=== PATIENT | female | born 1945 | race Caucasian/White ===

== ENCOUNTER → 2016-05-26 | Outpatient (CLI) | payer MEDICARE ==
[2016-05-26 09:43] LABS: ALT 39 U/L (9-52); AST 42 U/L (14-36); Cholesterol 174 mg/dL (<200); HDL Cholesterol 61 mg/dL (40-60); Triglycerides 100 mg/dL (<150)
== END ==
LOC: LABWHC1 08:26
PROVIDERS: ATTEND Internal Medicine Cardiovascular Disease
DX: I25.10 Atherosclerotic heart disease of native coronary artery without angina pectoris (principal); E78.5 Hyperlipidemia, unspecified
CPT/HCPCS: 36415; 80061; 84450; 84460

== ENCOUNTER → 2017-05-19 | Outpatient (CLI) | payer MEDICARE ==
--- NOTE | 2017-05-19 13:54 | BD ---
EXAMINATION TYPE: MG DEXA axial skeleton. DATE OF EXAM: 05/19/2017 COMPARISON: 08.17.2012 CLINICAL HISTORY: 72 YR OLD FEMALE...ICD-10 CODE: Z13.820 OSTEOPOROSIS SCREEN Height: 63.5 Weight: 188 FRAX RISK QUESTIONS: Alcohol (3 or more units per day): NO Family History (Parent hip fracture): YES GRANDMOTHER WITH BROKEN HIP Glucocorticoids (More than 3mos): NO (Ex: prednisone, prednisolone, methylprednisolone, dexamethasone, and hydrocortisone). History of Fracture in Adulthood: YES Secondary Osteoporosis: YES 1. Type 1 Diabetes: NO 2. Hyperthyroidism: NO 3. Menopause before 45: YES 4. Malnutrition: NO 5. Chronic liver disease: NO Rheumatoid Arthritis: NO Current Tobacco Use: NO, QUIT 15 YRS AGO. RISK FACTORS HISTORY OF: RT TIB/FIB....AT AGE 70 YRS OLD History of Wrist Fracture: RT WRIST AT AGE 32 Family History of Osteoporosis: YES, HER GRANDMOTHER...WITH BROKEN HIP Active: YES Diet low in dairy products/other sources of calcium: NO Postmenopausal woman: AT 45 YRS OLD, NATURAL Hyperparathyroidism: NO Adrenal Insufficiency: NO MEDICATIONS: Osteoporosis Medications: FOSAMAX IN THE PAST....STOPPED OVER 10 YRS AGO Additional Medications: BP MEDS, LIPITOR, VIT D, Additional History: HEART DISEASE, SKIN CA ON LEG, OPEN HEART SURG. EXAM MEASUREMENTS: Bone mineral densitometry was performed using the [employer] System. Bone mineral density as measured about the Lumbar spine is: ----- L1-L4(G/cm2): 1.158 T Score Values are as follows: ----- L1: -1.4 ----- L2: -1.0 ----- L3: 0.9 ----- L4: 0.4 ----- L1-L4: -0.2 Bone mineral density has: Increased 4.9% since study of: 08.17.2012 Bone mineral density about the R hip (g/cm2): 0.969 Bone mineral density about the L hip (g/cm2): 1.034 T Score values are as follows: -----R Neck: -0.9 -----L Neck: -1.1 -----R Total: -0.3 -----L Total: 0.2 Bone mineral density has: Decreased -5.0% since study of: 08.17.2012 FRAX%S: THERE IS A 20.9% CHANCE OF A MAJOR OSTEOPOROTIC FX AND A 2.9% FOR HIP FX.....PROBABILITY OF FX IN 10 YRS TIME IMPRESSION: Osteopenia (T Score between -2.5 and -1) with regards to the left hip and lumbar spine. There is slightly increased risk of fracture and the patient may be considered for treatment. Re-Screen 2-5 years. NOTE: T-SCORE=SD OF THE YOUNG ADULT MEAN.
--- NOTE | 2017-05-21 09:13 | MM ---
Reason for exam: screening (asymptomatic). Last mammogram was performed 2 years ago. History: Patient is postmenopausal, has history of other cancer at age 71, and is nulliparous. Took estrogen for 15 years 6 months beginning at age 45. Took progesterone for 15 years 6 months beginning at age 45. Physical Findings: A clinical breast exam by your physician is recommended on an annual basis and results should be correlated with mammographic findings. MG 3D Screening Mammo W/Cad Bilateral CC and MLO view(s) were taken. Prior study comparison: May 28, 2015, bilateral MG screening mammo w CAD. October 26, 2013, bilateral MG screening mammo w CAD. The breast tissue is heterogeneously dense. This may lower the sensitivity of mammography. No significant changes when compared with prior studies. ASSESSMENT: Benign, BI-RAD 2 RECOMMENDATION: Routine screening mammogram of both breasts in 1 year.
== END | disposition home or self-care (01) ==
LOC: RADMAMWWP 12:42
PROVIDERS: ATTEND Obstetrics & Gynecology
DX: Z12.31 Encounter for screening mammogram for malignant neoplasm of breast (principal); M85.88 Other specified disorders of bone density and structure, other site
CPT/HCPCS: 77063; 77067; 77080

== ENCOUNTER → 2017-12-09 | Outpatient (CLI) | payer MEDICARE ==
[2017-12-09 17:47] LABS: Albumin 4.1 g/dL (3.80-4.90); Albumin/Globulin Ratio 1.78 (1.20-2.10); Bilirubin, Conjugated 0.2 mg/dL (0.20-0.40); Bilirubin,Unconjugated 0.4 mg/dL; Globulin 2.3 g/dL (2.1-3.7); LDL Cholesterol,Calculated 98.4 mg/dL (0.0-131.0); Total Bilirubin 0.6 mg/dL (0.3-1.2); Total Protein 6.4 g/dL (6.2-8.2); VLDL Calculation 25.6 mg/dL (5.00-40.00)
== END | disposition home or self-care (01) ==
LOC: LABWHC1 08:20
PROVIDERS: ATTEND Internal Medicine Cardiovascular Disease
DX: I25.10 Atherosclerotic heart disease of native coronary artery without angina pectoris (principal); E78.5 Hyperlipidemia, unspecified
CPT/HCPCS: 36415; 80061; 80076

== ENCOUNTER 2018-05-01 09:57 | Emergency (ER) | payer MEDICARE ==
[2018-05-01 10:02] VITALS: RESP 18
--- NOTE | 2018-05-01 10:48 | XR ---
EXAMINATION TYPE: XR wrist complete RT , 4 VIEWS DATE OF EXAM ORDERED: 05/01/2018 HISTORY: Pain following trauma. COMPARISON: None. FINDINGS: There is a fracture of the distal radius and ulna with posterior angulation and mild displ acement. IMPRESSION: COLLES TYPE FRACTURE OF THE DISTAL RADIUS AND ULNA.
--- NOTE | 2018-05-01 11:18 | ED ---
Upper Extremity HPI - General Chief Complaint: Extremity Injury, Upper Stated Complaint: Wrist Injury-fall Source: patient Mode of arrival: ambulatory Limitations: no limitations - History of Present Illness Initial Comments: This is a 72-year-old female the ER status post fall trip and fall on ice. Patient is no medical medical history, no fracture history. No loss of consci ousness did not hit head she is complaining of right hand pain right arm pain right wrist pain. Patient is not on blood thinners. No signs of shortness of breath or chest pain prior MD Complaint: Injury to:: right, wrist -: hour(s) Other Extremity Injury: Wrist: Right (Deformity) Other Injuries: none Handedness: right Place: home Severity scale (1-10): 6 Improves With: immobilization, medication Worsens With: movement of extremity Context: fall, direct blow Associated Symptoms: denies other symptoms - Related Data Home Medications Medication Instructions Recorded Confirmed Nitroglycerin Sl Tabs [Nitrostat] 0.4 mg SUBLINGUAL Q5M PRN 01/17/14 05/01/18 Atorvastatin [Lipitor] 10 mg PO HS 05/01/18 05/01/18 Losartan Potassium [Cozaar] 25 mg PO DAILY 05/01/18 05/01/18 Metoprolol Succinate (ER) [Toprol 25 mg PO DAILY 05/01/18 05/01/18 Xl] Previous Rx's Medication Instructions Recorded Aspirin 81 mg PO DAILY #30 chew 01/23/14 Allergies Allergy/AdvReac Type Severity Reaction Status Date / Time clindamycin AdvReac Nausea & Verified 05/01/18 10:32 Vomiting & Diarrhea codeine AdvReac Unknown Verified 05/01/18 10:32 latex AdvReac Itching Verified 05/01/18 10:32 streptomycin AdvReac Nausea & Verified 05/01/18 10:32 Vomiting & Diarrhea Review of Systems ROS Statement: Those systems with pertinent positive or pertinent negative responses have been documented in the HPI. ROS Other: All systems not noted in ROS Statement are negative. Past Medical History Additional Past Medical History / Comment(s): SHORTNESS OF BREATH, CHEST TIGHTNESS. History of Any Multi-Drug Resistant Organisms: MRSA Date of last positivie culture/infection: infected drain 20+ years prior Past Surgical History: Appendectomy, Cholecystectomy, Tubal Ligation Additional Past Surgical History / Comment(s): right wrist fracture as a child. right foot fracture. fatty cyst removed from under right arm. appendectomy, cholecystectomy Past Anesthesia/Blood Transfusion Reactions: No Reported Reaction Past Psychological History: No Psychological Hx Reported Smoking Status: Former smoker Past Alcohol Use History: None Reported Past Drug Use History: None Reported General Exam - General Exam Comments Initial Comments: Significant right wrist deformity, edema. Pulses are equal neurovascularly intact Limitations: no limitations General appearance: alert, in no apparent distress Head exam: Present: atraumatic, normocephalic, normal inspection Eye exam: Present: normal appearance, PERRL, EOMI. Absent: scleral icterus, conjunctival injection, periorbital swelling ENT exam: Present: normal exam, mucous membranes moist Neck exam: Present: normal inspection. Absent: tenderness, meningismus, lymphadenopathy Respiratory exam: Present: normal lung sounds bilaterally. Absent: respiratory distress, wheezes, rales, rhonchi, stridor Cardiovascular Exam: Present: regular rate, normal rhythm, normal heart sounds. Absent: systolic murmur, diastolic murmur, rubs, gallop, clicks GI/Abdominal exam: Present: soft, normal bowel sounds. Absent: distended, tenderness, guarding, rebound, rigid Extremities exam: Present: normal inspection, full ROM, normal capillary refill. Absent: tenderness, pedal edema, joint swelling, calf tenderness Back exam: Present: normal inspection Neurological exam: Present: alert, oriented X3, CN II-XII intact Psychiatric exam: Present: normal affect, normal mood Skin exam: Present: warm, dry, intact, normal color. Absent: rash Course Vital Signs 05/01/18 09:59 Temperature 97.7 F Pulse Rate 57 L Respiratory 18 Rate Blood Pressure 160/69 O2 Sat by Pulse 98 Oximetry - Reevaluation(s) Reevaluation #1: 05/01/18 11:39 Medical records reviewed Reevaluation #2: 05/01/18 11:39 Patient is improved pain control with hematoma block Procedures - Orthopedic Fracture Reduction Fracture #1 Consent Obtained: verbal consent Side: right Fracture Reduction Location: radius, ulna Analgesia: hematoma block Technique: direct manipulation Post Reduction X-rays Demonstrate: acceptable reduction Post-Reduction Neuro Exam: intact Post-Reduction Vascular Exam: intact Splint Applied: Yes Patient Tolerated Procedure: well Medical Decision Making - Medical Decision Making 72 female the ER with slip and fall resulting in right Colles' fracture. Fracture was displaced, with hematoma block fracture was reduced and patient can be discharged home - Radiology Data Radiology results: report reviewed (X-ray right wrist positive for Colles' fracture with distal displacement shortening comminution, XR post reduction shows acceptable reduction), image reviewed Disposition Clinical Impression: Right wrist fracture Disposition: HOME SELF-CARE Instructions (If sedation given, give patient instructions): Wrist Fracture in Adults (ED) Is patient prescribed a controlled substance at d/c from ED?: No Referrals: Olman Sommers MD [Primary Care Provider] - 1-2 days
[2018-05-01] MEDS ORDERED: LIDOCAINE 1% INJ 10MG/ML (20 ML MDV) SQ STA (11:20)
--- NOTE | 2018-05-01 12:32 | XR ---
EXAMINATION TYPE: XR wrist limited RT , 2 VIEWS DATE OF EXAM ORDERED: 05/01/2018 HISTORY: Post reduction. COMPARISON: Previous study of earlier today. FINDINGS: There is immobilized in a fiberglass cast. There is been a partial reduction of the patien t's Colles fracture. There continues be mild posterior angulation and mild displacement. IMPRESSION: PARTIAL REDUCTION OF THE PATIENT'S COLLES FRACTURE.
[2018-05-01 12:33] VITALS: BP 129/73; PULSE 77; TEMP 98
== END 2018-05-01 12:33 | disposition home or self-care (01) ==
LOC: EC 09:57
DX: S52.531A Colles' fracture of right radius, initial encounter for closed fracture (principal); Z87.891 Personal history of nicotine dependence; Z88.1 Allergy status to other antibiotic agents; Z88.5 Allergy status to narcotic agent; Z91.040 Latex allergy status; Z79.899 Other long term (current) drug therapy; Z86.14 Personal history of Methicillin resistant Staphylococcus aureus infection; Z86.79 Personal history of other diseases of the circulatory system; Z87.81 Personal history of (healed) traumatic fracture; Z98.890 Other specified postprocedural states; W00.0XXA Fall on same level due to ice and snow, initial encounter
CPT/HCPCS: 73100; 73110; 99283; 25605; J2001

== ENCOUNTER → 2018-05-06 | Outpatient (CLI) | payer MEDICARE | END | disposition home or self-care (01) | LOC: LABPAT 10:25 | PROVIDERS: ATTEND Anesthesiology | DX: Z01.818 Encounter for other preprocedural examination (principal) | CPT/HCPCS: 93005 ==

== ENCOUNTER 2018-05-07 10:48 | Day surgery (SDC) | payer MEDICARE ==
[~2018-05-07 10:48] MED LIST: DEXAMETHASONE SOD PHOSPHATE 10 MG/ML 1 ML VIAL IV ONE; HYDROmorphone 0.5 MG/0.5 ML SYRINGE IVP PRN; LACTATED RINGERS 1,000 ML IV SCH; LIDOCAINE 1% 20 ML VIAL (10MG/ML) FOR IV START INTRADERMA PRN; MIDAZOLAM 2 MG/2 ML VIAL IV PRN; ONDANSETRON 4 MG/2 ML VIAL IVP ONE; SCOPOLAMINE 1.5MG/72HR PATCH TRANSDERM ONE; ceFAZolin IN SWFI 2 GM/20 ML SYRINGE IVP ONE
[2018-05-07] MEDS ORDERED: fentaNYL (PF) 50 MCG/ML 2 ML AMP IV ONE (12:05)
--- NOTE | 2018-05-07 12:20 | P.ONQ ---
Anesthesiology Proc Note - PNB - Peripheral Nerve Block Performed Right Axillary Single Time Out Performed: Yes ([id number]) Procedure Start Time: 12:05 Procedure Stop Time: 12:10 Indication: Acute Post-Operative Pain, Dx/Pain Location (Right Wrist Pain), Requested by physician Sedation Type: Sedate with meaningful contact maintained Preparation: Sterile Prep Position: Supine Catheter: None Needle Types: On-Q Needle Size: 50mm (2") Needle Gauge: 21 Technique: Ultrasound Injectate: Other (see comment) (15ml 0.5% Ropivacaine + 6 ml 2% Lidocaine with 1:200,000 epi + 4mg Dexamethasone) Blood Aspirated: No Pain Paresthesia on Injection Noted: No Resistance on Injection: Normal Events: Uneventful and Well Tolerated
[2018-05-07] MEDS ORDERED: LIDOCAINE 1% INJ 10MG/ML (20 ML MDV) ONE (12:41)
[2018-05-07] MEDS ORDERED: fentaNYL (PF) 50 MCG/ML 2 ML AMP ONE (12:41)
[2018-05-07] MEDS ORDERED: ROPIVACAINE 5 MG/ML 30 ML VIAL ONE (12:41)
[2018-05-07] MEDS ORDERED: ePHEDrine SULFATE/0.9% NACL/PF 50 MG/5 ML SYRINGE IV ONE (12:41)
[2018-05-07] MEDS ORDERED: PHENYLEPHRINE-0.9% NACL SYG 1 MG/10 ML SYRINGE ONE (12:41)
[2018-05-07] MEDS ORDERED: MIDAZOLAM 2 MG/2 ML VIAL ONE (12:41)
[2018-05-07] MEDS ORDERED: PROPOFOL 10 MG/ML 20 ML VIAL IV ONE (12:41)
[2018-05-07] MEDS ORDERED: LACTATED RINGERS 1,000 ML IV ONE (13:39)
[2018-05-07] MEDS ORDERED: BUPIVACAIN-EPI 0.5%-1:200,000 30 ML VIAL SQ ONE ×2 (14:29)
--- NOTE | 2018-05-07 14:59 | FL ---
EXAMINATION TYPE: FL guidance operating room, XR wrist limited RT DATE OF EXAM: 05/07/2018 CLINICAL HISTORY: Right wrist fracture. TECHNIQUE: Fluoroscopy. Limited intraoperative views right wrist. COMPARISON: Right wrist x-ray May 01, 2018. FINDINGS: Fluoroscopic guidance was provided during open reduction internal fixation procedure perfo rmed by Dr. Heard. A total of 41 seconds of fluoroscopic time was utilized during the procedure and 6 spot fluoroscopic intraoperative images are acquired. Images acquired show placement of dorsal fixating plate through comminuted fractures distal radial me ta-epiphysis with satisfactory alignment seen on intraoperative images obtained. IMPRESSION: As Above.
[2018-05-07 15:20] VITALS: RESP 16
--- NOTE | 2018-05-07 15:43 | P.OP ---
Date of Procedure: 05/07/18 Preoperative Diagnosis: Displaced, intra-articular right distal radius fracture Postoperative Diagnosis: Displaced, intra-articular right distal radius fracture Procedure(s) Performed: Open reduction and internal fixation of intra-articular right distal radius fracture (greater than 3 fragments) Implants: AcuLoc-2 locking volar distal radius plate (right, narrow) with locking, variable angle and cortical screws Anesthesia: MAC, regional, local Surgeon: Brian Heard Animal Geneticist #1: Jami Linder Estimated Blood Loss (ml): 5 IV fluids (ml): 700 Pathology: none sent Condition: stable Disposition: PACU Indications for Procedure: The patient is a 73 year-old female who sustained an injury to her right wrist, resulting in a displaced distal radius fracture. Surgical treatment was recommended. Risks and benefits were discussed in the office and reviewed in preop. Questions were invited and answered. The patient expressed understanding and wished to proceed with surgery. Consent forms were signed. The operative site was confirmed and marked. Description of Procedure: The patient was administered a regional nerve block by the anesthesia team then brought to the operating suite. The patient was positioned supine with the operative limb on an arm board. All bony prominences were well padded. Anesthesia was administered uneventfully. Prophylactic IV antibiotics were administered. A tourniquet was placed on the operative arm which was then prepped and draped in standard, sterile fashion. A timeout was performed which confirmed the patient, the operative side, the site and the procedure to be performed. All team members expressed agreement. The limb was exsanguinated with an Esmarch and the tourniquet was inflated. A standard volar FCR approach was utilized. The patient had a previous surgery as an adolescent through a volar incision, more toward the midline/ulnar side. This was well-healed and there was an ample skin bridge between the two in cisions. The skin was incised sharply and subcutaneous tissue were spread, coagulating superficial vessels as needed. Subcutaneous tissues were moderately edematous and the anatomy was somewhat distorted due to the displaced fracture fragments. The radial artery was identified and protected throughout the case. The FCR tendon was identified. The sheath was incised and the tendon was mobilized. Blunt dissection was used and the pronator quadratus was identified. This was traumatically disrupted distally, just proximal to the watershed line. This was sharply extended along its radial border and & subperiosteally elevated ulnarly. The fracture site was identified. There was a large, displaced radial styloid fracture with loss of height along the radial column. There was a transverse component across the metaphysis as well as fragments of both the dorsal and volar ulnar corners. The fracture was carefully opened with a freer elevator. A curette was used to remove hematoma and fibrous tissue. The fracture fragments were gently manipulated into position. A manual reduction was performed using a combination of axial traction, ulnar deviation and palmar translation. Good provisional reduction was obtained. A 0.062 K wire was encouraged was percutaneously into the radial styloid. With the fracture held reduced, this was advanced through the fragment and into the metaphysis. Position and alignment was confirmed on imaging. A volar plate was selected, based on the patients anatomy and fracture pattern, and was positioned on the bone. It was provisionally pinned in place with K- wires and its position was confirmed on imaging. A cortical screw was drilled, measured and inserted into the oblong hole of the shaft. Locking screws were drilled, measured and inserted distally, confirming length and trajectory with fluoroscopy. A paucity of subchondral bone was noted beneath the articular fragments of the lunate fossa. A variable-angle screw was selected and inserted to obtain optimal purchase in the available bone. The provisional K-wires were removed. An additional cortical screw was drilled and inserted to further secure the plate to the metaphysis. Final x-rays were obtained which revealed satisfactory reduction of the fracture. A 20-degree inclined lateral view was obtained to confirm extra-articular screw placement. The wrist was then ranged under live fluoroscopy: No motion was detected of the fracture fragments or fixation construct. The wrist was stressed with axial load and dorsal translation of the carpus. No motion of the dorsal or volar rim fragments was identified. The wrist articulated smoothly without crepitus or grinding. The tourniquet was released and good hemostasis was obtained with pressure and electrocautery. The wound was thoroughly irrigated with normal saline. The pronator was loosely repaired over the plate with 3-0 Vicryl sutures. The subcutaneous tissues were reapproximated with interrupted 3-0 Vicryl suture. The incision was closed with interrupted 4-0 nylon suture. Marcaine with epinephrine was injected into the perioperative subcutaneous tissues for adjunctive postoperative pain control and hemostasis. A sterile dressing was applied followed by a resting volar splint. All sponge and needle counts were correct at the end of the case. The patient tolerated the procedure well and was taken to the recovery room in stable condition. Plan - Discharge Summary Discharge Rx Participant: No New Discharge Prescriptions: No Action Nitroglycerin Sl Tabs [Nitrostat] 0.4 mg SUBLINGUAL Q5M PRN PRN Reason: Chest Pain Aspirin 81 mg PO DAILY #30 chew Atorvastatin [Lipitor] 10 mg PO HS Metoprolol Succinate (ER) [Toprol Xl] 25 mg PO QAM Hydrocodone (Unknown Dose) 1 tab PO DIRECTED PRN PRN Reason: Pain Ibuprofen [Motrin] 800 mg PO HS Losartan/Hydrochlorothiazide [Losartan-Hctz 100-25 mg Tab] 25 mg PO DAILY Discharge Medication List Nitroglycerin Sl Tabs [Nitrostat] 0.4 mg SUBLINGUAL Q5M PRN 01/17/14 [History] Aspirin 81 mg PO DAILY #30 chew 01/23/14 [Rx] Atorvastatin [Lipitor] 10 mg PO HS 05/01/18 [History] Metoprolol Succinate (ER) [Toprol Xl] 25 mg PO QAM 05/01/18 [History] Hydrocodone (Unknown Dose) 1 tab PO DIRECTED PRN 05/05/18 [History] Ibuprofen [Motrin] 800 mg PO HS 05/05/18 [History] Losartan/Hydrochlorothiazide [Losartan-Hctz 100-25 mg Tab] 25 mg PO DAILY 05/07/18 [History] Follow up Appointment(s)/Referral(s): Brian Heard DO [Medical Doctor] - 10 Days Activity/Diet/Wound Care/Special Instructions: Orthopedic Postoperative Discharge Instructions Ice & elevate the right hand/wrist. Use pain medication as directed. May resume using ibuprofen tomorrow afternoon (05/08/18). May resume aspirin on Thursday (05/09) No strenuous/forceful use of the hand. No lifting/gripping/pushing/pulling. Ok to use hand for light activities (eating/dressing/etc). Discontinue use of the sling after the nerve block wears off. Keep the splint/dressing dry. Cover with a plastic bag to shower. Perform finger voyxy-vy-afldtc exercises several times daily. Call as soon as possible to schedule a follow-up appointment to be seen in approximately 10 days. Discharge Disposition: HOME SELF-CARE
[2018-05-07 16:07] VITALS: TEMP 97.5
[2018-05-07 16:13] VITALS: BMI 31.5
[2018-05-07 17:02] VITALS: BP 150/68; PULSE 89
== END 2018-05-07 17:15 | disposition home or self-care (01) ==
LOC: OR 10:48 → 4SSUR 14:50 → OR 17:15
PROVIDERS: ATTEND Orthopaedic Surgery
DX: S52.571A Other intraarticular fracture of lower end of right radius, initial encounter for closed fracture (principal); W01.0XXA Fall on same level from slipping, tripping and stumbling without subsequent striking against object, initial encounter; Y92.89 Other specified places as the place of occurrence of the external cause; Z87.81 Personal history of (healed) traumatic fracture; E78.5 Hyperlipidemia, unspecified; I11.9 Hypertensive heart disease without heart failure; I48.91 Unspecified atrial fibrillation; Z95.1 Presence of aortocoronary bypass graft; Z87.891 Personal history of nicotine dependence; Z79.82 Long term (current) use of aspirin; Z79.899 Other long term (current) drug therapy; Z88.1 Allergy status to other antibiotic agents; Z91.040 Latex allergy status; Z88.5 Allergy status to narcotic agent; Z91.048 Other nonmedicinal substance allergy status
CPT/HCPCS: 25609; 64417; 73100; C1713; J2250; J1100; J2405; J2001; J3010; J2795; J2370; J2704; J0690; 64413

== ENCOUNTER → 2018-07-09 | Outpatient (CLI) | payer MEDICARE ==
--- NOTE | 2018-07-13 11:45 | MM ---
Reason for exam: screening (asymptomatic). Last mammogram was performed 1 year and 2 months ago. History: Patient is postmenopausal, has history of other cancer at age 71, and is nulliparous. Took estrogen for 15 years 6 months beginning at age 45. Took progesterone for 15 years 6 months beginning at age 45. Physical Findings: A clinical breast exam by your physician is recommended on an annual basis and results should be correlated with mammographic findings. MG Screening Mammo w CAD Bilateral CC, MLO, and XCCL view(s) were taken. Prior study comparison: May 19, 2017, bilateral MG 3d screening mammo w/cad. May 28, 2015, bilateral MG screening mammo w CAD. The breast tissue is heterogeneously dense. This may lower the sensitivity of mammography. Developing asymmetry left middle posterior depth CC view central inner aspect, second area of concern MLO view marked posterior aspect. ASSESSMENT: Incomplete: need additional imaging evaluation, BI-RAD 0 RECOMMENDATION: Special view mammogram of the left breast. If lesion persists on supplemental views, image directed ultrasound is recommended. [facility] will attempt to contact patient to return for supplemental views and ultrasound if indicated. LAMAR
== END | disposition home or self-care (01) ==
LOC: RADMAMWWP 08:17
PROVIDERS: ATTEND Obstetrics & Gynecology
DX: Z12.31 Encounter for screening mammogram for malignant neoplasm of breast (principal)
CPT/HCPCS: 77067

== ENCOUNTER → 2018-07-19 | Outpatient (CLI) | payer MEDICARE ==
--- NOTE | 2018-07-20 11:02 | MM ---
Reason for exam: additional evaluation requested from abnormal screening. Last mammogram was performed less than 1 month ago. History: Patient is postmenopausal, has history of other cancer at age 71, and is nulliparous. Took estrogen for 15 years 6 months beginning at age 45. Took progesterone for 15 years 6 months beginning at age 45. Physical Findings: Nurse did not find any significant physical abnormalities on exam. MG 3D Work Up W/Cad LT Spot compression CC, spot compression MLO, and LM view(s) were taken of the left breast. Prior study comparison: July 09, 2018, bilateral MG screening mammo w CAD. May 19, 2017, bilateral MG 3d screening mammo w/cad. The breast tissue is heterogeneously dense. This may lower the sensitivity of mammography. The previously seen abnormality resolves on additional views and appears as fibroglandular tissue compatible with summation. No suspicious abnormality. These results were verbally communicated with the patient and result sheet given to the patient on 07/19/18. ASSESSMENT: Negative, BI-RAD 1 RECOMMENDATION: Return to routine screening mammogram schedule for both breasts.
== END | disposition home or self-care (01) ==
LOC: RADMAMWWP 09:54
PROVIDERS: ATTEND Obstetrics & Gynecology
DX: R92.8 Other abnormal and inconclusive findings on diagnostic imaging of breast (principal)
CPT/HCPCS: 77065; G0279; 77061

== ENCOUNTER → 2019-01-07 | Outpatient (CLI) | payer MEDICARE | LOC: LABWHC1 07:30 | PROVIDERS: ATTEND Internal Medicine Cardiovascular Disease | DX: Z53.9 Procedure and treatment not carried out, unspecified reason (principal) ==

== ENCOUNTER → 2019-01-07 | Outpatient (CLI) | payer MEDICARE ==
[2019-01-07 08:12] LABS: Basophils # (A) 0.1 k/uL (0-0.2); Basophils % (A) 1 %; Eosinophils # (A) 0.4 k/uL (0-0.7); Eosinophils % (A) 6 %; HCT 43.2 % (34.0-46.0); HGB 14.3 gm/dL (11.4-16.0); Lymphocytes # (A) 2.4 k/uL (1.0-4.8); Lymphocytes % (A) 35 %; MCH 31.8 pg (25.0-35.0); MCHC 33.1 g/dL (31.0-37.0); MCV 96.1 fL (80.0-100.0); Mean Platelet Volume 6.5; Monocytes # (A) 0.5 k/uL (0-1.0); Monocytes % (A) 7 %; Neutrophils # (A) 3.4 k/uL (1.3-7.7); Neutrophils % (A) 49 %; Platelet Count 284 k/uL (150-450); RDW 12.9 % (11.5-15.5); WBC 6.8 k/uL (3.8-10.6)
[2019-01-07 08:33] LABS: Albumin 3.8 g/dL (3.5-5.0); Calcium 9.2 mg/dL (8.4-10.2); Potassium 4.4 mmol/L (3.5-5.1); Total Bilirubin 0.6 mg/dL (0.2-1.3)
== END | disposition home or self-care (01) ==
LOC: LABPAT 07:34
PROVIDERS: ATTEND Internal Medicine Cardiovascular Disease
DX: Z01.812 Encounter for preprocedural laboratory examination (principal); I25.810 Atherosclerosis of coronary artery bypass graft(s) without angina pectoris
CPT/HCPCS: 80053; 80061; 85025

== ENCOUNTER → 2019-01-25 | Day surgery (SDC) | payer MEDICARE ==
[2019-01-21 08:57] VITALS: BMI 28.7
[~2019-01-25] MED LIST changes: +ALPRAZolam 0.25 MG TAB PO PRN; +ALPRAZolam 0.5 MG TAB PO PRN; +ASPIRIN 325 MG TAB PO STA; +ASPIRIN 81 MG PO SCH; +ATORVASTATIN 10 MG TAB PO SCH; +ATORVASTATIN 80 MG TAB PO STA; +CLOPIDOGREL 75 MG TAB PO ONE; -DEXAMETHASONE SOD PHOSPHATE 10 MG/ML 1 ML VIAL IV ONE; -HYDROmorphone 0.5 MG/0.5 ML SYRINGE IVP PRN; +IOPAMIDOL-370 100ML BTL INJ ONE; +IOPAMIDOL-370 125ML BTL INJ ONE; -LACTATED RINGERS 1,000 ML IV SCH; -LIDOCAINE 1% 20 ML VIAL (10MG/ML) FOR IV START INTRADERMA PRN; +LIDOCAINE 1% INJ 10MG/ML (20 ML MDV) SQ ONE; +LOSARTAN 25 MG TAB PO SCH; +METOPROLOL TARTRATE 25 MG TAB PO SCH; -MIDAZOLAM 2 MG/2 ML VIAL IV PRN; +NITROGLYCERIN 1000MCG/10ML SYRINGE INTRACORON ONE; +NITROGLYCERIN SL TABS 0.4 MG TAB SUBLINGUAL PRN; -ONDANSETRON 4 MG/2 ML VIAL IVP ONE; -SCOPOLAMINE 1.5MG/72HR PATCH TRANSDERM ONE; +SODIUM CHLORIDE 0.9% 1,000 ML IV ONE; +SODIUM CHLORIDE 0.9% 1,000 ML in EMPTY BAG 1 BAG IV ONE; -ceFAZolin IN SWFI 2 GM/20 ML SYRINGE IVP ONE; +fentaNYL (PF) 50 MCG/ML 2 ML AMP IV ONE
[2019-01-25 08:38] VITALS: TEMP 98.2
[2019-01-25] MEDS: MIDAZOLAM 2 MG/2 ML VIAL IV ONE ×2 (09:12→10:39)
--- NOTE | 2019-01-25 10:39 | P.CARDCATH ---
Date of Procedure: 01/25/19 Preoperative Diagnosis: Positive stress test, history of bypass surgery Postoperative Diagnosis: Total occlusion of the 2 vein grafts with patent KAY graft to the LAD and the RAHEEL graft to the RCA with of moderate disease at the distal anastomosis of the KAY graft to the RCA. Procedure(s) Performed: Left heart catheterization without left ventriculography Description of Procedure: HISTORY: This is a 73-year-old female with history of ischemic heart disease with a previous bypass surgery done in 2013. Patient had a KAY graft to the LAD and RAHEEL graft to the RCA in 2 vein grafts to the circumflex system. Patient recently had a stress test which showed ischemia involving the lateral wall which is reversible. Patient is advised to have a cardiac catheterization for definitive diagnosis. CONSENT:I have discussed the risks, benefits and alternative therapies for the above-mentioned procedure and for both sedation/analgesia as well as necessary blood product administration, if indicated, as they pertain to this patient. The patient has indicated understanding and acceptance of the risks and procedures discussed. PROCEDURE: Patient was brought to the lab in a fasting state. Patient was given some IV sedation. The right groin is infiltrated with lidocaine and right femoral artery was entered using Seldinger technique. A 6-Ma[place] catheter was left in place and selective coronary arteriography including selective injection of 2 vein grafts and 2 articular grafts was performed. Patient tolerated the procedure well. Femoral angiogram was performed . No immediate complications were noted and patient went on to have stent placement circumflex by Dr. GHISLAINE Cooper Conscious Sedation: Versed 1mg Fentanyl 59 g Duration 42minutes HEMODYNAMICS:. The aortic pressure is about 115/50. Left ventricular end- diastolic pressure was not measured SELECTIVE CORONARY ARTERIOGRAPHY: LEFT MAIN: Normal length with a diffuse disease THE LEFT ANTERIOR DESCENDING CORONARY ARTERY: Totally occluded in the proximal portion THE LEFT CIRCUMFLEX AND IS CORONARY ARTERY:. This is a diffusely diseased vessel. The first OM/intermediate branch has diffuse disease and became very narrow on small. The mid and distal circumflex is diffuse disease with areas of about 90% stenosis and multiple areas of stenosis THE RIGHT CORONARY ARTERY:. This is a good caliber vessel with about 80-90% stenosis in the distal portion. There is RAHEEL graft attached distal to this stenosis which seemed to have moderate disease at the anastomotic site. THE KAY GRAFT TO THE LAD: This is patent throat its length and also of the distal anastomosis. THE KAY GRAFT TO THE RCA: This is patent throat its length with moderate disease at the distal anastomotic site. No VEIN GRAFTS TO THE OM 1 AND 2: Both of them total occluded at the proximal anastomosis LEFT VENTRICULOGRAPHY: Not performed FINAL IMPRESSION:. Total occlusion of the graft to the OM branch time to. The KAY to the LAD is patent and the KAY to the RCA has moderate disease of the distal anastomosis. The [place] circumflex has multiple lesions. [place] RCA has critical lesion prior to the stenotic site PLAN: Stent placement of the circumflex probably at multiple sites being attempted by Dr. GHISLAINE Cooper. If ischemia is documented in the RCA distribution stent placement of the distal RCA could be constricted PROGNOSIS: Guarded
--- NOTE | 2019-01-25 11:57 | PTCA ---
PERCUTANEOUSTRANSLUMINAL CORONARY ANGIOPLASTY DATE OF SERVICE: 01/25/2019 PROCEDURE: PTCA of the circumflex coronary artery angiography. PERFORMED BY: Dr. Lamine Cooper. Moderate conscious sedation time was 50 minutes. Patient was given Versed. Oxygen saturation, hemodynamics and EKG were monitored closely. CLINICAL INFORMATION: Mrs. Tere Vasques is a patient with known CAD, prior bypass surgery in 2013 with a KAY to LAD, RAHEEL to RCA and 2 vein graft to the first obtuse marginal and second obtuse marginal. She was advised cardiac cath after due evaluation by Dr. Thomas and cardiac cath revealed that both the vein graft to circumflex system were occluded. KAY to LAD and RAHEEL to RCA were patent. She had a [place] circumflex disease which was quite severe, almost a chronic total occlusion of circumflex which was coming at a 90 degrees angle from the main circumflex and also the first obtuse marginal was highly diseased. I recommended PCI with the understanding the risk is high and the success rate is low. PROCEDURE NOTE: I used initially a JL4 and then switched over to a JL3.5 guide catheter to cannulate the left coronary artery. I tried initially with a Whisper wire with straight tip with a steep curve and again used a run-through wire and also another whisper with a J-tip and steep curve, but I could not get into the chick[place] tribe circumflex which came off at a 90 degrees angle from the short left main. I was able to get into the first OM and gave a single inflation with a 2.0 caliber 12 mm balloon with a modest result. However, the flow appeared to be sluggish in the entire circumflex system. Patient remained hemodynamically stable and was free of chest pain. The sheath was taken out and Angio- Seal device used to secure hemostasis. I advised the patient that I will transfer to [facility] to see if Dr. Ramos will be successful with what seems to be [employer] occlusion. Discussed with Patient and her in detail. They agreed and wished to proceed. The success rate is low and this was explained to the patient and . The patient was hemodynamically stable, free of chest pain and she will be transferred today for the circumflex PCI. The success rate is low and patient and family are aware of this, but I believe there is a better chance than, but this is probably a better option at this time. Patient received 6000 units of Heparin IV and ACT was 274. Plavix 600mg was given. MMODL / IJN: [id number] / [facility]
[2019-01-25 13:26] VITALS: RESP 16
[2019-01-25 13:42] VITALS: BP 147/77; PULSE 69
== END ==
LOC: CATHCVL 08:06
PROVIDERS: ATTEND Internal Medicine Cardiovascular Disease
DX: I25.810 Atherosclerosis of coronary artery bypass graft(s) without angina pectoris (principal); I25.82 Chronic total occlusion of coronary artery; I25.10 Atherosclerotic heart disease of native coronary artery without angina pectoris; I10 Essential (primary) hypertension; E78.2 Mixed hyperlipidemia; Z95.1 Presence of aortocoronary bypass graft; F17.210 Nicotine dependence, cigarettes, uncomplicated; Z79.82 Long term (current) use of aspirin; Z79.899 Other long term (current) drug therapy; Z88.1 Allergy status to other antibiotic agents; Z88.5 Allergy status to narcotic agent; Z82.49 Family history of ischemic heart disease and other diseases of the circulatory system
CPT/HCPCS: 93455; 92920; 85347; C1769 ×7; C1760; C1887; C1725; C1894; J2250; J2001; J3010; J1644; Q9967 ×2

== ENCOUNTER → 2019-09-30 | Outpatient (CLI) | payer MEDICARE ==
[2019-09-30 08:47] LABS: Albumin 3.9 g/dL (3.5-5.0); Bilirubin, Delta 0.2 mg/dL (0.0-0.2); Bilirubin,Unconjugated 0.6 mg/dL (0.0-1.1); Total Bilirubin 0.8 mg/dL (0.2-1.3); Total Protein 6.7 g/dL (6.3-8.2)
--- NOTE | 2019-10-03 09:51 | MM ---
Reason for exam: screening (asymptomatic). Last mammogram was performed 1 year and 2 months ago. History: Patient is postmenopausal, has history of other cancer at age 71, and is nulliparous. Took estrogen for 15 years 6 months beginning at age 45. Took progesterone for 15 years 6 months beginning at age 45. Physical Findings: A clinical breast exam by your physician is recommended on an annual basis and results should be correlated with mammographic findings. MG 3D Screening Mammo W/Cad Bilateral CC and MLO view(s) were taken. Prior study comparison: July 19, 2018, left breast MG 3d work up w/cad LT. July 09, 2018, bilateral MG screening mammo w CAD. The breast tissue is heterogeneously dense. This may lower the sensitivity of mammography. There is no discrete abnormality. No significant changes when compared with prior studies. ASSESSMENT: Negative, BI-RAD 1 RECOMMENDATION: Routine screening mammogram of both breasts in 1 year.
== END | disposition home or self-care (01) ==
LOC: RADMAMWWP 08:03
PROVIDERS: ATTEND Obstetrics & Gynecology
DX: Z12.31 Encounter for screening mammogram for malignant neoplasm of breast (principal); I25.10 Atherosclerotic heart disease of native coronary artery without angina pectoris; E78.5 Hyperlipidemia, unspecified
CPT/HCPCS: 77063; 77067; 80061; 80076

== ENCOUNTER → 2020-10-08 | Outpatient (CLI) | payer MEDICARE ==
[2020-10-08 11:46] LABS: Albumin 3.9 g/dL (3.5-5.0); Bilirubin,Unconjugated 0.8 mg/dL (0.0-1.1); Total Bilirubin 0.8 mg/dL (0.2-1.3); Total Protein 6.6 g/dL (6.3-8.2)
--- NOTE | 2020-10-08 12:27 | BD ---
EXAMINATION TYPE: Axial Bone Density DATE OF EXAM: 10/08/2020 COMPARISON: 05.19.2017 CLINICAL HISTORY: 75 YR OLD FEMALE......ICD-10 CODE: M85.88 OTHER DISORDER OF BD Height: 64 Weight: 188 FRAX RISK QUESTIONS: Family History (Parent hip fracture): YES History of Fracture in Adulthood: YES Secondary Osteoporosis: YES 3. Menopause before 45: YES RISK FACTORS HISTORY OF: HX OF RT ANKLE FX 4 YRS AGO History of Wrist Fracture: HX OF RT WRIST FX....WITH SURG AND HARDWARE 2 YRS AGO Family History of Osteoporosis: YES, GRANDMOTHER WITH HIP FX Postmenopausal woman: YES, AT AGE 45 YRS OLD Take estrogen and/or progesterone medications: YES, FOR ABOUT 10 YRS IN THE PAST, NONE NOW Hyperparathyroidism: NO Adrenal Insufficiency: NO MEDICATIONS: Additional Medications: BP MEDS, STATIN FOR CHOLESTEROL, VIT D Additional History: HX OF HEART SURGERY, HX OF SKIN CA ON LT THIGH, CHOLESTEROL, HYPERTENSION, EXAM MEASUREMENTS: Bone mineral densitometry was performed using the Parakweet System. Bone mineral density as measured about the Lumbar spine is: ----- L1-L4(G/cm2): 1.206 T Score Values are as follows: ----- L1: -0.8 ----- L2: -1.0 ----- L3: 1.6 ----- L4: 0.8 ----- L1-L4: 0.2 Bone mineral density has: Increased 3.4% since study of: 05.19.2017 Bone mineral density about the R hip (g/cm2): 0.972 Bone mineral density about the L hip (g/cm2): 1.049 T Score values are as follows: -----R Neck: -1.0 -----L Neck: -1.3 -----R Total: -0.3 -----L Total: 0.3 Bone mineral density has: Increased 1.0% since study of: 05.19.2017 FRAX%s: THERE IS A 22.8% CHANCE FOR A MAJOR OSTEOPOROTIC FX AND A 7.7% FOR HIP.....PROBABILITY FOR FX IN 10 YRS TIME IMPRESSION: No evidence for osteoporosis or osteopenia. NOTE: T-SCORE=SD OF THE YOUNG ADULT MEAN.
[2020-10-08 23:54] LABS: Chol/HDL Ratio 3.41; LDL Cholesterol,Calculated 85.6 mg/dL (0.0-131.0); VLDL Calculation 20.4 mg/dL (5.00-40.00)
--- NOTE | 2020-10-09 09:27 | MM ---
Reason for exam: screening (asymptomatic). Last mammogram was performed 1 year ago. History: Patient is postmenopausal, has history of other cancer at age 71, and is nulliparous. Took hormonal contraceptives for 2 months. Took estrogen for 15 years 6 months beginning at age 45. Took progesterone for 15 years 6 months beginning at age 45. Physical Findings: A clinical breast exam by your physician is recommended on an annual basis and results should be correlated with mammographic findings. MG 3D Screening Mammo W/Cad Bilateral CC and MLO view(s) were taken. Prior study comparison: September 30, 2019, bilateral MG 3d screening mammo w/cad. July 19, 2018, left breast MG 3d work up w/cad LT. The breast tissue is extremely dense which could obscure a lesion on mammography. Benign appearing bilateral calcifications. No significant changes when compared with prior studies. ASSESSMENT: Benign, BI-RAD 2 RECOMMENDATION: Routine screening mammogram of both breasts in 1 year.
== END | disposition home or self-care (01) ==
LOC: RADMAMWWP 10:05
PROVIDERS: ATTEND Obstetrics & Gynecology
DX: Z12.31 Encounter for screening mammogram for malignant neoplasm of breast (principal); Z78.0 Asymptomatic menopausal state; M85.88 Other specified disorders of bone density and structure, other site
CPT/HCPCS: 36415; 77063; 77067; 77080; 80061; 80076

== ENCOUNTER → 2021-10-31 | Outpatient (CLI) | payer MEDICARE ==
[2021-10-31 11:00] LABS: Basophils % (A) 1.1 %; Eosinophils # (A) 0.54 X 10*3/uL (0.04-0.35); Eosinophils % (A) 5.7 %; HCT 42.6 % (37.2-46.3); HGB 13.9 g/dL (12.0-15.0); Immature Grans, Automated 0.2 %; Lymphocytes % (A) 32.7 %; MCH 31.4 pg (27.0-32.0); MCHC 32.6 g/dL (32.0-37.0); MCV 96.2 fL (80.0-97.0); Mean Platelet Volume 9.6 fL (9.5-12.2); Monocytes # (A) 0.89 X 10*3/uL (0.20-1.00); Monocytes % (A) 9.4 %; NRBC Per 100 WBC 0 /100 WBCS (0.0-0.0); Neutrophils # (A) 4.83 X 10*3/uL (1.80-7.70); Neutrophils % (A) 50.9 %; Platelet Count 238 X 10*3/uL (140-440); RBC 4.43 X 10*6/uL (4.10-5.20); RDW 13.2 % (11.5-14.5); WBC 9.48 X 10*3/uL (4.50-10.00)
[2021-10-31 11:28] LABS: ALT 26 U/L (8-44); AST 31 U/L (13-35); African American GFR (CKD) 64.3 (60.0-200.0); Albumin 4.1 g/dL (3.8-4.9); Albumin/Globulin Ratio 1.32 (1.60-3.17); Alkaline Phosphatase 81 U/L (41-126); Blood Urea Nitrogen 16.9 mg/dL (9.0-27.0); Calcium 9.1 mg/dL (8.7-10.3); Carbon Dioxide 25.6 mmol/L (20.0-27.5); Chloride 104 mmol/L (96-109); Chol/HDL Ratio 2.92 Ratio; Globulin 3.1 g/dL (1.6-3.3); Glucose 112 mg/dL (70-110); LDL Cholesterol,Calculated 74.3 mg/dL (0.0-131.0); Non-African American GFR(CKD) 55.5 (60.0-200.0); Potassium 3.9 mmol/L (3.5-5.5); Sodium 139 mmol/L (135-145); Total Protein 7.2 g/dL (6.2-8.2)
--- NOTE | 2021-11-01 19:01 | MM ---
Reason for Exam: Screening (asymptomatic). Last mammogram was performed 1 year(s) and 1 month(s) ago. Patient History: Menarche at age 15. Patient has no children. Postmenopausal. Other cancer, age 71. Estrogen for 15 years, 6 months, from age 45 until age 60. Progesterone for 15 years, 6 months, from age 45 until age 60. Hormonal Contraceptives for 2 months. Risk Values: Elena 5 year model risk: 2.0%. NCI Lifetime model risk: 4.5%. Prior Study Comparison: 07/19/2018 Left Diagnostic Mammogram, [facility]. 09/30/2019 Bilateral Screening Mammogram, [facility]. 10/08/2020 Bilateral Screening Mammogram, [facility]. Tissue Density: The breast tissue is heterogeneously dense. This may lower the sensitivity of mammography. Findings: Analyzed By CAD. There is no suspicious group of microcalcifications or new suspicious mass in either breast. Overall Assessment: Negative, BI-RAD 1 Management: Screening Mammogram of both breasts in 1 year. A clinical breast exam by your physician is recommended on an annual basis and results should be correlated with mammographic findings. Electronically signed and approved by: Ty Boswell DO
== END | disposition home or self-care (01) ==
LOC: RADMAMWWP 07:34
PROVIDERS: ATTEND Obstetrics & Gynecology
DX: Z12.31 Encounter for screening mammogram for malignant neoplasm of breast (principal); Z00.00 Encounter for general adult medical examination without abnormal findings; Z78.0 Asymptomatic menopausal state; Z85.89 Personal history of malignant neoplasm of other organs and systems; R53.83 Other fatigue; I10 Essential (primary) hypertension; E78.5 Hyperlipidemia, unspecified
CPT/HCPCS: 77063; 77067; 80053; 80061; 82306; 83735; 85025

== ENCOUNTER 2022-08-18 13:33 | Inpatient (IN) | payer MEDICARE ==
[2022-08-18] MEDS ORDERED: SODIUM CHLORIDE 0.9% 1,000 ML IV ONE (14:10)
[2022-08-18] MEDS ORDERED: KETOROLAC 15 MG/ML 1 ML VIAL IVP STA (14:10)
[2022-08-18 14:57] LABS: Glucose,Whole Blood 176 mg/dL (70-110)
[2022-08-18 14:58] LABS: Basophils % (A) 0 %; Eosinophils # (A) 0.4 k/uL (0-0.7); Eosinophils % (A) 2 %; HCT 38.1 % (34.0-46.0); HGB 12.2 gm/dL (11.4-16.0); Lymphocytes # (A) 0.6 k/uL (1.0-4.8); Lymphocytes % (A) 4 %; MCH 31.1 pg (25.0-35.0); MCHC 32.1 g/dL (31.0-37.0); Mean Platelet Volume 7.6; Monocytes # (A) 0.5 k/uL (0-1.0); Monocytes % (A) 3 %; Neutrophils # (A) 16.1 k/uL (1.3-7.7); Neutrophils % (A) 91 %; Platelet Count 424 k/uL (150-450); RBC 3.92 m/uL (3.80-5.40); RDW 13.4 % (11.5-15.5); WBC 17.7 k/uL (3.8-10.6)
[2022-08-18 15:09] LABS: ALT 156 U/L (4-34); AST 221 U/L (14-36); African American GFR (CKD) 57 (>60 ml/min/1.73 sqM); Albumin 2.9 g/dL (3.5-5.0); Alkaline Phosphatase 140 U/L (38-126); Anion Gap 10 mmol/L; Blood Urea Nitrogen 22 mg/dL (7-17); Calcium 8.2 mg/dL (8.4-10.2); Carbon Dioxide 19 mmol/L (22-30); Chloride 106 mmol/L (98-107); Glucose 192 mg/dL (74-99); Magnesium 1.9 mg/dL (1.6-2.3); Non-African American GFR(CKD) 49 (>60 ml/min/1.73 sqM); Potassium 4.4 mmol/L (3.5-5.1); Sodium 135 mmol/L (137-145); Total Bilirubin 1.2 mg/dL (0.2-1.3)
[2022-08-18 15:13] LABS: INR 1.1 (<1.2); Prothrombin Time 11.1 sec (9.0-12.0)
[2022-08-18 15:15] LABS: Partial Thromboplastin Time 19.1 sec (22.0-30.0)
--- NOTE | 2022-08-18 15:56 | ED ---
General Adult HPI - General Chief complaint: Weakness Stated complaint: Weakness Time Seen by Provider: 08/18/22 13:58 Source: patient, EMS, RN notes reviewed Mode of arrival: EMS Limitations: no limitations - History of Present Illness Initial comments: 77-year-old female with an extensive past medical history presents the emergency department the chief complaint of generalized weakness and fatigue over the last 4 days. She reports that she had a cortisone injection done by Dr. Rangel on Thursday08/15/2022. She reports worsening weakness in her labia. She reports that she is unable to ambulate without assistance. She denies any dizziness, lightheadedness, cough, chest pain, shortness of breath, nausea, vomiting - Related Data Home Medications Medication Instructions Recorded Confirmed Losartan [Cozaar] 25 mg PO DAILY 01/21/19 08/18/22 Metoprolol Tartrate [Lopressor] 12.5 mg PO BID 01/21/19 08/18/22 Previous Rx's Medication Instructions Recorded Aspirin 81 mg PO DAILY #30 chew 01/23/14 Allergies Allergy/AdvReac Type Severity Reaction Status Date / Time clindamycin AdvReac Nausea & Verified 01/25/19 08:22 Vomiting & Diarrhea codeine AdvReac Unknown- Verified 01/25/19 08:22 not sure if allergic still latex AdvReac red, Verified 01/25/19 08:22 cracked skin, itching streptomycin AdvReac Nausea & Verified 01/25/19 08:22 Vomiting & Diarrhea Review of Systems ROS Statement: Those systems with pertinent positive or pertinent negative responses have been documented in the HPI. ROS Other: All systems not noted in ROS Statement are negative. Past Medical History Past Medical History: Atrial Fibrillation, Cancer, Eye Disorder, Hyperlipidemia Additional Past Medical History / Comment(s): Beginnings of cataracts. Hx skin cancer left thigh 2 yrs ago. Hx heart blockages. History of Any Multi-Drug Resistant Organisms: MRSA Date of last positivie culture/infection: infected drain 20+ years prior MDRO Source:: drain Past Surgical History: Appendectomy, Cholecystectomy, Tubal Ligation Additional Past Surgical History / Comment(s): Right wrist fracture as a child. Right foot fracture. Fatty cyst removed from under right arm. Quadruple bypass 5 yrs ago. Past Anesthesia/Blood Transfusion Reactions: No Reported Reaction Additional Past Alcohol Use History / Comment(s): Quit smoking 20 yrs ago. - Past Family History Mother Family Medical History: No Reported History Brother(s) Family Medical History: Cancer Additional Family Medical History / Comment(s): Skin cancer General Exam - General Exam Comments Initial Comments: General: Alert, in no acute distress Head: atraumatic normocephalic. Eyes PERRL, EOMI intact, mucous membranes moist Respiratory: Lungs clear to auscultation bilaterally Cardiovascular: Heart rate regular rate and rhythm Abdominal: Soft without guarding or rebound Extremities: Normal inspection with full range of motion and normal capillary refill Neuroogic: alert and oriented 3, CN II-XII intact Skin: warm dry and intact with normal color Limitations: no limitations Course Vital Signs 08/18/22 13:50 Temperature 97.3 F L Pulse Rate 89 Respiratory 16 Rate Blood Pressure 158/83 O2 Sat by Pulse 97 Oximetry - Reevaluation(s) Reevaluation #1: 08/18/22 18:[address] Sommers, agrees and accepts the patient for admission EKG Findings - EKG Comments: EKG Findings:: I interpreted the following: EKG performed at 13:55 rate 87 bpm normal sinus rhythm. HI interval 167, QRS duration 89, QT/QTc 381/425 Medical Decision Making - Medical Decision Making Was pt. sent in by a medical professional or institution ([facility], [facility], urgent care, hospital, or group home...) When possible be specific @ -[No] Did you speak to anyone other than the patient for history (EMS, parent, family, police, friend...)? What history was obtained from this source @ -[No] Did you review nursing and triage notes (agree or disagree)? Why? @ -[I reviewed and agree with nursing and triage notes] Were old charts reviewed (outside hosp., previous admission, EMS record, old EKG, old radiological studies, urgent care reports/EKG's, group home records)? Report findings @ -[No old charts were reviewed] Differential Diagnosis (chest pain, altered mental status, abdominal pain women, abdominal pain men, vaginal bleeding, weakness, fever, dyspnea, syncope, headache, dizziness, GI bleed, back pain, seizure, CVA, palpatations, mental health, musculoskeletal)? @ -[not applicable] EKG interpreted by me (3pts min.). @ -[As above] X-rays interpreted by me (1pt min.). @ X-rays negative for any acute fracture or dislocation CT interpreted by me (1pt min.). @ -[None done] U/S interpreted by me (1pt. min.). @ -[None done] What testing was considered but not performed or refused? (CT, X-rays, U/S, labs)? Why? @ -[None] What meds were considered but not given or refused? Why? @ -[None] Did you discuss the management of the patient with other professionals (professionals i.e. , PA, PIPE ROLLER, lab, RT, psych nurse, nursing home social worker, wealth management advisor, teacher, co founder and chief strategy officer, insurance case manager)? Give summary @ -[No] Was smoking cessation discussed for >3mins.? @ -[No] Was critical care preformed (if so, how long)? @ -[No] Were there social determinants of health that impacted care today? How? (Homelessness, low income, unemployed, alcoholism, drug addiction, transportation, low edu. Level, literacy, decrease access to med. care, assisted, rehab)? @ -[No] Was there de-escalation of care discussed even if they declined (Discuss DNR or withdrawal of care, Hospice)? DNR status @ -[No] What co-morbidities impacted this encounter? (DM, HTN, Smoking, COPD, CAD, Cancer, CVA, ARF, Chemo, Hep., AIDS, mental health diagnosis, sleep apnea, morbid obesity)? @ -[None] Was patient admitted / discharged? Hospital course, mention meds given and route, prescriptions, significant lab abnormalities, going to OR and other pertinent info. @ -Admission. This is a 77-year-old female who presents the emergency department with generalized weakness. Patient had a thorough history and physical exam performed on the ED. Physical exam is reveals heart rate regular rate and rhythm, lungs clear to auscultation bilaterally abdomen soft nontender. Patient is unable to move lower extremities is unable to ambulate. Patient lab work and imaging performed which revealed: WBC 17.7 hemoglobin 12.2 sodium 135, potassium 4.4 BUNs 22, creatinine 1.10 initial troponin 0.049. BNP 7400 Covid and influenza RSV negative Chest x-ray reveals mild pulmonary vascular congestion. I discussed the results in detail with the patient verbalized understanding and all questions were addressed. She is agreeable with the plan for admission with consult to neurology. Case discussed with Dr. Sommers who agrees and accepts the patient for admission. Case discussed [facility] Overton [facility] who agrees with plan of care Undiagnosed new problem with uncertain prognosis? @ -[No] Drug Therapy requiring intensive monitoring for toxicity (Heparin, Nitro, Insulin, Cardizem)? @ -[No] Were any procedures done? @ -[No] Diagnosis/symptom? @ -Generalized weakness -Acute kidney injury -Transaminitis -Leukocytosis Acute, or Chronic, or Acute on Chronic? @ -Acute Uncomplicated (without systemic symptoms) or Complicated (systemic symptoms)? @ -Complicated Side effects of treatment? @ -[No] Exacerbation, Progression, or Severe Exacerbation? @ -[No] Poses a threat to life or bodily function? How? (Chest pain, [place], [place], pneumonia, PE, COPD, DKA, ARF, appy, cholecystitis, CVA, Diverticulitis, Homicidal, Suicidal, threat to staff... and all critical care pts) @ -Low likelihood - Lab Data Result diagrams: 08/18/22 14:40 08/18/22 14:40 Lab Results 08/18/22 08/18/22 08/18/22 Range/Units 14:40 14:40 14:40 WBC 17.7 H (3.8-10.6) k/uL RBC 3.92 (3.80-5.40) m/uL Hgb 12.2 (11.4-16.0) gm/dL Hct 38.1 (34.0-46.0) % MCV 97.0 (80.0-100.0) fL MCH 31.1 (25.0-35.0) pg MCHC 32.1 (31.0-37.0) g/dL RDW 13.4 (11.5-15.5) % Plt Count 424 (150-450) k/uL MPV 7.6 Neutrophils % 91 % Lymphocytes % 4 % Monocytes % 3 % Eosinophils % 2 % Basophils % 0 % Neutrophils # 16.1 H (1.3-7.7) k/uL Lymphocytes # 0.6 L (1.0-4.8) k/uL Monocytes # 0.5 (0-1.0) k/uL Eosinophils # 0.4 (0-0.7) k/uL Basophils # 0.0 (0-0.2) k/uL PT 11.1 (9.0-12.0) sec INR 1.1 (<1.2) APTT 19.1 L (22.0-30.0) sec Sodium 135 L (137-145) mmol/L Potassium 4.4 (3.5-5.1) mmol/L Chloride 106 (98-107) mmol/L Carbon Dioxide 19 L (22-30) mmol/L Anion Gap 10 mmol/L BUN 22 H (7-17) mg/dL Creatinine 1.10 H (0.52-1.04) mg/dL Est GFR (CKD-EPI)AfAm 57 (>60 ml/min/1.73 sqM) Est GFR (CKD-EPI)NonAf 49 (>60 ml/min/1.73 sqM) Glucose 192 H (74-99) mg/dL POC Glucose (mg/dL) (70-110) mg/dL POC Glu Double Cut Sawyer ID Calcium 8.2 L (8.4-10.2) mg/dL Magnesium 1.9 (1.6-2.3) mg/dL Total Bilirubin 1.2 (0.2-1.3) mg/dL AST 221 H (14-36) U/L ALT 156 H (4-34) U/L Alkaline Phosphatase 140 H (38-126) U/L Troponin I (0.000-0.034) ng/mL NT-Pro-B Natriuret Pep pg/mL Total Protein 6.0 L (6.3-8.2) g/dL Albumin 2.9 L (3.5-5.0) g/dL Influenza Type A (PCR) (Not Detectd) Influenza Type B (PCR) (Not Detectd) RSV (PCR) (Not Detectd) SARS-CoV-2 (PCR) (Not Detectd) 08/18/22 08/18/22 08/18/22 Range/Units 14:40 14:40 14:40 WBC (3.8-10.6) k/uL RBC (3.80-5.40) m/uL Hgb (11.4-16.0) gm/dL Hct (34.0-46.0) % MCV (80.0-100.0) fL MCH (25.0-35.0) pg MCHC (31.0-37.0) g/dL RDW (11.5-15.5) % Plt Count (150-450) k/uL MPV Neutrophils % % Lymphocytes % % Monocytes % % Eosinophils % % Basophils % % Neutrophils # (1.3-7.7) k/uL Lymphocytes # (1.0-4.8) k/uL Monocytes # (0-1.0) k/uL Eosinophils # (0-0.7) k/uL Basophils # (0-0.2) k/uL PT (9.0-12.0) sec INR (<1.2) APTT (22.0-30.0) sec Sodium (137-145) mmol/L Potassium (3.5-5.1) mmol/L Chloride (98-107) mmol/L Carbon Dioxide (22-30) mmol/L Anion Gap mmol/L BUN (7-17) mg/dL Creatinine (0.52-1.04) mg/dL Est GFR (CKD-EPI)AfAm (>60 ml/min/1.73 sqM) Est GFR (CKD-EPI)NonAf (>60 ml/min/1.73 sqM) Glucose (74-99) mg/dL POC Glucose (mg/dL) (70-110) mg/dL POC Glu Double Cut Sawyer ID Calcium (8.4-10.2) mg/dL Magnesium (1.6-2.3) mg/dL Total Bilirubin (0.2-1.3) mg/dL AST (14-36) U/L ALT (4-34) U/L Alkaline Phosphatase (38-126) U/L Troponin I 0.049 H* (0.000-0.034) ng/mL NT-Pro-B Natriuret Pep 7400 pg/mL Total Protein (6.3-8.2) g/dL Albumin (3.5-5.0) g/dL Influenza Type A (PCR) Not Detected (Not Detectd) Influenza Type B (PCR) Not Detected (Not Detectd) RSV (PCR) Not Detected (Not Detectd) SARS-CoV-2 (PCR) Not Detected (Not Detectd) 08/18/22 08/18/22 Range/Units 14:55 17:37 WBC (3.8-10.6) k/uL RBC (3.80-5.40) m/uL Hgb (11.4-16.0) gm/dL Hct (34.0-46.0) % MCV (80.0-100.0) fL MCH (25.0-35.0) pg MCHC (31.0-37.0) g/dL RDW (11.5-15.5) % Plt Count (150-450) k/uL MPV Neutrophils % % Lymphocytes % % Monocytes % % Eosinophils % % Basophils % % Neutrophils # (1.3-7.7) k/uL Lymphocytes # (1.0-4.8) k/uL Monocytes # (0-1.0) k/uL Eosinophils # (0-0.7) k/uL Basophils # (0-0.2) k/uL PT (9.0-12.0) sec INR (<1.2) APTT (22.0-30.0) sec Sodium (137-145) mmol/L Potassium (3.5-5.1) mmol/L Chloride (98-107) mmol/L Carbon Dioxide (22-30) mmol/L Anion Gap mmol/L BUN (7-17) mg/dL Creatinine (0.52-1.04) mg/dL Est GFR (CKD-EPI)AfAm (>60 ml/min/1.73 sqM) Est GFR (CKD-EPI)NonAf (>60 ml/min/1.73 sqM) Glucose (74-99) mg/dL POC Glucose (mg/dL) 176 H (70-110) mg/dL POC Glu Double Cut Sawyer ID Liniarski, Madeline Calcium (8.4-10.2) mg/dL Magnesium (1.6-2.3) mg/dL Total Bilirubin (0.2-1.3) mg/dL AST (14-36) U/L ALT (4-34) U/L Alkaline Phosphatase (38-126) U/L Troponin I 0.057 H* (0.000-0.034) ng/mL NT-Pro-B Natriuret Pep pg/mL Total Protein (6.3-8.2) g/dL Albumin (3.5-5.0) g/dL Influenza Type A (PCR) (Not Detectd) Influenza Type B (PCR) (Not Detectd) RSV (PCR) (Not Detectd) SARS-CoV-2 (PCR) (Not Detectd) Disposition Clinical Impression: Leukocytosis, Weakness, Transaminitis Disposition: ADMITTED IP TO THIS HOSP Condition: Fair Is patient prescribed a controlled substance at d/c from ED?: No Referrals: Olman Sommers MD [Primary Care Provider] - 1-2 days Time of Disposition: 18:36
--- NOTE | 2022-08-18 17:28 | XR ---
EXAMINATION TYPE: XR chest 2V DATE OF EXAM: 08/18/2022 5:19 PM COMPARISON: Chest radiographs from 01/23/2014 TECHNIQUE: XR chest 2V Frontal and lateral views of the chest. CLINICAL INDICATION:Female, 77 years old with history of weakness; FINDINGS: Lungs/Pleura: There is no evidence of pleural effusion, focal consolidation, or pneumothorax. Pulmonary vascularity: Unremarkable. Heart/mediastinum: Cardiomediastinal silhouette is enlarged and stable. Atherosclerotic calcificatio ns are seen in the aorta. Musculoskeletal: No acute osseous pathology. Midline sternotomy wires are noted. IMPRESSION: Mild pulmonary vascular congestion correlate with serum BNP.
--- NOTE | 2022-08-18 17:33 | XR ---
EXAMINATION TYPE: XR Hip Bilateral and AP pelvis DATE OF EXAM: 08/18/2022 5:19 PM INDICATION: Patient age:Female; 77 years old; Reason for study: hip pain; COMPARISON: None. TECHNIQUE: The bilateral hip was examined in the frontal and lateral projections and a AP pelvis. FINDINGS: No evidence for acute process, joint dislocation or significant soft tissue swelling. Osteo phyte formation of the superior acetabulum of the hips. Atherosclerosis of the arterial vasculature. Multilevel degeneration changes of the spine. IMPRESSION: 1. No evidence for acute process. 2. Mild hip osteoarthrosis.
--- NOTE | 2022-08-18 17:34 | XR ---
EXAMINATION TYPE: XR lumbar spine 2 or 3V DATE OF EXAM: 08/18/2022 5:19 PM INDICATION: Patient age:Female; 77 years old; Reason for study: low back pain; COMPARISON: None TECHNIQUE: Frontal and lateral views of the spine. FINDINGS: No evidence of any acute osseous pathology. No evidence of loss of vertebral body height i s seen. There is normal alignment of the lumbar vertebral bodies. Mild scattered disc space narrowing . Multilevel marginal osteophyte formation throughout the visualized spine. There is facet joint arth ropathy throughout the spine. Mild neural foraminal stenosis at L5-S1. IMPRESSION: 1. No acute fracture. 2. Mild multilevel disc degeneration.
[2022-08-18] MEDS ORDERED: NALOXONE 0.4 MG/ML 1 ML VIAL IV PRN (18:53)
[2022-08-18] MEDS: SODIUM CHLORIDE 0.9% 1,000 ML IV SCH (19:38)
[2022-08-19] MEDS ORDERED: LOSARTAN 25 MG TAB PO SCH (09:45)
[2022-08-19] MEDS: SODIUM CHLORIDE 0.9% 1,000 ML IV SCH ×2 (11:03→22:15)
[2022-08-19] MEDS: ASPIRIN 81 MG PO SCH (11:03)
[2022-08-19] MEDS: METOPROLOL TARTRATE 12.5 MG TAB PO SCH ×2 (11:04→20:11)
[2022-08-19 11:58] LABS: Appearance,Urine Cloudy (Clear); Bacteria,Urine Rare /hpf; Bilirubin,Urine Negative (Negative); Blood,Urine Large (Negative); Color,Urine Yellow; Glucose,Urine (UA) Negative (Negative); Ketones,Urine Negative (Negative); Leukocyte Esterase,Urine Small (Negative); Mucus,Urine Rare /hpf; Nitrite,Urine Negative (Negative); PH, Urine 5.5 (5.0-8.0); Protein,Urine 2+ (Negative); RBC,Urine 6 /hpf (0-5); Specific Gravity,Urine 1.021 (1.001-1.035); Squamous Epithelial Cell,Urine <1 /hpf (0-4); WBC,Urine 12 /hpf (0-5)
[2022-08-19] MEDS ORDERED: LOSARTAN 25 MG TAB PO ONE (12:45)
--- NOTE | 2022-08-19 12:54 | P.HPIM ---
History of Present Illness H&P Date: 08/19/22 Chief Complaint: Weakness and fatigue This is a 77-year-old female warm over the practice. She reports 4 days ago on August 15 receiving a steroid injection for right hip bursitis with Dr. Carrillo. She has no history of coronary artery disease and had coronary bypass graft 4 vessels 01/17/2014. Last evaluation of this was January [address] Thomas. Where there is evidence of occlusion of some of the grafts and moderate disease in the other. She been very active the past few days and has been very sore in her hips and groin area since then. Yesterday she reports the weakness became quite severe And 1 along with fatigue. She indicates she slept 3 hours woke up did not feel much better. She had no dizziness lightheadedness, chest pain pressure or darrin rtness breath nausea vomiting. Emergency room workup should have slightly abnormal troponins and elevated beta natruretic peptide chest x-ray shows mild vascular congestion and correlate with serum BNP X-rays of the L-spine show degenerative disc disease, hip x-ray showed mild arthritis. Currently this a.m. she continues to feel weak and very fatigued. Other than that she denies any chest pains pressures or shortness of breath. She is unable to move significantly due to her lower extremity weakness. Review of Systems All systems: negative Past Medical History Past Medical History: Atrial Fibrillation (Postoperative only), Coronary Artery Disease (CAD), Cancer, Eye Disorder, Hyperlipidemia Additional Past Medical History / Comment(s): Beginnings of cataracts. Hx skin cancer left thigh 2 yrs ago. Hx heart blockages. History of Any Multi-Drug Resistant Organisms: MRSA Date of last positivie culture/infection: infected drain 20+ years prior MDRO Source:: drain Past Surgical History: Appendectomy, Cholecystectomy, Tubal Ligation Additional Past Surgical History / Comment(s): Right wrist fracture as a child. Right foot fracture. Fatty cyst removed from under right arm. Quadruple bypass 5 yrs ago. Past Anesthesia/Blood Transfusion Reactions: No Reported Reaction Past Psychological History: No Psychological Hx Reported Smoking Status: Former smoker Past Alcohol Use History: None Reported Additional Past Alcohol Use History / Comment(s): Quit smoking 20 yrs ago. Past Drug Use History: None Reported - Past Family History Mother Family Medical History: No Reported History Brother(s) Family Medical History: Cancer Additional Family Medical History / Comment(s): Skin cancer Medications and Allergies Home Medications Medication Instructions Recorded Confirmed Type Aspirin 81 mg PO DAILY #30 chew 01/23/14 08/18/22 Rx Losartan [Cozaar] 25 mg PO DAILY 01/21/19 08/18/22 History Metoprolol Tartrate [Lopressor] 12.5 mg PO BID 01/21/19 08/18/22 History Allergies Allergy/AdvReac Type Severity Reaction Status Date / Time clindamycin AdvReac Nausea & Verified 01/25/19 08:22 Vomiting & Diarrhea codeine AdvReac Unknown- Verified 01/25/19 08:22 not sure if allergic still latex AdvReac red, Verified 01/25/19 08:22 cracked skin, itching streptomycin AdvReac Nausea & Verified 01/25/19 08:22 Vomiting & Diarrhea Physical Exam Vitals: Vital Signs Temp Pulse Resp BP Pulse Ox 08/19/22 04:22 98.0 F 08/19/22 04:20 98 20 168/81 98 08/18/22 19:30 84 158/108 08/18/22 19:15 91 158/98 08/18/22 19:14 86 16 158/98 99 08/18/22 19:00 87 156/103 95 08/18/22 18:45 80 137/83 86 L 08/18/22 18:30 77 147/90 95 08/18/22 18:15 76 155/77 95 08/18/22 18:00 77 151/79 92 L 08/18/22 17:45 77 152/77 95 08/18/22 17:30 80 153/83 95 08/18/22 17:15 81 146/82 97 08/18/22 17:00 146/82 08/18/22 16:45 76 147/78 08/18/22 16:30 81 138/78 08/18/22 16:15 81 138/77 08/18/22 16:00 78 148/84 08/18/22 15:45 77 148/76 08/18/22 15:30 77 155/78 08/18/22 15:15 80 150/76 08/18/22 15:00 80 146/82 08/18/22 14:45 82 158/83 08/18/22 14:30 80 158/83 94 L 08/18/22 14:15 87 158/83 93 L 08/18/22 14:00 85 158/83 93 L 08/18/22 13:57 158/83 94 L 08/18/22 13:50 97.3 F L 89 16 158/83 97 Intake and Output 08/18/22 08/19/22 08/19/22 22:59 06:59 14:59 Intake Total 0 Balance 0 Intake: Oral 0 GENERAL: Fatigued female and in no acute distress. HEAD: Atraumatic, normocephalic. EYES: Pupils equal round and reactive to light, extraocular movements intact, sclera anicteric, conjunctiva are normal. ENT:nares patent, oropharynx clear without exudates. Moist mucous membranes. NECK: Normal range of motion, supple without lymphadenopathy or JVD, no thyromegaly LUNGS: Breath sounds clear to auscultation bilaterally and equal. No wheezes rales or rhonchi. HEART: Regular rate and rhythm without murmurs, rubs or gallops.S1S2 Normal ABDOMEN: Soft, nontender, normoactive bowel sounds. No guarding, no rebound. No masses appreciated. EXTREMITIES: Normal range of motion, no pitting or edema. No clubbing or cyanosis. NEUROLOGICAL: Cranial nerves II through XII grossly intact. Normal speech, normal gait. PSYCH: Normal mood, normal affect. SKIN: Warm, Dry, normal turgor, no rashes or lesions noted. Results CBC & Chem 7: 08/18/22 14:40 08/18/22 14:40 Labs: Abnormal Lab Results - Last 24 Hours (Table) 08/18/22 08/18/22 08/18/22 Range/Units 14:40 14:40 14:40 WBC 17.7 H (3.8-10.6) k/uL Neutrophils # 16.1 H (1.3-7.7) k/uL Lymphocytes # 0.6 L (1.0-4.8) k/uL APTT 19.1 L (22.0-30.0) sec Sodium 135 L (137-145) mmol/L Carbon Dioxide 19 L (22-30) mmol/L BUN 22 H (7-17) mg/dL Creatinine 1.10 H (0.52-1.04) mg/dL Glucose 192 H (74-99) mg/dL POC Glucose (mg/dL) (70-110) mg/dL Calcium 8.2 L (8.4-10.2) mg/dL AST 221 H (14-36) U/L ALT 156 H (4-34) U/L Alkaline Phosphatase 140 H (38-126) U/L Troponin I (0.000-0.034) ng/mL Total Protein 6.0 L (6.3-8.2) g/dL Albumin 2.9 L (3.5-5.0) g/dL Urine Appearance (Clear) Urine Protein (Negative) Urine Blood (Negative) Ur Leukocyte Esterase (Negative) Urine RBC (0-5) /hpf Urine WBC (0-5) /hpf Urine Bacteria (None) /hpf Urine Mucus (None) /hpf 08/18/22 08/18/22 08/18/22 Range/Units 14:40 14:55 17:37 WBC (3.8-10.6) k/uL Neutrophils # (1.3-7.7) k/uL Lymphocytes # (1.0-4.8) k/uL APTT (22.0-30.0) sec Sodium (137-145) mmol/L Carbon Dioxide (22-30) mmol/L BUN (7-17) mg/dL Creatinine (0.52-1.04) mg/dL Glucose (74-99) mg/dL POC Glucose (mg/dL) 176 H (70-110) mg/dL Calcium (8.4-10.2) mg/dL AST (14-36) U/L ALT (4-34) U/L Alkaline Phosphatase (38-126) U/L Troponin I 0.049 H* 0.057 H* (0.000-0.034) ng/mL Total Protein (6.3-8.2) g/dL Albumin (3.5-5.0) g/dL Urine Appearance (Clear) Urine Protein (Negative) Urine Blood (Negative) Ur Leukocyte Esterase (Negative) Urine RBC (0-5) /hpf Urine WBC (0-5) /hpf Urine Bacteria (None) /hpf Urine Mucus (None) /hpf 08/19/22 Range/Units 11:00 WBC (3.8-10.6) k/uL Neutrophils # (1.3-7.7) k/uL Lymphocytes # (1.0-4.8) k/uL APTT (22.0-30.0) sec Sodium (137-145) mmol/L Carbon Dioxide (22-30) mmol/L BUN (7-17) mg/dL Creatinine (0.52-1.04) mg/dL Glucose (74-99) mg/dL POC Glucose (mg/dL) (70-110) mg/dL Calcium (8.4-10.2) mg/dL AST (14-36) U/L ALT (4-34) U/L Alkaline Phosphatase (38-126) U/L Troponin I (0.000-0.034) ng/mL Total Protein (6.3-8.2) g/dL Albumin (3.5-5.0) g/dL Urine Appearance Cloudy H (Clear) Urine Protein 2+ H (Negative) Urine Blood Large H (Negative) Ur Leukocyte Esterase Small H (Negative) Urine RBC 6 H (0-5) /hpf Urine WBC 12 H (0-5) /hpf Urine Bacteria Rare H (None) /hpf Urine Mucus Rare H (None) /hpf Chest x-ray: report reviewed Thrombosis Risk Factor Assmnt - DVT/VTE Prophylaxis DVT/VTE Prophylaxis: Pharmacologic Prophylaxis ordered - Choose All That Apply Any of the Below Risk Factors Present?: Yes Each Risk Factor Represents 3 Points: Age 75 years or older Thrombosis Risk Factor Assessment Total Risk Factor Score: 3 Thrombosis Risk Factor Assessment Level: Moderate Risk Assessment and Plan (1) H/O four vessel coronary artery bypass graft Current Visit: Yes Status: Acute Code(s): Z95.1 - PRESENCE OF AORTOCORONARY BYPASS GRAFT SNOMED Code(s): 568710783 (2) NSTEMI (non-ST elevated myocardial infarction) Current Visit: Yes Status: Acute Code(s): I21.4 - NON-ST ELEVATION (NSTEMI) MYOCARDIAL INFARCTION SNOMED Code(s): 78423222 (3) Bilateral hip joint arthritis Current Visit: Yes Status: Acute Code(s): M16.0 - BILATERAL PRIMARY OSTEOARTHRITIS OF HIP SNOMED Code(s): 20810705 (4) Lumbar degenerative disc disease Current Visit: Yes Status: Acute Code(s): M51.36 - OTHER INTERVERTEBRAL DISC DEGENERATION, LUMBAR REGION SNOMED Code(s): 96732713 (5) Leukocytosis Current Visit: Yes Status: Acute Code(s): D72.829 - ELEVATED WHITE BLOOD CELL COUNT, UNSPECIFIED SNOMED Code(s): 351190248 (6) Weakness Current Visit: Yes Status: Acute Code(s): R53.1 - WEAKNESS SNOMED Code(s): 37464218 (7) CAD (coronary artery disease) Current Visit: No Status: Acute Code(s): I25.10 - ATHSCL HEART DISEASE OF NA TIVE CORONARY ARTERY W/O ANG PCTRS SNOMED Code(s): 75443164 (8) Hyperlipemia Current Visit: No Status: Acute Code(s): E78.5 - HYPERLIPIDEMIA, UNSPECIFIED SNOMED Code(s): 10033220 Plan: We'll consult neurology about her weakness, but suspect this may be a side effect of the steroids, however with her significant history coronary bypass graft and coronary disease and abnormal troponins and she had an STEMI. We'll consult cardiology swallowing for the further recommendations workup. We'll anticoagulate her, increase her losartan to 50 mg daily as her blood pressure slightly elevated, I'll order hydrocodone for pain for her repeat labs in a.m., weight on the stat labs for this morning.
[2022-08-19] MEDS ORDERED: HYDROcodone/APAP 5-325MG 1 EACH TAB PO PRN (12:55)
[2022-08-19] MEDS: FAMOTIDINE 20 MG TAB PO SCH (14:11)
[2022-08-19 15:00] LABS: Basophils % (A) 0 %; Eosinophils # (A) 0.1 k/uL (0-0.7); Eosinophils % (A) 1 %; HCT 36.1 % (34.0-46.0); HGB 11.7 gm/dL (11.4-16.0); Lymphocytes % (A) 7 %; MCH 31.4 pg (25.0-35.0); MCHC 32.4 g/dL (31.0-37.0); Mean Platelet Volume 7.8; Monocytes # (A) 0.6 k/uL (0-1.0); Monocytes % (A) 5 %; Neutrophils # (A) 12.2 k/uL (1.3-7.7); Neutrophils % (A) 87 %; Platelet Count 352 k/uL (150-450); RBC 3.72 m/uL (3.80-5.40); RDW 13.4 % (11.5-15.5)
[2022-08-19 15:08] LABS: African American GFR (CKD) 54 (>60 ml/min/1.73 sqM); Anion Gap 8 mmol/L; Blood Urea Nitrogen 28 mg/dL (7-17); Calcium 7.6 mg/dL (8.4-10.2); Carbon Dioxide 20 mmol/L (22-30); Chloride 105 mmol/L (98-107); Glucose 135 mg/dL (74-99); Non-African American GFR(CKD) 47 (>60 ml/min/1.73 sqM); Potassium 4.1 mmol/L (3.5-5.1); Sodium 133 mmol/L (137-145)
[2022-08-19 15:29] LABS: Creatine Kinase 3109 U/L (30-135)
--- NOTE | 2022-08-19 16:41 | P.CNNES ---
History of Present Illness Consult date: 08/19/22 Requesting physician: Elena Aguilera Reason for Consult: weakness, unable to ambulate History of Present Illness: This is a 77-year-old woman who presented because of generalized weakness with difficulty ambulating for the past 2-3 weeks. Patient stated that for the past 6 weeks and she noticed that she's been having severe pain in her thighs is progressively getting worse and as a result had been having difficulty walking as a result. She denies of any lower back pain. She was seen recently by her orthopedic last week and had a pain injection to the right hip since she was told she has bursitis. She was recently told by her grandchildren that her face seems flushed and does not know how long his been going on for. She denies any difficulty swallowing. Denies of any pain in the shoulder hands upper e xtremities. Denies any difficulty getting her words out. Denies any history of stroke or TIA. Denies any falls. Denies any recent fevers. In the past the she was on statins but the had severe pain as a result of being on statins so she had to come off of that. She was on statin because of cardiac condition Some of the workup during this hospital visit consisted of: AST of 2020, ALT 156, [place] 3109 Glucose is 192 Calcium is 8.2 Troponin is slightly trending up. Review of Systems Review of system: The 12 point system was reviewed and apparent positive and negative per HPI. Past Medical History Past Medical History: Atrial Fibrillation (Postoperative only), Coronary Artery Disease (CAD), Cancer, Eye Disorder, Hyperlipidemia Additional Past Medical History / Comment(s): Beginnings of cataracts. Hx skin cancer left thigh 2 yrs ago. Hx heart blockages. History of Any Multi-Drug Resistant Organisms: MRSA Date of last positivie culture/infection: infected drain 20+ years prior MDRO Source:: drain Past Surgical History: Appendectomy, Cholecystectomy, Tubal Ligation Additional Past Surgical History / Comment(s): Right wrist fracture as a child. Right foot fracture. Fatty cyst removed from under right arm. Quadruple bypass 5 yrs ago. Past Anesthesia/Blood Transfusion Reactions: No Reported Reaction Past Psychological History: No Psychological Hx Reported Smoking Status: Former smoker Past Alcohol Use History: None Reported Additional Past Alcohol Use History / Comment(s): Quit smoking 20 yrs ago. Past Drug Use History: None Reported - Past Family History Mother Family Medical History: No Reported History Brother(s) Family Medical History: Cancer Additional Family Medical History / Comment(s): Skin cancer Medications and Allergies Home Medications Medication Instructions Recorded Confirmed Type Aspirin 81 mg PO DAILY #30 chew 01/23/14 08/18/22 Rx Losartan [Cozaar] 25 mg PO DAILY 01/21/19 08/18/22 History Metoprolol Tartrate [Lopressor] 12.5 mg PO BID 01/21/19 08/18/22 History Allergies Allergy/AdvReac Type Severity Reaction Status Date / Time clindamycin AdvReac Nausea & Verified 01/25/19 08:22 Vomiting & Diarrhea codeine AdvReac Unknown- Verified 01/25/19 08:22 not sure if allergic still latex AdvReac red, Verified 01/25/19 08:22 cracked skin, itching streptomycin AdvReac Nausea & Verified 01/25/19 08:22 Vomiting & Diarrhea Physical Examination - Vital Signs Vital Signs: Vital Signs Temp Pulse Pulse Resp BP BP Pulse Ox 08/19/22 12:00 97.6 F 86 18 180/80 96 08/19/22 04:22 98.0 F 08/19/22 04:20 98 20 168/81 98 08/18/22 19:30 84 158/108 08/18/22 19:15 91 158/98 08/18/22 19:14 86 16 158/98 99 08/18/22 19:00 87 156/103 95 08/18/22 18:45 80 137/83 86 L 08/18/22 18:30 77 147/90 95 08/18/22 18:15 76 155/77 95 08/18/22 18:00 77 151/79 92 L 08/18/22 17:45 77 152/77 95 08/18/22 17:30 80 153/83 95 08/18/22 17:15 81 146/82 97 08/18/22 17:00 146/82 08/18/22 16:45 76 147/78 08/18/22 16:30 81 138/78 Intake and Output 08/19/22 08/19/22 08/19/22 06:59 14:59 22:59 Intake Total 640 Balance 640 Intake: Oral 640 GENERAL: The patient is lying in bed and is not in acute distress. INTEGUMENTARY: Erythematous of bilateral cheek region and is warm to touch and is on anterior neck region. NEUROLOGICAL: Higher mental function: The patient is awake, alert, oriented to self, place and time. Patient is following commands. No aphasia and no neglect. Cranial nerves: The pupils are round, equal and reactive to light and accommodation. Visual love are full to confrontation throughout. Extraocular movement is intact no nystagmus is noted. Facial sensation is normal to touch throughout. The facial strength is normal throughout. Hearing is normal bilaterally to hand rub. Tongue is midline and moved [id number] without any difficulty. No dysarthria is noted. Shoulder shrug is normal bilaterally. Motor: The strength is uppers are 4+. Lowers is limited because of pain but was able to raise proximal above gravity. While left proximal is 2/5. Ankles are 4+ . Normal tone and bulk. Cerebellum: Normal finger to nose bilaterally. Sensation: Sensation is normal to touch throughout except feet is decrease to touch. Reflexes (right/left): Ankles are 1-2+ bilaterally, biceps and brachioradialis are 2+. Otherwise 1+. Plantars are mute bilaterally. Results - Laboratory Findings CBC and BMP: 08/19/22 14:43 08/19/22 14:43 Abnormal Lab Findings: Abnormal Labs 08/18/22 08/18/22 08/18/22 14:40 14:40 14:40 WBC 17.7 H RBC Neutrophils # 16.1 H Lymphocytes # 0.6 L APTT 19.1 L D-Dimer Sodium 135 L Carbon Dioxide 19 L BUN 22 H Creatinine 1.10 H Glucose 192 H POC Glucose (mg/dL) Calcium 8.2 L AST 221 H ALT 156 H Alkaline Phosphatase 140 H Creatine Kinase Troponin I Total Protein 6.0 L Albumin 2.9 L Urine Appearance Urine Protein Urine Blood Ur Leukocyte Esterase Urine RBC Urine WBC Urine Bacteria Urine Mucus 08/18/22 08/18/22 08/18/22 14:40 14:55 17:37 WBC RBC Neutrophils # Lymphocytes # APTT D-Dimer Sodium Carbon Dioxide BUN Creatinine Glucose POC Glucose (mg/dL) 176 H Calcium AST ALT Alkaline Phosphatase Creatine Kinase Troponin I 0.049 H* 0.057 H* Total Protein Albumin Urine Appearance Urine Protein Urine Blood Ur Leukocyte Esterase Urine RBC Urine WBC Urine Bacteria Urine Mucus 08/19/22 08/19/2208/19/23 11:00 14:43 14:43 WBC 14.0 H RBC 3.72 L Neutrophils # 12.2 H Lymphocytes # APTT D-Dimer 13.37 H Sodium Carbon Dioxide BUN Creatinine Glucose POC Glucose (mg/dL) Calcium AST ALT Alkaline Phosphatase Creatine Kinase Troponin I Total Protein Albumin Urine Appearance Cloudy H Urine Protein 2+ H Urine Blood Large H Ur Leukocyte Esterase Small H Urine RBC 6 H Urine WBC 12 H Urine Bacteria Rare H Urine Mucus Rare H 08/19/22 08/19/22 14:43 14:43 WBC RBC Neutrophils # Lymphocytes # APTT D-Dimer Sodium 133 L Carbon Dioxide 20 L BUN 28 H Creatinine 1.15 H Glucose 135 H POC Glucose (mg/dL) Calcium 7.6 L AST ALT Alkaline Phosphatase Creatine Kinase 3109 H* Troponin I 0.114 H* Total Protein Albumin Urine Appearance Urine Protein Urine Blood Ur Leukocyte Esterase Urine RBC Urine WBC Urine Bacteria Urine Mucus Assessment and Plan Assessment: This is a 77-year-old woman who is having progressive pain mostly in bilateral thighs with difficulty ambulating for the last 2-3 weeks progressively getting worse and recently she was noted to have the hematocrit rash over the face. She could not tolerate statins in the past. 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 Consulted vascular surgery team for muscle biopsy of bilateral thighs. I started the patient on Prednisone 60mg daily. Recommend sugar monitoring and will defer management to primary team. Cardiology is consulted. Echo is ordered. GI prophylaxis: is on famotidine 20mg daily. Will defer the rest of management to primary team. The plan is discussed with patient and her nurse. Thank you for the consultation. Time with Patient: Greater than 30
[2022-08-19] MEDS: HEPARIN SODIUM,PORCINE/PF 5,000 UNIT/0.5 ML SYRINGE SQ SCH ×2 (17:11→23:32)
[2022-08-19] MEDS: predniSONE 20 MG TAB PO SCH (17:28)
[2022-08-19 17:41] LABS: LDH 326 U/L (120-246)
[2022-08-19 17:53] LABS: C Reactive Protein 19.1 mg/dL (<1.0)
[2022-08-20] MEDS ORDERED: LOSARTAN 50 MG TAB PO SCH (09:00)
[2022-08-20] MEDS: predniSONE 20 MG TAB PO SCH (10:53)
[2022-08-20] MEDS: ASPIRIN 81 MG PO SCH (10:54)
[2022-08-20] MEDS: HEPARIN SODIUM,PORCINE/PF 5,000 UNIT/0.5 ML SYRINGE SQ SCH ×3 (10:54→23:24)
[2022-08-20] MEDS: METOPROLOL TARTRATE 12.5 MG TAB PO SCH (10:54)
[2022-08-20] MEDS: FAMOTIDINE 20 MG TAB PO SCH (10:54)
[2022-08-20 11:58] LABS: Basophils % (A) 0 %; Eosinophils # (A) 0.1 k/uL (0-0.7); Eosinophils % (A) 1 %; HCT 38.9 % (34.0-46.0); Lymphocytes # (A) 1.4 k/uL (1.0-4.8); Lymphocytes % (A) 10 %; MCH 29.7 pg (25.0-35.0); MCHC 30.8 g/dL (31.0-37.0); MCV 96.4 fL (80.0-100.0); Mean Platelet Volume 8.5; Monocytes # (A) 0.7 k/uL (0-1.0); Monocytes % (A) 5 %; Neutrophils # (A) 12.4 k/uL (1.3-7.7); Neutrophils % (A) 84 %; Platelet Count 389 k/uL (150-450); RBC 4.03 m/uL (3.80-5.40); RDW 13.9 % (11.5-15.5); WBC 14.8 k/uL (3.8-10.6)
[2022-08-20 12:06] LABS: African American GFR (CKD) 55 (>60 ml/min/1.73 sqM); Anion Gap 12 mmol/L; Blood Urea Nitrogen 35 mg/dL (7-17); Calcium 7.9 mg/dL (8.4-10.2); Carbon Dioxide 17 mmol/L (22-30); Chloride 106 mmol/L (98-107); Glucose 150 mg/dL (74-99); Non-African American GFR(CKD) 47 (>60 ml/min/1.73 sqM); Potassium 4.2 mmol/L (3.5-5.1); Sodium 135 mmol/L (137-145)
--- NOTE | 2022-08-20 12:16 | CA ---
Transthoracic Echo Report Name: Magnolia Vasques Age: 77 Gender: F : 1945 Exam Date: 08/20/2022 08:23 Exam Location: [facility] Ht (in): 64 Wt (lb): 170 Ordering Physician: Olman Sommers MD Attending/Referring Phys: Metal Molder TM Procedure CPT: Indications: weakness Cardiac Hx: Technical Quality: Fair Contrast 1: Total Dose (mL): Contrast 2: Total Dose (mL): MEASUREMENTS (Male / Female) Normal Values 2D ECHO LV Diastolic Diameter PLAX 4.3 cm 4.2 - 5.9 / 3.9 - 5.3 cm LV Systolic Diameter PLAX 3.0 cm IVS Diastolic Thickness 1.0 cm 0.6 - 1.0 / 0.6 - 0.9 cm LVPW Diastolic Thickness 1.1 cm 0.6 - 1.0 / 0.6 - 0.9 cm LV Relative Wall Thickness 0.5 RV Internal Dim ED PLAX 3.0 cm LVOT Diameter 1.7 cm Aortic Root Diameter 2.5 cm LA Systolic Diameter LX 3.9 cm 3.0 - 4.0 / 2.7 - 3.8 cm LV Diastolic Volume MOD BP 46.2 cm??? 67 - 155 / 56 - 104 cm??? LV Systolic Volume MOD BP 18.0 cm??? 22 - 58 / 19 - 49 cm??? LV Ejection Fraction MOD BP 60.9 % >= 55 % LV Diastolic Volume MOD 4C 47.6 cm??? LV Systolic Volume MOD 4C 24.3 cm??? LV Ejection Fraction MOD 4C 49.0 % LV Diastolic Length 4C 6.8 cm LV Systolic Length 4C 6.1 cm LV Diastolic Volume MOD 2C 43.1 cm??? LV Systolic Volume MOD 2C 13.5 cm??? LV Ejection Fraction MOD 2C 68.6 % LV Diastolic Length 2C 7.2 cm LV Systolic Length 2C 6.0 cm LA Volume 50.1 cm??? 18 - 58 / 22 - 52 cm??? Ascending Aorta Diameter 2.7 cm DOPPLER AV Peak Velocity 155.0 cm/s AV Peak Gradient 9.6 mmHg LVOT Peak Velocity 100.8 cm/s LVOT Peak Gradient 4.1 mmHg AV Area Cont Eq pk 1.4 cm??? MV Peak Velocity 161.6 cm/s MV Peak Gradient 10.4 mmHg MV Mean Velocity 84.7 cm/s MV Mean Gradient 3.7 mmHg MV Velocity Time Integral 44.0 cm MR Peak Velocity 530.2 cm/s MR Peak Gradient 112.4 mmHg Mitral E Point Velocity 117.7 cm/s Mitral A Point Velocity 120.4 cm/s Mitral E to A Ratio 1.0 MV Deceleration Time 166.6 ms MV E' Velocity 8.5 cm/s Mitral E to MV E' Ratio 13.8 TR Peak Velocity 257.5 cm/s TR Peak Gradient 26.5 mmHg Right Ventricular Systolic Press 32.1 mmHg FINDINGS Left Ventricle Normal LV size and wall thickness. Left ventricular ejection fraction is estimated at 55-60 %. Right Ventricle Normal right ventricular size. RVSP= 33mmhg. Right Atrium Normal right atrial size. Left Atrium Normal left atrial size. Mitral Valve Mild posterior MAC.. Mild MR. Aortic Valve Trileaflet aortic valve. No aortic valve stenosis or regurgitation. Tricuspid Valve Structurally normal tricuspid valve. Mild TR. Pulmonic Valve Structurally normal pulmonic valve. Mild PI. Pericardium Normal pericardium. Aorta Normal size aortic root and proximal ascending aorta. CONCLUSIONS Normal LV size and systolic function Previewed by: Dr. Jose Ramon Cordero MD (Electronically Signed) Final Date: 20 August 2022 12:15
[2022-08-20] MEDS: SODIUM CHLORIDE 0.9% 1,000 ML IV SCH (12:18)
--- NOTE | 2022-08-20 12:29 | P.GSCN ---
History of Present Illness Consult date: 08/20/22 History of present illness: CHIEF COMPLAINT: Weakness HISTORY OF PRESENT ILLNESS: This is a 77-year-old female presented to the hospital with complaints of weakness and unable to ambulate. Patient reports that the weakness and pain initially started in the cast and had moved up into the hips. She noticed the weakness over the last 4 days. She's been having difficulty with ambulating on the last 2-3 weeks. She has stopped the Lipitor due to the Pain. She also had some elevated liver enzymes. She has been seen by neurology service. They are suspicious of dermatomyositis. Patient has been started on steroids. Surgical service has been consulted for muscle biopsy of bilateral thighs. She has been afebrile. She was able to stand with physical therapy. She denies being on any blood thinners. Cardiology is been consulted for elevated troponin. PAST MEDICAL HISTORY: See list. PAST SURGICAL HISTORY: See list. MEDICATIONS: See list. ALLERGIES: See list. SOCIAL HISTORY: No illicit drug use. REVIEW OF SYSTEMS: CONSTITUTIONAL: Denies fever or chills. HEENT: Denies blurred vision, vision changes, or eye pain. Denies hemoptysis ENDOCRINE: Denies heat or cold intolerance. CARDIOVASCULAR: Denies chest pain or pressure. RESPIRATORY: No shortness of breath. GASTROINTESTINAL: Denies abdominal pain. Denies nausea or vomiting. NEURO: Denies history of seizures. PSYCH: No depression or suicidal ideation HEMATOLOGIC: Denies bleeding disorders. LYMPHATIC: The patient denies any lumps and bumps around the neck. GENITOURINARY: Denies any blood in urine or increased urinary frequency. MUSCULOSKELETAL: Please refer to HPI SKIN: Denies pruitis. Denies rash. PHYSICAL EXAM: VITAL SIGNS: Reviewed GENERAL: Well-developed in no acute distress. HEENT: No sclera icterus. Extraocular movements grossly intact. Moist buccal mucosa. Head is atraumatic, normocephalic. Hears conversational speech. No nasal drainage. NECK: Supple without lymphadenopathy. CHEST: Non-labored respirations and equal bilateral excursions. CARDIOVASCULAR: Palpable 2+ radial pulses. ABDOMEN: Soft. Nondistended. Nontender MUSCULOSKELETAL: No clubbing or cyanosis. NEUROLOGIC: No focal or lateralizing signs. Cranial nerves II through XII grossly intact. PSYCH: Appropriate affect. Alert and oriented to person, place and time. SKIN: Well perfused. Good skin turgor. LABORATORY DATA: WBC 14.8 Hgb 12.0 platelets 389 Sodium 135 potassium 4.2 creatinine 1.14 CK 5315-5908 Elevated troponins CRP 19.1 IMAGING: Chest x-ray mild pulmonary vascular congestion Hip and pelvis x-ray no evidence for acute process. Mild hip osteoarthritis Lumbar spine x-ray no acute fracture. Mild multilevel disc degeneration ASSESSMENT: 1. Bilateral leg weakness with pain 2. 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 History of atrial fibrillation postoperative only 4. History of hyperlipidemia with statin use. Statin discontinued 5. History of coronary disease with prior CABG PLAN: -Further recommendations forthcoming per surgeon regarding biopsy -Continue supportive care -Continue prednisone -Continue to work with physical therapy Thank you for this consultation Physician Change Release Manager note has been reviewed by physician. Signing provider agrees with the documented findings, assessment, and plan of care. Past Medical History Past Medical History: Atrial Fibrillation (Postoperative only), Coronary Artery Disease (CAD), Cancer, Eye Disorder, Hyperlipidemia Additional Past Medical History / Comment(s): Beginnings of cataracts. Hx skin cancer left thigh 2 yrs ago. Hx heart blockages. History of Any Multi-Drug Resistant Organisms: MRSA Year Discovered:: infected drain 20+ years prior MDRO Source:: drain Past Surgical History: Appendectomy, Cholecystectomy, Tubal Ligation Additional Past Surgical History / Comment(s): Right wrist fracture as a child. Right foot fracture. Fatty cyst removed from under right arm. Quadruple bypass 5 yrs ago. Past Anesthesia/Blood Transfusion Reactions: No Reported Reaction Past Psychological History: No Psychological Hx Reported Smoking Status: Former smoker Past Alcohol Use History: None Reported Additional Past Alcohol Use History / Comment(s): Quit smoking 20 yrs ago. Past Drug Use History: None Reported - Past Family History Mother Family Medical History: No Reported History Brother(s) Family Medical History: Cancer Additional Family Medical History / Comment(s): Skin cancer Medications and Allergies Home Medications Medication Instructions Recorded Confirmed Type Aspirin 81 mg PO DAILY #30 chew 01/23/14 08/18/22 Rx Losartan [Cozaar] 25 mg PO DAILY 01/21/19 08/18/22 History Metoprolol Tartrate [Lopressor] 12.5 mg PO BID 01/21/19 08/18/22 History Allergies Allergy/AdvReac Type Severity Reaction Status Date / Time clindamycin AdvReac Nausea & Verified 12/10/19 08:22 Vomiting & Diarrhea codeine AdvReac Unknown- Verified 01/25/19 08:22 not sure if allergic still latex AdvReac red, Verified 01/25/19 08:22 cracked skin, itching streptomycin AdvReac Nausea & Verified 01/25/19 08:22 Vomiting & Diarrhea Surgical - Exam Vital Signs Temp Pulse Resp BP Pulse Ox 97.3 F L 89 16 158/83 97 08/18/22 13:50 08/18/22 13:50 08/18/22 13:50 08/18/22 13:50 08/18/22 13:50 Results - Labs 08/20/22 11:15 08/20/22 11:15 Abnormal Lab Results - Last 24 Hours (Table) 08/19/22 08/19/22 08/19/22 Range/Units 11:00 14:43 14:43 WBC 14.0 H (3.8-10.6) k/uL RBC 3.72 L (3.80-5.40) m/uL Neutrophils # 12.2 H (1.3-7.7) k/uL ESR (0-20) mm/hr D-Dimer 13.37 H (<0.60) mg/L FEU Sodium (137-145) mmol/L Carbon Dioxide (22-30) mmol/L BUN (7-17) mg/dL Creatinine (0.52-1.04) mg/dL Glucose (74-99) mg/dL Calcium (8.4-10.2) mg/dL Lactate Dehydrogenase (120-246) U/L Creatine Kinase (30-135) U/L Troponin I (0.000-0.034) ng/mL C-Reactive Protein (<1.0) mg/dL Urine Appearance Cloudy H (Clear) Urine Protein 2+ H (Negative) Urine Blood Large H (Negative) Ur Leukocyte Esterase Small H (Negative) Urine RBC 6 H (0-5) /hpf Urine WBC 12 H (0-5) /hpf Urine Bacteria Rare H (None) /hpf Urine Mucus Rare H (None) /hpf 08/19/22 08/19/22 08/19/22 Range/Units 14:43 14:43 14:43 WBC (3.8-10.6) k/uL RBC (3.80-5.40) m/uL Neutrophils # (1.3-7.7) k/uL ESR (0-20) mm/hr D-Dimer (<0.60) mg/L FEU Sodium 133 L (137-145) mmol/L Carbon Dioxide 20 L (22-30) mmol/L BUN 28 H (7-17) mg/dL Creatinine 1.15 H (0.52-1.04) mg/dL Glucose 135 H (74-99) mg/dL Calcium 7.6 L (8.4-10.2) mg/dL Lactate Dehydrogenase 326 H (120-246) U/L Creatine Kinase 3109 H* (30-135) U/L Troponin I 0.114 H* (0.000-0.034) ng/mL C-Reactive Protein 19.1 H (<1.0) mg/dL Urine Appearance (Clear) Urine Protein (Negative) Urine Blood (Negative) Ur Leukocyte Esterase (Negative) Urine RBC (0-5) /hpf Urine WBC (0-5) /hpf Urine Bacteria (None) /hpf Urine Mucus (None) /hpf 08/19/22 Range/Units 14:43 WBC (3.8-10.6) k/uL RBC (3.80-5.40) m/uL Neutrophils # (1.3-7.7) k/uL ESR 96 H (0-20) mm/hr D-Dimer (<0.60) mg/L FEU Sodium (137-145) mmol/L Carbon Dioxide (22-30) mmol/L BUN (7-17) mg/dL Creatinine (0.52-1.04) mg/dL Glucose (74-99) mg/dL Calcium (8.4-10.2) mg/dL Lactate Dehydrogenase (120-246) U/L Creatine Kinase (30-135) U/L Troponin I (0.000-0.034) ng/mL C-Reactive Protein (<1.0) mg/dL Urine Appearance (Clear) Urine Protein (Negative) Urine Blood (Negative) Ur Leukocyte Esterase (Negative) Urine RBC (0-5) /hpf Urine WBC (0-5) /hpf Urine Bacteria (None) /hpf Urine Mucus (None) /hpf Diabetes panel 08/19/22 Range/Units 14:43 Sodium 133 L (137-145) mmol/L Potassium 4.1 (3.5-5.1) mmol/L Chloride 105 (98-107) mmol/L Carbon Dioxide 20 L (22-30) mmol/L BUN 28 H (7-17) mg/dL Creatinine 1.15 H (0.52-1.04) mg/dL Glucose 135 H (74-99) mg/dL Calcium 7.6 L (8.4-10.2) mg/dL Thyroid panel 08/19/22 Range/Units 14:43 TSH 2.540 (0.465-4.680) mIU/L Calcium panel 08/19/22 Range/Units 14:43 Calcium 7.6 L (8.4-10.2) mg/dL Pituitary panel 08/19/22 08/19/22 Range/Units 14:43 14:43 Sodium 133 L (137-145) mmol/L Potassium 4.1 (3.5-5.1) mmol/L Chloride 105 (98-107) mmol/L Carbon Dioxide 20 L (22-30) mmol/L BUN 28 H (7-17) mg/dL Creatinine 1.15 H (0.52-1.04) mg/dL Glucose 135 H (74-99) mg/dL Calcium 7.6 L (8.4-10.2) mg/dL TSH 2.540 (0.465-4.680) mIU/L Adrenal panel 08/19/22 Range/Units 14:43 Sodium 133 L (137-145) mmol/L Potassium 4.1 (3.5-5.1) mmol/L Chloride 105 (98-107) mmol/L Carbon Dioxide 20 L (22-30) mmol/L BUN 28 H (7-17) mg/dL Creatinine 1.15 H (0.52-1.04) mg/dL Glucose 135 H (74-99) mg/dL Calcium 7.6 L (8.4-10.2) mg/dL
[2022-08-20] MEDS ORDERED: IOPAMIDOL CONTRAST (ORAL USE) VIAL PO PRN (12:43)
--- NOTE | 2022-08-20 12:56 | P.PN ---
Subjective Progress Note Date: 08/20/22 08/19/22 This is a 77-year-old female warm over the practice. She reports 4 days ago on August 15 receiving a steroid injection for right hip bursitis with Dr. Carrillo. She has no history of coronary artery disease and had coronary bypass graft 4 vessels 01/17/2014. Last evaluation of this was January [address] Thomas. Where there is evidence of occlusion of some of the grafts and moderate disease in the other. She been very active the past few days and has been very sore in her hips and groin area since then. Yesterday she reports the weakness became quite severe And 1 along with fatigue. She indicates she slept 3 hours woke up did not feel much better. She had no dizziness lightheadedness, chest pain pressure or shortness breath nausea vomiting. Emergency room workup should have slightly abnormal troponins and elevated beta natruretic peptide chest x-ray shows mild vascular congestion and correlate with serum BNP X-rays of the L-spine show degenerative disc disease, hip x-ray showed mild arthritis. Currently this a.m. she continues to feel weak and very fatigued. Other than that she denies any chest pains pressures or shortness of breath. She is unable to move si gnificantly due to her lower extremity weakness. 08/20/2022: Patient feels slightly better with prednisone 60 orally. 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 Rash to her face that has improved. Her pain is slightly better more so this morning that currently. She currently denies any chest pains pressures or shortness of breath. Cardiology is working her up for the abnormal troponins with a history of CABG 4 vessel and stent 2. 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 Vital signs are stable with blood pressure is elevated. CPK is down from 3109- 1170. Her labs are normal. Significant workup from neurology is pending. Echo was done already and appears normal. Objective - Vital Signs Vital signs: Vital Signs Temp 97.8 F 08/20/22 08:00 Pulse 70 08/20/22 12:20 Resp 16 08/20/22 12:20 BP 188/89 08/20/22 12:20 Pulse Ox 96 08/20/22 12:20 FiO2 Intake & Output 08/19/22 08/20/22 08/20/22 18:59 06:59 18:59 Intake Total 640 540 240 Output Total 650 375 Balance 640 -110 -135 Weight 77.111 kg Intake: Oral 640 540 240 Output: Urine 650 375 Other: Voiding Method External Catheter External Catheter External Catheter - Exam GENERAL: Fatigued female and in no acute distress. NECK: Normal range of motion, supple without lymphadenopathy or JVD, no thyromegaly LUNGS: Breath sounds clear to auscultation bilaterally and equal. No wheezes rales or rhonchi. HEART: Regular rate and rhythm without murmurs, rubs or gallops.S1S2 Normal ABDOMEN: Soft, nontender, normoactive bowel sounds. No guarding, no rebound. No masses appreciated. EXTREMITIES: range of motion testing minimally., no pitting or edema. No clubbing or cyanosis. Pain to palpation of the lower extremities worse of the thighs then the calves. NEUROLOGICAL: Cranial nerves II through XII grossly intact. Normal speech, normal gait. PSYCH: Normal mood, normal affect. SKIN: Warm, Dry, normal turgor, no rashes or lesions noted. - Labs CBC & Chem 7: 08/20/22 11:15 08/20/22 11:15 Labs: Abnormal Lab Results - Last 24 Hours (Table) 08/19/22 08/19/22 08/19/22 Range/Units 14:43 14:43 14:43 WBC 14.0 H (3.8-10.6) k/uL RBC 3.72 L (3.80-5.40) m/uL MCHC (31.0-37.0) g/dL Neutrophils # 12.2 H (1.3-7.7) k/uL ESR (0-20) mm/hr D-Dimer 13.37 H (<0.60) mg/L FEU Sodium 133 L (137-145) mmol/L Carbon Dioxide 20 L (22-30) mmol/L BUN 28 H (7-17) mg/dL Creatinine 1.15 H (0.52-1.04) mg/dL Glucose 135 H (74-99) mg/dL Calcium 7.6 L (8.4-10.2) mg/dL Lactate Dehydrogenase (120-246) U/L Creatine Kinase 3109 H* (30-135) U/L Troponin I (0.000-0.034) ng/mL C-Reactive Protein (<1.0) mg/dL 08/19/22 08/19/22 08/19/22 Range/Units 14:43 14:43 14:43 WBC (3.8-10.6) k/uL RBC (3.80-5.40) m/uL MCHC (31.0-37.0) g/dL Neutrophils # (1.3-7.7) k/uL ESR 96 H (0-20) mm/hr D-Dimer (<0.60) mg/L FEU Sodium (137-145) mmol/L Carbon Dioxide (22-30) mmol/L BUN (7-17) mg/dL Creatinine (0.52-1.04) mg/dL Glucose (74-99) mg/dL Calcium (8.4-10.2) mg/dL Lactate Dehydrogenase 326 H (120-246) U/L Creatine Kinase (30-135) U/L Troponin I 0.114 H* (0.000-0.034) ng/mL C-Reactive Protein 19.1 H (<1.0) mg/dL 08/20/22 08/20/22 08/20/22 Range/Units 11:15 11:15 11:15 WBC 14.8 H (3.8-10.6) k/uL RBC (3.80-5.40) m/uL MCHC 30.8 L (31.0-37.0) g/dL Neutrophils # 12.4 H (1.3-7.7) k/uL ESR (0-20) mm/hr D-Dimer (<0.60) mg/L FEU Sodium 135 L (137-145) mmol/L Carbon Dioxide 17 L (22-30) mmol/L BUN 35 H (7-17) mg/dL Creatinine 1.14 H (0.52-1.04) mg/dL Glucose 150 H (74-99) mg/dL Calcium 7.9 L (8.4-10.2) mg/dL Lactate Dehydrogenase (120-246) U/L Creatine Kinase 1170 H* (30-135) U/L Troponin I (0.000-0.034) ng/mL C-Reactive Protein (<1.0) mg/dL Assessment and Plan (1) H/O four vessel coronary artery bypass graft Current Visit: Yes Status: Acute Code(s): Z95.1 - PRESENCE OF AORTOCORONARY BYPASS GRAFT SNOMED Code(s): 932668911 (2) NSTEMI (non-ST elevated myocardial infarction) Current Visit: Yes Status: Acute Code(s): I21.4 - NON-ST ELEVATION (NSTEMI) MYOCARDIAL INFARCTION SNOMED Code(s): 95963365 (3) Bilateral hip joint arthritis Current Visit: Yes Status: Acute Code(s): M16.0 - BILATERAL PRIMARY OSTEOARTHRITIS OF HIP SNOMED Code(s): 53227753 (4) Lumbar degenerative disc disease Current Visit: Yes Status: Acute Code(s): M51.36 - OTHER INTERVERTEBRAL DISC DEGENERATION, LUMBAR REGION SNOMED Code(s): 83944987 (5) Leukocytosis Current Visit: Yes Status: Acute Code(s): D72.829 - ELEVATED WHITE BLOOD CE LL COUNT, UNSPECIFIED SNOMED Code(s): 281395093 (6) Weakness Current Visit: Yes Status: Acute Code(s): R53.1 - WEAKNESS SNOMED Code(s): 57372383 (7) CAD (coronary artery disease) Current Visit: No Status: Acute Code(s): I25.10 - ATHSCL HEART DISEASE OF [place] CORONARY ARTERY W/O ANG PCTRS SNOMED Code(s): 71396534 (8) Hyperlipemia Current Visit: No Status: Acute Code(s): E78.5 - HYPERLIPIDEMIA, UNSPECIFIED SNOMED Code(s): 07838790 (9) Dermatomyositis Current Visit: Yes Status: Acute Code(s): M33.90 - DERMATOPOLYMYOSITIS, UNSP, ORGAN INVOLVEMENT UNSPECIFIED SNOMED Code(s): 556416153 Plan: Increase her metoprolol to 25 twice a day, continue losartan 50, weight on muscle biopsy and further workup with neurology. When workup from cardiology. Since her d-dimer is elevated, will obtain a venous Doppler lower extremities. Repeat labs in a.m., she'll be reevaluated next 24 hours
[2022-08-20] MEDS ORDERED: METOPROLOL TARTRATE 12.5 MG TAB PO ONE (13:00)
--- NOTE | 2022-08-20 15:35 | CT ---
EXAMINATION TYPE: CT angio chest CT DLP: 312.2 mGycm, Automated exposure control for dose reduction was used. DATE OF EXAM: 08/20/2022 3:23 PM COMPARISON: Chest radiograph 01/23/2014 CLINICAL INDICATION:Female, 77 years old with history of elevated d-dimer; elevated d-dimer TECHNIQUE/CONTRAST: CTA scan of the thorax is performed with IV Contrast, patient injected with 80cc mL of Isovue 370, pu lmonary embolism protocol. MIP images are created and reviewed. FINDINGS: Pulmonary Artery: There are questionable filling defects identified within the left lower lobe subseg mental pulmonary arteries. The pulmonary artery is of normal size. Lungs/Pleura: Trace left pleural effusion with associated atelectasis. Right basilar dependent subseg mental atelectasis. No pneumothorax. Airway: Large airways are patent. Heart: Heart is mildly prominent in size.. No pericardial effusion. Mild coronary tear calcifications . Post CABG changes. Vasculature: No evidence of aortic aneurysm. Sclerotic calcification of the aorta and its branches. Mediastinum: No gross evidence of adenopathy. Musculoskeletal: No acute osseous abnormalities. Midline sternal wires. Soft Tissues: Unremarkable. Lower neck: No significant findings. Upper Abdomen: Please refer to dedicated CT abdomen pelvis of the same day for findings. IMPRESSION: 1. Questionable filling defects within the left lower lobe subsegmental pulmonary arteries which may represent pulmonary emboli versus artifact. No evidence for right heart strain. 2. Trace left pleural effusion.
--- NOTE | 2022-08-20 15:46 | CT ---
EXAMINATION TYPE: CT abdomen pelvis w con CT DLP: 1240.7 mGycm, Automated exposure control for dose reduction was used. DATE OF EXAM: 08/20/2022 3:23 PM COMPARISON: CTA chest of the same date. CLINICAL INDICATION:Female, 77 years old with history of leukocytosis; abdominal pain TECHNIQUE: Standard CT of the abdomen and pelvis following the administration of 80 cc of Isovue 30 0 IV contrast material and oral contrast. Coronal and sagittal reformats were performed. FINDINGS: LOWER CHEST: Please see dedicated CTA chest for findings ABDOMEN LIVER: Unremarkable GALLBLADDER AND BILE DUCTS: The gallbladder is surgically absent. PANCREAS: Unremarkable. SPLEEN: Unremarkable. ADRENAL GLANDS: Unremarkable. KIDNEYS AND URETERS: No evidence of hydronephrosis or renal calculus. The kidneys enhance symmetrical ly. Trace bilateral perinephric fat stranding/fluid. Contrast is demonstrated within both collecting systems on the delayed phase. PELVIS BLADDER: Unremarkable REPRODUCTIVE: Unremarkable. ABDOMEN & PELVIS STOMACH AND BOWEL: Stomach and duodenum are unremarkable. Distal colonic diverticulosis without evide nce for acute diverticulitis. Enteric contrast reaches the ascending colon the appendix is not visual ized however there is no significant inflammatory changes within the right lower quadrant. No evidenc e of bowel obstruction. PERITONEUM: No evidence of pneumoperitoneum or free fluid. VASCULATURE: Moderate atherosclerotic calcifications are present throughout the abdominal aorta and i ts branches. No evidence of aortic aneurysm. Ectasia of the infrarenal abdominal aorta measuring up t o 2.6 cm. MUSCULOSKELETAL: No acute osseous abnormalities. No aggressive osseous lesion. LYMPH NODES: No gross evidence for lymphadenopathy. SOFT TISSUE/ABDOMINAL WALL: Tiny fat filled umbilical hernia. Few foci of gas within the anterior abd ominal wall likely from medication injection. IMPRESSION: 1. No acute abdominal/pelvic process. 2. Colonic diverticulosis without evidence for acute diverticulitis. 3. Ectasia of the infrarenal abdominal aorta measuring up to 2.6 cm.
--- NOTE | 2022-08-20 16:27 | P.CRDCN ---
History of Present Illness Consult date: 08/20/22 Reason for Consult (text): Elevated troponins History of present illness: History of present illness: This is a 77 year old female patient of Dr. Hussein with a past medical history hypertension, hyperlipidemia, coronary artery disease status post CABG in 2012 with additional balloon angioplasty and stenting, carotid bruit, family history of coronary artery disease. We have been asked to evaluate the patient for elevated troponins. Patient gives history that on Thursday she was at orthopedics and underwent a cortisone injection in the right hip. She worked on Thursday and her right leg and then both thighs seem to be getting sore. By the next morning she could not get out of bed and her had to help her. She was sitting on the toilet following that and was not able to get up and her had to help her. She continues to have significant weakness and achiness in her thighs. She also complains of dizziness. No chest pain. EKG sinus rhythm Chest x-ray: Mild pulmonary vascular congestion correlate with serum BNP WBC currently 14.8, sed rate 96. D-dimer 13.3. Sodium 135, potassium 4.2, BUN 35 creatinine 1.14. Blood sugar 150. Initial CK obtained yesterday was 3190 with repeat 1170. Troponin 0.049, 0.057, 0.114. C-reactive protein 19.1. ProBNP 7400. TSH 2.540. Influenza A, influenza B, RSV, Covid 19 not detected. Echocardiogram 08/20/2022 revealed normal LV size and systolic function Home cardiac medications: Aspirin 81 mg daily, losartan 25 mg daily, metoprolol tartrate 12.5 mg twice daily, atorvastatin 40 mg daily, Nitrostat as needed Cardiac catheterization and angioplasty of the circumflex in 2018 and transferred to [facility] due to rupture Stress testing June 2020 revealed inducible inch area of lateral ischemia treating medically. Review Of Systems: At the time of my evaluation: Constitutional: No fever, no chills. No weakness, fatigue or lethargy. EENT: No headache. No dizziness. Lungs: No shortness of breath, cough, no sputum production. No wheezing. Cardiovascular: No chest pain, no lower extremity edema. No palpitations. No paroxysmal nocturnal dyspnea. No orthopnea. No lightheadedness or dizziness. No syncopal episodes. Abdominal: No abdominal pain. No nausea, vomiting. No diarrhea. No constipation. No bloody or tarry stools. Genitourinary: No dysuria.. No urinary retention. Musculoskeletal: No myalgias. No muscle weakness, no frequent falls. No back pain. No neck pain. Integumentary: No wounds. No rash. No unusual bruising. Neurologic: No aphasia. No facial droop. No change in mentation. No head injury. No headache. Physical examination: Gen: This is a 77-year-old female. She appears to be resting comfortably in bed. VS: reviewed HEENT: Head is atraumatic, normocephalic. Pupils equal, round. Sclerae is anicteric. NECK: Supple. No JVD. . LUNGS: Clear to auscultation. No wheezes or rhonchi. No intercostal retra ctions. HEART: Regular rate and rhythm. No murmur. ABDOMEN: Soft No tenderness. EXTREMITIES: No pedal edema. No calf tenderness. NEUROLOGICAL: Patient is awake, alert and oriented x3. Assessment: Rhabdomyolysis possibly related to statin Significant lower extremity weakness Dizziness History of coronary artery disease status post CABG with additional balloon angioplasty and stenting Carotid bruit Hypertension Hyperlipidemia Plan: Continue patient's home cardiac medications, noted increase of losartan to 50 mg Discontinue atorvastatin Start patient on Zetia 10 mg daily No further cardiac workup at this time. Elevated troponins thought to be related to rhabdomyolysis. Continue per current cardiac medications with the addition of Zetia. Cardiology will sign off and follow on an as-needed basis. Following discharge from the hospital, patient may follow up with Dr. Hussein in 1-2 weeks. Thank you kindly for this consultation. Nurse practitioner note has been reviewed, I agree with documented findings and plan of care. Patient was seen and examined. Past Medical History Past Medical History: Atrial Fibrillation (Postoperative only), Coronary Artery Disease (CAD), Cancer, Eye Disorder, Hyperlipidemia Additional Past Medical History / Comment(s): Beginnings of cataracts. Hx skin cancer left thigh 2 yrs ago. Hx heart blockages. History of Any Multi-Drug Resistant Organisms: MRSA Date of last positivie culture/infection: infected drain 20+ years prior MDRO Source:: drain Past Surgical History: Appendectomy, Cholecystectomy, Tubal Ligation Additional Past Surgical History / Comment(s): Right wrist fracture as a child. Right foot fracture. Fatty cyst removed from under right arm. Quadruple bypass 5 yrs ago. Past Anesthesia/Blood Transfusion Reactions: No Reported Reaction Past Psychological History: No Psychological Hx Reported Smoking Status: Former smoker Past Alcohol Use History: None Reported Additional Past Alcohol Use History / Comment(s): Quit smoking 20 yrs ago. Past Drug Use History: None Reported - Past Family History Mother Family Medical History: No Reported History Brother(s) Family Medical History: Cancer Additional Family Medical History / Comment(s): Skin cancer Medications and Allergies Home Medications Medication Instructions Recorded Confirmed Type Aspirin 81 mg PO DAILY #30 chew 01/23/14 08/18/22 Rx Losartan [Cozaar] 25 mg PO DAILY 01/21/19 08/18/22 History Metoprolol Tartrate [Lopressor] 12.5 mg PO BID 01/21/19 08/18/22 History Allergies Allergy/AdvReac Type Severity Reaction Status Date / Time clindamycin AdvReac Nausea & Verified 01/25/19 08:22 Vomiting & Diarrhea codeine AdvReac Unknown- Verified 01/25/19 08:22 not sure if allergic still latex AdvReac red, Verified 01/25/19 08:22 cracked skin, itching streptomycin AdvReac Nausea & Verified 01/25/19 08:22 Vomiting & Diarrhea Physical Exam Vitals: Vital Signs Temp Pulse Resp BP Pulse Ox 08/20/22 08:00 97.8 F 74 18 154/69 92 L 08/20/22 04:00 76 16 182/84 92 L 08/19/22 23:55 84 16 179/82 96 08/19/22 20:00 96 F L 115 H 16 166/95 95 08/19/22 17:15 99.0 F 82 18 177/83 96 08/19/22 16:00 99.3 F 90 18 178/74 94 L 08/19/22 14:00 86 18 Intake and Output 08/19/22 08/20/22 08/20/22 22:59 06:59 14:59 Intake Total 540 0 240 Output Total 650 375 Balance 540 -650 -135 Intake: Oral 540 0 240 Output: Urine 650 375 Other: Voiding Method External Catheter External Catheter Weight 77.111 kg Results 08/20/22 11:15 08/20/22 11:15 Cardiac Enzymes 08/19/22 08/19/22 Range/Units 14:43 14:43 Lactate Dehydrogenase 326 H (120-246) U/L Troponin I 0.114 H* (0.000-0.034) ng/mL CBC 08/19/22 08/20/22 Range/Units 14:43 11:15 WBC 14.0 H 14.8 H (3.8-10.6) k/uL RBC 3.72 L 4.03 (3.80-5.40) m/uL Hgb 11.7 12.0 (11.4-16.0) gm/dL Hct 36.1 38.9 (34.0-46.0) % Plt Count 352 389 (150-450) k/uL Comprehensive Metabolic Panel 08/19/22 08/20/22 Range/Units 14:43 11:15 Sodium 133 L 135 L (137-145) mmol/L Potassium 4.1 4.2 (3.5-5.1) mmol/L Chloride 105 106 (98-107) mmol/L Carbon Dioxide 20 L 17 L (22-30) mmol/L BUN 28 H 35 H (7-17) mg/dL Creatinine 1.15 H 1.14 H (0.52-1.04) mg/dL Glucose 135 H 150 H (74-99) mg/dL Calcium 7.6 L 7.9 L (8.4-10.2) mg/dL Current Medications Generic Name Dose Route Start Last Admin Trade Name Freq PRN Reason Stop Dose Admin Acetaminophen 650 mg 08/18/22 18:53 Acetaminophen Tab 325 Mg Tab PO Q6HR PRN Mild Pain or Fever > 100.5 Hydrocodone Bitart/Acetaminophen 1 each 08/19/22 12:55 08/19/22 14:11 Hydrocodone/Apap 5-325mg 1 Each Tab PO 1 each Q6HR PRN Administration Pain Aspirin 81 mg 08/19/22 09:45 08/20/22 10:54 Aspirin 81 Mg PO 81 mg DAILY KRISTINE Administration Famotidine 20 mg 08/19/22 13:00 08/20/22 10:54 Famotidine 20 Mg Tab PO 20 mg DAILY KRISTINE Administration Heparin Sodium (Porcine) 5,000 unit 08/19/22 16:00 08/20/22 10:54 Heparin Sodium,Porcine/Pf 5,000 Unit/0.5 Ml Syringe SQ 5,000 unit Q8HR KRISTINE Administration Sodium Chloride 1,000 mls @ 75 mls/hr 08/18/22 19:00 08/19/22 22:15 Saline 0.9% IV Not Given .[id number] KRISTINE Losartan Potassium 50 mg 08/20/22 09:00 08/20/22 10:54 Losartan 50 Mg Tab PO 50 mg DAILY KRISTINE Administration Metoprolol Tartrate 12.5 mg 08/19/22 09:45 08/20/22 10:54 Metoprolol Tartrate 12.5 Mg Tab PO 12.5 mg BID KRISTINE Administration Naloxone HCl 0.2 mg 08/18/22 18:53 Naloxone 0.4 Mg/Ml 1 Ml Vial IV Q2M PRN Opioid Reversal Prednisone 60 mg 08/19/22 16:45 08/20/22 10:53 Prednisone 20 Mg Tab PO 60 mg DAILY KRISTINE Administration Intake and Output 08/19/22 08/20/22 08/20/22 22:59 06:59 14:59 Intake Total 540 0 240 Output Total 650 375 Balance 540 -650 -135 Intake: Oral 540 0 240 Output: Urine 650 375 Other: Voiding Method External Catheter External Catheter Weight 77.111 kg 08/20/22 11:15 08/20/22 11:15
--- NOTE | 2022-08-20 16:31 | US ---
EXAMINATION TYPE: US venous doppler duplex LE DATE OF EXAM: 08/20/2022 12:37 PM Exam done portable COMPARISON: NONE CLINICAL INDICATION: Female, 77 years old with history of rule out DVT; Bilateral leg weakness, patie nt on blood thinners SIDE PERFORMED: Bilateral TECHNIQUE: The lower extremity deep venous system is examined utilizing real time linear array sonog jordan with graded compression, doppler sonography and color-flow sonography. VESSELS IMAGED: Common Femoral Vein Deep Femoral Vein Greater Saphenous Vein * Femoral Vein Popliteal Vein Small Saphenous Vein * Proximal Calf Veins (* superficial vessels) Right Leg: Appears negative for DVT Left Leg: Appears negative for DVT IMPRESSION: Grayscale, color doppler, spectral doppler imaging performed of the deep veins of the lo wer extremities. There is normal flow, compressibility, vascular waveforms.
--- NOTE | 2022-08-20 16:33 | P.PN ---
Subjective Progress Note Date: 08/20/22 Patient seen at bedside today and she feels better today compared to yesterday. In the morning she is able to lift up her legs above bed early in the morning and was working with therapy. Right now she feels her thighs are very painful. Her is at best any feels her facial rash is residing. Patient denies of any headache, jaw pain or claudication of the jaw. Any difficulty swallowing. Objective - Vital Signs Vital signs: Vital Signs Temp 97.8 F 08/20/22 08:00 Pulse 70 08/20/22 12:20 Resp 16 08/20/22 12:20 BP 188/89 08/20/22 12:20 Pulse Ox 96 08/20/22 12:20 FiO2 Intake & Output 08/19/22 08/20/22 08/20/22 18:59 06:59 18:59 Intake Total 640 540 780 Output Total 650 725 Balance 640 -110 55 Weight 77.111 kg Intake: Oral 640 540 780 Output: Urine 650 725 Other: Voiding Method External Catheter External Catheter External Catheter - Exam GENERAL: The patient is lying in bed and is not in acute distress. INTEGUMENTARY: Erythematous of bilateral cheek region and is warm to touch and is on anterior neck region. NEUROLOGICAL: Higher mental function: The patient is awake, alert, oriented to self, place and time. Patient is following commands. No aphasia and no neglect. Cranial nerves: The pupils are round, equal and reactive to light and accommodation. Visual love are full to confrontation throughout. Extraocular movement is intact no nystagmus is noted. Facial sensation is normal to touch throughout. The facial strength is normal throughout. Hearing is normal bilaterally to hand rub. Tongue is midline and moved [id number] without any difficulty. No dysarthria is noted. Shoulder shrug is normal bilaterally. Motor: The strength is uppers are 4+. Lowers is limited because of pain but was able to raise proximal above gravity. While left proximal is 2/5. Ankles are 4+ . Normal tone and bulk. Cerebellum: Normal finger to nose bilaterally. Sensation: Sensation is normal to touch throughout except feet is decrease to touch. Reflexes (right/left): Ankles are 1-2+ bilaterally, biceps and brachioradialis are 2+. Otherwise 1+. Plantars are mute bilaterally. Some of the workup during this hospital visit consisted of: AST of 2020, ALT 156 and repeat [place] 1170 [place] 3109 Glucose is 192 Calcium is 8.2 Troponin is slightly trending up. ESR is 96 CRP is 19.1. Lactic dehydrogenase is 326. TSH: 2.54 2-D echo was reported as normal left ventricular size and systolic function. Normal left atrial size. - Labs CBC & Chem 7: 08/20/22 11:15 08/20/22 11:15 Labs: Abnormal Lab Results - Last 24 Hours (Table) 08/19/22 08/19/22 08/20/22 Range/Units 14:43 14:43 11:15 WBC 14.8 H (3.8-10.6) k/uL MCHC 30.8 L (31.0-37.0) g/dL Neutrophils # 12.4 H (1.3-7.7) k/uL ESR 96 H (0-20) mm/hr Sodium (137-145) mmol/L Carbon Dioxide (22-30) mmol/L BUN (7-17) mg/dL Creatinine (0.52-1.04) mg/dL Glucose (74-99) mg/dL Calcium (8.4-10.2) mg/dL Lactate Dehydrogenase 326 H (120-246) U/L Creatine Kinase (30-135) U/L C-Reactive Protein 19.1 H (<1.0) mg/dL 08/20/22 08/20/22 Range/Units 11:15 11:15 WBC (3.8-10.6) k/uL MCHC (31.0-37.0) g/dL Neutrophils # (1.3-7.7) k/uL ESR (0-20) mm/hr Sodium 135 L (137-145) mmol/L Carbon Dioxide 17 L (22-30) mmol/L BUN 35 H (7-17) mg/dL Creatinine 1.14 H (0.52-1.04) mg/dL Glucose 150 H (74-99) mg/dL Calcium 7.9 L (8.4-10.2) mg/dL Lactate Dehydrogenase (120-246) U/L Creatine Kinase 1170 H* (30-135) U/L C-Reactive Protein (<1.0) mg/dL Assessment and Plan Assessment: This is a 77-year-old woman who is having progressive pain mostly in bilateral thighs with difficulty ambulating for the last 2-3 weeks progressively getting worse and recently she was noted to have the hematocrit rash over the face. She could not tolerate statins in the past. Her CK level is a elevated in the 3000's and ESR is elevated I feel patient's symptoms is highly suspicious dermatomyositis---feels a bit better with steroids. History of atrial fibrillation Hyperlipidemia History of coronary artery disease status post CABG Plan: Pending anti-Helen 1, RICARDO, [id number] DNA, anti-SSA and anti-SSB, anti- Leal antibodies, antimitochondrial antibody, scleroderma antibody, smooth muscle antibody, anti-PM/SCL 100 antibody, ESR, CRP. Consulted general surgery team for muscle biopsy of bilateral thighs. I started the patient on Prednisone 60mg daily on 08/19/22. Recommend sugar monitoring and will defer management to primary team. Ordered CT abdomen/pelvis to rule out any mass. Ordered CTA chest. Cardiology is consulted. GI prophylaxis: is on famotidine 20mg daily. Will defer the rest of management to primary team. The plan is discussed with patient, her who is at bedside and her primary attending. Time with Patient: Less than 30
[2022-08-20] MEDS: METOPROLOL TARTRATE 25 MG TAB PO SCH (20:28)
[2022-08-20] MEDS: ACETAMINOPHEN TAB 325 MG TAB PO PRN (23:27)
--- NOTE | 2022-08-21 06:33 | P.PN ---
Subjective Progress Note Date: 08/21/22 Principal diagnosis: Coronary artery disease The patient is a 77-year-old female patient with CAD and prior revascularization as well as hypertension and dyslipidemia who was admitted to the hospital with rhabdomyolysis. It felt it was related to statin. Statin is on hold at this point. We consulted to see the patient because of abnormal troponin which we felt related to rhabdomyolysis. The echo revealed normal LV systolic function. She has no pain in the chest. The EKG did not show any ischemic changes. August [id number] The patient was seen and evaluated this morning. She remains asymptomatic and hemodynamically stable beside elevation in the blood pressure. I'm going to increase the dose of losartan. The echo showed normal wall motion abnormality is concerning for ischemia. She is on aspirin and she is on zetia,. From the cardiovascular standpoint of view, we'll continue the current medical regimen and continue following up with the patient and follow-up with the blood work from this morning. The creatinine was slightly elevated which was related to rhabdomyolysis The examination is remarkable for regular rhythm with a systolic murmur and clear breathing sounds bilaterally. Assessment Rhabdomyolysis Evidence of myocardial injury was no obvious of ischemia CAD Statin intolerance Multiple comorbid conditions Plan DC statin Continue aspirin Increase the dose of losartan Follow-up with the patient Objective - Vital Signs Vital signs: Vital Signs Temp 98.0 F 08/20/22 20:00 Pulse 68 08/21/22 02:00 Resp 18 08/21/22 02:00 BP 184/83 08/21/22 00:00 Pulse Ox 95 08/21/22 00:00 FiO2 Intake & Output 08/20/22 08/20/22 08/21/22 06:59 18:59 06:59 Intake Total 540 2130 Output Total 650 1075 1300 Balance -110 1055 -1300 Intake: Intake, IV Titration 750 Amount Sodium Chloride 0.9% 1, 750 000 ml @ 75 mls/hr IV . [id number] KRISTINE Rx#:[id number] Oral 540 1380 Output: Urine 650 1075 1300 Other: Voiding Method External Catheter External Catheter External Catheter - Labs CBC & Chem 7: 08/20/22 11:15 08/20/22 11:15 Labs: Abnormal Lab Results - Last 24 Hours (Table) 08/20/22 08/20/22 08/20/22 Range/Units 11:15 11:15 11:15 WBC 14.8 H (3.8-10.6) k/uL MCHC 30.8 L (31.0-37.0) g/dL Neutrophils # 12.4 H (1.3-7.7) k/uL Sodium 135 L (137-145) mmol/L Carbon Dioxide 17 L (22-30) mmol/L BUN 35 H (7-17) mg/dL Creatinine 1.14 H (0.52-1.04) mg/dL Glucose 150 H (74-99) mg/dL Calcium 7.9 L (8.4-10.2) mg/dL Creatine Kinase 1170 H* (30-135) U/L
[2022-08-21] MEDS: SODIUM CHLORIDE 0.9% 1,000 ML IV SCH ×2 (06:58→16:36)
[2022-08-21] MEDS: ASPIRIN 81 MG PO SCH (09:29)
[2022-08-21] MEDS: predniSONE 20 MG TAB PO SCH (09:29)
[2022-08-21] MEDS: HEPARIN SODIUM,PORCINE/PF 5,000 UNIT/0.5 ML SYRINGE SQ SCH ×3 (09:29→23:54)
[2022-08-21] MEDS: METOPROLOL TARTRATE 25 MG TAB PO SCH ×2 (09:29→20:48)
[2022-08-21] MEDS: LOSARTAN 50 MG TAB PO SCH (09:29)
[2022-08-21] MEDS: EZETIMIBE 10 MG TAB PO SCH (09:29)
[2022-08-21] MEDS: FAMOTIDINE 20 MG TAB PO SCH (09:29)
[2022-08-21] MEDS: ACETAMINOPHEN TAB 325 MG TAB PO PRN (09:36)
--- NOTE | 2022-08-21 10:59 | P.PN ---
Subjective Progress Note Date: 08/21/22 CHIEF COMPLAINT: Bilateral leg weakness HISTORY OF PRESENT ILLNESS: Surgical service consulted for muscle biopsy of patient's thighs. Patient reports some improvement in weakness today. She does report that the skin is peeling on her calves. Afebrile. WBC 14.8 Hgb 12 platelets 39 [birth year]/1934 creatinine 1.14 CK level trending downwards to 1170. On Prednisone. Chest CTA questionable filling defects within the left lower lobe subsegmental pulmonary arteries which may represent pulmonary emboli versus artifact. No evidence for right heart strain. Trace left pleural effusion CT abdomen no acute abdominal pelvic process. Colonic diverticulosis without evidence of acute diverticulitis. Excision of the infrarenal abdominal aorta measuring up to 2.6 cm Venous Doppler negative for DVT bilaterally PHYSICAL EXAM: VITAL SIGNS: Reviewed GENERAL: Well-developed in no acute distress. HEENT: No sclera icterus. Extraocular movements grossly intact. Moist buccal mucosa. Head is atraumatic, normocephalic. Hears conversational speech. No nasal drainage. NECK: Supple without lymphadenopathy. CHEST: Non-labored respirations and equal bilateral excursions. CARDIOVASCULAR: Palpable 2+ radial pulses. ABDOMEN: Soft. Nondistended. Nontender. MUSCULOSKELETAL: No clubbing or cyanosis. NEUROLOGIC: No focal or lateralizing signs. Cranial nerves II through XII grossly intact. PSYCH: Appropriate affect. Alert and oriented to person, place and time. SKIN: Well perfused. Good skin turgor. ASSESSMENT: 1. Bilateral leg weakness with pain 2. 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 History of atrial fibrillation postoperative only 4. History of hyperlipidemia with statin use. Statin discontinued 5. History of coronary disease with prior CABG 6. Rhabdomyolysis PLAN: -Patient scheduled for open muscle biopsy tomorrow, 08/22/[address] Cuenca -Continue supportive care Physician [facility] note has been reviewed by physician. Signing provider agrees with the documented findings, assessment, and plan of care. Objective - Vital Signs Vital signs: Vital Signs Temp 98.4 F 08/21/22 08:15 Pulse 66 08/21/22 08:15 Resp 17 08/21/22 08:15 BP 170/76 08/21/22 08:15 Pulse Ox 99 08/21/22 08:15 FiO2 Intake & Output 08/20/22 08/21/22 08/21/22 18:59 06:59 18:59 Intake Total 2130 180 Output Total 1075 1300 Balance 1055 -1300 180 Intake: Intake, IV Titration 750 Amount Sodium Chloride 0.9% 1, 750 000 ml @ 75 mls/hr IV . [id number] [facility] Rx#:[id number] Oral 1380 180 Output: Urine 1075 1300 Other: Voiding Method External Catheter External Catheter - Labs CBC & Chem 7: 08/20/22 11:15 08/20/22 11:15 Labs: Abnormal Lab Results - Last 24 Hours (Table) 08/20/22 08/20/22 08/20/22 Range/Units 11:15 11:15 11:15 WBC 14.8 H (3.8-10.6) k/uL MCHC 30.8 L (31.0-37.0) g/dL Neutrophils # 12.4 H (1.3-7.7) k/uL Sodium 135 L (137-145) mmol/L Carbon Dioxide 17 L (22-30) mmol/L BUN 35 H (7-17) mg/dL Creatinine 1.14 H (0.52-1.04) mg/dL Glucose 150 H (74-99) mg/dL Calcium 7.9 L (8.4-10.2) mg/dL Creatine Kinase 1170 H* (30-135) U/L
[2022-08-21 11:22] LABS: Basophils % (A) 0 %; Eosinophils # (A) 0.1 k/uL (0-0.7); Eosinophils % (A) 1 %; HCT 38.1 % (34.0-46.0); HGB 11.8 gm/dL (11.4-16.0); Lymphocytes # (A) 2.2 k/uL (1.0-4.8); Lymphocytes % (A) 13 %; MCH 30.2 pg (25.0-35.0); MCHC 31.1 g/dL (31.0-37.0); MCV 97.1 fL (80.0-100.0); Mean Platelet Volume 8.3; Monocytes % (A) 6 %; Neutrophils # (A) 13.8 k/uL (1.3-7.7); Neutrophils % (A) 80 %; Platelet Count 420 k/uL (150-450); RBC 3.93 m/uL (3.80-5.40); WBC 17.4 k/uL (3.8-10.6)
[2022-08-21 11:38] LABS: ALT 214 U/L (4-34); AST 251 U/L (14-36); African American GFR (CKD) 54 (>60 ml/min/1.73 sqM); Albumin 2.5 g/dL (3.5-5.0); Alkaline Phosphatase 131 U/L (38-126); Anion Gap 7 mmol/L; Blood Urea Nitrogen 39 mg/dL (7-17); Calcium 8.1 mg/dL (8.4-10.2); Carbon Dioxide 21 mmol/L (22-30); Chloride 106 mmol/L (98-107); Creatine Kinase 481 U/L (30-135); Glucose 103 mg/dL (74-99); Magnesium 2.1 mg/dL (1.6-2.3); Non-African American GFR(CKD) 47 (>60 ml/min/1.73 sqM); Potassium 4.5 mmol/L (3.5-5.1); Sodium 134 mmol/L (137-145); Total Bilirubin 0.7 mg/dL (0.2-1.3); Total Protein 5.5 g/dL (6.3-8.2)
--- NOTE | 2022-08-21 14:51 | P.PN ---
Subjective Progress Note Date: 08/21/22 08/19/22 This is a 77-year-old female warm over the practice. She reports 4 days ago on August 15 receiving a steroid injection for right hip bursitis with Dr. Carrillo. She has no history of coronary artery disease and had coronary bypass graft 4 vessels 01/17/2014. Last evaluation of this was January [address] Thomas. Where there is evidence of occlusion of some of the grafts and moderate disease in the other. She been very active the past few days and has been very sore in her hips and groin area since then. Yesterday she reports the weakness became quite severe And 1 along with fatigue. She indicates she slept 3 hours woke up did not feel much better. She had no dizziness lightheadedness, chest pain pressure or shortness breath nausea vomiting. Emergency room workup should have slightly abnormal troponins and elevated beta natruretic peptide chest x-ray shows mild vascular congestion and correlate with serum BNP X-rays of the L-spine show degenerative disc disease, hip x-ray showed mild arthritis. Currently this a.m. she continues to feel weak and very fatigued. Other than that she denies any chest pains pressures or shortness of breath. She is unable to move s ignificantly due to her lower extremity weakness. 08/20/2022: Patient feels slightly better with prednisone 60 orally. 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 Rash to her face that has improved. Her pain is slightly better more so this morning that currently. She currently denies any chest pains pressures or shortness of breath. Cardiology is working her up for the abnormal troponins with a history of CABG 4 vessel and stent 2. 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 Vital signs are stable with blood pressure is elevated. CPK is down from 3109- 1170. Her labs are normal. Significant workup from neurology is pending. Echo was done already and appears normal. 08/21/2022 neurology workup in progress/ muscle biopsy scheduled for tomorro w.Maintained on IV fluids, oral steroids. Reporting less pain, less weakness. Stood at bedside with PT, complains of significant weakness. PT recommending subacute rehab. Hypertensive losartan dose increased. Chest CTA reported questionable filling defects within the left lower lobe subsegmental pulmonary arteries which may represent pulmonary emboli versus artifact, no evidence for right heart strain, trace left pleural effusion. Venous Doppler of bilateral lower extremities reported negative for DVT. CT of abdomen and pelvis reported no acute abdominal/pelvic process, colonic diverticulosis without evidence of acute diverticulitis, excision of the infrarenal abdominal aorta measuring up to 2.6 cm. Afebrile, labs pending. Objective - Vital Signs Vital signs: Vital Signs Temp 97.5 F L 08/21/22 12:00 Pulse 76 08/21/22 12:00 Resp 16 08/21/22 12:00 BP 163/74 08/21/22 12:00 Pulse Ox 98 08/21/22 12:00 FiO2 Intake & Output 08/20/22 08/21/22 08/21/22 18:59 06:59 18:59 Intake Total 2130 180 Output Total 1075 1300 700 Balance 1055 -1300 -520 Intake: Intake, IV Titration 750 Amount Sodium Chloride 0.9% 1, 750 000 ml @ 75 mls/hr IV . [id number] [facility] Rx#:[id number] Oral 1380 180 Output: Urine 1075 1300 700 Other: Voiding Method External Catheter External Catheter External Catheter - Exam GENERAL: Sitting up in bed, no acute distress. NECK: Normal range of motion, supple without JVD LUNGS: Breath sounds clear to auscultation bilaterally and equal. No wheezes rales or rhonchi. HEART: Regular rate and rhythm without murmurs, rubs or gallops.S1S2 Normal ABDOMEN: Soft, nontender, normoactive bowel sounds. No guarding, no rebound. No masses appreciated. EXTREMITIES: no pitting or edema. No clubbing or cyanosis. Lessening Pain to palpation of the lower extremities worse of the thighs then the calves. NEUROLOGICAL: Cranial nerves II through XII grossly intact. Normal speech, normal gait. PSYCH: Normal mood, normal affect. SKIN: Warm, Dry, normal turgor, no rashes or lesions noted. - Labs CBC & Chem 7: 08/21/22 10:34 08/21/22 10:34 Labs: Abnormal Lab Results - Last 24 Hours (Table) 08/20/22 08/21/22 08/21/22 Range/Units 11:15 10:34 10:34 WBC 17.4 H (3.8-10.6) k/uL Neutrophils # 13.8 H (1.3-7.7) k/uL Sodium 134 L (137-145) mmol/L Carbon Dioxide 21 L (22-30) mmol/L BUN 39 H (7-17) mg/dL Creatinine 1.15 H (0.52-1.04) mg/dL Glucose 103 H (74-99) mg/dL Calcium 8.1 L (8.4-10.2) mg/dL AST 251 H (14-36) U/L ALT 214 H (4-34) U/L Alkaline Phosphatase 131 H (38-126) U/L Creatine Kinase 481 H (30-135) U/L C-Reactive Protein (<1.0) mg/dL Total Protein 5.5 L (6.3-8.2) g/dL Albumin 2.5 L (3.5-5.0) g/dL Aldolase 10.6 H (1.2-7.6) U/L 08/21/22 Range/Units 10:34 WBC (3.8-10.6) k/uL Neutrophils # (1.3-7.7) k/uL Sodium (137-145) mmol/L Carbon Dioxide (22-30) mmol/L BUN (7-17) mg/dL Creatinine (0.52-1.04) mg/dL Glucose (74-99) mg/dL Calcium (8.4-10.2) mg/dL AST (14-36) U/L ALT (4-34) U/L Alkaline Phosphatase (38-126) U/L Creatine Kinase (30-135) U/L C-Reactive Protein 8.0 H (<1.0) mg/dL Total Protein (6.3-8.2) g/dL Albumin (3.5-5.0) g/dL Aldolase (1.2-7.6) U/L Assessment and Plan Assessment: (1) Dermatomyositis, possible, workup in progress Current Visit: Yes Status: Acute Code(s): M33.90 - DERMATOPOLYMYOSITIS, UNSP, ORGAN INVOLVEMENT UNSPECIFIED SNOMED Code(s): 356910920 (2) H/O four vessel coronary artery bypass graft Current Visit: Yes Status: Acute Code(s): Z95.1 - PRESENCE OF AORTOCORONARY BYPASS GRAFT SNOMED Code(s): 361374406 (3) NSTEMI (non-ST elevated myocardial infarction) ruled out per cardiology, elevated troponins attributed to rhabdomyolysis Current Visit: Yes Status: Acute Code(s): I21.4 - NON-ST ELEVATION (NSTEMI) MYOCARDIAL INFARCTION SNOMED Code(s): 20703592 (4) Bilateral hip joint arthritis Current Visit: Yes Status: Acute Code(s): M16.0 - BILATERAL PRIMARY OSTEOARTHRITIS OF HIP SNOMED Code(s): 04034943 (5) Lumbar degenerative disc disease Current Visit: Yes Status: Acute Code(s): M51.36 - OTHER INTERVERTEBRAL DISC DEGENERATION, LUMBAR REGION SNOMED Code(s): 28604547 (6) Leukocytosis Current Visit: Yes Status: Acute Code(s): D72.829 - ELEVATED WHITE BLOOD CELL COUNT, UNSPECIFIED SNOMED Code(s): 248706587 (7) Weakness Current Visit: Yes Status: Acute Code(s): R53.1 - WEAKNESS SNOMED Code(s): 96914165 (8) CAD (coronary artery disease) Current Visit: No Status: Acute Code(s): I25.10 - ATHSCL HEART DISEASE OF CIRCLE CORONARY ARTERY W/O ANG PCTRS SNOMED Code(s): 31543458 (9) Hyperlipemia Current Visit: No Status: Acute Code(s): E78.5 - HYPERLIPIDEMIA, UNSPECIFIED SNOMED Code(s): 53744657 Statin intolerance Plan: Continue on current medication regime ,monitoring and symptomatic treatment. Labs pending. Orthostatic vital signs ordered. Neurology workup in progress, muscle biopsy scheduled for tomorrow. Losartan increased, close monitoring of blood pressure. Discharge planning in progress for subacute rehab. at [place]. The impression and plan of care has been dictated as directed. : I performed a history and examination of this patient, discussed the same with the dictator. I agree with the dictator's note ,documented as a scribe. Any additional findings or plans will be noted.
--- NOTE | 2022-08-21 17:46 | P.PN ---
Subjective Progress Note Date: 08/21/22 Patient is seen at bedside and she feels she is doing much better today compared to the to the last 2 days. She feels she is having more strength that today. She feels her urine color is also improving. She denies of any new neurological issues. Objective - Vital Signs Vital signs: Vital Signs Temp 97.5 F L 08/21/22 16:00 Pulse 70 08/21/22 16:00 Resp 17 08/21/22 16:00 BP 160/73 08/21/22 16:00 Pulse Ox 95 08/21/22 16:00 FiO2 Intake & Output 08/20/22 08/21/22 08/21/22 18:59 06:59 18:59 Intake Total 2130 180 Output Total 1075 1300 700 Balance 1055 1300 -520 Intake: Intake, IV Titration 750 Amount Sodium Chloride 0.9% 1, 750 000 ml @ 75 mls/hr IV . [id number] [facility] Rx#:[id number] Oral 1380 180 Output: Urine 1075 1300 700 Other: Voiding Method External Catheter External Catheter External Catheter - Exam GENERAL: The patient is lying in bed and is not in acute distress. INTEGUMENTARY: Erythematous of bilateral cheek region and is warm to touch and is on anterior neck region. NEUROLOGICAL: Higher mental function: The patient is awake, alert, oriented to self, place and time. Patient is following commands. No aphasia and no neglect. Cranial nerves: The pupils are round, equal and reactive to light and accommodation. Visual love are full to confrontation throughout. Extraocular movement is intact no nystagmus is noted. Facial sensation is normal to touch throughout. The facial strength is normal throughout. Hearing is normal bilaterally to hand rub. Tongue is midline and moved [id number] without any difficulty. No dysarthria is noted. Shoulder shrug is normal bilaterally. Motor: The strength is uppers are 4+ to 5-. Lowers is limited because of pain but was able to lift above gravity briefly. Normal tone and bulk. Cerebellum: Normal finger to nose bilaterally. Sensation: Sensation is normal to touch throughout except feet is decrease to touch. Reflexes (right/left): Ankles are 1-2+ bilaterally, biceps and brachioradialis are 2+. Otherwise 1+. Plantars are mute bilaterally. Some of the workup during this hospital visit consisted of: AST of 2020, ALT 156 and repeat is 1170 CK of 3109--.481 Glucose is 192 Calcium is 8.2 Troponin is slightly trending up. ESR is 96-->86 CRP is 19.1.-->8.0 Lactic dehydrogenase is 326. Aldolase is 10.6 (normal is 1.2-7.6). TSH: 2.54 2-D echo was reported as normal left ventricular size and systolic function. Normal left atrial size. CT of the abdomen is reported as no acute abdominal/pelvic processes. Colonic diverticulosis without evidence for acute diverticulitis. Ectasia of him from a renal [id number] measuring up to 2.[address] angiography of the chest is reported as questionable filling defect within the left lower lobe supple segmental pulmonary arteries which may represent pulmonary emboli versus artifact. No evidence for right heart strain. Trace left pleural effusion. - Labs CBC & Chem 7: 08/21/22 10:34 08/21/22 10:34 Labs: Abnormal Lab Results - Last 24 Hours (Table) 08/20/22 08/21/22 08/21/22 Range/Units 11:15 10:34 10:34 WBC 17.4 H (3.8-10.6) k/uL Neutrophils # 13.8 H (1.3-7.7) k/uL ESR (0-20) mm/hr Sodium 134 L (137-145) mmol/L Carbon Dioxide 21 L (22-30) mmol/L BUN 39 H (7-17) mg/dL Creatinine 1.15 H (0.52-1.04) mg/dL Glucose 103 H (74-99) mg/dL Calcium 8.1 L (8.4-10.2) mg/dL AST 251 H (14-36) U/L ALT 214 H (4-34) U/L Alkaline Phosphatase 131 H (38-126) U/L Creatine Kinase 481 H (30-135) U/L C-Reactive Protein (<1.0) mg/dL Total Protein 5.5 L (6.3-8.2) g/dL Albumin 2.5 L (3.5-5.0) g/dL Aldolase 10.6 H (1.2-7.6) U/L 08/21/22 08/21/22 Range/Units 10:34 10:34 WBC (3.8-10.6) k/uL Neutrophils # (1.3-7.7) k/uL ESR 86 H (0-20) mm/hr Sodium (137-145) mmol/L Carbon Dioxide (22-30) mmol/L BUN (7-17) mg/dL Creatinine (0.52-1.04) mg/dL Glucose (74-99) mg/dL Calcium (8.4-10.2) mg/dL AST (14-36) U/L ALT (4-34) U/L Alkaline Phosphatase (38-126) U/L Creatine Kinase (30-135) U/L C-Reactive Protein 8.0 H (<1.0) mg/dL Total Protein (6.3-8.2) g/dL Albumin (3.5-5.0) g/dL Aldolase (1.2-7.6) U/L Assessment and Plan Assessment: This is a 77-year-old woman who is having progressive pain mostly in bilateral thighs with difficulty ambulating for the last 2-3 weeks progressively getting worse and recently she was noted to have the hematocrit rash over the face. She could not tolerate statins in the past. Her CK level is a elevated in the 3000's and ESR is elevated. Also has elevated LDH and altered level. Highly suspicious dermatomyositis---feels with steroids. History of atrial fibrillation Hyperlipidemia History of coronary artery disease status post CABG Plan: Pending anti-Helen 1, RICARDO, mvsi-kcdaak-bogzhkcu DNA, anti-SSA and anti-SSB, anti- Leal antibodies, scleroderma antibody, anti-PM/SCL 100 antibody, ESR, CRP. antimitochondrial antibody: normal, smooth muscle antibody:normal, Consulted general surgery team for muscle biopsy of bilateral thighs and scheduled for tomorrow. Continue Prednisone 60mg daily and was started on 08/19/22. Recommend sugar monitoring and will defer management to primary team. CT angiography of the chest is reported as questionable filling defect within the left lower lobe supple segmental pulmonary arteries which may represent pulmonary emboli versus artifact. No evidence for right heart strain. Will defer management to primary team. It seems the primary team is aware of this. Cardiology is consulted. GI prophylaxis: is on famotidine 20mg daily. Will defer the rest of management to primary team. The plan is discussed with patient and her nurse. Time with Patient: Less than 30
[2022-08-22] MEDS: ACETAMINOPHEN TAB 325 MG TAB PO PRN ×2 (00:01→23:21)
[2022-08-22 02:26] LABS: Anti-DNA, DS unit <1.0 IU/mL; Anti-Smith Ab Interp Negative (Negative); DNA Double-Stranded Negative (Negative); JO-1 IgG Antibody <0.2 AI; Scleroderma SC-70 Ab <0.2 AI
[2022-08-22] MEDS: SODIUM CHLORIDE 0.9% 1,000 ML IV SCH ×3 (05:26→14:15)
--- NOTE | 2022-08-22 06:29 | P.PN ---
Subjective Progress Note Date: 08/22/22 Principal diagnosis: Coronary artery disease The patient is a 77-year-old female patient with CAD and prior revascularization as well as hypertension and dyslipidemia who was admitted to the hospital with rhabdomyolysis. It felt it was related to statin. Statin is on hold at this point. We consulted to see the patient because of abnormal troponin which we felt related to rhabdomyolysis. The echo revealed normal LV systolic function. She has no pain in the chest. The EKG did not show any ischemic changes. August 212022 The patient was seen and evaluated this morning. She remains asymptomatic and hemodynamically stable beside elevation in the blood pressure. I'm going to increase the dose of losartan. The echo showed normal wall motion abnormality is concerning for ischemia. She is on aspirin and she is on zetia,. From the cardiovascular standpoint of view, we'll continue the current medical regimen and continue following up with the patient and follow-up with the blood work from this morning. The creatinine was slightly elevated which was related to rhabdomyolysis 08/22/2022 The patient was seen and evaluated this morning. She is asymptomatic. The pressure has been under better control converted to before. Still consistent with stage II hypertension. No symptoms of chest pain or chest discomfort and no shortness of breath. CK has been trending down. She is in process of having muscle biopsy. The examination is remarkable for regular rhythm with a systolic murmur and clear breathing sounds bilaterally. Assessment Rhabdomyolysis Evidence of myocardial injury was no obvious of ischemia CAD Statin intolerance Multiple comorbid conditions Plan Continue the current medical regimen Continue aspirin Follow-up with the patient Objective - Vital Signs Vital signs: Vital Signs Temp 97.8 F 08/22/22 04:55 Pulse 64 08/22/22 04:55 Resp 16 08/22/22 04:55 BP 155/64 08/22/22 04:55 Pulse Ox 96 08/22/22 04:55 FiO2 Intake & Output 08/21/22 08/21/22 08/22/22 06:59 18:59 06:59 Intake Total 360 Output Total 1300 1300 1300 Balance -1300 -940 -1300 Intake: Oral 360 Output: Urine 1300 1300 1300 Other: Voiding Method External Catheter External Catheter External Catheter - Labs CBC & Chem 7: 08/21/22 10:34 08/21/22 10:34 Labs: Abnormal Lab Results - Last 24 Hours (Table) 08/20/22 08/21/22 08/21/22 Range/Units 11:15 10:34 10:34 WBC 17.4 H (3.8-10.6) k/uL Neutrophils # 13.8 H (1.3-7.7) k/uL ESR (0-20) mm/hr Sodium 134 L (137-145) mmol/L Carbon Dioxide 21 L (22-30) mmol/L BUN 39 H (7-17) mg/dL Creatinine 1.15 H (0.52-1.04) mg/dL Glucose 103 H (74-99) mg/dL Calcium 8.1 L (8.4-10.2) mg/dL AST 251 H (14-36) U/L ALT 214 H (4-34) U/L Alkaline Phosphatase 131 H (38-126) U/L Creatine Kinase 481 H (30-135) U/L C-Reactive Protein (<1.0) mg/dL Total Protein 5.5 L (6.3-8.2) g/dL Albumin 2.5 L (3.5-5.0) g/dL Aldolase 10.6 H (1.2-7.6) U/L 08/21/22 08/21/22 Range/Units 10:34 10:34 WBC (3.8-10.6) k/uL Neutrophils # (1.3-7.7) k/uL ESR 86 H (0-20) mm/hr Sodium (137-145) mmol/L Carbon Dioxide (22-30) mmol/L BUN (7-17) mg/dL Creatinine (0.52-1.04) mg/dL Glucose (74-99) mg/dL Calcium (8.4-10.2) mg/dL AST (14-36) U/L ALT (4-34) U/L Alkaline Phosphatase (38-126) U/L Creatine Kinase (30-135) U/L C-Reactive Protein 8.0 H (<1.0) mg/dL Total Protein (6.3-8.2) g/dL Albumin (3.5-5.0) g/dL Aldolase (1.2-7.6) U/L
[2022-08-22] MEDS: LOSARTAN 50 MG TAB PO SCH (08:27)
[2022-08-22] MEDS: predniSONE 20 MG TAB PO SCH (08:27)
[2022-08-22] MEDS: METOPROLOL TARTRATE 25 MG TAB PO SCH ×2 (08:27→21:30)
[2022-08-22] MEDS: FAMOTIDINE 20 MG TAB PO SCH (08:27)
[2022-08-22] MEDS: HEPARIN SODIUM,PORCINE/PF 5,000 UNIT/0.5 ML SYRINGE SQ SCH ×3 (08:27→23:21)
[2022-08-22] MEDS: EZETIMIBE 10 MG TAB PO SCH (08:27)
[2022-08-22] MEDS: ASPIRIN 81 MG PO SCH (08:27)
--- NOTE | 2022-08-22 10:49 | P.PN ---
Subjective Progress Note Date: 08/22/22 CHIEF COMPLAINT: Bilateral leg weakness HISTORY OF PRESENT ILLNESS: Surgical service consulted for muscle biopsy of patient's thighs. Patient complains of bilateral leg weakness. She reports that she still not walking. She reports that her urine is clearing. CK levels are trending down. Afebrile. No new labs PHYSICAL EXAM: VITAL SIGNS: Reviewed GENERAL: Well-developed in no acute distress. HEENT: No sclera icterus. Extraocular movements grossly intact. Moist buccal mucosa. Head is atraumatic, normocephalic. Hears conversational speech. No nasal drainage. NECK: Supple without lymphadenopathy. CHEST: Non-labored respirations and equal bilateral excursions. CARDIOVASCULAR: Palpable 2+ radial pulses. ABDOMEN: Soft. Nondistended. Nontender. MUSCULOSKELETAL: No clubbing or cyanosis. NEUROLOGIC: No focal or lateralizing signs. Cranial nerves II through XII grossly intact. PSYCH: Appropriate affect. Alert and oriented to person, place and time. SKIN: Well perfused. Good skin turgor. ASSESSMENT: 1. Bilateral leg weakness with pain 2. 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 History of atrial fibrillation postoperative only 4. History of hyperlipidemia with statin use. Statin discontinued due to intolerance 5. History of coronary disease with prior CABG 6. Rhabdomyolysis PLAN: -Open muscle biopsy has been scheduled for 08/25/[address] Cuenca due to the fact of the biopsy has to be sent to [facility] for processing -Resume heart healthy diet Physician Rag Collector note has been reviewed by physician. Signing provider agrees with the documented findings, assessment, and plan of care. Objective - Vital Signs Vital signs: Vital Signs Temp 98.1 F 08/22/22 08:00 Pulse 73 08/22/22 08:00 Resp 18 08/22/22 08:00 BP 176/78 08/22/22 08:00 Pulse Ox 98 08/22/22 08:00 FiO2 Intake & Output 08/21/22 08/22/22 08/22/22 18:59 06:59 18:59 Intake Total 360 Output Total 1300 1300 Balance -940 -1300 Intake: Oral 360 Output: Urine 1300 1300 Other: Voiding Method External Catheter External Catheter - Labs CBC & Chem 7: 08/21/22 10:34 08/21/22 10:34 Labs: Abnormal Lab Results - Last 24 Hours (Table) 08/20/22 08/21/22 08/21/22 Range/Units 11:15 10:34 10:34 WBC 17.4 H (3.8-10.6) k/uL Neutrophils # 13.8 H (1.3-7.7) k/uL ESR (0-20) mm/hr Sodium 134 L (137-145) mmol/L Carbon Dioxide 21 L (22-30) mmol/L BUN 39 H (7-17) mg/dL Creatinine 1.15 H (0.52-1.04) mg/dL Glucose 103 H (74-99) mg/dL Calcium 8.1 L (8.4-10.2) mg/dL AST 251 H (14-36) U/L ALT 214 H (4-34) U/L Alkaline Phosphatase 131 H (38-126) U/L Creatine Kinase 481 H (30-135) U/L C-Reactive Protein (<1.0) mg/dL Total Protein 5.5 L (6.3-8.2) g/dL Albumin 2.5 L (3.5-5.0) g/dL Aldolase 10.6 H (1.2-7.6) U/L 08/21/22 08/21/22 Range/Units 10:34 10:34 WBC (3.8-10.6) k/uL Neutrophils # (1.3-7.7) k/uL ESR 86 H (0-20) mm/hr Sodium (137-145) mmol/L Carbon Dioxide (22-30) mmol/L BUN (7-17) mg/dL Creatinine (0.52-1.04) mg/dL Glucose (74-99) mg/dL Calcium (8.4-10.2) mg/dL AST (14-36) U/L ALT (4-34) U/L Alkaline Phosphatase (38-126) U/L Creatine Kinase (30-135) U/L C-Reactive Protein 8.0 H (<1.0) mg/dL Total Protein (6.3-8.2) g/dL Albumin (3.5-5.0) g/dL Aldolase (1.2-7.6) U/L
--- NOTE | 2022-08-22 12:09 | P.PN ---
Subjective Progress Note Date: 08/22/22 08/19/22 This is a 77-year-old female warm over the practice. She reports 4 days ago on August 15 receiving a steroid injection for right hip bursitis with Dr. Carrillo. She has no history of coronary artery disease and had coronary bypass graft 4 vessels 01/17/2014. Last evaluation of this was January [address] Thomas. Where there is evidence of occlusion of some of the grafts and moderate disease in the other. She been very active the past few days and has been very sore in her hips and groin area since then. Yesterday she reports the weakness became quite severe And 1 along with fatigue. She indicates she slept 3 hours woke up did not feel much better. She had no dizziness lightheadedness, chest pain pressure or shortness breath nausea vomiting. Emergency room workup should have slightly abnormal troponins and elevated beta natruretic peptide chest x-ray shows mild vascular congestion and correlate with serum BNP X-rays of the L-spine show degenerative disc disease, hip x-ray showed mild arthritis. Currently this a.m. she continues to feel weak and very fatigued. Other than that she denies any chest pains pressures or shortness of breath. She is unable to move s ignificantly due to her lower extremity weakness. 08/20/2022: Patient feels slightly better with prednisone 60 orally. 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 Rash to her face that has improved. Her pain is slightly better more so this morning that currently. She currently denies any chest pains pressures or shortness of breath. Cardiology is working her up for the abnormal troponins with a history of CABG 4 vessel and stent 2. 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 Vital signs are stable with blood pressure is elevated. CPK is down from 3109- 1170. Her labs are normal. Significant workup from neurology is pending. Echo was done already and appears normal. 08/21/2022 neurology workup in progress/ muscle biopsy scheduled for tomorro w.Maintained on IV fluids, oral steroids. Reporting less pain, less weakness. Stood at bedside with PT, complains of significant weakness. PT recommending subacute rehab. Hypertensive losartan dose increased. Chest CTA reported questionable filling defects within the left lower lobe subsegmental pulmonary arteries which may represent pulmonary emboli versus artifact, no evidence for right heart strain, trace left pleural effusion. Venous Doppler of bilateral lower extremities reported negative for DVT. CT of abdomen and pelvis reported no acute abdominal/pelvic process, colonic diverticulosis without evidence of acute diverticulitis, excision of the infrarenal abdominal aorta measuring up to 2.6 cm. Afebrile, labs pending. 08/22/2022. Persistent bilateral leg weakness. CK levels trending down,481. Muscle Biopsy rescheduled for Thursday as per general surgery. Improving hypertension with antihypertensives adjusted as per cardiology yesterday; systolic blood pressure currently ranging from 150s to 170s. Denies chest pain, palpitations or shortness of breath. Afebrile. Objective - Vital Signs Vital signs: Vital Signs Temp 98.1 F 08/22/22 08:00 Pulse 73 08/22/22 08:00 Resp 18 08/22/22 08:00 BP 176/78 08/22/22 08:00 Pulse Ox 98 08/22/22 08:00 FiO2 Intake & Output 08/21/22 08/22/22 08/22/22 18:59 06:59 18:59 Intake Total 360 Output Total 1300 1300 Balance -940 -1300 Intake: Oral 360 Output: Urine 1300 1300 Other: Voiding Method External Catheter External Catheter External Catheter - Exam GENERAL: Sitting up in bed, no acute distress. NECK: Supple without JVD LUNGS: Unlabored, Equal air entry ,CTA. HEART: Regular rate and rhythm without murmurs, rubs or gallops.S1S2 Normal ABDOMEN: Soft, nontender, normoactive bowel sounds. No guarding, no rebound. No masses appreciated. EXTREMITIES: no pitting or edema. No clubbing or cyanosis. Lessening Pain to palpation of the lower extremities worse of the thighs then the calves. NEUROLOGICAL: Cranial nerves II through XII grossly intact. PSYCH: Normal mood, normal affect. SKIN: Warm, Dry. - Labs CBC & Chem 7: 08/21/22 10:34 08/21/22 10:34 Labs: Abnormal Lab Results - Last 24 Hours (Table) 08/20/22 08/21/22 Range/Units 11:15 10:34 ESR 86 H (0-20) mm/hr Aldolase 10.6 H (1.2-7.6) U/L Assessment and Plan Assessment: (1) Dermatomyositis, possible, workup in progress Current Visit: Yes Status: Acute Code(s): M33.90 - DERMATOPOLYMYOSITIS, UNSP, ORGAN INVOLVEMENT UNSPECIFIED SNOMED Code(s): 008999830 (2) H/O four vessel coronary artery bypass graft Current Visit: Yes Status: Acute Code(s): Z95.1 - PRESENCE OF AORTOCORONARY BYPASS GRAFT SNOMED Code(s): 381916490 (3) NSTEMI (non-ST elevated myocardial infarction) ruled out per cardiology, elevated troponins attributed to rhabdomyolysis Current Visit: Yes Status: Acute Code(s): I21.4 - NON-ST ELEVATION (NSTEMI) MYOCARDIAL INFARCTION SNOMED Code(s): 25490604 (4) Bilateral hip joint arthritis Current Visit: Yes Status: Acute Code(s): M16.0 - BILATERAL PRIMARY OSTEOARTHRITIS OF HIP SNOMED Code(s): 61093469 (5) Lumbar degenerative disc disease Current Visit: Yes Status: Acute Code(s): M51.36 - OTHER INTERVERTEBRAL DISC DEGENERATION, LUMBAR REGION SNOMED Code(s): 55324092 (6) Leukocytosis Current Visit: Yes Status: Acute Code(s): D72.829 - ELEVATED WHITE BLOOD CELL COUNT, UNSPECIFIED SNOMED Code(s): 754317759 (7) Weakness Current Visit: Yes Status: Acute Code(s): R53.1 - WEAKNESS SNOMED Code(s): 27149581 (8) CAD (coronary artery disease) Current Visit: No Status: Acute Code(s): I25.10 - ATHSCL HEART DISEASE OF [place] CORONARY ARTERY W/O ANG PCTRS SNOMED Code(s): 11722375 (9) Hyperlipemia Current Visit: No Status: Acute Code(s): E78.5 - HYPERLIPIDEMIA, UNSPECIFIED SNOMED Code(s): 57991305 Statin intolerance Plan: Continue on current medication regime ,monitoring and symptomatic treatment.Antihypertensives as per cardiology. Neurology workup in progress, Muscle biopsy rescheduled for Thursday. Discharge planning in progress for [facility]. at [place]. The impression and plan of care has been dictated as directed. : I performed a history and examination of this patient, discussed the same with the dictator. I agree with the dictator's note ,documented as a scribe. Any additional findings or plans will be noted.
[2022-08-22] MEDS: hydrALAZINE HCL 20 MG/ML 1 ML VIAL IVP PRN ×2 (13:29→23:23)
--- NOTE | 2022-08-22 14:06 | P.CNPUL ---
History of Present Illness Consult date: 08/22/22 Requesting physician: Olman Sommers Reason for consult: pulmonary embolism Chief complaint: Possible pulmonary embolism. History of present illness: Pulmonary consult dated 08/22/2022. 77-year-old female who presented to the emergency department on August 18, complaining of weakness. She apparently has had weakness, and fatigue for 4 days prior to admission. She states that she is unable to ambulate without assistance. She denied other complaints. We were consulted because of a CT angiogram showing a possible subsegmental left-sided pulmonary embolism. The patient's on room air, with saturations of 98-99 percent. In addition, the patient is on saline at 75 mL an hour. She had a Doppler of the lower extremities which are negative for DVT. The CT angiogram was ordered by Dr. Magno randall, and showed a questionable filling defect within the left lower lobe subsegmental pulmonary artery which may represent pulmonary embolism versus artifact. There is no evidence of right heart strain. There is a trace left- sided pleural effusion. Most recent labs include a white count of 17.4, hemoglobin 11.8, hematocrit 38.1, and a normal platelet count. A sedimentation rate was 62. D-dimer was 13.37 on August 19. Sodium 134, potassium 4.5, chlorides 106, CO2 21, BUN 39, and creatinine 1.15. AST was 251 and ALT was 214. The patient's aldolase level was 10.6. The CK was 3109, but more recently has come down to 481. C-reactive protein was elevated at 19.1. TSH was normal. Testing for mejia virus was negative. The patient has been on aspirin, and subcu heparin, 5000 units every 8 hours. Review of Systems REVIEW OF SYSTEMS: CONSTITUTIONAL: Fatigue and weakness. NEUROLOGIC: [ Negative.] HEENT: [ Negative.] CARDIAC: [Negative.] PULMONARY: [Negative.] GI: [Negative.] : [Negative.] RHEUMATOLOGIC: Muscle weakness. IMMUNOLOGIC: [ Negative.] ENDOCRINE: [Negative. ] DERMATOLOGIC: [Negative.] Past Medical History Past Medical History: Atrial Fibrillation (Postoperative only), Coronary Artery Disease (CAD), Cancer, Eye Disorder, Hyperlipidemia Additional Past Medical History / Comment(s): Beginnings of cataracts. Hx skin cancer left thigh 2 yrs ago. Hx heart blockages. History of Any Multi-Drug Resistant Organisms: MRSA Date of last positivie culture/infection: infected drain 20+ years prior MDRO Source:: drain Past Surgical History: Appendectomy, Cholecystectomy, Tubal Ligation Additional Past Surgical History / Comment(s): Right wrist fracture as a child. Right foot fracture. Fatty cyst removed from under right arm. Quadruple bypass 5 yrs ago. Past Anesthesia/Blood Transfusion Reactions: No Reported Reaction Past Psychological History: No Psychological Hx Reported Smoking Status: Former smoker Past Alcohol Use History: None Reported Additional Past Alcohol Use History / Comment(s): Quit smoking 20 yrs ago. Past Drug Use History: None Reported - Past Family History Mother Family Medical History: No Reported History Brother(s) Family Medical History: Cancer Additional Family Medical History / Comment(s): Skin cancer Medications and Allergies Home Medications Medication Instructions Recorded Confirmed Type Aspirin 81 mg PO DAILY #30 chew 01/23/14 08/18/22 Rx Losartan [Cozaar] 25 mg PO DAILY 01/21/19 08/18/22 History Metoprolol Tartrate [Lopressor] 12.5 mg PO BID 01/21/19 08/18/22 History Allergies Allergy/AdvReac Type Severity Reaction Status Date / Time clindamycin AdvReac Nausea & Verified 01/25/19 08:22 Vomiting & Diarrhea codeine AdvReac Unknown- Verified 01/25/19 08:22 not sure if allergic still latex AdvReac red, Verified 01/25/19 08:22 cracked skin, itching streptomycin AdvReac Nausea & Verified 01/25/19 08:22 Vomiting & Diarrhea Physical Exam Osteopathic Statement: *. No significant issues noted on an osteopathic structural exam other than those noted in the History and Physical/Consult. Vitals: Vital Signs Temp Pulse Resp BP Pulse Ox 08/22/22 12:08 18 08/22/22 12:00 73 194/91 08/22/22 08:00 98.1 F 73 18 176/78 98 08/22/22 04:55 97.8 F 64 16 155/64 96 08/22/22 02:00 62 16 08/22/22 00:00 97.6 F 62 16 160/80 97 08/21/22 20:00 98.2 F 64 16 170/72 96 08/21/22 16:00 97.5 F L 70 17 160/73 95 Intake and Output 08/21/22 08/22/22 08/22/22 22:59 06:59 14:59 Intake Total 180 240 Output Total 600 1300 Balance -420 -1300 240 Intake: Oral 180 240 Output: Urine 600 1300 Other: Voiding Method External Catheter External Catheter External Catheter No acute distress, oriented 3. Room air saturation is 98%. HEENT examination is grossly unremarkable. Neck supple. Full range of motion. No adenopathy thyromegaly or neck vein distention. Cardiovascular examination reveals regular rhythm rate. S1-S2 normal. No S3 or S4. No discernible murmur noted. Heart rate 73 bpm. Lungs reveal clear breath sounds. Breath sounds are equal bilaterally. No adventitious lung sounds including wheezes rhonchi or crackles. Abdomen soft bowel sounds are heard. No masses or tenderness. Extremities are intact. No cyanosis clubbing or edema. Skin is without rash or lesion. Neurologic examination is brief but nonfocal. Results - Laboratory Findings CBC and BMP: 08/21/22 10:34 08/21/22 10:34 PT/INR, D-dimer PT 11.1 sec (9.0-12.0) 08/18/22 14:40 INR 1.1 (<1.2) 08/18/22 14:40 D-Dimer 13.37 mg/L FEU (<0.60) H 08/19/22 14:43 Abnormal lab findings: Abnormal Labs 08/18/22 08/18/22 08/18/22 14:40 14:40 14:40 WBC 17.7 H RBC MCHC Neutrophils # 16.1 H Lymphocytes # 0.6 L ESR APTT 19.1 L D-Dimer Sodium 135 L Carbon Dioxide 19 L BUN 22 H Creatinine 1.10 H Glucose 192 H POC Glucose (mg/dL) Calcium 8.2 L AST 221 H ALT 156 H Alkaline Phosphatase 140 H Lactate Dehydrogenase Creatine Kinase Troponin I C-Reactive Protein Total Protein 6.0 L Albumin 2.9 L Aldolase Urine Appearance Urine Protein Urine Blood Ur Leukocyte Esterase Urine RBC Urine WBC Urine Bacteria Urine Mucus 08/18/22 08/18/22 08/18/22 14:40 14:55 17:37 WBC RBC MCHC Neutrophils # Lymphocytes # ESR APTT D-Dimer Sodium Carbon Dioxide BUN Creatinine Glucose POC Glucose (mg/dL) 176 H Calcium AST ALT Alkaline Phosphatase Lactate Dehydrogenase Creatine Kinase Troponin I 0.049 H* 0.057 H* C-Reactive Protein Total Protein Albumin Aldolase Urine Appearance Urine Protein Urine Blood Ur Leukocyte Esterase Urine RBC Urine WBC Urine Bacteria Urine Mucus 08/19/22 08/19/22 08/19/22 11:00 14:43 14:43 WBC 14.0 H RBC 3.72 L MCHC Neutrophils # 12.2 H Lymphocytes # ESR APTT D-Dimer 13.37 H Sodium Carbon Dioxide BUN Creatinine Glucose POC Glucose (mg/dL) Calcium AST ALT Alkaline Phosphatase Lactate Dehydrogenase Creatine Kinase Troponin I C-Reactive Protein Total Protein Albumin Aldolase Urine Appearance Cloudy H Urine Protein 2+ H Urine Blood Large H Ur Leukocyte Esterase Small H Urine RBC 6 H Urine WBC 12 H Urine Bacteria Rare H Urine Mucus Rare H 08/19/22 08/19/22 08/19/22 14:43 14:43 14:43 WBC RBC MCHC Neutrophils # Lymphocytes # ESR APTT D-Dimer Sodium 133 L Carbon Dioxide 20 L BUN 28 H Creatinine 1.15 H Glucose 135 H POC Glucose (mg/dL) Calcium 7.6 L AST ALT Alkaline Phosphatase Lactate Dehydrogenase 326 H Creatine Kinase 3109 H* Troponin I 0.114 H* C-Reactive Protein 19.1 H Total Protein Albumin Aldolase Urine Appearance Urine Protein Urine Blood Ur Leukocyte Esterase Urine RBC Urine WBC Urine Bacteria Urine Mucus 08/19/22 08/20/22 08/20/22 14:43 11:15 11:15 WBC 14.8 H RBC MCHC 30.8 L Neutrophils # 12.4 H Lymphocytes # ESR 96 H APTT D-Dimer Sodium Carbon Dioxide BUN Creatinine Glucose POC Glucose (mg/dL) Calcium AST ALT Alkaline Phosphatase Lactate Dehydrogenase Creatine Kinase Troponin I C-Reactive Protein Total Protein Albumin Aldolase 10.6 H Urine Appearance Urine Protein Urine Blood Ur Leukocyte Esterase Urine RBC Urine WBC Urine Bacteria Urine Mucus 08/20/22 08/20/22 08/21/22 11:15 11:15 10:34 WBC 17.4 H RBC MCHC Neutrophils # 13.8 H Lymphocytes # ESR APTT D-Dimer Sodium 135 L Carbon Dioxide 17 L BUN 35 H Creatinine 1.14 H Glucose 150 H POC Glucose (mg/dL) Calcium 7.9 L AST ALT Alkaline Phosphatase Lactate Dehydrogenase Creatine Kinase 1170 H* Troponin I C-Reactive Protein Total Protein Albumin Aldolase Urine Appearance Urine Protein Urine Blood Ur Leukocyte Esterase Urine RBC Urine WBC Urine Bacteria Urine Mucus 08/21/22 08/21/22 08/21/22 10:34 10:34 10:34 WBC RBC MCHC Neutrophils # Lymphocytes # ESR 86 H APTT D-Dimer Sodium 134 L Carbon Dioxide 21 L BUN 39 H Creatinine 1.15 H Glucose 103 H POC Glucose (mg/dL) Calcium 8.1 L AST 251 H ALT 214 H Alkaline Phosphatase 131 H Lactate Dehydrogenase Creatine Kinase 481 H Troponin I C-Reactive Protein 8.0 H Total Protein 5.5 L Albumin 2.5 L Aldolase Urine Appearance Urine Protein Urine Blood Ur Leukocyte Esterase Urine RBC Urine WBC Urine Bacteria Urine Mucus 08/22/22 10:44 WBC RBC MCHC Neutrophils # Lymphocytes # ESR 62 H APTT D-Dimer Sodium Carbon Dioxide BUN Creatinine Glucose POC Glucose (mg/dL) Calcium AST ALT Alkaline Phosphatase Lactate Dehydrogenase Creatine Kinase Troponin I C-Reactive Protein Total Protein Albumin Aldolase Urine Appearance Urine Protein Urine Blood Ur Leukocyte Esterase Urine RBC Urine WBC Urine Bacteria Urine Mucus - Diagnostic Findings Chest x-ray: image reviewed CT scan - chest: image reviewed U/S of Legs: image reviewed Assessment and Plan Assessment: Doubt acute pulmonary embolism. History of atrial fibrillation. History of skin cancer. History of hyperlipidemia. Diffuse muscle weakness, currently being evaluated. Plan: Plan dated 08/22/2022. This patient is not having any respiratory issues. The patient did have an elevated d-dimer. The Dopplers of the lower extremities were negative. The CT angiogram was not particularly impressive. I don't feel the patient is having a pulmonary embolism, and even if the patient had a pulmonary embolism, it's relatively small, and subsegmental. It is not causing not causing any respiratory issues. It probably doesn't need to be treated even if it is present. So, in essence, I would do nothing more at this point. One additional option would be to repeat a CT angiogram in a day or two. I don't believe that's necessary. I'll leave that up to the primary service. Time with Patient: Greater than 30
[2022-08-23] MEDS: hydrALAZINE HCL 20 MG/ML 1 ML VIAL IVP PRN (05:05)
[2022-08-23] MEDS: SODIUM CHLORIDE 0.9% 1,000 ML IV SCH ×2 (05:09→14:21)
--- NOTE | 2022-08-23 06:49 | P.PN ---
Subjective Progress Note Date: 08/23/22 Principal diagnosis: Coronary artery disease The patient is a 77-year-old female patient with CAD and prior revascularization as well as hypertension and dyslipidemia who was admitted to the hospital with rhabdomyolysis. It felt it was related to statin. Statin is on hold at this point. We consulted to see the patient because of abnormal troponin which we felt related to rhabdomyolysis. The echo revealed normal LV systolic function. She has no pain in the chest. The EKG did not show any ischemic changes. August [id number] The patient was seen and evaluated this morning. She remains asymptomatic and hemodynamically stable beside elevation in the blood pressure. I'm going to increase the dose of losartan. The echo showed normal wall motion abnormality is concerning for ischemia. She is on aspirin and she is on zetia,. From the cardiovascular standpoint of view, we'll continue the current medical regimen and continue following up with the patient and follow-up with the blood work from this morning. The creatinine was slightly elevated which was related to rhabdomyolysis 08/22/2022 The patient was seen and evaluated this morning. She is asymptomatic. The pressure has been under better control converted to before. Still consistent with stage II hypertension. No symptoms of chest pain or chest discomfort and no shortness of breath. CK has been trending down. She is in process of having muscle biopsy. August [id number] The patient was seen and evaluated this morning. She is asymptomatic into of chest pain or chest discomfort or shortness of breath. Unfortunately the blood pressure remains elevated. I am going to replace metoprolol with carvedilol and also add hydrochlorothiazide to the current medical regimen. Beside that secondary hypertension to be ruled out I am going to obtain a renal duplex study. Part of the elevation in the blood pressure also could be related to steroids. The examination is remarkable for regular rhythm with a systolic murmur and clear breathing sounds bilaterally. Assessment Rhabdomyolysis Evidence of myocardial injury was no obvious of ischemia CAD Statin intolerance Hypertension appears to be uncontrolled Plan Continue the current medical regimen Replace metoprolol with carvedilol Add hydrochlorothiazide to the current medical regimen Rule out secondary hypertension. Obtain renal duplex study Objective - Vital Signs Vital signs: Vital Signs Temp 98.5 F 08/23/22 04:00 Pulse 93 08/23/22 04:00 Resp 20 08/23/22 04:00 BP 177/115 08/23/22 04:00 Pulse Ox 97 08/23/22 04:00 FiO2 Intake & Output 08/22/22 08/22/22 08/23/22 06:59 18:59 06:59 Intake Total 358 118 Output Total 6685 198 2447 Balance -7145 -704 -892 Weight 64 kg Intake: Oral 358 118 Output: Urine 7836 723 0417 Other: Voiding Method External Catheter External Catheter External Catheter # Voids 1 # Bowel Movements 1 - Labs CBC & Chem 7: 08/21/22 10:34 08/21/22 10:34 Labs: Abnormal Lab Results - Last 24 Hours (Table) 08/22/22 Range/Units 10:44 ESR 62 H (0-20) mm/hr
--- NOTE | 2022-08-23 07:04 | P.PN ---
Progress Note - Text Progress Note Date: 08/23/22 Patient is stable. She is scheduled for muscle biopsy with Dr. Flores on Thursday.
[2022-08-23 08:45] LABS: Basophils % (A) 0 %; Eosinophils # (A) 0.1 k/uL (0-0.7); Eosinophils % (A) 1 %; HCT 44.9 % (34.0-46.0); Lymphocytes # (A) 2.2 k/uL (1.0-4.8); Lymphocytes % (A) 15 %; MCH 30.4 pg (25.0-35.0); MCHC 31.2 g/dL (31.0-37.0); MCV 97.6 fL (80.0-100.0); Mean Platelet Volume 8.4; Monocytes % (A) 7 %; Neutrophils # (A) 10.7 k/uL (1.3-7.7); Neutrophils % (A) 76 %; Platelet Count 431 k/uL (150-450); RDW 14.1 % (11.5-15.5); WBC 14.2 k/uL (3.8-10.6)
[2022-08-23 08:53] LABS: African American GFR (CKD) 58 (>60 ml/min/1.73 sqM); Anion Gap 10 mmol/L; Blood Urea Nitrogen 37 mg/dL (7-17); Calcium 7.9 mg/dL (8.4-10.2); Carbon Dioxide 18 mmol/L (22-30); Chloride 108 mmol/L (98-107); Glucose 100 mg/dL (74-99); Non-African American GFR(CKD) 50 (>60 ml/min/1.73 sqM); Sodium 136 mmol/L (137-145)
--- NOTE | 2022-08-23 08:54 | P.PN ---
Subjective 08/19/22 This is a 77-year-old female warm over the practice. She reports 4 days ago on August 15 receiving a steroid injection for right hip bursitis with Dr. Carrillo. She has no history of coronary artery disease and had coronary bypass graft 4 vessels 01/17/2014. Last evaluation of this was January [address] Thomas. Where there is evidence of occlusion of some of the grafts and moderate disease in the other. She been very active the past few days and has been very sore in her hips and groin area since then. Yesterday she reports the weakness became quite severe And 1 along with fatigue. She indicates she slept 3 hours woke up did not feel much better. She had no dizziness lightheadedness, chest pain pressure or shortness breath nausea vomiting. Emergency room workup should have slightly abnormal troponins and elevated beta natruretic peptide chest x-ray shows mild vascular congestion and correlate with serum BNP X-rays of the L-spine show degenerative disc disease, hip x-ray showed mild arthritis. Currently this a.m. she continues to feel weak and very fatigued. Other than that she denies any chest pains pressures or shortness of breath. She is unable to move significantly due to her lower extremity weakness. 08/20/2022: Patient feels slightly better with prednisone 60 orally. 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 Rash to her face that has improved. Her pain is slightly better more so this morning that currently. She currently denies any chest pains pressures or shortness of breath. Cardiology is working her up for the abnormal troponins with a history of CABG 4 vessel and stent 2. 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 Vital signs are stable with blood pressure is elevated. CPK is down from 3109- 1170. Her labs are normal. Significant workup from neurology is pending. Echo was done already and appears normal. 08/21/2022 neurology workup in progress/ muscle biopsy scheduled for tomorrow.Maintained on IV fluids, oral steroids. Reporting less pain, less weakness. Stood at bedside with PT, complains of significant weakness. PT recommending subacute rehab. Hypertensive losartan dose increased. Chest CTA reported questionable filling defects within the left lower lobe subsegmental pulmonary arteries which may represent pulmonary emboli versus artifact, no evidence for right heart strain, trace left pleural effusion. Venous Doppler of bilateral lower extremities reported negative for DVT. CT of abdomen and pelvis reported no acute abdominal/pelvic process, colonic diverticulosis without evidence of acute diverticulitis, excision of the infrarenal abdominal aorta measuring up to 2.6 cm. Afebrile, labs pending. 08/22/2022. Persistent bilateral leg weakness. CK levels trending down,481. Muscle Biopsy rescheduled for Thursday as per general surgery. Improving hypertension with antihypertensives adjusted as per cardiology yesterday; systolic blood pressure currently ranging from 150s to 170s. Denies chest pain, palpitations or shortness of breath. Afebrile. 08/23/2022: Patient has slightly improved with less pain. She continues complaining of leg weakness is not Out Of Bed. We Discussed This Today. Also Biopsies Pending for Thursday with General Surgery. Hypertension Seems to Be More Accelerated. Cardiology Is Following This Is Making Adjustments to Her Medications and Had an Ultrasound Venous Dopplers Pending. Other Vitals Remained Stable. She Is Afebrile. Laboratories for This Morning Are Pending. Yesterday ESR Was Returned at 62 down from 96 and Then 86. CRP Is down from 19 8. Consult Recommendations Were Noted Including the Pulmonary Consultation regarding the Suspected Filling Defects. Pulmonology Feels Is Not Really a Pulmonary Embolism There Objective - Vital Signs Vital signs: Vital Signs Temp 98.5 F 08/23/22 04:00 Pulse 93 08/23/22 04:00 Resp 20 08/23/22 04:00 BP 177/115 08/23/22 04:00 Pulse Ox 97 08/23/22 04:00 FiO2 Intake & Output 08/22/22 08/23/22 08/23/22 18:59 06:59 18:59 Intake Total 358 118 Output Total 700 1000 Balance -342 882 Weight 64 kg Intake: Oral 358 118 Output: Urine 700 1000 Other: Voiding Method External Catheter External Catheter # Voids 1 # Bowel Movements 1 - Exam GENERAL: Fatigued female and in no acute distress. Improved from 1 day ago NECK: Normal range of motion, supple without lymphadenopathy or JVD, no thyromegaly LUNGS: Breath sounds clear to auscultation bilaterally and equal. No wheezes rales or rhonchi. HEART: Regular rate and rhythm without murmurs, rubs or gallops.S1S2 Normal ABDOMEN: Soft, nontender, normoactive bowel sounds. No guarding, no rebound. No masses appreciated. EXTREMITIES: range of motion testing minimally., no pitting or edema. No clubbing or cyanosis. Pain to palpation of the lower extremities is now resolved NEUROLOGICAL: Cranial nerves II through XII grossly intact. Normal speech, normal gait. PSYCH: Normal mood, normal affect. SKIN: Warm, Dry, normal turgor, no rashes or lesions noted. - Labs CBC & Chem 7: 08/23/22 07:29 08/21/22 10:34 Labs: Abnormal Lab Results - Last 24 Hours (Table) 08/22/22 08/23/22 Range/Units 10:44 07:29 WBC 14.2 H (3.8-10.6) k/uL Neutrophils # 10.7 H (1.3-7.7) k/uL ESR 62 H (0-20) mm/hr Assessment and Plan (1) Dermatomyositis Current Visit: Yes Status: Acute Code(s): M33.90 - DERMATOPOLYMYOSITIS, UNSP, ORGAN INVOLVEMENT UNSPECIFIED SNOMED Code(s): 392987990 (2) H/O four vessel coronary artery bypass graft Current Visit: Yes Status: Acute Code(s): Z95.1 - PRESENCE OF AORTOCORONARY BYPASS GRAFT SNOMED Code(s): 405749755 (3) NSTEMI (non-ST elevated myocardial infarction) Current Visit: Yes Status: Acute Code(s): I21.4 - NON-ST ELEVATION (NSTEMI) MYOCARDIAL INFARCTION SNOMED Code(s): 78919137 (4) Bilateral hip joint arthritis Current Visit: Yes Status: Acute Code(s): M16.0 - BILATERAL PRIMARY OSTEOARTHRITIS OF HIP SNOMED Code(s): 92729117 (5) Lumbar degenerative disc disease Current Visit: Yes Status: Acute Code(s): M51.36 - OTHER INTERVERTEBRAL DISC DEGENERATION, LUMBAR REGION SNOMED Code(s): 79429228 (6) Leukocytosis Current Visit: Yes Status: Acute Code(s): D72.829 - ELEVATED WHITE BLOOD CELL COUNT, UNSPECIFIED SNOMED Code(s): 421914809 (7) Weakness Current Visit: Yes Status: Acute Code(s): R53.1 - WEAKNESS SNOMED Code(s): 40742250 (8) CAD (coronary artery disease) Current Visit: No Status: Acute Code(s): I25.10 - ATHSCL HEART DISEASE OF [place] CORONARY ARTERY W/O ANG PCTRS SNOMED Code(s): 75473278 (9) Hyperlipemia Current Visit: No Status: Acute Code(s): E78.5 - HYPERLIPIDEMIA, UNSPECIFIED SNOMED Code(s): 66381207 Plan: Her muscle biopsy Thursday. Repeat labs in am. Wait on further recommendations from consultants specific cardiology regarding her blood pressure. Neurology re garding her dermatomyositis, patient up in chair for meals. She'll be reevaluated next 24 hours. Physical therapy to evaluate and treat
[2022-08-23 08:57] LABS: Potassium 5.4 mmol/L (3.5-5.1)
--- NOTE | 2022-08-23 10:20 | US ---
EXAMINATION TYPE: US renal artery duplex complet DATE OF EXAM: 08/23/2022 COMPARISON: NONE CLINICAL INDICATION: Female, 77 years old with history of renal function; uncontrolled htn MEASUREMENTS: RENAL SIZE: Rt Kidney: 10.8 x 4.3 x 4.5cm Lt Kidney: 10.1 x 4.0 x 4.9cm RESISTANCE INDEX Right: 0.7 Left: 0.7 RA/AO RATIO (< 3.5 ) Right: 1.5 Left: 2.4 RA VELOCITY ( < 180 cm/s) Right: 129 Left: 207 - checked twice, elevated Very limited views of left segmental and arcuate arteries due to difficult penetration, lack of patie nt to roll and habitus IMPRESSION: Elevated left renal artery velocity with normal RA/AO ratio bilaterally and normal resistive indices. No evidence for renal artery stenosis on the right. Findings are equivocal for renal artery stenosis on the left. This can be further evaluated with CTA abdomen as clinically indicated.
[2022-08-23] MEDS: EZETIMIBE 10 MG TAB PO SCH (11:09)
[2022-08-23] MEDS: carvediloL 6.25 MG TAB PO SCH ×2 (11:09→17:29)
[2022-08-23] MEDS: LOSARTAN 50 MG TAB PO SCH (11:09)
[2022-08-23] MEDS: FAMOTIDINE 20 MG TAB PO SCH (11:09)
[2022-08-23] MEDS: hydroCHLOROthiazide 25 MG TAB PO SCH (11:10)
[2022-08-23] MEDS: predniSONE 20 MG TAB PO SCH (11:10)
[2022-08-23] MEDS: HEPARIN SODIUM,PORCINE/PF 5,000 UNIT/0.5 ML SYRINGE SQ SCH ×2 (11:10→17:29)
--- NOTE | 2022-08-23 11:43 | P.PN ---
Subjective Progress Note Date: 08/23/22 Principal diagnosis: Possible pulmonary embolism. Pulmonary consult dated 08/22/2022. 77-year-old female who presented to the emergency department on August 18, complaining of weakness. She apparently has had weakness, and fatigue for 4 days prior to admission. She states that she is unable to ambulate without assistance. She denied other complaints. We were consulted because of a CT angiogram showing a possible subsegmental left-sided pulmonary embolism. The patient's on room air, with saturations of 98-99 percent. In addition, the patient is on saline at 75 mL an hour. She had a Doppler of the lower extremities which are negative for DVT. The CT angiogram was ordered by Dr. Magno randall, and showed a questionable filling defect within the left lower lobe subsegmental pulmonary artery which may represent pulmonary embolism versus artifact. There is no evidence of right heart strain. There is a trace left- sided pleural effusion. Most recent labs include a white count of 17.4, hemoglobin 11.8, hematocrit 38.1, and a normal platelet count. A sedimentation rate was 62. D-dimer was 13.37 on August 19. Sodium 134, potassium 4.5, chlorides 106, CO2 21, BUN 39, and creatinine 1.15. AST was 251 and ALT was 214. The patient's aldolase level was 10.6. The CK was 3109, but more recently has come down to 481. C-reactive protein was elevated at 19.1. TSH was normal. Testing for mejia virus was negative. The patient has been on aspirin, and subcu hepa rin, 5000 units every 8 hours. Progress note dated 08/23/2022. 77-year-old female seen for possible pulmonary embolism. A computed tomography scan revealed a possible PE in the left lung. My suspicion that she had a PE was extremely low. I recommended no further workup, although, I did leave it open for another CT angiogram down the road, if the primary service felt it was necessary. The patient's on room air. She's not having any respiratory issues whatsoever. She denies any shortness of breath, cough, wheezing, chest pain, chest tightness, or any other chest complaints. White count 14.2, with a normal hemoglobin, hematocrit, and platelet count. Sodium 136, potassium 5.4, chloride s 108, CO2 18, BUN 37, and creatinine 1.09. Objective - Vital Signs Vital signs: Vital Signs Temp 98.7 F 08/23/22 10:30 Pulse 99 08/23/22 10:30 Resp 16 08/23/22 10:30 BP 145/67 08/23/22 10:30 Pulse Ox 97 08/23/22 10:30 FiO2 Intake & Output 08/22/22 08/23/22 08/23/22 18:59 06:59 18:59 Intake Total 358 118 240 Output Total 700 1000 Balance -342 -882 240 Weight 64 kg Intake: Oral 358 118 240 Output: Urine 700 1000 Other: Voiding Method External Catheter External Catheter # Voids 1 # Bowel Movements 1 - Exam No acute distress, oriented 3. Room air saturation is 97 %. HEENT examination is grossly unremarkable. Neck supple. Full range of motion. No adenopathy thyromegaly or neck vein distention. Cardiovascular examination reveals regular rhythm rate. S1-S2 normal. No S3 or S4. No discernible murmur noted. Heart rate 99 bpm. Lungs reveal clear breath sounds. Breath sounds are equal bilaterally. No adventitious lung sounds including wheezes rhonchi or crackles. Abdomen soft bowel sounds are heard. No masses or tenderness. Extremities are intact. No cyanosis clubbing or edema. Skin is without rash or lesion. Neurologic examination is brief but nonfocal. - Labs CBC & Chem 7: 08/23/22 07:29 08/23/22 07:29 Labs: Abnormal Lab Results - Last 24 Hours (Table) 08/22/22 08/23/22 08/23/22 Range/Units 10:44 07:29 07:29 WBC 14.2 H (3.8-10.6) k/uL Neutrophils # 10.7 H (1.3-7.7) k/uL ESR 62 H (0-20) mm/hr Sodium 136 L (137-145) mmol/L Potassium 5.4 H (3.5-5.1) mmol/L Chloride 108 H (98-107) mmol/L Carbon Dioxide 18 L (22-30) mmol/L BUN 37 H (7-17) mg/dL Creatinine 1.09 H (0.52-1.04) mg/dL Glucose 100 H (74-99) mg/dL Calcium 7.9 L (8.4-10.2) mg/dL Assessment and Plan Assessment: Doubt acute pulmonary embolism. History of atrial fibrillation. History of skin cancer. History of hyperlipidemia. Diffuse muscle weakness, currently being evaluated. Plan: Plan dated 08/22/2022. This patient is not having any respiratory issues. The patient did have an elevated d-dimer. The Dopplers of the lower extremities were negative. The CT angiogram was not particularly impressive. I don't feel the patient is having a pulmonary embolism, and even if the patient had a pulmonary embolism, it's relatively small, and subsegmental. It is not causing not causing any respiratory issues. It probably doesn't need to be treated even if it is present. So, in essence, I would do nothing more at this point. One additional option would be to repeat a CT angiogram in a day or two. I don't believe that's necessary. I'll leave that up to the primary service. Plan dated 08/23/2022. My suspicion was very low for a pulmonary embolism. If there was a pulmonary embolism, it was very small, and subsegmental, and questionably needed to be treated. The patient was not having any respiratory issues whatsoever. If the primary service feels it is necessary, I repeat CT angiogram could be ordered. Again, in my opinion, this is not necessary. Additional recommendations and suggestions are forthcoming. Time with Patient: Less than 30
--- NOTE | 2022-08-23 13:07 | P.PN ---
Subjective Progress Note Date: 08/23/22 The patient seen at bedside and she feels somewhat better. But continues to have the bilateral thigh pain. Overall she is feeling better and she feels she has more strength. Seems that the muscle biopsy is postponed until this coming up Thursday. Objective - Vital Signs Vital signs: Vital Signs Temp 98.7 F 08/23/22 10:30 Pulse 99 08/23/22 10:30 Resp 16 08/23/22 10:30 BP 145/67 08/23/22 10:30 Pulse Ox 97 08/23/22 10:30 FiO2 Intake & Output 08/22/22 08/23/22 08/23/22 18:59 06:59 18:59 Intake Total 358 118 240 Output Total 700 1000 Balance -342 -882 240 Weight 64 kg Intake: Oral 358 118 240 Output: Urine 700 1000 Other: Voiding Method External Catheter External Catheter # Voids 1 # Bowel Movements 1 - Exam GENERAL: The patient is lying in bed and is not in acute distress. INTEGUMENTARY: Erythematous of bilateral cheek region and is warm to touch and is on anterior neck region. NEUROLOGICAL: Higher mental function: The patient is awake, alert, oriented to self, place and time. Patient is following commands. No aphasia and no neglect. Cranial nerves: The pupils are round, equal and reactive to light and accommodation. Visual love are full to confrontation throughout. Extraocular movement is intact no nystagmus is noted. Facial sensation is normal to touch throughout. The facial strength is normal throughout. Hearing is normal bilaterally to hand rub. Tongue is midline and moved [id number] without any difficulty. No dysarthria is noted. Shoulder shrug is normal bilaterally. Motor: The strength is uppers are 4+ 5- left forearm extension, bilateral hand registered nurse renal are 5-. Otherwise uppers are 5/5. Lowers is limited because of pain but was able to lift above gravity briefly has normal movement in ankles. Normal tone and bulk. Cerebellum: Normal finger to nose bilaterally. Sensation: Sensation is normal to touch throughout except feet is decrease to touch. Reflexes (right/left): Ankles are 1-2+ bilaterally, biceps and brachioradialis are 2+. Otherwise 1+. Plantars are mute bilaterally. Some of the workup during this hospital visit consisted of: AST of 2020, ALT 156 and repeat is 1170 CK of 3109-->481-->82 Glucose is 192 Calcium is 8.2 Troponin is slightly trending up. ESR is 96-->86-->62 CRP is 19.1.-->8.0 Lactic dehydrogenase is 326. Aldolase is 10.6 (normal is 1.2-7.6). RICARDO is negative, 201 antibodies negative, vxzj-crzmnz-yhftjjle DNA antibodies negative. SSA and SSB antibodies negative, anti-Leal antibodies negative, LEAVE MANAGER antibodies negative, scleroderma 70 antibodies negative, antimitochondrial antibody is negative, anti-smooth muscle antibodies negative. TSH: 2.54 2-D echo was reported as normal left ventricular size and systolic function. Normal left atrial size. CT of the abdomen is reported as no acute abdominal/pelvic processes. Colonic diverticulosis without evidence for acute diverticulitis. Ectasia of him from a renal [id number] measuring up to 2.[address] angiography of the chest is reported as questionable filling defect within the left lower lobe supple segmental pulmonary arteries which may represent pulmonary emboli versus artifact. No evidence for right heart strain. Trace left pleural effusion. - Labs CBC & Chem 7: 08/23/22 07:29 08/23/22 07:29 Labs: Abnormal Lab Results - Last 24 Hours (Table) 08/22/22 08/23/22 08/23/22 Range/Units 10:44 07:29 07:29 WBC 14.2 H (3.8-10.6) k/uL Neutrophils # 10.7 H (1.3-7.7) k/uL ESR 62 H (0-20) mm/hr Sodium 136 L (137-145) mmol/L Potassium 5.4 H (3.5-5.1) mmol/L Chloride 108 H (98-107) mmol/L Carbon Dioxide 18 L (22-30) mmol/L BUN 37 H (7-17) mg/dL Creatinine 1.09 H (0.52-1.04) mg/dL Glucose 100 H (74-99) mg/dL Calcium 7.9 L (8.4-10.2) mg/dL Assessment and Plan Assessment: This is a 77-year-old woman who is having progressive pain mostly in bilateral thighs with difficulty ambulating for the last 2-3 weeks progressively getting worse and recently she was noted to have the hematocrit rash over the face. She could not tolerate statins in the past. Her CK level is a elevated in the 3000's and ESR is elevated. Also has elevated LDH and altered level. Highly suspicious dermatomyositis---feels with steroids and CK has resolved and ESR trending down History of atrial fibrillation Hyperlipidemia History of coronary artery disease status post CABG Plan: Consulted general surgery team for muscle biopsy of bilateral thighs and scheduled for this coming-up Thursday. Continue Prednisone 60mg daily and was started on 08/19/22. Recommend sugar monitoring and will defer management to primary team. Recommend EMG with nerve conduction study of the lowers as an outpatient which also helps support myopathy/dermatomyositis. CT angiography of the chest is reported as questionable filling defect within the left lower lobe supple segmental pulmonary arteries which may represent pulmonary emboli versus artifact. No evidence for right heart strain. Pulmonary is on board and there is suspicion is low for PE. Cardiology is consulted. GI prophylaxis: is on famotidine 20mg daily. Will defer the rest of management to primary team. Upon discharge recommend the patient to follow-up with a director pharmacology as an outpatient within 1-2 weeks. The plan is discussed with patient and her nurse. Dr. Frankel will start neurology service on 08/25/22 A.M. Time with Patient: Less than 30
[2022-08-23] MEDS: ASPIRIN 81 MG PO SCH (14:20)
[2022-08-24] MEDS: HEPARIN SODIUM,PORCINE/PF 5,000 UNIT/0.5 ML SYRINGE SQ SCH ×4 (00:15→23:09)
[2022-08-24 07:14] LABS: Basophils % (A) 0 %; Eosinophils # (A) 0.1 k/uL (0-0.7); Eosinophils % (A) 1 %; HCT 35.8 % (34.0-46.0); HGB 11.3 gm/dL (11.4-16.0); Lymphocytes # (A) 2.3 k/uL (1.0-4.8); Lymphocytes % (A) 16 %; MCHC 31.4 g/dL (31.0-37.0); MCV 95.4 fL (80.0-100.0); Monocytes # (A) 0.9 k/uL (0-1.0); Monocytes % (A) 7 %; Neutrophils # (A) 10.5 k/uL (1.3-7.7); Neutrophils % (A) 75 %; Platelet Count 358 k/uL (150-450); RBC 3.76 m/uL (3.80-5.40); RDW 14.4 % (11.5-15.5)
[2022-08-24 07:15] LABS: ALT 186 U/L (4-34); AST 101 U/L (14-36); African American GFR (CKD) 54 (>60 ml/min/1.73 sqM); Albumin 2.1 g/dL (3.5-5.0); Alkaline Phosphatase 111 U/L (38-126); Anion Gap 6 mmol/L; Blood Urea Nitrogen 38 mg/dL (7-17); Calcium 7.5 mg/dL (8.4-10.2); Carbon Dioxide 19 mmol/L (22-30); Chloride 107 mmol/L (98-107); Glucose 103 mg/dL (74-99); Non-African American GFR(CKD) 47 (>60 ml/min/1.73 sqM); Sodium 132 mmol/L (137-145); Total Bilirubin 0.8 mg/dL (0.2-1.3); Total Protein 4.8 g/dL (6.3-8.2)
--- NOTE | 2022-08-24 07:21 | P.PN ---
Subjective Progress Note Date: 08/24/22 Principal diagnosis: Coronary artery disease The patient is a 77-year-old female patient with CAD and prior revascularization as well as hypertension and dyslipidemia who was admitted to the hospital with rhabdomyolysis. It felt it was related to statin. Statin is on hold at this point. We consulted to see the patient because of abnormal troponin which we felt related to rhabdomyolysis. The echo revealed normal LV systolic function. She has no pain in the chest. The EKG did not show any ischemic changes. August 212022 The patient was seen and evaluated this morning. She remains asymptomatic and hemodynamically stable beside elevation in the blood pressure. I'm going to increase the dose of losartan. The echo showed normal wall motion abnormality is concerning for ischemia. She is on aspirin and she is on zetia,. From the cardiovascular standpoint of view, we'll continue the current medical regimen and continue following up with the patient and follow-up with the blood work from this morning. The creatinine was slightly elevated which was related to rhabdomyolysis 08/22/2022 The patient was seen and evaluated this morning. She is asymptomatic. The pressure has been under better control converted to before. Still consistent with stage II hypertension. No symptoms of chest pain or chest discomfort and no shortness of breath. CK has been trending down. She is in process of having muscle biopsy. August 232022 The patient was seen and evaluated this morning. She is asymptomatic into of chest pain or chest discomfort or shortness of breath. Unfortunately the blood pressure remains elevated. I am going to replace metoprolol with carvedilol and also add hydrochlorothiazide to the current medical regimen. Beside that secondary hypertension to be ruled out I am going to obtain a renal duplex study. Part of the elevation in the blood pressure also could be related to steroids. August 242022 The patient was seen and evaluated this morning. She is asymptomatic. The pressure has been under excellent control on the current medical regimen. She reports no pain in the chest and no shortness of breath and no dizziness or lightheadedness and no feeling of heart racing or fluttering. Muscle biopsies in process to be done. From a cardiovascular standpoint of view, would continue the current medical regimen. Follow-up with the patient on when necessary case. The examination is remarkable for regular rhythm with a systolic murmur and clear breathing sounds bilaterally. Assessment Rhabdomyolysis Evidence of myocardial injury was no obvious of ischemia CAD Statin intolerance Hypertension appears to be uncontrolled Plan Continue the current medical regimen Follow-up with the patient on when necessary case Objective - Vital Signs Vital signs: Vital Signs Temp 98.5 F 08/24/22 04:00 Pulse 75 08/24/22 04:00 Resp 18 08/24/22 04:00 BP 152/75 08/24/22 04:00 Pulse Ox 97 08/23/22 20:00 FiO2 Intake & Output 08/23/22 08/24/22 08/24/22 18:59 06:59 18:59 Intake Total 1380 Output Total 600 Balance 1380 -600 Intake: Intake, IV Titration 600 Amount Sodium Chloride 0.9% 1, 600 000 ml @ 100 mls/hr IV . Q10H [facility] Rx#:[id number] Oral 780 Output: Urine 600 Other: Voiding Method External Catheter External Catheter - Labs CBC & Chem 7: 08/24/22 05:28 08/23/22 07:29 Labs: Abnormal Lab Results - Last 24 Hours (Table) 08/23/22 08/23/22 08/24/22 Range/Units 07:29 07:29 05:28 WBC 14.2 H 14.0 H (3.8-10.6) k/uL RBC 3.76 L (3.80-5.40) m/uL Hgb 11.3 L (11.4-16.0) gm/dL Neutrophils # 10.7 H 10.5 H (1.3-7.7) k/uL Sodium 136 L (137-145) mmol/L Potassium 5.4 H (3.5-5.1) mmol/L Chloride 108 H (98-107) mmol/L Carbon Dioxide 18 L (22-30) mmol/L BUN 37 H (7-17) mg/dL Creatinine 1.09 H (0.52-1.04) mg/dL Glucose 100 H (74-99) mg/dL Calcium 7.9 L (8.4-10.2) mg/dL
[2022-08-24] MEDS: carvediloL 6.25 MG TAB PO SCH ×2 (07:22→16:19)
[2022-08-24] MEDS: SODIUM CHLORIDE 0.9% 1,000 ML IV SCH ×3 (07:32→16:19)
[2022-08-24] MEDS: hydroCHLOROthiazide 25 MG TAB PO SCH (07:42)
[2022-08-24] MEDS: EZETIMIBE 10 MG TAB PO SCH (07:43)
[2022-08-24] MEDS: FAMOTIDINE 20 MG TAB PO SCH (07:43)
[2022-08-24] MEDS: ASPIRIN 81 MG PO SCH (07:43)
[2022-08-24] MEDS: predniSONE 20 MG TAB PO SCH (07:43)
[2022-08-24] MEDS: LOSARTAN 50 MG TAB PO SCH (07:43)
[2022-08-24 07:49] LABS: Potassium 4.6 mmol/L (3.5-5.1)
[2022-08-24 08:45] LABS: Erythrocyte Sedimentation Rate 58 mm/hr (0-20)
[2022-08-24 09:10] LABS: C Reactive Protein 12.7 mg/dL (<1.0)
--- NOTE | 2022-08-24 09:48 | P.PN ---
Progress Note - Text Progress Note Date: 08/24/22 Patient remains stable. She is scheduled for [address] Flores tomorrow.
--- NOTE | 2022-08-24 11:08 | P.PN ---
Subjective Progress Note Date: 08/24/22 Principal diagnosis: Possible pulmonary embolism. Pulmonary consult dated 08/22/2022. 77-year-old female who presented to the emergency department on August 18, complaining of weakness. She apparently has had weakness, and fatigue for 4 days prior to admission. She states that she is unable to ambulate without assistance. She denied other complaints. We were consulted because of a CT angiogram showing a possible subsegmental left-sided pulmonary embolism. The patient's on room air, with saturations of 98-99 percent. In addition, the patient is on saline at 75 mL an hour. She had a Doppler of the lower extremities which are negative for DVT. The CT angiogram was ordered by Dr. Magno randall, and showed a questionable filling defect within the left lower lobe subsegmental pulmonary artery which may represent pulmonary embolism versus artifact. There is no evidence of right heart strain. There is a trace left- sided pleural effusion. Most recent labs include a white count of 17.4, hemoglobin 11.8, hematocrit 38.1, and a normal platelet count. A sedimentation rate was 62. D-dimer was 13.37 on August 19. Sodium 134, potassium 4.5, chlorides 106, CO2 21, BUN 39, and creatinine 1.15. AST was 251 and ALT was 214. The patient's aldolase level was 10.6. The CK was 3109, but more recently has come down to 481. C-reactive protein was elevated at 19.1. TSH was normal. Testing for mejia virus was negative. The patient has been on aspirin, and subcu hepa rin, 5000 units every 8 hours. Progress note dated 08/23/2022. 77-year-old female seen for possible pulmonary embolism. A computed tomography scan revealed a possible PE in the left lung. My suspicion that she had a PE was extremely low. I recommended no further workup, although, I did leave it open for another CT angiogram down the road, if the primary service felt it was necessary. The patient's on room air. She's not having any respiratory issues whatsoever. She denies any shortness of breath, cough, wheezing, chest pain, chest tightness, or any other chest complaints. White count 14.2, with a normal hemoglobin, hematocrit, and platelet count. Sodium 136, potassium 5.4, chloride s 108, CO2 18, BUN 37, and creatinine 1.09. Progress note dated 08/24/2022. 77-year-old female seen in consultation, for a possibly abnormal CT angiogram showing a small pulmonary embolism. We did not feel that the patient had pulmonary embolism, and we did not recommend any treatment. She never had any respiratory issues. She's currently on room air. She's getting saline at 50 mL an hour. She is currently being evaluated for a statin-induced myopathy. Today's labs show a white count of 14, hemoglobin 11.3, hematocrit 35.8, and a platelet count of 358,000. Sodium 132, potassium 4.6, chlorides 107, CO2 19, BUN 38, and creatinine 1.15. Objective - Vital Signs Vital signs: Vital Signs Temp 98.0 F 08/24/22 07:49 Pulse 82 08/24/22 07:49 Resp 20 08/24/22 07:49 BP 149/68 08/24/22 07:49 Pulse Ox 95 08/24/22 07:49 FiO2 Intake & Output 08/23/22 08/24/22 08/24/22 18:59 06:59 18:59 Intake Total 1380 Output Total 600 Balance 1380 -600 Intake: Intake, IV Titration 600 Amount Sodium Chloride 0.9% 1, 600 000 ml @ 100 mls/hr IV . Q10H [facility] Rx#:[id number] Oral 780 Output: Urine 600 Other: Voiding Method External Catheter External Catheter External Catheter - Exam No acute distress, oriented 3. Room air saturation is 96 %. HEENT examination is grossly unremarkable. Neck supple. Full range of motion. No adenopathy thyromegaly or neck vein distention. Cardiovascular examination reveals regular rhythm rate. S1-S2 normal. No S3 or S4. No discernible murmur noted. Heart rate 82 bpm. Lungs reveal clear breath sounds. Breath sounds are equal bilaterally. No adventitious lung sounds including wheezes rhonchi or crackles. Abdomen soft bowel sounds are heard. No masses or tenderness. Extremities are intact. No cyanosis clubbing or edema. Skin is without rash or lesion. Neurologic examination is brief but nonfocal. - Labs CBC & Chem 7: 08/24/22 05:28 08/24/22 05:28 Labs: Abnormal Lab Results - Last 24 Hours (Table) 08/24/22 08/24/22 Range/Units 05:28 05:28 WBC 14.0 H (3.8-10.6) k/uL RBC 3.76 L (3.80-5.40) m/uL Hgb 11.3 L (11.4-16.0) gm/dL Neutrophils # 10.5 H (1.3-7.7) k/uL ESR 58 H (0-20) mm/hr Sodium 132 L (137-145) mmol/L Carbon Dioxide 19 L (22-30) mmol/L BUN 38 H (7-17) mg/dL Creatinine 1.15 H (0.52-1.04) mg/dL Glucose 103 H (74-99) mg/dL Calcium 7.5 L (8.4-10.2) mg/dL AST 101 H (14-36) U/L ALT 186 H (4-34) U/L C-Reactive Protein 12.7 H (<1.0) mg/dL Total Protein 4.8 L (6.3-8.2) g/dL Albumin 2.1 L (3.5-5.0) g/dL Assessment and Plan Assessment: Doubt acute pulmonary embolism. History of atrial fibrillation. History of skin cancer. History of hyperlipidemia. 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 Plan: Plan dated 08/22/2022. This patient is not having any respiratory issues. The patient did have an elevated d-dimer. The Dopplers of the lower extremities were negative. The CT angiogram was not particularly impressive. I don't feel the patient is having a pulmonary embolism, and even if the patient had a pulmonary embolism, it's relatively small, and subsegmental. It is not causing not causing any respiratory issues. It probably doesn't need to be treated even if it is present. So, in essence, I would do nothing more at this point. One additional option would be to repeat a CT angiogram in a day or two. I don't believe that's necessary. I'll leave that up to the primary service. Plan dated 08/23/2022. My suspicion was very low for a pulmonary embolism. If there was a pulmonary embolism, it was very small, and subsegmental, and questionably needed to be treated. The patient was not having any respiratory issues whatsoever. If the primary service feels it is Plan dated 08/24/2022. The patient's doing well. She's on room air. The patient has never had any respiratory complaints or issues. Labs, x-rays, and medications are reviewed. Prognosis is guarded. The patient is being evaluated for statin-induced myopathy. Moving forward, we will see the patient only as needed. Time with Patient: Less than 30
--- NOTE | 2022-08-24 11:11 | P.PN ---
Subjective 08/19/22 This is a 77-year-old female warm over the practice. She reports 4 days ago on August 15 receiving a steroid injection for right hip bursitis with Dr. Carrilol. She has no history of coronary artery disease and had coronary bypass graft 4 vessels 01/17/2014. Last evaluation of this was January [address] Thomas. Where there is evidence of occlusion of some of the grafts and moderate disease in the other. She been very active the past few days and has been very sore in her hips and groin area since then. Yesterday she reports the weakness became quite severe And 1 along with fatigue. She indicates she slept 3 hours woke up did not feel much better. She had no dizziness lightheadedness, chest pain pressure or shortness breath nausea vomiting. Emergency room workup should have slightly abnormal troponins and elevated beta natruretic peptide chest x-ray shows mild vascular congestion and correlate with serum BNP X-rays of the L-spine show degenerative disc disease, hip x-ray showed mild arthritis. Currently this a.m. she continues to feel weak and very fatigued. Other than that she denies any chest pains pressures or shortness of breath. She is unable to move significantly due to her lower extremity weakness. 08/20/2022: Patient feels slightly better with prednisone 60 orally. 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 Rash to her face that has improved. Her pain is slightly better more so this morning that currently. She currently denies any chest pains pressures or shortness of breath. Cardiology is working her up for the abnormal troponins with a history of CABG 4 vessel and stent 2. 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 Vital signs are stable with blood pressure is elevated. CPK is down from 3109- 1170. Her labs are normal. Significant workup from neurology is pending. Echo was done already and appears normal. 08/21/2022 neurology workup in progress/ muscle biopsy scheduled for tomorrow.Maintained on IV fluids, oral steroids. Reporting less pain, less weakness. Stood at bedside with PT, complains of significant weakness. PT recommending subacute rehab. Hypertensive losartan dose increased. Chest CTA reported questionable filling defects within the left lower lobe subsegmental pulmonary arteries which may represent pulmonary emboli versus artifact, no evidence for right heart strain, trace left pleural effusion. Venous Doppler of bilateral lower extremities reported negative for DVT. CT of abdomen and pelvis reported no acute abdominal/pelvic process, colonic diverticulosis without evidence of acute diverticulitis, excision of the infrarenal abdominal aorta measuring up to 2.6 cm. Afebrile, labs pending. 08/22/2022. Persistent bilateral leg weakness. CK levels trending down,481. Muscle Biopsy rescheduled for Thursday as per general surgery. Improving hypertension with antihypertensives adjusted as per cardiology yesterday; systolic blood pressure currently ranging from 150s to 170s. Denies chest pain, palpitations or shortness of breath. Afebrile. 08/23/2022: Patient has slightly improved with less pain. She continues complaining of leg weakness is not Out Of Bed. We Discussed This Today. Also Biopsies Pending for Thursday with General Surgery. Hypertension Seems to Be More Accelerated. Cardiology Is Following This Is Making Adjustments to Her Medications and Had an Ultrasound Venous Dopplers Pending. Other Vitals Remained Stable. She Is Afebrile. Laboratories for This Morning Are Pending. Yesterday ESR Was Returned at 62 down from 96 and Then 86. CRP Is down from 19 8. Consult Recommendations Were Noted Including the Pulmonary Consultation regarding the Suspected Filling Defects. Pulmonology Feels Is Not Really a Pulmonary Embolism There 08/24/2022: Patient is improved. There are suspicions for dermatomyositis. Muscle biopsies pending for tomorrow. She is being followed by neurology, pulmonology, cardiology, in general surgery. Pulmonology reiterates they do not suspect a pulmonary embolism even though the CT showed a questionable filling defect. Renal artery duplex ordered by cardiology to do or axillary hypertension showed equivocal results for left renal artery stenosis. Normal on the right. Palpation to CTA may be warranted. I recommended ice consult noted. Vital signs show improve blood pressure. Allergy and changed her medications. She is in place on Thursday and due to the statin intolerance. Laboratory studies show improve sedimentation rate resolved CK and other laboratory studies are similarly improved. Her CRP increased slightly today compared to yesterday. She remains on prednisone 60 mg orally. He continues on carvedilol and hydralazine hydrochlorothiazide and losartan for blood pressure control. Aspirin for antiplatelet effect. Heparin for DVT prophylaxis. The venous Doppler was negative for DVT The patient is morning indicates she feels quite better than having dizziness when she stands up anymore the pain in her thighs is mostly resolved. She is feeling strong enough to stand up somewhat. We did discuss rehabilitation if needed. Objective - Vital Signs Vital signs: Vital Signs Temp 98.0 F 08/24/22 07:49 Pulse 82 08/24/22 07:49 Resp 20 08/24/22 07:49 BP 149/68 08/24/22 07:49 Pulse Ox 95 08/24/22 07:49 FiO2 Intake & Output 08/23/22 08/24/22 08/24/22 18:59 06:59 18:59 Intake Total 1380 Output Total 600 Balance 1380 -600 Intake: Intake, IV Titration 600 Amount Sodium Chloride 0.9% 1, 600 000 ml @ 100 mls/hr IV . Q10H [facility] Rx#:[id number] Oral 780 Output: Urine 600 Other: Voiding Method External Catheter External Catheter External Catheter - Exam GENERAL: Fatigued female and in no acute distress. Continues to improve. NECK: Normal range of motion, supple without lymphadenopathy or JVD, no thyromegaly LUNGS: Breath sounds clear to auscultation bilaterally and equal. No wheezes rales or rhonchi. HEART: Regular rate and rhythm without murmurs, rubs or gallops.S1S2 Normal ABDOMEN: Soft, nontender, normoactive bowel sounds. No guarding, no rebound. No masses appreciated. EXTREMITIES: range of motion testing minimally., no pitting or edema. No clubbing or cyanosis. Thigh pain seems to be resolved to palpation today. NEUROLOGICAL: Cranial nerves II through XII grossly intact. Normal speech, normal gait. PSYCH: Normal mood, normal affect. SKIN: Warm, Dry, normal turgor, no rashes or lesions noted. - Labs CBC & Chem 7: 08/24/22 05:28 08/24/22 05:28 Labs: Abnormal Lab Results - Last 24 Hours (Table) 08/24/22 08/24/22 Range/Units 05:28 05:28 WBC 14.0 H (3.8-10.6) k/uL RBC 3.76 L (3.80-5.40) m/uL Hgb 11.3 L (11.4-16.0) gm/dL Neutrophils # 10.5 H (1.3-7.7) k/uL ESR 58 H (0-20) mm/hr Sodium 132 L (137-145) mmol/L Carbon Dioxide 19 L (22-30) mmol/L BUN 38 H (7-17) mg/dL Creatinine 1.15 H (0.52-1.04) mg/dL Glucose 103 H (74-99) mg/dL Calcium 7.5 L (8.4-10.2) mg/dL AST 101 H (14-36) U/L ALT 186 H (4-34) U/L C-Reactive Protein 12.7 H (<1.0) mg/dL Total Protein 4.8 L (6.3-8.2) g/dL Albumin 2.1 L (3.5-5.0) g/dL Assessment and Plan (1) Dermatomyositis Current Visit: Yes Status: Acute Code(s): M33.90 - DERMATOPOLYMYOSITIS, UNSP, ORGAN INVOLVEMENT UNSPECIFIED SNOMED Code(s): 156523645 (2) H/O four vessel coronary artery bypass graft Current Visit: Yes Status: Acute Code(s): Z95.1 - PRESENCE OF AORTOCORONARY BYPASS GRAFT SNOMED Code(s): 223202090 (3) NSTEMI (non-ST elevated myocardial infarction) Current Visit: Yes Status: Acute Code(s): I21.4 - NON-ST ELEVATION (NSTEMI) MYOCARDIAL INFARCTION SNOMED Code(s): 34789844 (4) Bilateral hip joint arthritis Current Visit: Yes Status: Acute Code(s): M16.0 - BILATERAL PRIMARY OSTEOARTHRITIS OF HIP SNOMED Code(s): 56098806 (5) Lumbar degenerative disc disease Current Visit: Yes Status: Acute Code(s): M51.36 - OTHER INTERVERTEBRAL DISC DEGENERATION, LUMBAR REGION SNOMED Code(s): 86161044 (6) Leukocytosis Current Visit: Yes Status: Acute Code(s): D72.829 - ELEVATED WHITE BLOOD CELL COUNT, UNSPECIFIED SNOMED Code(s): 833021821 (7) Weakness Current Visit: Yes Status: Acute Code(s): R53.1 - WEAKNESS SNOMED Code(s): 96508358 (8) CAD (coronary artery disease) Current Visit: No Status: Acute Code(s): I25.10 - ATHSCL HEART DISEASE OF [place] CORONARY ARTERY W/O ANG PCTRS SNOMED Code(s): 44393352 (9) Hyperlipemia Current Visit: No Status: Acute Code(s): E78.5 - HYPERLIPIDEMIA, UNSPECIFIED SNOMED Code(s): 53542020 Plan: So biopsy pending for tomorrow. Repeat labs in am. Wait on further recommendations from consultants . She'll continue on her current medications, repeat labs in a.m. She'll be reevaluated next 24 hours. Physical therapy to evaluate and treat we discussed a home with home care versus ECF for rehabilitation if needed.
[2022-08-25] MEDS: SODIUM CHLORIDE 0.9% 1,000 ML IV SCH ×2 (01:02→14:44)
[2022-08-25] MEDS ORDERED: LACTATED RINGERS 1,000 ML IV ONE (07:52)
[2022-08-25 08:14] LABS: Glucose,Whole Blood 102 mg/dL (70-110)
[2022-08-25] MEDS ORDERED: ONDANSETRON 4 MG/2 ML VIAL ONE (08:15)
[2022-08-25] MEDS ORDERED: ONDANSETRON 4 MG/2 ML VIAL IVP ONE (08:17)
--- NOTE | 2022-08-25 08:28 | P.HPADDEND ---
H&P Addendum H&P Addendum Date: 08/25/22 Patient with clinical features of myositis. Requested an neurologist Dr. Magno Dorsey left rectus femoris muscle. Biopsy of the muscle being performed per [facility] protocol.
[2022-08-25] MEDS: HEPARIN SODIUM,PORCINE/PF 5,000 UNIT/0.5 ML SYRINGE SQ SCH ×4 (08:40→23:26)
[2022-08-25] MEDS ORDERED: BUPIVACAINE (PF) 0.25% 30 ML VIAL SQ ONE (09:45)
--- NOTE | 2022-08-25 11:20 | P.PN ---
Subjective Progress Note Date: 08/25/22 77-year-old female who presented to the emergency department on August 18, complaining of weakness. She apparently has had weakness, and fatigue for 4 days prior to admission. She states that she is unable to ambulate without assistance. She denied other complaints. We were consulted because of a CT an giogram showing a possible subsegmental left-sided pulmonary embolism. The patient's on room air, with saturations of 98-99 percent. In addition, the patient is on saline at 75 mL an hour. She had a Doppler of the lower extremities which are negative for DVT. The CT angiogram was ordered by Dr. Magno randall, and showed a questionable filling defect within the left lower lobe subsegmental pulmonary artery which may represent pulmonary embolism versus artifact. There is no evidence of right heart strain. There is a trace left- sided pleural effusion. Most recent labs include a white count of 17.4, hemoglobin 11.8, hematocrit 38.1, and a normal platelet count. A sedimentation rate was 62. D-dimer was 13.37 on August 19. Sodium 134, potassium 4.5, chlorides 106, CO2 21, BUN 39, and creatinine 1.15. AST was 251 and ALT was 214. The patient's aldolase level was 10.6. The CK was 3109, but more recently has come down to 481. C-reactive protein was elevated at 19.1. TSH was normal. Testing for mejia virus was negative. The patient has been on aspirin, and subcu heparin, 5000 units every 8 hours. Progress note dated 08/23/2022. 77-year-old female seen for possible pulmonary embolism. A computed tomography scan revealed a possible PE in the left lung. My suspicion that she had a PE was extremely low. I recommended no further workup, although, I did leave it open for another CT angiogram down the road, if the primary service felt it was necessary. The patient's on room air. She's not having any respiratory issues whatsoever. She denies any shortness of breath, cough, wheezing, chest pain, chest tightness, or any other chest complaints. White count 14.2, with a normal hemoglobin, hematocrit, and platelet count. Sodium 136, potassium 5.4, chlorides 108, CO2 18, BUN 37, and creatinine 1.09. Progress note dated 08/24/2022. 77-year-old female seen in consultation, for a possibly abnormal CT angiogram showing a small pulmonary embolism. We did not feel that the patient had pulmonary embolism, and we did not recommend any treatment. She never had any respiratory issues. She's currently on room air. She's getting saline at 50 mL an hour. She is currently being evaluated for a statin-induced myopathy. Today's labs show a white count of 14, hemoglobin 11.3, hematocrit 35.8, and a platelet count of 358,000. Sodium 132, potassium 4.6, chlorides 107, CO2 19, BUN 38, and creatinine 1.15. On today's evaluation of 08/25/2022, the patient is resting comfortably in bed. No significant complaints. She underwent a muscle biopsy. The patient is not having any respiratory difficulties and she is on room air oxygen with a pulse ox of 93%. Statins have been discontinued for now. Labs from yesterday were all reviewed. BUN is at 38 and a creatinine 1.1. WBC count is at 14 with a hemoglobin of 11.3. Covid 19 testing was negative. CPK level was less than 9, CRP level is at 12.7. Neurology is on the case and there is a concern towards myositis. Doppler of the lower extremity is a been negative. CAT scan of the chest and abdomen shows no acute process and there is an infrarenal abdominal aorta measuring 2.6 cm in size along with colonic diverticulosis. CT of the chest also showed questionable pulmonary embolism in the left lower lobe. Trace left-sided pleural effusion. Objective - Vital Signs Vital signs: Vital Signs Temp 97 F L 08/25/22 10:36 Pulse 75 08/25/22 11:00 Resp 16 08/25/22 11:00 BP 136/58 08/25/22 11:00 Pulse Ox 93 L 08/25/22 11:00 FiO2 Intake & Output 08/24/22 08/25/22 08/25/22 18:59 06:59 18:59 Intake Total 1138 800 Output Total 1400 520 Balance 1138 -1400 280 Intake: IV 800 Oral 1138 Output: Urine 1400 500 Estimated Blood Loss 20 Other: Voiding Method External Catheter External Catheter - Exam No acute distress, oriented 3. Room air saturation is 96 %. HEENT examination is grossly unremarkable. Neck supple. Full range of motion. No adenopathy thyromegaly or neck vein distention. Cardiovascular examination reveals regular rhythm rate. S1-S2 normal. No S3 or S4. No discernible murmur noted. Heart rate 82 bpm. Lungs reveal clear breath sounds. Breath sounds are equal bilaterally. No adventitious lung sounds including wheezes rhonchi or crackles. Abdomen soft bowel sounds are heard. No masses or tenderness. Extremities are intact. No cyanosis clubbing or edema. Skin is without rash or lesion. Neurologic examination is brief but nonfocal. - Labs CBC & Chem 7: 08/24/22 05:28 08/24/22 05:28 Assessment and Plan Plan: Generalized weakness/muscle weakness on that investigation. Muscle biopsy was done and the patient was taken off statins. The rods on the case. Presentation clinically is not consistent with pulmonary embolism. The possibility of an underlying pulmonary embolism is quite doubtful at this point. History of atrial fibrillation. History of skin cancer. History of hyperlipidemia. 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 Plan: Muscle biopsy has been done Patient is currently on prednisone at a dose of 60 mg by mouth daily No need for anticoagulation Neurology is on the case
[2022-08-25 12:16] LABS: ALT 150 U/L (4-34); AST 87 U/L (14-36); African American GFR (CKD) 52 (>60 ml/min/1.73 sqM); Albumin 2.2 g/dL (3.5-5.0); Alkaline Phosphatase 107 U/L (38-126); Anion Gap 5 mmol/L; Blood Urea Nitrogen 39 mg/dL (7-17); C Reactive Protein 5.6 mg/dL (<1.0); Calcium 7.9 mg/dL (8.4-10.2); Carbon Dioxide 22 mmol/L (22-30); Chloride 106 mmol/L (98-107); Glucose 106 mg/dL (74-99); Non-African American GFR(CKD) 45 (>60 ml/min/1.73 sqM); Potassium 4.5 mmol/L (3.5-5.1); Sodium 133 mmol/L (137-145); Total Bilirubin 0.7 mg/dL (0.2-1.3); Total Protein 4.9 g/dL (6.3-8.2)
[2022-08-25 12:21] LABS: Basophils % (A) 0 %; Eosinophils # (A) 0.3 k/uL (0-0.7); Eosinophils % (A) 2 %; HCT 37.1 % (34.0-46.0); HGB 11.6 gm/dL (11.4-16.0); Lymphocytes # (A) 1.8 k/uL (1.0-4.8); Lymphocytes % (A) 11 %; MCH 30.6 pg (25.0-35.0); MCHC 31.1 g/dL (31.0-37.0); MCV 98.2 fL (80.0-100.0); Mean Platelet Volume 8.1; Monocytes # (A) 0.9 k/uL (0-1.0); Monocytes % (A) 5 %; Neutrophils # (A) 13.7 k/uL (1.3-7.7); Neutrophils % (A) 82 %; Platelet Count 374 k/uL (150-450); RBC 3.78 m/uL (3.80-5.40); RDW 14.2 % (11.5-15.5); WBC 16.8 k/uL (3.8-10.6)
--- NOTE | 2022-08-25 12:56 | P.PN ---
Subjective Progress Note Date: 08/25/22 08/19/22 This is a 77-year-old female warm over the practice. She reports 4 days ago on August 15 receiving a steroid injection for right hip bursitis with Dr. Carrillo. She has no history of coronary artery disease and had coronary bypass graft 4 vessels 01/17/2014. Last evaluation of this was January [address] Thomas. Where there is evidence of occlusion of some of the grafts and moderate disease in the other. She been very active the past few days and has been very sore in her hips and groin area since then. Yesterday she reports the weakness became quite severe And 1 along with fatigue. She indicates she slept 3 hours woke up did not feel much better. She had no dizziness lightheadedness, chest pain pressure or shortness breath nausea vomiting. Emergency room workup should have slightly abnormal troponins and elevated beta natruretic peptide chest x-ray shows mild vascular congestion and correlate with serum BNP X-rays of the L-spine show degenerative disc disease, hip x-ray showed mild arthritis. Currently this a.m. she continues to feel weak and very fatigued. Other than that she denies any chest pains pressures or shortness of breath. She is unable to move s ignificantly due to her lower extremity weakness. 08/20/2022: Patient feels slightly better with prednisone 60 orally. 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 Rash to her face that has improved. Her pain is slightly better more so this morning that currently. She currently denies any chest pains pressures or shortness of breath. Cardiology is working her up for the abnormal troponins with a history of CABG 4 vessel and stent 2. 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 Vital signs are stable with blood pressure is elevated. CPK is down from 3109- 1170. Her labs are normal. Significant workup from neurology is pending. Echo was done already and appears normal. 08/21/2022 neurology workup in progress/ muscle biopsy scheduled for tomorro w.Maintained on IV fluids, oral steroids. Reporting less pain, less weakness. Stood at bedside with PT, complains of significant weakness. PT recommending subacute rehab. Hypertensive losartan dose increased. Chest CTA reported questionable filling defects within the left lower lobe subsegmental pulmonary arteries which may represent pulmonary emboli versus artifact, no evidence for right heart strain, trace left pleural effusion. Venous Doppler of bilateral lower extremities reported negative for DVT. CT of abdomen and pelvis reported no acute abdominal/pelvic process, colonic diverticulosis without evidence of acute diverticulitis, excision of the infrarenal abdominal aorta measuring up to 2.6 cm. Afebrile, labs pending. 08/22/2022. Persistent bilateral leg weakness. CK levels trending down,481. Muscle Biopsy rescheduled for Thursday as per general surgery. Improving hypertension with antihypertensives adjusted as per cardiology yesterday; systolic blood pressure currently ranging from 150s to 170s. Denies chest pain, palpitations or shortness of breath. Afebrile. 08/23/2022: Patient has slightly improved with less pain. She continues complaining of leg weakness is not Out Of Bed. We Discussed This Today. Also Biopsies Pending for Thursday with General Surgery. Hypertension Seems to Be More Accelerated. Cardiology Is Following This Is Making Adjustments to Her Medications and Had an Ultrasound Venous Dopplers Pending. Other Vitals Remained Stable. She Is Afebrile. Laboratories for This Morning Are Pending. Yesterday ESR Was Returned at 62 down from 96 and Then 86. CRP Is down from 19 8. Consult Recommendations Were Noted Including the Pulmonary Consultation regarding the Suspected Filling Defects. Pulmonology Feels Is Not Really a Pulmonary Embolism There. 08/24/2022: Patient is improved. There are suspicions for dermatomyositis. Muscle biopsies pending for tomorrow. She is being followed by neurology, pulmonology, cardiology, in general surgery. Pulmonology reiterates they do not suspect a pulmonary embolism even though the CT showed a questionable filling defect. Renal artery duplex ordered by cardiology to do or axillary hypertension showed equivocal results for left renal artery stenosis. Normal on the right. Palpation to CTA may be warranted. I recommended ice consult noted. Vital signs show improve blood pressure. Allergy and changed her medications. She is in place on Thursday and due to the statin intolerance. Laboratory studies show improve sedimentation rate resolved CK and other laboratory studies are similarly improved. Her CRP increased slightly today compared to yesterday. She remains on prednisone 60 mg orally. He continues on carvedilol and hydralazine hydrochlorothiazide and losartan for blood pressure control. Aspirin for antiplatelet effect. Heparin for DVT prophylaxis. The venous Doppler was negative for DVT The patient is morning indicates she feels quite better than having dizziness when she stands up anymore the pain in her thighs is mostly resolved. She is feeling strong enough to stand up somewhat. We did discuss rehabilitation if needed. 08/25/2022 muscle biopsy pending. Continues on oral steroids ,statins remain on hold. Denies chest pain, palpitations or shortness of breath. Maintaining O2 sats in the 90s on room air. Labs pending, including repeat levels of i nflammatory markers. Afebrile. Objective - Vital Signs Vital signs: Vital Signs Temp 97.5 F L 08/25/22 11:22 Pulse 78 08/25/22 11:22 Resp 16 08/25/22 11:22 BP 118/65 08/25/22 11:22 Pulse Ox 92 L 08/25/22 11:22 FiO2 Intake & Output 08/24/22 08/25/22 08/25/22 18:59 06:59 18:59 Intake Total 1138 800 Output Total 1400 520 Balance 1138 -1400 280 Intake: IV 800 Oral 1138 Output: Urine 1400 500 Estimated Blood Loss 20 Other: Voiding Method External Catheter External Catheter - Exam GENERAL: Sitting up in bed, no acute distress. Improving. NECK: Supple without JVD LUNGS: Unlabored, Equal air entry ,CTA. HEART: Regular rate and rhythm without murmurs, rubs or gallops.S1S2 Normal ABDOMEN: Soft, nontender, normoactive bowel sounds. No guarding, no rebound. No masses appreciated. EXTREMITIES: no pitting or edema. No clubbing or cyanosis. NEUROLOGICAL: Cranial nerves II through XII grossly intact. PSYCH: Normal mood, normal affect. SKIN: Warm, Dry. - Labs CBC & Chem 7: 08/25/22 11:40 08/25/22 11:40 Labs: Abnormal Lab Results - Last 24 Hours (Table) 08/25/22 08/25/22 Range/Units 11:40 11:40 WBC 16.8 H (3.8-10.6) k/uL RBC 3.78 L (3.80-5.40) m/uL Neutrophils # 13.7 H (1.3-7.7) k/uL Sodium 133 L (137-145) mmol/L BUN 39 H (7-17) mg/dL Creatinine 1.18 H (0.52-1.04) mg/dL Glucose 106 H (74-99) mg/dL Calcium 7.9 L (8.4-10.2) mg/dL AST 87 H (14-36) U/L ALT 150 H (4-34) U/L C-Reactive Protein 5.6 H (<1.0) mg/dL Total Protein 4.9 L (6.3-8.2) g/dL Albumin 2.2 L (3.5-5.0) g/dL Assessment and Plan Assessment: (1) Dermatomyositis, possible, workup in progress Current Visit: Yes Status: Acute Code(s): M33.90 - DERMATOPOLYMYOSITIS, UNSP, ORGAN INVOLVEMENT UNSPECIFIED SNOMED Code(s): 395341275 (2) H/O four vessel coronary artery bypass graft Current Visit: Yes Status: Acute Code(s): Z95.1 - PRESENCE OF AORTOCORONARY BYPASS GRAFT SNOMED Code(s): 259744060 (3) NSTEMI (non-ST elevated myocardial infarction) ruled out per cardiology, elevated troponins attributed to rhabdomyolysis Current Visit: Yes Status: Acute Code(s): I21.4 - NON-ST ELEVATION (NSTEMI) MYOCARDIAL INFARCTION SNOMED Code(s): 90009235 (4) Bilateral hip joint arthritis Current Visit: Yes Status: Acute Code(s): M16.0 - BILATERAL PRIMARY OSTEOARTHRITIS OF HIP SNOMED Code(s): 58696947 (5) Lumbar degenerative disc disease Current Visit: Yes Status: Acute Code(s): M51.36 - OTHER INTERVERTEBRAL DISC DEGENERATION, LUMBAR REGION SNOMED Code(s): 06823005 (6) Leukocytosis Current Visit: Yes Status: Acute Code(s): D72.829 - ELEVATED WHITE BLOOD CELL COUNT, UNSPECIFIED SNOMED Code(s): 161388785 (7) Weakness Current Visit: Yes Status: Acute Code(s): R53.1 - WEAKNESS SNOMED Code(s): 19091885 (8) CAD (coronary artery disease) Current Visit: No Status: Acute Code(s): I25.10 - ATHSCL HEART DISEASE OF [place] CORONARY ARTERY W/O ANG PCTRS SNOMED Code(s): 54103442 (9) Hyperlipemia Current Visit: No Status: Acute Code(s): E78.5 - HYPERLIPIDEMIA, UNSPECIFIED SNOMED Code(s): 09953629 Statin intolerance Plan: Continue on current medication regime ,monitoring and symptomatic treatment. Muscle biopsy pending. Discharge planning in progress for subacute rehab. tomorrow-discussed with family. The impression and plan of care has been dictated as directed. : I performed a history and examination of this patient, discussed the same with the dictator. I agree with the dictator's note ,documented as a scribe. Any additional findings or plans will be noted.
[2022-08-25 13:41] LABS: Erythrocyte Sedimentation Rate 53 mm/hr (0-20)
[2022-08-25] MEDS: ASPIRIN 81 MG PO SCH (14:42)
[2022-08-25] MEDS: EZETIMIBE 10 MG TAB PO SCH (14:42)
[2022-08-25] MEDS: FAMOTIDINE 20 MG TAB PO SCH (14:42)
[2022-08-25] MEDS: predniSONE 20 MG TAB PO SCH (14:42)
[2022-08-25] MEDS: LOSARTAN 50 MG TAB PO SCH (14:43)
[2022-08-25] MEDS: hydroCHLOROthiazide 25 MG TAB PO SCH (14:43)
[2022-08-25] MEDS: ACETAMINOPHEN TAB 325 MG TAB PO PRN ×2 (14:43→20:09)
[2022-08-25] MEDS: carvediloL 6.25 MG TAB PO SCH ×2 (14:43→17:05)
[2022-08-25 15:06] VITALS: BMI 24.2
--- NOTE | 2022-08-25 15:44 | P.OP ---
Date of Procedure: 08/25/22 Description of Procedure: SURGEON: KENNETH GASTELUM MD SPEEDER WORKER: None. \ PREOPERATIVE DIAGNOSES: 1. Elevated creatinine kinase levels. 2. 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 3. New onset myalgias. POSTOPERATIVE DIAGNOSES: 1. Elevated creatinine kinase levels. 2. 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 3. New onset myalgias. PROCEDURES PERFORMED: 1. Open leftt thigh deep rectus femoris muscle biopsy, 7 x 3 cm. ANESTHESIA: MAC with 20 mL of 1% lidocaine plain. SPECIMENS REMOVED: Sent to [facility] laboratory, left rectus femoris proximal thigh biopsy, 7 x 3 cm. ESTIMATED BLOOD LOSS: 20 mL. COMPLICATIONS: None. FINDINGS: 7 x 3 cm biopsy of deep left femoris proximal thigh muscle, sent to [facility] laboratory using muscle biopsy protocol. INDICATIONS: The patient is 77 a-year-old female who initially more than 3 months ago had developed acute onset distal including proximal myalgias. She began with new onset dyspnea and had been diagnosed with bronchiolitis obliterans. She was subsequently started on steroids and then developed increased new onset muscular pain. Her creatinine kinase levels in January were elevated in the 200s. As of a month ago her levels had gone up to 5000. As of yesterday, her levels are now over 9000. Given her presentation and evaluation for autoimmune myositis versus neurological cause, urgent muscle biopsy per the patient's telegraphic typewriter repairer was advised. Benefits and risks of the procedure, including need for further biopsy, pain, bleeding, infection, need for further procedures were described. Informed consent was obtained. Please note extensive discussion with pathology including the patient's Neurologist, Magno Dorsey, was performed prior to muscle biopsy. DESCRIPTION: The patient was brought to the operating room and laid in supine position. After adequate IV sedation, the right proximal anterior thigh was prepped and draped in standard sterile fashion. Prior to incision, a timeout protocol was confirmed, surgical team regarding the patient's name including procedures to be deformed. A longitudinal 6 cm incision was made using a #12 blade. Local anesthetic was placed along the subcutaneous tissue in a field block. The fascia of the rectus femoris was divided using Metzenbaum scissors. Next the belly of the rectus femoris was encountered. Using 3-0 silk, a 1 cm area of the rectus muscle was elevated. Next using a sterile tongue blade, a toothpick size specimen 1 cm x 5 mm was cut and attached to the toothpick. This was then placed in Glutaraldehyde. Next a separate specimen of 1 cm x 2 cm were tied to a separate toothpick of 3 cm x 5 cm, as to maintain the length of the muscle fiber. This was excised using Metzenbaum scissor, and also placed in the Glutaraldehyde solution. A separate specimen of 1 cm x 3 cm was also divided using a Metzenbaum scissor. The specimen was removed in situ and tied to a tongue blade cut to 2 cm x 5 mm and placed in formalin. Next, a 3 x 1 cm specimen was also excised without crushing the specimen. The specimen was placed fresh in a normal saline soaked Telfa sponge. Per [facility] laboratory protocol, the specimen was then prepared and passed off to [place] pathology lab to send the specimen. Hemostasis was found to be excellent along the wound bed. Next, the wound was closed in layers of the deep subcutaneous tissues using a 0 Vicryl in an interrupted fashion followed by 3-0 Vicryl for the dermis. Next 4-0 Monocryl in a running subcuticular fashion was used to close the wound. Dermabond followed by half- inch Steri-Strips were placed over the wound. 4 x 4 followed by 6 inch Christopher wrap was placed along the proximal thigh. The patient had tolerated the procedure well, was taken to the postanesthesia care unit in stable condition.
[2022-08-26] MEDS: SODIUM CHLORIDE 0.9% 1,000 ML IV SCH ×2 (03:54→08:21)
[2022-08-26] MEDS: ACETAMINOPHEN TAB 325 MG TAB PO PRN ×4 (04:35→23:40)
[2022-08-26] MEDS: carvediloL 6.25 MG TAB PO SCH ×2 (06:25→17:31)
[2022-08-26] MEDS: hydroCHLOROthiazide 25 MG TAB PO SCH (08:21)
[2022-08-26] MEDS: FAMOTIDINE 20 MG TAB PO SCH (08:21)
[2022-08-26] MEDS: HEPARIN SODIUM,PORCINE/PF 5,000 UNIT/0.5 ML SYRINGE SQ SCH ×3 (08:21→23:41)
[2022-08-26] MEDS: EZETIMIBE 10 MG TAB PO SCH (08:21)
[2022-08-26] MEDS: ASPIRIN 81 MG PO SCH (08:21)
[2022-08-26] MEDS: predniSONE 20 MG TAB PO SCH (08:21)
[2022-08-26] MEDS: LOSARTAN 50 MG TAB PO SCH (08:21)
--- NOTE | 2022-08-26 09:33 | P.PN ---
Subjective Progress Note Date: 08/25/22 Patient initially seen by Dr. Magno Dosrey. Please see his note for details. Patient is a 77-year-old female who has been having some legs hurting related to Lipitor since summer. She was on Lipitor 40 mg for 40 years. Because of the legs hurting, the dose was decreased to 20 mg and then 10 mg. She was doing well on 10 mg, until she had a coronary bypass surgery 8 years ago and the dose was increased to 80 mg. She could not tolerate it even a week therefore the dose was decreased to 40 mg. She was doing well on 40 mg but in the last few weeks the legs have been hurting. She decrease her Lipitor to 20 mg in the last 2 weeks. She had bursitis of the hip for which she underwent hip injection for bursitis on 08/15/2022. On Thursday, she was at home and Thursday started hurting felt pain in the muscles in the thighs. On 08/18/2022, she could not get out of bed, therefore came to the hospital. She had stopped taking Lipitor in the last few days. On arrival her CPK was 3109, which came down to 1170, then 481 on 08/21/2022. 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 Also muscle biopsy has been done, the results pending. Some of the workup during this hospital visit consisted of: AST of 2020, ALT 156 and repeat is 1170 CK of 3109-->481-->82 Glucose is 192 Calcium is 8.2 Troponin is slightly trending up. ESR is 96-->86-->62 CRP is 19.1.-->8.0 Lactic dehydrogenase is 326. Aldolase is 10.6 (normal is 1.2-7.6). RICARDO is negative, Helen-1 antibodies negative, bjaa-rwondf-agkujyhg DNA antibodies negative. SSA and SSB antibodies negative, anti-Leal antibodies negative, MUSIC STORE MANAGER antibodies negative, scleroderma 70 antibodies negative, antimitochondrial antibody is negative, anti-smooth muscle antibodies negative. TSH: 2.54 2-D echo was reported as normal left ventricular size and systolic function. Normal left atrial size. CT of the abdomen is reported as no acute abdominal/pelvic processes. Colonic diverticulosis without evidence for acute diverticulitis. Ectasia of him from a renal [id number] measuring up to 2.[address] angiography of the chest is reported as questionable filling defect within the left lower lobe supple segmental pulmonary arteries which may represent pulmonary emboli versus artifact. No evidence for right heart strain. Trace left pleural effusion. Objective - Vital Signs Vital signs: Vital Signs Temp 98.1 F 08/25/22 17:04 Pulse 67 08/25/22 17:04 Resp 16 08/25/22 17:04 BP 114/71 08/25/22 17:04 Pulse Ox 93 L 08/25/22 17:04 FiO2 Intake & Output 08/25/22 08/25/22 08/26/22 06:59 18:59 06:59 Intake Total 1040 Output Total 1400 1520 Balance -1400 -480 Weight 64 kg Intake: IV 800 Oral 240 Output: Urine 1400 1500 Estimated Blood Loss 20 Other: Voiding Method External Catheter External Catheter - Exam Patient's mental status, speech and language functions are normal. Cranial nerves are normal. On muscle strength testing (right/left) deltoid 5-/4+, biceps 5/5, triceps 5/5, canteen manager 5/5, hip flexion 1/1, ankle dorsiflexion 4 to 4-/4 to 4-. Reflexes are symmetric, 1+ at the biceps, 1 brachioradialis, 1+ at the knees, 0 ankles and plantars are flat. Sensory to touch is equal. - Labs CBC & Chem 7: 08/25/22 11:40 08/25/22 11:40 Labs: Abnormal Lab Results - Last 24 Hours (Table) 08/25/22 08/25/22 Range/Units 11:40 11:40 WBC 16.8 H (3.8-10.6) k/uL RBC 3.78 L (3.80-5.40) m/uL Neutrophils # 13.7 H (1.3-7.7) k/uL ESR 53 H (0-20) mm/hr Sodium 133 L (137-145) mmol/L BUN 39 H (7-17) mg/dL Creatinine 1.18 H (0.52-1.04) mg/dL Glucose 106 H (74-99) mg/dL Calcium 7.9 L (8.4-10.2) mg/dL AST 87 H (14-36) U/L ALT 150 H (4-34) U/L C-Reactive Protein 5.6 H (<1.0) mg/dL Total Protein 4.9 L (6.3-8.2) g/dL Albumin 2.2 L (3.5-5.0) g/dL Assessment and Plan Assessment: This is a 77-year-old woman who is having progressive pain mostly in bilateral thighs with difficulty ambulating for the last 2-3 weeks progressively getting worse and recently she was noted to have the rash over the face. She could not tolerate statins in the past. Her CK level is a elevated in the 3000's and ESR is elevated. Also has elevated LDH and alt level. Highly suspicious dermatomyositis---feels with steroids and CK has resolved and ESR trending down History of atrial fibrillation Elevated hepatic enzymes Hyperlipidemia History of coronary artery disease status post CABG Hip bursitis Plan: Patient is status post muscle biopsy. Await muscle biopsy report. Continue Prednisone 60mg daily and was started on 08/19/22. Recommend sugar monitoring and will defer management to primary team. Recommend EMG with nerve conduction study of the lowers as an outpatient which also helps support myopathy/dermatomyositis. CT angiography of the chest is reported as questionable filling defect within the left lower lobe supple segmental pulmonary arteries which may represent pulmonary emboli versus artifact. No evidence for right heart strain. Pulmonary is on board and there is suspicion is low for PE. we will defer to IM. Cardiology is consulted. GI prophylaxis: is on famotidine 20mg daily. Will defer the rest of management to primary team. Upon discharge recommend the patient to follow-up with a grain and yeast plants supervisor as an outpatient within 1-2 weeks.
[2022-08-26] MEDS ORDERED: DEXTROSE 50% SYRINGE 50 ML IVP PRN ×2 (11:08)
[2022-08-26 11:31] LABS: Glucose,Whole Blood 138 mg/dL (70-110)
[2022-08-26] MEDS: INSULIN ASPART (NovoLOG) 100 UNIT/ML VIAL SQ SCH ×3 (11:36→20:22)
--- NOTE | 2022-08-26 11:37 | P.DS ---
Providers Date of admission: 08/18/22 19:17 Expected date of discharge: 08/26/22 Attending physician: Olman Sommers Consults: 08/18/22 18:53 Consult Physician Routine Consulting Provider: Magno Dorsey Consult Reason/Comments: weakness, unable to ambulate Do you want consulting provider notified?: Yes 08/20/22 09:34 Consult Physician Urgent Consulting Provider: Brittany Cuenca Consult Reason/Comments: muscle biopsy, hips bilat and if unable then left Do you want consulting provider notified?: Yes 08/21/22 18:06 Consult Physician Routine Consulting Provider: Diane Mccabe Consult Reason/Comments: ? 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 Current Visit: Yes Status: Acute Code(s): M33.90 - DERMATOPOLYMYOSITIS, UNSP, ORGAN INVOLVEMENT UNSPECIFIED SNOMED Code(s): 985801391 (2) H/O four vessel coronary artery bypass graft Current Visit: Yes Status: Acute Code(s): Z95.1 - PRESENCE OF AORTOCORONARY BYPASS GRAFT SNOMED Code(s): 227145413 (3) NSTEMI (non-ST elevated myocardial infarction) ruled out per cardiology, elevated troponins attributed to rhabdomyolysis Current Visit: Yes Status: Acute Code(s): I21.4 - NON-ST ELEVATION (NSTEMI) MYOCARDIAL INFARCTION SNOMED Code(s): 87200407 (4) Bilateral hip joint arthritis Current Visit: Yes Status: Acute Code(s): M16.0 - BILATERAL PRIMARY OSTEOARTHRITIS OF HIP SNOMED Code(s): 24686225 (5) Lumbar degenerative disc disease Current Visit: Yes Status: Acute Code(s): M51.36 - OTHER INTERVERTEBRAL DISC DEGENERATION, LUMBAR REGION SNOMED Code(s): 46179123 (6) Leukocytosis Current Visit: Yes Status: Acute Code(s): D72.829 - ELEVATED WHITE BLOOD CELL COUNT, UNSPECIFIED SNOMED Code(s): 901042067 (7) Weakness Current Visit: Yes Status: Acute Code(s): R53.1 - WEAKNESS SNOMED Code(s): 49271761 (8) CAD (coronary artery disease) Current Visit: No Status: Acute Code(s): I25.10 - ATHSCL HEART DISEASE OF [place] CORONARY ARTERY W/O ANG PCTRS SNOMED Code(s): 26879873 (9) Hyperlipemia Current Visit: No Status: Acute Code(s): E78.5 - HYPERLIPIDEMIA, UNSPECIFIED SNOMED Code(s): 75535224 Statin intolerance Hospital course:This is a 77-year-old female warm over the practice. She reports 4 days ago on August 15 receiving a steroid injection for right hip bursitis with Dr. Carrillo. She has no history of coronary artery disease and had coronary bypass graft 4 vessels 01/17/2014. Last evaluation of this was January [address] Thomas. Where there is evidence of occlusion of some of the grafts and moderate disease in the other. She been very active the past few days and has been very sore in her hips and groin area since then. Yesterday she reports the weakness became quite severe And 1 along with fatigue. She indicates she slept 3 hours woke up did not feel much better. She had no dizziness lightheadedness, chest pain pressure or shortness breath nausea vomiting. Emergency room workup should have slightly abnormal troponins and elevated beta natruretic peptide chest x-ray shows mild vascular congestion and correlate with serum BNP X-rays of the L-spine show degenerative disc disease, hip x-ray showed mild arthritis. Currently this a.m. she continues to feel weak and very fatigued. Other than that she denies any chest pains pressures or shortness of breath. She is unable to move significantly due to her lower extremity weakness. 08/20/2022: Patient feels slightly better with prednisone 60 orally. 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 Rash to her face that has improved. Her pain is slightly better more so this morning that currently. She currently denies any chest pains pressures or shortness of breath. Cardiology is working her up for the abnormal troponins with a history of CABG 4 vessel and stent 2. 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 Vital signs are stable with blood pressure is elevated. CPK is down from 3109- 1170. Her labs are normal. Significant workup from neurology is pending. Echo was done already and appears normal. 08/21/2022 neurology workup in progress/ muscle biopsy scheduled for tomorrow.Maintained on IV fluids, oral steroids. Reporting less pain, less weakness. Stood at bedside with PT, complains of significant weakness. PT recommending subacute rehab. Hypertensive losartan dose increased. Chest CTA reported questionable filling defects within the left lower lobe subsegmental pulmonary arteries which may represent pulmonary emboli versus artifact, no evidence for right heart strain, trace left pleural effusion. Venous Doppler of bilateral lower extremities reported negative for DVT. CT of abdomen and pelvis reported no acute abdominal/pelvic process, colonic diverticulosis without evidence of acute diverticulitis, excision of the infrarenal abdominal aorta measuring up to 2.6 cm. Afebrile, labs pending. 08/22/2022. Persistent bilateral leg weakness. CK levels trending down,481. Muscle Biopsy rescheduled for Thursday as per general surgery. Improving hypertension with antihypertensives adjusted as per cardiology yesterday; systolic blood pressure currently ranging from 150s to 170s. Denies chest pain, palpitations or shortness of breath. Afebrile. 08/23/2022: Patient has slightly improved with less pain. She continues complaining of leg weakness is not Out Of Bed. We Discussed This Today. Also Biopsies Pending for Thursday with General Surgery. Hypertension Seems to Be More Accelerated. Cardiology Is Following This Is Making Adjustments to Her Medications and Had an Ultrasound Venous Dopplers Pending. Other Vitals Remained Stable. She Is Afebrile. Laboratories for This Morning Are Pending. Yesterday ESR Was Returned at 62 down from 96 and Then 86. CRP Is down from 19 8. Consult Recommendations Were Noted Including the Pulmonary Consultation regarding the Suspected Filling Defects. Pulmonology Feels Is Not Really a Pulmonary Embolism There. 08/24/2022: Patient is improved. There are suspicions for dermatomyositis. Muscle biopsies pending for tomorrow. She is being followed by neurology, pulmonology, cardiology, in general surgery. Pulmonology reiterates they do not suspect a pulmonary embolism even though the CT showed a questionable filling defect. Renal artery duplex ordered by cardiology to do or axillary hypertension showed equivocal results for left renal artery stenosis. Normal on the right. Palpation to CTA may be warranted. I recommended ice consult noted. Vital signs show improve blood pressure. Allergy and changed her medications. She is in place on Thursday and due to the statin intolerance. Laboratory studies show improve sedimentation rate resolved CK and other laboratory studies are similarly improved. Her CRP increased slightly today compared to yesterday. She remains on prednisone 60 mg orally. He continues on carvedilol and hydralazine hydrochlorothiazide and losartan for blood pressure control. Aspirin for antiplatelet effect. Heparin for DVT prophylaxis. The venous Doppler was negative for DVT The patient is morning indicates she feels quite better than having dizziness when she stands up anymore the pain in her thighs is mostly resolved. She is feeling strong enough to stand up somewhat. We did discuss rehabilitation if needed. 08/25/2022 muscle biopsy pending. Continues on oral steroids ,statins remain on hold. Denies chest pain, palpitations or shortness of breath. Maintaining O2 sats in the 90s on room air. Labs pending, including repeat levels of inflammatory markers. Afebrile. Maintained on oral steroids. CK decreased from 3100 to 82, CRP decreased to 5.6, ESR decreased from 96 to 53. Fluctuating Afebrile. Completed muscle biopsy, results pending. Tolerated procedure well. Patient will be discharged today to [facility] subacute rehab., In a stable condition with guarded prognosis, pending final MT recommendations including steroid dosing, clearance per neurology. The impression and plan of care has been dictated as directed. : I performed a history and examination of this patient, discussed the same with the dictator. I agree with the dictator's note ,documented as a scribe. Any additional findings or plans will be noted. Patient Condition at Discharge: Stable Plan - Discharge Summary Discharge Rx Participant: No New Discharge Prescriptions: New carvediloL [Coreg] 6.25 mg PO BID-W/MEALS tab Famotidine [Pepcid] 20 mg PO DAILY tab Enoxaparin [Lovenox] 40 mg SQ DAILY #11 each Losartan [Cozaar] 100 mg PO DAILY tab hydroCHLOROthiazide [Hydrodiuril] 25 mg PO DAILY tab Ezetimibe [Zetia] 10 mg PO DAILY tab predniSONE [Deltasone] 60 mg PO DAILY tab Acetaminophen Tab [Tylenol] 650 mg PO Q6HR PRN tab PRN Reason: Mild Pain Or Fever > 100.5 INSULIN LISPRO (HumaLOG) [humaLOG] 0 unit SQ ACHS #10 ml Continue Aspirin 81 mg PO DAILY #30 chew Discontinued Losartan [Cozaar] 25 mg PO DAILY Metoprolol Tartrate [Lopressor] 12.5 mg PO BID Discharge Medication List Aspirin 81 mg PO DAILY #30 chew 01/23/14 [Rx] Ezetimibe [Zetia] 10 mg PO DAILY tab 08/25/22 [Rx] Famotidine [Pepcid] 20 mg PO DAILY tab 08/25/22 [Rx] Losartan [Cozaar] 100 mg PO DAILY tab 08/25/22 [Rx] carvediloL [Coreg] 6.25 mg PO BID-W/MEALS tab 08/25/22 [Rx] hydroCHLOROthiazide [Hydrodiuril] 25 mg PO DAILY tab 08/25/22 [Rx] Acetaminophen Tab [Tylenol] 650 mg PO Q6HR PRN tab 08/26/22 [Rx] Enoxaparin [Lovenox] 40 mg SQ DAILY #11 each 08/26/22 [Rx] INSULIN LISPRO (HumaLOG) [humaLOG] 0 unit SQ ACHS #10 ml 08/26/22 [Rx] predniSONE [Deltasone] 60 mg PO DAILY tab 08/26/22 [Rx] Follow up Appointment(s)/Referral(s): Michael Hussein DO [STAFF PHYSICIAN] - 1 Week Audra Odom MD [STAFF PHYSICIAN] - 1 Week Olman Sommers MD [Primary Care Provider] - 3 Days Activity/Diet/Wound Care/Special Instructions: ECF: CBC, BMP in 3 days Lovenox secondary to restrictive mobility, DC once mobility increases. Accu-Cheks before meals and at bedtime while on prednisone, awaiting muscle biopsy results Discharge Disposition: TRANSFER TO SNF/ECF
--- NOTE | 2022-08-26 11:55 | P.PN ---
Subjective Progress Note Date: 08/26/22 CHIEF COMPLAINT: Bilateral leg weakness HISTORY OF PRESENT ILLNESS: Patient is status post open left thigh deep rectus femoris muscle biopsy. Patient reports her pain is tolerable controlled with Tylenol. She is scheduled for discharge to [facility] today. Afebrile. WBC 16.8 Hgb 11.6 platelets 374 PHYSICAL EXAM: VITAL SIGNS: Reviewed GENERAL: Well-developed in no acute distress. HEENT: No sclera icterus. Extraocular movements grossly intact. Moist buccal mucosa. Head is atraumatic, normocephalic. Hears conversational speech. No nasal drainage. NECK: Supple without lymphadenopathy. CHEST: Non-labored respirations and equal bilateral excursions. CARDIOVASCULAR: Palpable 2+ radial pulses. ABDOMEN: Soft. Nondistended. Nontender. MUSCULOSKELETAL: No clubbing or cyanosis. Left thigh dressing clean dry and intact. No evidence of hematoma. NEUROLOGIC: No focal or lateralizing signs. Cranial nerves II through XII grossly intact. PSYCH: Appropriate affect. Alert and oriented to person, place and time. SKIN: Well perfused. Good skin turgor. ASSESSMENT: 1. Elevated creatinine kinase levels. 2. 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 3. New onset myalgias. 4. Bilateral leg weakness with pain PLAN: -Patient can be discharged from surgical standpoint when medically clear -Biopsy results should be available within the next 1-3 weeks -Continue supportive care Physician Electronics Tech note has been reviewed by physician. Signing provider agrees with the documented findings, assessment, and plan of care. Please see additional comments below. Patient reports ambulating. She denies moderate soreness along the left thigh. Overall, clinically doing very well. Patient is stable from surgical standpoint for discharge. Pathology report from [facility] turnaround time on average 1-3 weeks' reviewed with the patient. Recommend follow-up with neurology including primary care provider for results Objective - Vital Signs Vital signs: Vital Signs Temp 97.7 F 08/26/22 08:00 Pulse 67 08/26/22 08:00 Resp 18 08/26/22 08:00 BP 149/73 08/26/22 08:00 Pulse Ox 93 L 08/26/22 08:00 FiO2 Intake & Output 08/25/22 08/26/22 08/26/22 18:59 06:59 18:59 Intake Total 1040 118 Output Total 1520 600 350 Balance -480 -600 -232 Weight 64 kg Intake: IV 800 Oral 240 118 Output: Urine 1500 600 350 Estimated Blood Loss 20 Other: Voiding Method External Catheter External Catheter External Catheter # Voids 2 - Labs CBC & Chem 7: 08/25/22 11:40 08/25/22 11:40 Labs: Abnormal Lab Results - Last 24 Hours (Table) 08/25/22 08/25/22 08/26/22 Range/Units 11:40 11:40 11:29 WBC 16.8 H (3.8-10.6) k/uL RBC 3.78 L (3.80-5.40) m/uL Neutrophils # 13.7 H (1.3-7.7) k/uL ESR 53 H (0-20) mm/hr Sodium 133 L (137-145) mmol/L BUN 39 H (7-17) mg/dL Creatinine 1.18 H (0.52-1.04) mg/dL Glucose 106 H (74-99) mg/dL POC Glucose (mg/dL) 138 H (70-110) mg/dL Calcium 7.9 L (8.4-10.2) mg/dL AST 87 H (14-36) U/L ALT 150 H (4-34) U/L C-Reactive Protein 5.6 H (<1.0) mg/dL Total Protein 4.9 L (6.3-8.2) g/dL Albumin 2.2 L (3.5-5.0) g/dL
--- NOTE | 2022-08-26 13:25 | P.PN ---
Subjective Progress Note Date: 08/26/22 77-year-old female who presented to the emergency department on August 18, complaining of weakness. She apparently has had weakness, and fatigue for 4 days prior to admission. She states that she is unable to ambulate without assistance. She denied other complaints. We were consulted because of a CT an giogram showing a possible subsegmental left-sided pulmonary embolism. The patient's on room air, with saturations of 98-99 percent. In addition, the patient is on saline at 75 mL an hour. She had a Doppler of the lower extremities which are negative for DVT. The CT angiogram was ordered by Dr. Magno randall, and showed a questionable filling defect within the left lower lobe subsegmental pulmonary artery which may represent pulmonary embolism versus artifact. There is no evidence of right heart strain. There is a trace left- sided pleural effusion. Most recent labs include a white count of 17.4, hemoglobin 11.8, hematocrit 38.1, and a normal platelet count. A sedimentation rate was 62. D-dimer was 13.37 on August 19. Sodium 134, potassium 4.5, chlorides 106, CO2 21, BUN 39, and creatinine 1.15. AST was 251 and ALT was 214. The patient's aldolase level was 10.6. The CK was 3109, but more recently has come down to 481. C-reactive protein was elevated at 19.1. TSH was normal. Testing for mejia virus was negative. The patient has been on aspirin, and subcu heparin, 5000 units every 8 hours. Progress note dated 08/23/2022. 77-year-old female seen for possible pulmonary embolism. A computed tomography scan revealed a possible PE in the left lung. My suspicion that she had a PE was extremely low. I recommended no further workup, although, I did leave it open for another CT angiogram down the road, if the primary service felt it was necessary. The patient's on room air. She's not having any respiratory issues whatsoever. She denies any shortness of breath, cough, wheezing, chest pain, chest tightness, or any other chest complaints. White count 14.2, with a normal hemoglobin, hematocrit, and platelet count. Sodium 136, potassium 5.4, chlorides 108, CO2 18, BUN 37, and creatinine 1.09. Progress note dated 08/24/2022. 77-year-old female seen in consultation, for a possibly abnormal CT angiogram showing a small pulmonary embolism. We did not feel that the patient had pulmonary embolism, and we did not recommend any treatment. She never had any respiratory issues. She's currently on room air. She's getting saline at 50 mL an hour. She is currently being evaluated for a statin-induced myopathy. Today's labs show a white count of 14, hemoglobin 11.3, hematocrit 35.8, and a platelet count of 358,000. Sodium 132, potassium 4.6, chlorides 107, CO2 19, BUN 38, and creatinine 1.15. On today's evaluation of 08/25/2022, the patient is resting comfortably in bed. No significant complaints. She underwent a muscle biopsy. The patient is not having any respiratory difficulties and she is on room air oxygen with a pulse ox of 93%. Statins have been discontinued for now. Labs from yesterday were all reviewed. BUN is at 38 and a creatinine 1.1. WBC count is at 14 with a hemoglobin of 11.3. Covid 19 testing was negative. CPK level was less than 9, CRP level is at 12.7. Neurology is on the case and there is a concern towards myositis. Doppler of the lower extremity is a been negative. CAT scan of the chest and abdomen shows no acute process and there is an infrarenal abdominal aorta measuring 2.6 cm in size along with colonic diverticulosis. CT of the chest also showed questionable pulmonary embolism in the left lower lobe. Trace left-sided pleural effusion. On 08/26/2022, the patient has no respiratory complaints. She feels slightly better. She feels that the motor function is improved slightly compared to yesterday. She remains on prednisone. Multiple biopsies been completed. Patient is currently on room air oxygen. Hemodynamically stable. Objective - Vital Signs Vital signs: Vital Signs Temp 97.7 F 08/26/22 08:00 Pulse 67 08/26/22 08:00 Resp 18 08/26/22 08:00 BP 149/73 08/26/22 08:00 Pulse Ox 93 L 08/26/22 08:00 FiO2 Intake & Output 08/25/22 08/26/22 08/26/22 18:59 06:59 18:59 Intake Total 1040 118 Output Total 1520 600 350 Balance -480 -600 -232 Weight 64 kg Intake: IV 800 Oral 240 118 Output: Urine 1500 600 350 Estimated Blood Loss 20 Other: Voiding Method External Catheter External Catheter External Catheter # Voids 2 - Exam No acute distress, oriented 3. Room air saturation is 96 %. HEENT examination is grossly unremarkable. Neck supple. Full range of motion. No adenopathy thyromegaly or neck vein distention. Cardiovascular examination reveals regular rhythm rate. S1-S2 normal. No S3 or S4. No discernible murmur noted. Heart rate 82 bpm. Lungs reveal clear breath sounds. Breath sounds are equal bilaterally. No adventitious lung sounds including wheezes rhonchi or crackles. Abdomen soft bowel sounds are heard. No masses or tenderness. Extremities are intact. No cyanosis clubbing or edema. Skin is without rash or lesion. Neurologic examination is brief but nonfocal. - Labs CBC & Chem 7: 08/25/22 11:40 08/25/22 11:40 Labs: Abnormal Lab Results - Last 24 Hours (Table) 08/25/22 08/25/22 Range/Units 11:40 11:40 WBC 16.8 H (3.8-10.6) k/uL RBC 3.78 L (3.80-5.40) m/uL Neutrophils # 13.7 H (1.3-7.7) k/uL ESR 53 H (0-20) mm/hr Sodium 133 L (137-145) mmol/L BUN 39 H (7-17) mg/dL Creatinine 1.18 H (0.52-1.04) mg/dL Glucose 106 H (74-99) mg/dL Calcium 7.9 L (8.4-10.2) mg/dL AST 87 H (14-36) U/L ALT 150 H (4-34) U/L C-Reactive Protein 5.6 H (<1.0) mg/dL Total Protein 4.9 L (6.3-8.2) g/dL Albumin 2.2 L (3.5-5.0) g/dL Assessment and Plan Plan: Generalized weakness/muscle weakness on that investigation. Muscle biopsy was d one and the patient was taken off statins. The rods on the case. Presentation clinically is not consistent with pulmonary embolism. The possibility of an underlying pulmonary embolism is quite doubtful at this point. History of atrial fibrillation. History of skin cancer. History of hyperlipidemia. 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 Plan: Prednisone per neurology Muscle biopsy has been done, results are still pending Patient is currently on prednisone at a dose of 60 mg by mouth daily No need for anticoagulation Neurology is on the case No active respiratory issues and the patient is currently on room air oxygen Pulmonary and critical care will see the patient on as-needed basis.
[2022-08-26 17:22] LABS: Glucose,Whole Blood 255 mg/dL (70-110)
[2022-08-26] MEDS: FOLIC ACID 1 MG TAB PO SCH (18:12)
--- NOTE | 2022-08-26 18:19 | P.PN ---
Subjective Progress Note Date: 08/26/22 08/26/2022: Patient was seen for a follow-up. Patient's was also present today. Patient states she was up in the chair for 2 hours today. She sat on the side of the bed for an hour for dinner. She feels slightly better. She still 2 persons assist. No new concerns. 08/25/2022: Patient initially seen by Dr. Magno Dorsey. Please see his note for details. Patient is a 77-year-old female who has been having some legs hurting related to Lipitor since summer of 2021. She was on Lipitor 40 mg for 40 years. Because of the legs hurting, the dose was decreased to 20 mg and then 10 mg. She was doing well on 10 mg, until she had a coronary bypass surgery 8 years ago and the dose was increased to 80 mg. She could not tolerate it even a week therefore the dose was decreased to 40 mg. She was doing well on 40 mg but in the last few weeks the legs have been hurting. She decrease her Lipitor to 20 mg in the last 2 weeks. She had bursitis of the hip for which she underwent hip injection for bursitis on 08/15/2022. On Thursday, she was at home and Thursday started hurting felt pain in the muscles in the thighs. On 08/18/2022, she could not get out of bed, therefore came to the hospital. She had stopped taking Lipitor in the last few days. On arrival her CPK was 3109, which came down to 1170, then 481 on 08/21/2022. 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 Also muscle biopsy has been done, the results pending. Some of the workup during this hospital visit consisted of: AST of 2020, ALT 156 and repeat is 1170 CK of 3109-->481-->82 Glucose is 192 Calcium is 8.2 Troponin is slightly trending up. ESR is 96-->86-->62 CRP is 19.1.-->8.0 Lactic dehydrogenase is 326. Aldolase is 10.6 (normal is 1.2-7.6). RICARDO is negative, Helen-1 antibodies negative, eano-smiacr-ovxtpxjg DNA antibodies negative. SSA and SSB antibodies negative, anti-Leal antibodies negative, SENIOR INFRASTRUCTURE ENGINEER antibodies negative, scleroderma 70 antibodies negative, antimitochondrial antibody is negative, anti-smooth muscle antibodies negative. TSH: 2.54 2-D echo was reported as normal left ventricular size and systolic function. Normal left atrial size. CT of the abdomen is reported as no acute abdominal/pelvic processes. Colonic diverticulosis without evidence for acute diverticulitis. Ectasia of him from a renal [id number] measuring up to 2.[address] angiography of the chest is reported as questionable filling defect within the left lower lobe supple segmental pulmonary arteries which may represent pulmonary emboli versus artifact. No evidence for right heart strain. Trace left pleural effusion. Objective - Vital Signs Vital signs: Vital Signs Temp 97.5 F L 08/26/22 16:00 Pulse 71 08/26/22 16:00 Resp 16 08/26/22 16:00 BP 154/75 08/26/22 16:00 Pulse Ox 97 08/26/22 16:00 FiO2 Intake & Output 08/25/22 08/26/22 08/26/22 18:59 06:59 18:59 Intake Total 1040 1016 Output Total 9927 986 2375 Balance -480 -600 -84 Weight 64 kg Intake: IV 800 Oral 240 1016 Output: Urine 8791 003 8223 Estimated Blood Loss 20 Other: Voiding Method External Catheter External Catheter External Catheter # Voids 2 - Exam Patient's mental status, speech and language functions are normal. Cranial nerves are normal. On muscle strength testing (right/left) deltoid 5-/5-4+, biceps 5/5-, triceps 5-/5-, rehabilitation case coordinator 5-/5-, hip flexion 1-2/1-2, ankle dorsiflexion 5-/5-. Reflexes are symmetric, 1+ at the biceps, 1 brachioradialis, 1+ at the knees, [address]ars are flat. Sensory to touch is equal. - Labs CBC & Chem 7: 08/25/22 11:40 08/25/22 11:40 Labs: Abnormal Lab Results - Last 24 Hours (Table) 08/25/22 08/26/22 08/26/22 Range/Units 11:40 11:29 17:17 POC Glucose (mg/dL) 138 H 255 H (70-110) mg/dL Vitamin B12 1447.0 H (200.0-944.0) pg/mL Assessment and Plan Assessment: This is a 77-year-old woman who is having progressive pain mostly in bilateral thighs with difficulty ambulating for the last 2-3 weeks progressively getting worse and recently she was noted to have the rash over the face. She could not tolerate statins in the past. Her CK level is a elevated in the 3000's and ESR is elevated. Also has elevated LDH and alt level. Myopathy, unclear cause. Rule out dermatomyositis versus myopathy related to statins. Usually CK from inflammatory myositis do not return to normal within 2 days with steroids. Therefore statin-induced myopathy is likely possibility. History of atrial fibrillation Elevated hepatic enzymes Hyperlipidemia History of coronary artery disease status post CABG Hip bursitis Plan: Patient is status post muscle biopsy. Await muscle biopsy report. Patient currently on Prednisone 60mg daily and was started on 08/19/22. Recom mend sugar monitoring and will defer management to primary team. As her CPK is normal, would suggest decreasing dose of prednisone to 40 mg. Maintain on 40 mg pending biopsy results. Thereafter biopsy report will dictate subsequent dose of prednisone. Recommend not to take statins in the future. Recommend EMG with nerve conduction study of the lowers as an outpatient which also helps support myopathy/dermatomyositis. CT angiography of the chest is reported as questionable filling defect within the left lower lobe supple segmental pulmonary arteries which may represent pulmonary emboli versus artifact. No evidence for right heart strain. Pulmonary is on board and there is suspicion is low for PE. we will defer to IM. Cardiology is consulted. GI prophylaxis: is on famotidine 20mg daily. Will defer the rest of management to primary team. Upon discharge recommend the patient to follow-up with a director of public health as an outpatient within 1-2 weeks. Neurologically clear for discharge to subacute rehab.
[2022-08-26 20:15] LABS: Glucose,Whole Blood 267 mg/dL (70-110)
[2022-08-27 06:16] LABS: Glucose,Whole Blood 98 mg/dL (70-110)
[2022-08-27] MEDS: INSULIN ASPART (NovoLOG) 100 UNIT/ML VIAL SQ SCH ×2 (06:23→11:56)
[2022-08-27] MEDS: carvediloL 6.25 MG TAB PO SCH (06:32)
[2022-08-27] MEDS: ACETAMINOPHEN TAB 325 MG TAB PO PRN ×2 (06:35→11:15)
[2022-08-27] MEDS: SODIUM CHLORIDE 0.9% 1,000 ML IV SCH (07:55)
[2022-08-27] MEDS: ASPIRIN 81 MG PO SCH (08:06)
[2022-08-27] MEDS: hydroCHLOROthiazide 25 MG TAB PO SCH (08:06)
[2022-08-27] MEDS: EZETIMIBE 10 MG TAB PO SCH (08:06)
[2022-08-27] MEDS: predniSONE 20 MG TAB PO SCH (08:06)
[2022-08-27] MEDS: FAMOTIDINE 20 MG TAB PO SCH (08:06)
[2022-08-27] MEDS: HEPARIN SODIUM,PORCINE/PF 5,000 UNIT/0.5 ML SYRINGE SQ SCH (08:06)
[2022-08-27] MEDS: FOLIC ACID 1 MG TAB PO SCH (08:06)
[2022-08-27] MEDS: LOSARTAN 50 MG TAB PO SCH (08:06)
[2022-08-27 09:25] VITALS: RESP 18
--- NOTE | 2022-08-27 11:18 | P.PN ---
Subjective Progress Note Date: 08/27/22 CHIEF COMPLAINT: Bilateral leg weakness HISTORY OF PRESENT ILLNESS: Patient is status post open left thigh deep rectus femoris muscle biopsy. Patient reports minimal pain in the left thigh. Pain is controlled with Tylenol. She is scheduled for discharge to [facility] today. Afebrile. PHYSICAL EXAM: VITAL SIGNS: Reviewed GENERAL: Well-developed in no acute distress. HEENT: No sclera icterus. Extraocular movements grossly intact. Moist buccal mucosa. Head is atraumatic, normocephalic. Hears conversational speech. No nasal drainage. NECK: Supple without lymphadenopathy. CHEST: Non-labored respirations and equal bilateral excursions. CARDIOVASCULAR: Palpable 2+ radial pulses. ABDOMEN: Soft. Nondistended. Nontender. MUSCULOSKELETAL: No clubbing or cyanosis. Left thigh dressing clean dry and intact. No evidence of hematoma. NEUROLOGIC: No focal or lateralizing signs. Cranial nerves II through XII grossly intact. PSYCH: Appropriate affect. Alert and oriented to person, place and time. SKIN: Well perfused. Good skin turgor. ASSESSMENT: 1. Elevated creatinine kinase levels. 2. 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 3. New onset myalgias. 4. Bilateral leg weakness with pain PLAN: -Patient can be discharged from surgical standpoint when medically clear -Biopsy results should be available within the next 1-3 weeks -Recommend follow-up with neurology and including primary care provider for biopsy results. Physician [employer] Professor note has been reviewed by physician. Signing provider agrees with the documented findings, assessment, and plan of care. Objective - Vital Signs Vital signs: Vital Signs Temp 96.2 F L 08/27/22 08:00 Pulse 80 08/27/22 08:00 Resp 18 08/27/22 08:00 BP 139/80 08/27/22 08:00 Pulse Ox 97 08/27/22 08:00 FiO2 Intake & Output 08/26/22 08/27/22 08/27/22 18:59 06:59 18:59 Intake Total 1256 440 Output Total 1400 2200 250 Balance -144 -2200 190 Intake: Oral 1256 440 Output: Urine 1400 2200 250 Other: Voiding Method External Catheter External Catheter External Catheter # Voids 2 - Labs CBC & Chem 7: 08/25/22 11:40 08/25/22 11:40 Labs: Abnormal Lab Results - Last 24 Hours (Table) 08/25/22 08/25/22 08/26/22 Range/Units 11:40 11:40 11:29 POC Glucose (mg/dL) 138 H (70-110) mg/dL Hemoglobin A1c 6.4 H (<=6.0) % Vitamin B12 1447.0 H (200.0-944.0) pg/mL 08/26/22 08/26/22 Range/Units 17:17 20:13 POC Glucose (mg/dL) 255 H 267 H (70-110) mg/dL Hemoglobin A1c (<=6.0) % Vitamin B12 (200.0-944.0) pg/mL
[2022-08-27 11:43] LABS: Glucose,Whole Blood 198 mg/dL (70-110)
[2022-08-27 12:38] VITALS: BP 128/68; PULSE 65; TEMP 97.8
== END 2022-08-27 13:46 | DRG 502 ==
LOC: EC 13:33 → 3SCARD 19:17
PROVIDERS: ADMIT Family Medicine; ATTEND Family Medicine
PROC: 0KBR0ZX Excision of Left Upper Leg Muscle, Open Approach, Diagnostic (ICD-10-PCS; principal; 2022-08-25 08:30)
DX: M33.90 Dermatopolymyositis, unspecified, organ involvement unspecified (principal); M51.36 Other intervertebral disc degeneration, lumbar region; T46.6X5A Adverse effect of antihyperlipidemic and antiarteriosclerotic drugs, initial encounter; M16.0 Bilateral primary osteoarthritis of hip; M70.70 Other bursitis of hip, unspecified hip; Z20.822 Contact with and (suspected) exposure to COVID-19; E78.5 Hyperlipidemia, unspecified; I10 Essential (primary) hypertension; I25.10 Atherosclerotic heart disease of native coronary artery without angina pectoris; Z95.1 Presence of aortocoronary bypass graft; Z95.5 Presence of coronary angioplasty implant and graft; R77.8 Other specified abnormalities of plasma proteins; I48.91 Unspecified atrial fibrillation; D72.829 Elevated white blood cell count, unspecified; Z79.82 Long term (current) use of aspirin; Z79.899 Other long term (current) drug therapy; Z86.14 Personal history of Methicillin resistant Staphylococcus aureus infection; R74.01 Elevation of levels of liver transaminase levels; Z87.891 Personal history of nicotine dependence; Z85.828 Personal history of other malignant neoplasm of skin; Z71.3 Dietary counseling and surveillance; Z88.5 Allergy status to narcotic agent; Z88.1 Allergy status to other antibiotic agents; Z91.041 Radiographic dye allergy status; Z79.52 Long term (current) use of systemic steroids; Z82.49 Family history of ischemic heart disease and other diseases of the circulatory system; Z80.8 Family history of malignant neoplasm of other organs or systems
CPT/HCPCS: 36415; 71046; 71275; 72100; 73521; 74177; 80048; 80053; 81001; 82085; 82140; 82550; 82607; 82746; 83036; 83516; 83615; 83735; 83880; 84443; 84484; 85025; 85379; 85610; 85652; 85730; 86038; 86140; 86225; 86235; 87635; 87636; 93005; 93306; 93970; 93975; 96361; 96374; 99285

== ENCOUNTER 2022-09-03 17:29 | Inpatient (IN) | payer MEDICARE ==
[2022-09-03] MEDS ORDERED: SODIUM CHLORIDE 0.9% 1,000 ML IV STA (18:18)
--- NOTE | 2022-09-03 18:18 | ED ---
Weakness HPI - General Chief complaint: Weakness Stated complaint: Weakness Time Seen by Provider: 09/03/22 17:37 Source: patient, EMS, RN notes reviewed, old records reviewed Mode of arrival: EMS Limitations: no limitations - History of Present Illness Initial comments: This is a 77-year-old female to the emergency department for evaluation patient Shamir for evaluation of severe weakness, patient states last night with her she was having difficulty with balance and could not grasp things. Patient was also weak and dizzy. Patient does have history of CVA. Patient feels very weak today and presents to the ER for inability to ambulate patient also had unsteady gait worsening vision yesterday low symptoms are improving but still persists. Especially weakness of the legs. Patient currently denying any headache chest pain or shortness of breath. No abdominal pain. No recent change in medications does take a daily aspirin MD Complaint: generalized weakness, lack of energy, difficulty walking (Patient had difficulty in voiding with weakness and dizziness, felt off balance) -: days(s) Location: generalized, LLE, RLE Severity: moderate Severity scale (1-10): 4 Consistency: constant Improves with: none (Patient symptoms are improving from yesterday) Worsens with: none Context: history of similar Associated Symptoms: confusion - Related Data Home Medications Medication Instructions Recorded Confirmed Ezetimibe [Zetia] 10 mg PO DAILY@0800 09/03/22 09/03/22 Previous Rx's Medication Instructions Recorded Acetaminophen Tab [Tylenol] 650 mg PO Q6HR PRN tab 08/26/22 predniSONE [Deltasone] 40 mg PO DAILY #60 tab 09/05/22 Clopidogrel [Plavix] 75 mg PO DAILY 30 Days #30 tablet 09/08/22 Famotidine [Pepcid] 20 mg PO BID #60 tablet 09/08/22 carvediloL [Coreg] 6.25 mg PO BID@0800,1600 #60 tab 09/08/22 Allergies Allergy/AdvReac Type Severity Reaction Status Date / Time clindamycin AdvReac Nausea & Verified 09/03/22 20:50 Vomiting & Diarrhea codeine AdvReac Unknown- Verified 09/03/22 20:50 not sure if allergic still latex AdvReac red, Verified 09/03/22 20:50 cracked skin, itching streptomycin AdvReac Nausea & Verified 09/03/22 20:50 Vomiting & Diarrhea Review of Systems ROS Statement: Those systems with pertinent positive or pertinent negative responses have been documented in the HPI. ROS Other: All systems not noted in ROS Statement are negative. Past Medical History Past Medical History: Atrial Fibrillation, Coronary Artery Disease (CAD), Cancer, Eye Disorder, Hyperlipidemia Additional Past Medical History / Comment(s): Beginnings of cataracts. Hx skin cancer left thigh 2 yrs ago. Hx heart blockages. History of Any Multi-Drug Resistant Organisms: MRSA Date of last positivie culture/infection: infected drain 20+ years prior MDRO Source:: drain Past Surgical History: Appendectomy, Cholecystectomy, Tubal Ligation Additional Past Surgical History / Comment(s): Right wrist fracture as a child. Right foot fracture. Fatty cyst removed from under right arm. Quadruple bypass 5 yrs ago. Past Anesthesia/Blood Transfusion Reactions: No Reported Reaction Past Psychological History: No Psychological Hx Reported Smoking Status: Former smoker Past Alcohol Use History: None Reported Past Drug Use History: None Reported - Past Family History Mother Family Medical History: No Reported History Brother(s) Family Medical History: Cancer Additional Family Medical History / Comment(s): Skin cancer General Exam - General Exam Comments Initial Comments: NIH of 2 No significant focal neurological findings General appearance: alert, in no apparent distress, anxious Head exam: Present: atraumatic, normocephalic, normal inspection Eye exam: Present: normal appearance, PERRL, EOMI. Absent: scleral icterus, conjunctival injection, periorbital swelling ENT exam: Present: normal exam, mucous membranes moist Neck exam: Present: normal inspection. Absent: tenderness, meningismus, lymphadenopathy Respiratory exam: Present: normal lung sounds bilaterally. Absent: respiratory distress, wheezes, rales, rhonchi, stridor Cardiovascular Exam: Present: regular rate, normal rhythm, normal heart sounds. Absent: systolic murmur, diastolic murmur, rubs, gallop, clicks GI/Abdominal exam: Present: soft, normal bowel sounds. Absent: distended, tenderness, guarding, rebound, rigid Extremities exam: Present: normal inspection, full ROM, normal capillary refill. Absent: tenderness, pedal edema, joint swelling, calf tenderness Back exam: Present: normal inspection Neurological exam: Present: alert, oriented X3, CN II-XII intact Psychiatric exam: Present: normal affect, normal mood Skin exam: Present: warm, dry, intact, normal color. Absent: rash Course Vital Signs 09/03/22 09/03/22 09/03/22 17:32 20:30 21:30 Temperature 97.8 F Pulse Rate 69 68 72 Pulse Rate [ Right] Respiratory 18 20 18 Rate Blood Pressure 147/75 134/74 133/70 O2 Sat by Pulse 96 94 L Oximetry 09/03/22 09/04/22 09/04/22 22:51 00:53 04:00 Temperature 98.1 F Pulse Rate 64 66 72 Pulse Rate [ Right] Respiratory 18 18 18 Rate Blood Pressure 136/66 130/80 137/78 O2 Sat by Pulse 94 L 94 L 93 L Oximetry 09/04/22 09/04/22 09/04/22 06:16 07:43 07:52 Temperature 97.4 F L 97.4 F L Pulse Rate 72 85 85 Pulse Rate [ Right] Respiratory 18 18 18 Rate Blood Pressure 138/81 152/64 152/64 O2 Sat by Pulse 95 97 97 Oximetry 09/04/22 08:00 Temperature Pulse Rate Pulse Rate [ 85 Right] Respiratory Rate Blood Pressure O2 Sat by Pulse Oximetry - Reevaluation(s) Reevaluation #1: 09/03/22 22:31 Medical record is reviewed 09/03/22 22:40 Patient is not a TPA candidate or cold stroke secondary to onset and timing of symptoms Patient symptoms also dramatically improved since onset 09/03/22 22:40 Patient was not a computed tomography scan candidate secondary to low GFR Reevaluation #2: 09/03/22 22:31 Patient symptoms are improved from yesterday again per patient Patient states she is feeling better with hydration Reevaluation #3: 09/03/22 22:32 Patient informed results and questions answered Reevaluation #4: 09/03/22 22:32 Was pt. sent in by a medical professional or institution? @ -no Did you speak to anyone other than the patient for history? @ -no Did you review nursing and triage notes? @ -agree Were old charts reviewed? @ -yes Differential Diagnosis? @ -prior EKG interpreted by me (3pts min.)? @ -yes X-rays interpreted by me (1pt min.)? @ -no CT interpreted by me (1pt min.)? @ -yes U/S interpreted by me (1pt. min.)? @ -no What testing was considered but not performed? (CT, X-rays, U/S, labs)? Why? @ -no What meds were considered but not given? Why? @ -no Did you discuss the management of the patient with other professionals? @ -no Did you reconcile home meds? @ -no Was smoking cessation discussed for >3mins.? @ -no Was critical care preformed (if so, how long)? @ -yes Were there social determinants of health that impacted care today? How? (Homelessness, low income, unemployed, alcoholism, drug addiction, transportation, low edu. Level, literacy, decrease access to med. care, senior living, rehab)? @ -no Was there de-escalation of care discussed even if they declined? (Discuss DNR or withdrawal of care, Hospice)? @ -no What co-morbidities impacted this encounter? (DM, HTN, Smoking, COPD, CAD, Cancer, CVA, Hep., AIDS, mental health diagnosis, sleep apnea, morbid obesity)? @ -none Was patient admitted / discharged? @ -77 female to the emergency department today for evaluation today. Patient presents today for evaluation of weakness and dizziness with episodes of not being able to control her balance yesterday. Patient does have CVA subacute CVA and computed tomography scan here in the ER outside of the window for TPA, patient will be admitted for CVA and also found of urinary tract infection place on antibiotics for further supportive care Admitted Undiagnosed new problem with uncertain prognosis? @ -no Drug Therapy requiring intensive monitoring for toxicity (Heparin, Nitro, Insulin, Cardizem)? @ -no Were any procedures done? @ -no Diagnosis/symptom? @ -CVA, UTI Acute, or Chronic, or Acute on Chronic? @ -acute Uncomplicated (without systemic symptoms) or Complicated (systemic symptoms)? @ -complicated Side effects of treatment? @ -no Exacerbation, Progression, or Severe Exacerbation] @ -no Poses a threat to life or bodily function? @ -yes w subacute CVA and UTI Reevaluation #5: 09/03/ 22:32 Differential Dizziness: Benign paroxysmal positional Vertigo, Menieres disease, otitis media, acoustic neuroma, vertebrobasilar insufficiency, cerebellar stroke, encephalitis, hypovolemic, arrhythmia, coronary artery syndrome, anemia, this is not meant to be an all-inclusive list Differential CVA Ischemic stroke, hemorrhagic stroke, brain tumor, atypical migraine, Wernicke's encephalopathy, seizure, multiple sclerosis, meningitis, encephalitis, hypoglycemia, Guillain-Kebede, electrolytes disturbance, myasthenia gravis.... This is not meant to be an all-inclusive list - Consultations Consultation #1: Spoke with Dr. Sommers who agrees to admit the patient( Consultation #2: Spoke with radiology who state patient did have subacute CVA EKG Findings - EKG Comments: EKG Findings:: EKG is atrial 67 FL 225 QRS 87 QTc 399 - EKG Results: EKG: interpreted by JULIA Medical Decision Making - Medical Decision Making 77 female to the emergency department today for evaluation today. Patient presents today for evaluation of weakness and dizziness with episodes of not being able to control her balance yesterday. Patient does have CVA subacute CVA and computed tomography scan here in the ER outside of the window for TPA, patient will be admitted for CVA and also found of urinary tract infection place on antibiotics for further supportive care - Lab Data Result diagrams: 09/07/22 12:13 09/07/22 12:13 Lab Results 09/03/22 09/03/22 09/03/22 Range/Units 18:29 18:29 18:29 WBC 13.0 H (3.8-10.6) k/uL RBC 3.86 (3.80-5.40) m/uL Hgb 12.0 (11.4-16.0) gm/dL Hct 36.5 (34.0-46.0) % MCV 94.4 (80.0-100.0) fL MCH 31.2 (25.0-35.0) pg MCHC 33.0 (31.0-37.0) g/dL RDW 14.3 (11.5-15.5) % Plt Count 400 (150-450) k/uL MPV 7.6 Neutrophils % 79 % Lymphocytes % 14 % Monocytes % 5 % Eosinophils % 1 % Basophils % 0 % Neutrophils # 10.3 H (1.3-7.7) k/uL Lymphocytes # 1.8 (1.0-4.8) k/uL Monocytes # 0.7 (0-1.0) k/uL Eosinophils # 0.1 (0-0.7) k/uL Basophils # 0.0 (0-0.2) k/uL PT 10.2 (9.0-12.0) sec INR 1.0 (<1.2) APTT 21.3 L (22.0-30.0) sec Sodium (137-145) mmol/L Potassium (3.5-5.1) mmol/L Chloride (98-107) mmol/L Carbon Dioxide (22-30) mmol/L Anion Gap mmol/L BUN (7-17) mg/dL Creatinine (0.52-1.04) mg/dL Est GFR (CKD-EPI)AfAm (>60 ml/min/1.73 sqM) Est GFR (CKD-EPI)NonAf (>60 ml/min/1.73 sqM) Glucose (74-99) mg/dL Plasma Lactic Acid Burt (0.7-2.0) mmol/L Calcium (8.4-10.2) mg/dL Phosphorus (2.5-4.5) mg/dL Magnesium (1.6-2.3) mg/dL Total Bilirubin (0.2-1.3) mg/dL AST (14-36) U/L ALT (4-34) U/L Alkaline Phosphatase (38-126) U/L Troponin I (0.000-0.034) ng/mL Total Protein (6.3-8.2) g/dL Albumin (3.5-5.0) g/dL Triglycerides (0.00-149.00) mg/dL Cholesterol (0.00-200.00) mg/dL LDL Cholesterol, Calc (0.0-131.0) mg/dL VLDL Cholesterol, Calc (5.00-40.00) mg/dL HDL Cholesterol (40.00-60.00) mg/dL Cholesterol/HDL Ratio Ratio Urine Color Yellow Urine Appearance Cloudy H (Clear) Urine pH 6.5 (5.0-8.0) Ur Specific Willis 1.015 (1.001-1.035) Urine Protein 1+ H (Negative) Urine Glucose (UA) Negative (Negative) Urine Ketones Negative (Negative) Urine Blood Large H (Negative) Urine Nitrite Negative (Negative) Urine Bilirubin Negative (Negative) Urine Urobilinogen 3.0 (<2.0) mg/dL Ur Leukocyte Esterase Large H (Negative) Urine RBC 6 H (0-5) /hpf Urine WBC 34 H (0-5) /hpf Ur Squamous Epith Cells 5 H (0-4) /hpf Urine Bacteria Rare H (None) /hpf Urine Mucus Rare H (None) /hpf 09/03/22 09/03/22 09/03/22 Range/Units 18:29 18:29 18:29 WBC (3.8-10.6) k/uL RBC (3.80-5.40) m/uL Hgb (11.4-16.0) gm/dL Hct (34.0-46.0) % MCV (80.0-100.0) fL MCH (25.0-35.0) pg MCHC (31.0-37.0) g/dL RDW (11.5-15.5) % Plt Count (150-450) k/uL MPV Neutrophils % % Lymphocytes % % Monocytes % % Eosinophils % % Basophils % % Neutrophils # (1.3-7.7) k/uL Lymphocytes # (1.0-4.8) k/uL Monocytes # (0-1.0) k/uL Eosinophils # (0-0.7) k/uL Basophils # (0-0.2) k/uL PT (9.0-12.0) sec INR (<1.2) APTT (22.0-30.0) sec Sodium 131 L (137-145) mmol/L Potassium 4.9 (3.5-5.1) mmol/L Chloride 96 L (98-107) mmol/L Carbon Dioxide 26 (22-30) mmol/L Anion Gap 9 mmol/L BUN 58 H (7-17) mg/dL Creatinine 1.97 H (0.52-1.04) mg/dL Est GFR (CKD-EPI)AfAm 28 (>60 ml/min/1.73 sqM) Est GFR (CKD-EPI)NonAf 24 (>60 ml/min/1.73 sqM) Glucose 122 H (74-99) mg/dL Plasma Lactic Acid Burt 1.2 (0.7-2.0) mmol/L Calcium 8.6 (8.4-10.2) mg/dL Phosphorus 4.8 H (2.5-4.5) mg/dL Magnesium 2.1 (1.6-2.3) mg/dL Total Bilirubin 1.1 (0.2-1.3) mg/dL AST 58 H (14-36) U/L ALT 85 H (4-34) U/L Alkaline Phosphatase 102 (38-126) U/L Troponin I <0.012 (0.000-0.034) ng/mL Total Protein 6.5 (6.3-8.2) g/dL Albumin 3.2 L (3.5-5.0) g/dL Triglycerides (0.00-149.00) mg/dL Cholesterol (0.00-200.00) mg/dL LDL Cholesterol, Calc (0.0-131.0) mg/dL VLDL Cholesterol, Calc (5.00-40.00) mg/dL HDL Cholesterol (40.00-60.00) mg/dL Cholesterol/HDL Ratio Ratio Urine Color Urine Appearance (Clear) Urine pH (5.0-8.0) Ur Specific Willis (1.001-1.035) Urine Protein (Negative) Urine Glucose (UA) (Negative) Urine Ketones (Negative) Urine Blood (Negative) Urine Nitrite (Negative) Urine Bilirubin (Negative) Urine Urobilinogen (<2.0) mg/dL Ur Leukocyte Esterase (Negative) Urine RBC (0-5) /hpf Urine WBC (0-5) /hpf Ur Squamous Epith Cells (0-4) /hpf Urine Bacteria (None) /hpf Urine Mucus (None) /hpf 09/03/22 Range/Units 18:29 WBC (3.8-10.6) k/uL RBC (3.80-5.40) m/uL Hgb (11.4-16.0) gm/dL Hct (34.0-46.0) % MCV (80.0-100.0) fL MCH (25.0-35.0) pg MCHC (31.0-37.0) g/dL RDW (11.5-15.5) % Plt Count (150-450) k/uL MPV Neutrophils % % Lymphocytes % % Monocytes % % Eosinophils % % Basophils % % Neutrophils # (1.3-7.7) k/uL Lymphocytes # (1.0-4.8) k/uL Monocytes # (0-1.0) k/uL Eosinophils # (0-0.7) k/uL Basophils # (0-0.2) k/uL PT (9.0-12.0) sec INR (<1.2) APTT (22.0-30.0) sec Sodium (137-145) mmol/L Potassium (3.5-5.1) mmol/L Chloride (98-107) mmol/L Carbon Dioxide (22-30) mmol/L Anion Gap mmol/L BUN (7-17) mg/dL Creatinine (0.52-1.04) mg/dL Est GFR (CKD-EPI)AfAm (>60 ml/min/1.73 sqM) Est GFR (CKD-EPI)NonAf (>60 ml/min/1.73 sqM) Glucose (74-99) mg/dL Plasma Lactic Acid Burt (0.7-2.0) mmol/L Calcium (8.4-10.2) mg/dL Phosphorus (2.5-4.5) mg/dL Magnesium (1.6-2.3) mg/dL Total Bilirubin (0.2-1.3) mg/dL AST (14-36) U/L ALT (4-34) U/L Alkaline Phosphatase (38-126) U/L Troponin I (0.000-0.034) ng/mL Total Protein (6.3-8.2) g/dL Albumin (3.5-5.0) g/dL Triglycerides 104.00 (0.00-149.00) mg/dL Cholesterol 186.00 (0.00-200.00) mg/dL LDL Cholesterol, Calc 103.1 (0.0-131.0) mg/dL VLDL Cholesterol, Calc 20.80 (5.00-40.00) mg/dL HDL Cholesterol 62.10 H (40.00-60.00) mg/dL Cholesterol/HDL Ratio 3.00 Ratio Urine Color Urine Appearance (Clear) Urine pH (5.0-8.0) Ur Specific Willis (1.001-1.035) Urine Protein (Negative) Urine Glucose (UA) (Negative) Urine Ketones (Negative) Urine Blood (Negative) Urine Nitrite (Negative) Urine Bilirubin (Negative) Urine Urobilinogen (<2.0) mg/dL Ur Leukocyte Esterase (Negative) Urine RBC (0-5) /hpf Urine WBC (0-5) /hpf Ur Squamous Epith Cells (0-4) /hpf Urine Bacteria (None) /hpf Urine Mucus (None) /hpf - EKG Data -: EKG Interpreted by Me - Radiology Data Radiology results: report reviewed (CT brain is left occipital lobe infarct), image reviewed Critical Care Time Critical Care Time: Yes Total Critical Care Time: 31 Disposition Clinical Impression: UTI (urinary tract infection), Weakness, Dehydration, CVA (cerebral vascular accident), Dizziness Disposition: ADMITTED IP TO THIS [facility] Condition: Stable Is patient prescribed a controlled substance at d/c from ED?: No Time of Disposition: 22:25
[2022-09-03 19:02] LABS: Basophils % (A) 0 %; Eosinophils # (A) 0.1 k/uL (0-0.7); Eosinophils % (A) 1 %; HCT 36.5 % (34.0-46.0); Lymphocytes # (A) 1.8 k/uL (1.0-4.8); Lymphocytes % (A) 14 %; MCH 31.2 pg (25.0-35.0); MCV 94.4 fL (80.0-100.0); Mean Platelet Volume 7.6; Monocytes # (A) 0.7 k/uL (0-1.0); Monocytes % (A) 5 %; Neutrophils # (A) 10.3 k/uL (1.3-7.7); Neutrophils % (A) 79 %; Platelet Count 400 k/uL (150-450); RBC 3.86 m/uL (3.80-5.40); RDW 14.3 % (11.5-15.5)
[2022-09-03 19:20] LABS: ALT 85 U/L (4-34); AST 58 U/L (14-36); African American GFR (CKD) 28 (>60 ml/min/1.73 sqM); Albumin 3.2 g/dL (3.5-5.0); Alkaline Phosphatase 102 U/L (38-126); Anion Gap 9 mmol/L; Blood Urea Nitrogen 58 mg/dL (7-17); Calcium 8.6 mg/dL (8.4-10.2); Carbon Dioxide 26 mmol/L (22-30); Chloride 96 mmol/L (98-107); Glucose 122 mg/dL (74-99); Magnesium 2.1 mg/dL (1.6-2.3); Non-African American GFR(CKD) 24 (>60 ml/min/1.73 sqM); Phosphorus 4.8 mg/dL (2.5-4.5); Sodium 131 mmol/L (137-145); Total Bilirubin 1.1 mg/dL (0.2-1.3); Total Protein 6.5 g/dL (6.3-8.2)
[2022-09-03 19:23] LABS: Potassium 4.9 mmol/L (3.5-5.1)
[2022-09-03 19:56] LABS: Partial Thromboplastin Time 21.3 sec (22.0-30.0)
[2022-09-03 20:03] LABS: Prothrombin Time 10.2 sec (9.0-12.0)
[2022-09-03 20:49] LABS: Appearance,Urine Cloudy (Clear); Bacteria,Urine Rare /hpf; Bilirubin,Urine Negative (Negative); Blood,Urine Large (Negative); Color,Urine Yellow; Glucose,Urine (UA) Negative (Negative); Ketones,Urine Negative (Negative); Leukocyte Esterase,Urine Large (Negative); Mucus,Urine Rare /hpf; Nitrite,Urine Negative (Negative); PH, Urine 6.5 (5.0-8.0); Protein,Urine 1+ (Negative); RBC,Urine 6 /hpf (0-5); Specific Gravity,Urine 1.015 (1.001-1.035); Squamous Epithelial Cell,Urine 5 /hpf (0-4); WBC,Urine 34 /hpf (0-5)
--- NOTE | 2022-09-03 21:35 | CT ---
EXAMINATION TYPE: CT brain wo con DATE OF EXAM: 09/03/2022 COMPARISON: None INDICATION: weakness and ams DLP: 1096.4 mGycm, Automated exposure control for dose reduction was used. CONTRAST: None CT of the brain is performed utilizing 3 mm thick sections through the posterior fossa and 3 mm thick sections through the remaining calvarium. Study is performed within 24 hours of arrival to the hosp ital. No abnormal hyperdensity is present to suggest an acute intracranial hemorrhage. No mass lesion is evident. There is hypodensity through the left occipital lobe suggestive for an early infarct. Clinical correl ation recommended. Report called to emergency room physician by Dr. Moreira by telephone at time of i nterpretation. There is mild periventricular white matter hypodensity, likely on the basis of chronic white matter i schemic changes. Ventricles and sulci are appropriate for the patient age. Paranasal sinuses and mastoid air cells within the [id number] are clear. IMPRESSIONS: 1. Left occipital lobe infarct. Clinical correlation recommended.
[2022-09-03] MEDS ORDERED: ASPIRIN 325 MG TAB PO STA (22:32)
--- NOTE | 2022-09-03 23:22 | US ---
EXAMINATION TYPE: US carotid duplex BILAT DATE OF EXAM: 09/03/2022 COMPARISON: NONE CLINICAL INDICATION: Female, 77 years old with history of Stenosis; mini stroke TECHNIQUE: Carotid duplex ultrasound examination. Indirect Doppler criteria was utilized. FINDINGS: EXAM MEASUREMENTS: RIGHT: Peak Systolic Velocity (PSV) cm/sec ----- Right CCA: 59.5 ----- Right ICA: 84.2 ----- Right ECA: 69.7 ICA/CCA ratio: 1.4 RIGHT: End Diastole cm/sec ----- Right CCA: 12.9 ----- Right ICA: 31.8 ----- Right ECA: 7.1 LEFT: Peak Systolic Velocity (PSV) cm/sec ----- Left CCA: 69.1 ----- Left ICA: 80.1 ----- Left ECA: 56.6 ICA/CCA ratio: 1.2 LEFT: End Diastole cm/sec ----- Left CCA: 16.4 ----- Left ICA: 30.7 ----- Left ECA: 0.0 VERTEBRALS (direction of flow): Right Vertebral: Antegrade Left Vertebral: Antegrade Rhythm: Normal [employer] TE[employer]ER NOTES: Minimal plaque seen in bilateral bulbs. A larger plaque with calcifications within the right carotid bulb. Doppler waveforms appear normal IMPRESSION: Atheromatous plaquing without significant flow-limiting stenosis based on velocities. Criteria for Assigning % of Stenosis / Diameter reduction (Estimation based on the indirect measurements of the internal carotid artery velocities (ICA PSV). 1. Normal (no stenosis)=ICA PSV < 125 cm/s: ratio < 2.0: ICA EDV<40 cm/s. 2. Less than 50% stenosis=ICA PSV < 125 cm/s: ratio < 2.0: ICA EDV<40 cm/s. 3. 50 to 69% stenosis=ICA PSV of 125 to 230 cm/s: ration 2.0 ? 4.0: ICA EDV 40-100 cm/s. 4. Greater than 70% stenosis to near occlusion= ICA PSV > 230 cm/s: ratio > 4.0: ICA EDV > 100 cm/s. 5. Near occlusion= ICA PSV velocities may be low or undetectable: variable ratio and ICA EDV. 6. Total occlusion=unable to detect flow.
[2022-09-03] MEDS: SODIUM CHLORIDE 0.9% 1,000 ML IV SCH (23:38)
[2022-09-04 09:21] LABS: LDL Cholesterol,Calculated 103.1 mg/dL (0.0-131.0)
[2022-09-04 10:30] LABS: Creatine Kinase <20 U/L (30-135)
--- NOTE | 2022-09-04 10:45 | CA ---
Transthoracic Echo Report Name: Magnolia Vasques Age: 77 Gender: F : 1945 Exam Date: 09/04/2022 08:50 Exam Location: [place] [facility] Ht (in): 64 Wt (lb): 155 Ordering Physician: Billy Peacock DO Attending/Referring Phys: [id number], [employer] Hostess Wisam Munson Procedure CPT: Indications: Thrombus Cardiac Hx: Admitted with concerns of CVA Technical Quality: Fair Contrast 1: Total Dose (mL): Contrast 2: Total Dose (mL): MEASUREMENTS (Male / Female) Normal Values 2D ECHO LV Diastolic Diameter PLAX 4.1 cm 4.2 - 5.9 / 3.9 - 5.3 cm LV Systolic Diameter PLAX 3.1 cm IVS Diastolic Thickness 0.8 cm 0.6 - 1.0 / 0.6 - 0.9 cm LVPW Diastolic Thickness 0.8 cm 0.6 - 1.0 / 0.6 - 0.9 cm LV Relative Wall Thickness 0.4 RV Internal Dim ED PLAX 2.8 cm LVOT Diameter 1.7 cm Aortic Root Diameter 2.5 cm LA Systolic Diameter LX 2.4 cm 3.0 - 4.0 / 2.7 - 3.8 cm LV Diastolic Volume MOD BP 40.5 cm??? 67 - 155 / 56 - 104 cm??? LV Systolic Volume MOD BP 21.5 cm??? 22 - 58 / 19 - 49 cm??? LV Ejection Fraction MOD BP 47.0 % >= 55 % LV Cardiac Index MOD BP 698.5 cm???/min???m??? LV Diastolic Volume MOD 4C 38.6 cm??? LV Systolic Volume MOD 4C 20.4 cm??? LV Ejection Fraction MOD 4C 47.1 % LV Cardiac Index MOD 4C 666.8 cm???/min???m??? LV Diastolic Length 4C 5.8 cm LV Systolic Length 4C 5.3 cm LV Diastolic Volume MOD 2C 36.0 cm??? LV Systolic Volume MOD 2C 19.7 cm??? LV Ejection Fraction MOD 2C 45.2 % LV Cardiac Index MOD 2C 597.6 cm???/min???m??? LV Diastolic Length 2C 6.8 cm LV Systolic Length 2C 6.2 cm LA Volume 31.4 cm??? 18 - 58 / 22 - 52 cm??? DOPPLER AV Peak Velocity 129.4 cm/s AV Peak Gradient 6.7 mmHg LVOT Peak Velocity 134.2 cm/s LVOT Peak Gradient 7.2 mmHg AV Area Cont Eq pk 2.3 cm??? MV Peak Velocity 114.9 cm/s MV Peak Gradient 5.3 mmHg MV Mean Velocity 53.5 cm/s MV Mean Gradient 1.4 mmHg MV Velocity Time Integral 37.2 cm MR Peak Velocity 475.6 cm/s MR Peak Gradient 90.5 mmHg Mitral E Point Velocity 71.8 cm/s Mitral A Point Velocity 92.3 cm/s Mitral E to A Ratio 0.8 MV Deceleration Time 307.2 ms TR Peak Velocity 245.1 cm/s TR Peak Gradient 24.0 mmHg Right Ventricular Systolic Press 29.0 mmHg PV Peak Velocity 123.9 cm/s PV Peak Gradient 6.1 mmHg FINDINGS Left Ventricle Normal LV size and wall thickness. Left ventricular ejection fraction is estimated at 55-60 %. No obvious regional wall motion abnormality. Echo contrast was not used during the study which makes it difficult to rule out any possibility of thrombus. Right Ventricle Normal right ventricular size. RVSP= 29mmhg Right Atrium Normal right atrial size. Left Atrium Normal left atrial size. Mitral Valve Structurally normal mitral valve. Mild MR. Aortic Valve Trileaflet aortic valve. No aortic valve stenosis or regurgitation. Tricuspid Valve Structurally normal tricuspid valve. Mild TR. Pulmonic Valve Pulmonic valve not well visualized. Mild PI. Pericardium No pericardial effusion Aorta Normal size aortic root and proximal ascending aorta. CONCLUSIONS Normal LV size and wall thickness. Estimated LVEF 55% No obvious regional wall motion abnormality No significant valvular disease No significant chamber size abnormality No significant difference when compared to prior echo from 08/20/2022 Previewed by: Dr Bernardo Biswas (Electronically Signed) Final Date: 04 September 2022 10:44
--- NOTE | 2022-09-04 12:15 | P.NPCON ---
History of Present Illness - Reason for Consult acute renal failure - History of Present Illness Patient is a 77-year-old female with previous history of CVA, coronary artery disease, atrial fibrillation and hyperlipidemia. Patient is admitted to the hospital with complaints of increased weakness and the decreased vision. Patient had difficulty with balance and was not able to grasp as firmly. She complained of dizziness. Blood pressure was not low. No previous history of kidney disease. Serum creatinine was 1.97, previous creatinine 1.18 on 08/25/2022. Patient reports good urine output. She was maintained on Cozaar and hydrochlorothiazide which is currently on hold. Receiving IV fluids at 100 mL an hour. Computed tomography scan showed evidence of acute left occipital lobe infarct. Review of Systems As per HPI Past Medical History Past Medical History: Atrial Fibrillation, Coronary Artery Disease (CAD), Cancer, Eye Disorder, Hyperlipidemia Additional Past Medical History / Comment(s): Beginnings of cataracts. Hx skin cancer left thigh 2 yrs ago. Hx heart blockages. History of Any Multi-Drug Resistant Organisms: MRSA Date of last positivie culture/infection: infected drain 20+ years prior MDRO Source:: drain Past Surgical History: Appendectomy, Cholecystectomy, Tubal Ligation Additional Past Surgical History / Comment(s): Right wrist fracture as a child. Right foot fracture. Fatty cyst removed from under right arm. Quadruple bypass 5 yrs ago. Past Anesthesia/Blood Transfusion Reactions: No Reported Reaction Past Psychological History: No Psychological Hx Reported Smoking Status: Former smoker Past Alcohol Use History: None Reported Additional Past Alcohol Use History / Comment(s): Quit smoking 20 yrs ago. Past Drug Use History: None Reported - Past Family History Mother Family Medical History: No Reported History Brother(s) Family Medical History: Cancer Additional Family Medical History / Comment(s): Skin cancer Medications and Allergies Home Medications Medication Instructions Recorded Confirmed Type Acetaminophen Tab [Tylenol] 650 mg PO Q6HR PRN tab 08/26/22 09/03/22 Rx Aspirin 81 mg PO DAILY@79909/03/22 09/03/22 History Enoxaparin [Lovenox] 40 mg SQ DAILY@79909/03/22 09/03/22 History Ezetimibe [Zetia] 10 mg PO DAILY@79909/03/22 09/03/22 History Famotidine [Pepcid] 20 mg PO DAILY@0800 09/03/22 09/03/22 History INSULIN LISPRO (HumaLOG) [humaLOG] See Protocol SQ ACHS 09/03/22 09/03/22 History Losartan Potassium [Cozaar] 100 mg PO DAILY@0800 09/03/22 09/03/22 History carvediloL [Coreg] 6.25 mg PO BID@0800,1600 09/03/22 09/03/22 History hydroCHLOROthiazide [Hydrodiuril] 25 mg PO DAILY@0800 09/03/22 09/03/22 History predniSONE See Taper PO DIRECTED 09/03/22 09/03/22 History Allergies Allergy/AdvReac Type Severity Reaction Status Date / Time clindamycin AdvReac Nausea & Verified 09/03/22 20:50 Vomiting & Diarrhea codeine AdvReac Unknown- Verified 09/03/22 20:50 not sure if allergic still latex AdvReac red, Verified 09/03/22 20:50 cracked skin, itching streptomycin AdvReac Nausea & Verified 09/03/22 20:50 Vomiting & Diarrhea Physical Exam Vitals: Vital Signs Temp Pulse Resp BP Pulse Ox 09/04/22 07:52 97.4 F L 85 18 152/64 97 09/04/22 07:43 97.4 F L 85 18 152/64 97 09/04/22 06:16 72 18 138/81 95 09/04/22 04:00 72 18 137/78 93 L 09/04/22 00:53 66 18 130/80 94 L 09/03/22 22:51 98.1 F 64 18 136/66 94 L 09/03/22 21:30 72 18 133/70 94 L 09/03/22 20:30 68 20 134/74 96 09/03/22 17:32 97.8 F 69 18 147/75 Intake and Output 09/03/22 09/04/22 09/04/22 22:59 06:59 14:59 Other: # Voids 1 Weight 70.307 kg 70.307 kg Patient is awake, comfortable, no acute distress Examination of the heart S1 and S2 Examination of the lungs bilateral breath sounds are heard Abdomen is soft nontender Examination of the lower extremities shows no significant edema HOSPICE MASSAGE THERAPIST exam shows no obvious focal deficit Results - Lab Results Most recent lab results Calcium 8.6 mg/dL (8.4-10.2) 09/03/22 18:29 Phosphorus 4.8 mg/dL (2.5-4.5) H 09/03/22 18:29 Magnesium 2.1 mg/dL (1.6-2.3) 09/03/22 18:29 09/03/22 18:29 09/03/22 18:29 Assessment and Plan Assessment: 1. Acute kidney injury, ATN, nonoliguric. UA shows 1+ protein and WBCs 34 with large blood. Christopher inhibitors on hold. Rule out obstructive uropathy 2. Acute left occipital lobe CVA 3. Hypertension currently controlled 4. Pyuria rule out UTI 5. Mild hyponatremia most likely hypovolemic. Currently maintained on normal saline. Plan: Continue with normal saline Continue to hold off on ARBs and diuretics. Resume Coreg Repeat labs in a.m. Check bladder scan rule out urine retention Check ultrasound of the kidneys Thank you for the consultation. We will continue to follow the patient with you during her hospitalization.
[2022-09-04] MEDS: HEPARIN SODIUM,PORCINE/PF 5,000 UNIT/0.5 ML SYRINGE SQ SCH ×2 (12:32→20:10)
[2022-09-04] MEDS: ASPIRIN 325 MG TAB PO SCH (12:33)
--- NOTE | 2022-09-04 14:41 | P.CNNES ---
History of Present Illness Consult date: 09/04/22 Requesting physician: Billy Peacock Reason for Consult: cva History of Present Illness: This is a 77-year-old woman with recent history of myopathy with recent muscle biopsy which revealed necrotizing fasciitis and the biopsy was done on the left rectus femoris presented emergency department because of visual disturbance. She stated it has been going on for the past couple days and she had a hard time seeing and it was blurry. Otherwise denies of any neurological issues. Patient is known to me in which she I personally saw the patient on the day admission of 08/18/2022 and she presented with generalized weakness and she had elevated CK levels with ESR and she had significant lower extremity weakness more than uppers she had a biopsy and it reveals the necrotizing fasciitis. Initially I thought was due to dermatomyositis since has rash and resolved after steroid and that was prior to biopsy result but Dr. 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 She was stopped off statin during that admission. She was started on prednisone [address] 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 Please refer to our neurologyfor further details. Some of the workup during his hospital visit consisted of: ESR 69. White blood cell is 13.K Lipid panel is a triglyceride 104, cholesterol is 186, LDLs 1 and 3 and HDL 62 CRP is 4.0 AST is 58 and ALTs 85. Creatinine is 1.97. Urinalysis is suggestive of possible underlying urinary tract infection. CT of the head is reported as left occipital lobe infarct. Clinical correlation is recommended. Personally reviewed the CT head and I agree with the report I feel that changes or subacute. I also feel the patient has a subacute changes over basal ganglia left temporal region. Carotid duplex is reported as atheromatous plaquing without significant flow limiting stenosis based on velocity. 2-D echo was reported as normal left ventricular size and wall thickness. Ejection fraction 55%. Review of Systems Review of system: The 12 point system was reviewed and apparent positive and negative per HPI. Past Medical History Past Medical History: Atrial Fibrillation, Coronary Artery Disease (CAD), Cancer, Eye Disorder, Hyperlipidemia Additional Past Medical History / Comment(s): Beginnings of cataracts. Hx skin cancer left thigh 2 yrs ago. Hx heart blockages. History of Any Multi-Drug Resistant Organisms: MRSA Date of last positivie culture/infection: infected drain 20+ years prior MDRO Source:: drain Past Surgical History: Appendectomy, Cholecystectomy, Tubal Ligation Additional Past Surgical History / Comment(s): Right wrist fracture as a child. Right foot fracture. Fatty cyst removed from under right arm. Quadruple bypass 5 yrs ago. Past Anesthesia/Blood Transfusion Reactions: No Reported Reaction Past Psychological History: No Psychological Hx Reported Smoking Status: Former smoker Past Alcohol Use History: None Reported Additional Past Alcohol Use History / Comment(s): Quit smoking 20 yrs ago. Past Drug Use History: None Reported - Past Family History Mother Family Medical History: No Reported History Brother(s) Family Medical History: Cancer Additional Family Medical History / Comment(s): Skin cancer Medications and Allergies Home Medications Medication Instructions Recorded Confirmed Type Acetaminophen Tab [Tylenol] 650 mg PO Q6HR PRN tab 08/26/22 09/03/22 Rx Aspirin 81 mg PO DAILY@0800 09/03/22 09/03/22 History Enoxaparin [Lovenox] 40 mg SQ DAILY@0800 09/03/22 09/03/22 History Ezetimibe [Zetia] 10 mg PO DAILY@0800 09/03/22 09/03/22 History Famotidine [Pepcid] 20 mg PO DAILY@0800 09/03/22 09/03/22 History INSULIN LISPRO (HumaLOG) [humaLOG] See Protocol SQ ACHS 09/03/22 09/03/22 History Losartan Potassium [Cozaar] 100 mg PO DAILY@0800 09/03/22 09/03/22 History carvediloL [Coreg] 6.25 mg PO BID@0800,1600 09/03/22 09/03/22 History hydroCHLOROthiazide [Hydrodiuril] 25 mg PO DAILY@0800 09/03/22 09/03/22 History predniSONE See Taper PO DIRECTED 09/03/22 09/03/22 History Allergies Allergy/AdvReac Type Severity Reaction Status Date / Time clindamycin AdvReac Nausea & Verified 09/03/22 20:50 Vomiting & Diarrhea codeine AdvReac Unknown- Verified 09/03/22 20:50 not sure if allergic still latex AdvReac red, Verified 09/03/22 20:50 cracked skin, itching streptomycin AdvReac Nausea & Verified 09/03/22 20:50 Vomiting & Diarrhea Physical Examination - Vital Signs Vital Signs: Vital Signs Temp Pulse Pulse Resp BP BP Pulse Ox 09/04/22 12:00 85 18 139/68 95 09/04/22 07:52 97.4 F L 85 18 152/64 97 09/04/22 07:43 97.4 F L 85 18 152/64 97 09/04/22 06:16 72 18 138/81 95 09/04/22 04:00 72 18 137/78 93 L 09/04/22 00:53 66 18 130/80 94 L 09/03/22 22:51 98.1 F 64 18 136/66 94 L 09/03/22 21:30 72 18 133/70 94 L 09/03/22 20:30 68 20 134/74 96 09/03/22 17:32 97.8 F 69 18 147/75 Intake and Output 09/03/22 09/04/22 09/04/22 22:59 06:59 14:59 Intake Total 180 Balance 180 Intake: Oral 180 Other: # Voids 1 Weight 70.307 kg 70.307 kg GENERAL: The patient is lying in bed and is not in acute distress. NEUROLOGICAL: Higher mental function: The patient is awake, alert, oriented to self, place and time. Patient is following commands. No aphasia and no neglect. Cranial nerves: The pupils are round, equal and reactive to light.. Visual love is hard to assess because of her cooperation but appears right homonymous hemianposia. d. Facial sensation is normal to touch throughout. The facial strength is normal throughout. Hearing is normal bilaterally to hand rub. Tongue is midline and moved [id number] without any difficulty. No dysarthria is noted. Shoulder shrug is normal bilaterally. Motor: The strength is limited in assessment but appears moving bilateral uppers above gravity and no focality appreaciated. Lifting the right lower above gravity > left lower. Lowers are somewhat limited because of pain.. Cerebellum: Normal finger to nose h bilaterally. Sensation: Sensation is normal to touch throughout. Reflexes (right/left): 1+ throughout. Plantars are downgoing bilaterally. Results - Laboratory Findings CBC and BMP: 09/03/22 18:29 09/03/22 18:29 Abnormal Lab Findings: Abnormal Labs 09/03/22 09/03/22 09/03/22 18:29 18:29 18:29 WBC 13.0 H Neutrophils # 10.3 H ESR APTT 21.3 L Sodium Chloride BUN Creatinine Glucose Phosphorus AST ALT Creatine Kinase C-Reactive Protein Albumin HDL Cholesterol Urine Appearance Cloudy H Urine Protein 1+ H Urine Blood Large H Ur Leukocyte Esterase Large H Urine RBC 6 H Urine WBC 34 H Ur Squamous Epith Cells 5 H Urine Bacteria Rare H Urine Mucus Rare H 09/03/22 09/03/22 09/04/22 18:29 18:29 08:36 WBC Neutrophils # ESR 69 H APTT Sodium 131 L Chloride 96 L BUN 58 H Creatinine 1.97 H Glucose 122 H Phosphorus 4.8 H AST 58 H ALT 85 H Creatine Kinase C-Reactive Protein Albumin 3.2 L HDL Cholesterol 62.10 H Urine Appearance Urine Protein Urine Blood Ur Leukocyte Esterase Urine RBC Urine WBC Ur Squamous Epith Cells Urine Bacteria Urine Mucus 09/04/22 08:36 WBC Neutrophils # ESR APTT Sodium Chloride BUN Creatinine Glucose Phosphorus AST ALT Creatine Kinase <20 L C-Reactive Protein 4.0 H Albumin HDL Cholesterol Urine Appearance Urine Protein Urine Blood Ur Leukocyte Esterase Urine RBC Urine WBC Ur Squamous Epith Cells Urine Bacteria Urine Mucus Assessment and Plan Assessment: This is a 77-year-old woman who is known to neurology team and had extensive of workup in the beginning of August 2022 for myopathy 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 There is also consider possible to matter sinus but the towards the end of the workup was felt more due to statin use. She presented to our facility because of visual disturbance. CT of the head that reveals left occipital stroke. No IV TPA since she is outside the window. Subacute left occipital stroke and I felt on the CT also has hypoattenuation in the left temporal basal ganglia region. No IV TPA since outside the window and the risk outweighed the benefits. She has history of atrial fibrillation and is not on anticoagulation. Myopathy and was felt possible due to statin use. Had muscle biopsy of the left thigh which shows necrotizing fasciitis History of atrial fibrillation and does not appear she is on anticoagulation Hyperlipidemia History of coronary artery disease status post CABG Plan: She was started on ASA 325mg daily. AVOID STATIN becuse of myopathy. I ordered MRI of the brain. Please avoid anticoagulation for now until MRI of the brain is received to assess the extent of the stroke to avoid any hemorrhagic conversion. If it felt that the benefits outweigh the risks then recommend the heparin drip to avoid boluses and keep the PTT between 45 and 60 Neurochecks Cardiac monitoring PT OT and [employer] [employer] are consulted I consulted from rheumatology team for her necrotizing fasciitis. In the meantime I restarted the patient on her prednisone and they'll continue with the 40 mg daily. Recommend the glucose monitoring and control to primary team. For DVT prophylaxis I started the patient on Protonix We'll defer the rest of the medical management to primary team For DVT prophylaxis patient is on subcu heparin 5000 units every 12 hours Plan discussed with the patient and her nurse. Thank you for the consultation. Time with Patient: Greater than 30
[2022-09-04] MEDS ORDERED: DEXTROSE 50% SYRINGE 50 ML IVP PRN ×2 (15:47)
[2022-09-04] MEDS ORDERED: carvediloL 6.25 MG TAB PO SCH (16:00)
--- NOTE | 2022-09-04 16:07 | P.HPIM ---
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 Patient had been discharged to a subacute rehab on steroids with tapering dependant on biopsy results, recommending not to take statins in the future and to follow-up with a drive man. Patient reports she felt tired from the physical therapy,developed "fuzzy " vision over the last couple of days. Denies any other neuro deficits. CK level less than 20. CRP 4, ESR 69. Sodium 131, bicarb 26, BUN 58, creatinine 1.97. New AV. Large leukocytes, negative nitrates. Afebrile, WBC 13. Brain CT reported left occipital lobe infarct. Carotid Doppler reported no hemodynamic stenosis. Echo reported normal LV function, EF 55%. Review of Systems ROS Statement: Those systems with pertinent positive or pertinent negative responses have been documented in the HPI. ROS Other: All systems not noted in ROS Statement are negative. Past Medical History Past Medical History: Atrial Fibrillation, Coronary Artery Disease (CAD), Cancer, Eye Disorder, Hyperlipidemia Additional Past Medical History / Comment(s): Beginnings of cataracts. Hx skin cancer left thigh 2 yrs ago. Hx heart blockages. History of Any Multi-Drug Resistant Organisms: MRSA Date of last positivie culture/infection: infected drain 20+ years prior MDRO Source:: drain Past Surgical History: Appendectomy, Cholecystectomy, Tubal Ligation Additional Past Surgical History / Comment(s): Right wrist fracture as a child. Right foot fracture. Fatty cyst removed from under right arm. Quadruple bypass 5 yrs ago. Past Anesthesia/Blood Transfusion Reactions: No Reported Reaction Past Psychological History: No Psychological Hx Reported Smoking Status: Former smoker Past Alcohol Use History: None Reported Additional Past Alcohol Use History / Comment(s): Quit smoking 20 yrs ago. Past Drug Use History: None Reported - Past Family History Mother Family Medical History: No Reported History Brother(s) Family Medical History: Cancer Additional Family Medical History / Comment(s): Skin cancer Medications and Allergies Home Medications Medication Instructions Recorded Confirmed Type Acetaminophen Tab [Tylenol] 650 mg PO Q6HR PRN tab 08/26/22 09/03/22 Rx Aspirin 81 mg PO DAILY@0800 09/03/22 09/03/22 History Enoxaparin [Lovenox] 40 mg SQ DAILY@0800 09/03/22 09/03/22 History Ezetimibe [Zetia] 10 mg PO DAILY@0800 09/03/22 09/03/22 History Famotidine [Pepcid] 20 mg PO DAILY@0800 09/03/22 09/03/22 History INSULIN LISPRO (HumaLOG) [humaLOG] See Protocol SQ ACHS 09/03/22 09/03/22 History Losartan Potassium [Cozaar] 100 mg PO DAILY@0800 09/03/22 09/03/22 History carvediloL [Coreg] 6.25 mg PO BID@0800,1600 09/03/22 09/03/22 History hydroCHLOROthiazide [Hydrodiuril] 25 mg PO DAILY@0800 09/03/22 09/03/22 History predniSONE See Taper PO DIRECTED 09/03/22 09/03/22 History Allergies Allergy/AdvReac Type Severity Reaction Status Date / Time clindamycin AdvReac Nausea & Verified 09/03/22 20:50 Vomiting & Diarrhea codeine AdvReac Unknown- Verified 09/03/22 20:50 not sure if allergic still latex AdvReac red, Verified 09/03/22 20:50 cracked skin, itching streptomycin AdvReac Nausea & Verified 09/03/22 20:50 Vomiting & Diarrhea Physical Exam Vitals: Vital Signs Temp Pulse Resp BP Pulse Ox 09/04/22 07:52 97.4 F L 85 18 152/64 97 09/04/22 07:43 97.4 F L 85 18 152/64 97 09/04/22 06:16 72 18 138/81 95 09/04/22 04:00 72 18 137/78 93 L 09/04/22 00:53 66 18 130/80 94 L 09/03/22 22:51 98.1 F 64 18 136/66 94 L 09/03/22 21:30 72 18 133/70 94 L 09/03/22 20:30 68 20 134/74 96 09/03/22 17:32 97.8 F 69 18 147/75 Intake and Output 09/03/22 09/04/22 09/04/22 22:59 06:59 14:59 Other: # Voids 1 Weight 70.307 kg 70.307 kg GENERAL: Sitting up in chair, no acute distress. NECK: Supple without JVD LUNGS: Unlabored, Equal air entry ,CTA. HEART: Regular rate and rhythm without murmurs, rubs or gallops.S1S2 Normal ABDOMEN: Soft, nontender, normoactive bowel sounds. No guarding, no rebound. No masses appreciated. EXTREMITIES: no pitting or edema. No clubbing or cyanosis. NEUROLOGICAL: Cranial nerves II through XII grossly intact. PSYCH: Normal mood, normal affect. SKIN: Warm, Dry. Results CBC & Chem 7: 09/03/22 18:29 09/03/22 18:29 Labs: Abnormal Lab Results - Last 24 Hours (Table) 09/03/22 09/03/22 09/03/22 Range/Units 18:29 18:29 18:29 WBC 13.0 H (3.8-10.6) k/uL Neutrophils # 10.3 H (1.3-7.7) k/uL ESR (0-20) mm/hr APTT 21.3 L (22.0-30.0) sec Sodium (137-145) mmol/L Chloride (98-107) mmol/L BUN (7-17) mg/dL Creatinine (0.52-1.04) mg/dL Glucose (74-99) mg/dL Phosphorus (2.5-4.5) mg/dL AST (14-36) U/L ALT (4-34) U/L Creatine Kinase (30-135) U/L C-Reactive Protein (<1.0) mg/dL Albumin (3.5-5.0) g/dL HDL Cholesterol (40.00-60.00) mg/dL Urine Appearance Cloudy H (Clear) Urine Protein 1+ H (Negative) Urine Blood Large H (Negative) Ur Leukocyte Esterase Large H (Negative) Urine RBC 6 H (0-5) /hpf Urine WBC 34 H (0-5) /hpf Ur Squamous Epith Cells 5 H (0-4) /hpf Urine Bacteria Rare H (None) /hpf Urine Mucus Rare H (None) /hpf 09/03/22 09/03/22 09/04/22 Range/Units 18:29 18:29 08:36 WBC (3.8-10.6) k/uL Neutrophils # (1.3-7.7) k/uL ESR 69 H (0-20) mm/hr APTT (22.0-30.0) sec Sodium 131 L (137-145) mmol/L Chloride 96 L (98-107) mmol/L BUN 58 H (7-17) mg/dL Creatinine 1.97 H (0.52-1.04) mg/dL Glucose 122 H (74-99) mg/dL Phosphorus 4.8 H (2.5-4.5) mg/dL AST 58 H (14-36) U/L ALT 85 H (4-34) U/L Creatine Kinase (30-135) U/L C-Reactive Protein (<1.0) mg/dL Albumin 3.2 L (3.5-5.0) g/dL HDL Cholesterol 62.10 H (40.00-60.00) mg/dL Urine Appearance (Clear) Urine Protein (Negative) Urine Blood (Negative) Ur Leukocyte Esterase (Negative) Urine RBC (0-5) /hpf Urine WBC (0-5) /hpf Ur Squamous Epith Cells (0-4) /hpf Urine Bacteria (None) /hpf Urine Mucus (None) /hpf 09/04/22 Range/Units 08:36 WBC (3.8-10.6) k/uL Neutrophils # (1.3-7.7) k/uL ESR (0-20) mm/hr APTT (22.0-30.0) sec Sodium (137-145) mmol/L Chloride (98-107) mmol/L BUN (7-17) mg/dL Creatinine (0.52-1.04) mg/dL Glucose (74-99) mg/dL Phosphorus (2.5-4.5) mg/dL AST (14-36) U/L ALT (4-34) U/L Creatine Kinase <20 L (30-135) U/L C-Reactive Protein 4.0 H (<1.0) mg/dL Albumin (3.5-5.0) g/dL HDL Cholesterol (40.00-60.00) mg/dL Urine Appearance (Clear) Urine Protein (Negative) Urine Blood (Negative) Ur Leukocyte Esterase (Negative) Urine RBC (0-5) /hpf Urine WBC (0-5) /hpf Ur Squamous Epith Cells (0-4) /hpf Urine Bacteria (None) /hpf Urine Mucus (None) /hpf Thrombosis Risk Factor Assmnt - Choose All That Apply Each Risk Factor Represents 3 Points: Age 75 years or older Thrombosis Risk Factor Assessment Total Risk Factor Score: 3 Thrombosis Risk Factor Assessment Level: Moderate Risk Assessment and Plan Assessment: 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 Subacute Left occipital stroke reported per brain CT. Acute renal failure, ATN Possible acute UTI, cx pending CAD, history of CABG Hypertension Hyperlipidemia History of rhabdomyolysis related to statin History of A. fib, postoperative only, as per chart, not on anticoagulation, ca rdiology consulted. Plan: Continue on current medication regime ,monitoring and symptomatic herb atment.Neuro. workup in progress including MRI of the brain. Cardiology consult in place regarding questionable history of A. fib. Continues on steroids with close monitoring of Accu-Cheks. The impression and plan of care has been dictated as directed. : I performed a history and examination of this patient, discussed the same with the dictator. I agree with the dictator's note ,documented as a scribe. Any additional findings or plans will be noted.
[2022-09-04] MEDS: INSULIN ASPART (NovoLOG) 100 UNIT/ML VIAL SQ SCH ×2 (17:31→20:40)
[2022-09-04] MEDS: PANTOPRAZOLE 40 MG TABLET PO SCH (17:54)
[2022-09-04] MEDS: predniSONE 20 MG TAB PO SCH (17:54)
[2022-09-04] MEDS: carvediloL 6.25 MG TAB PO SCH (17:55)
[2022-09-04] MEDS: SODIUM CHLORIDE 0.9% 1,000 ML IV SCH ×2 (20:09→20:40)
[2022-09-04 20:32] LABS: Glucose,Whole Blood 142 mg/dL (70-110)
[2022-09-05 06:05] LABS: Glucose,Whole Blood 118 mg/dL (70-110)
[2022-09-05] MEDS: PANTOPRAZOLE 40 MG TABLET PO SCH ×2 (06:28→17:32)
[2022-09-05] MEDS: carvediloL 6.25 MG TAB PO SCH ×2 (06:29→17:31)
[2022-09-05] MEDS: SODIUM CHLORIDE 0.9% 1,000 ML IV SCH ×3 (06:29→17:32)
[2022-09-05] MEDS: INSULIN ASPART (NovoLOG) 100 UNIT/ML VIAL SQ SCH ×4 (06:33→20:11)
[2022-09-05 07:18] LABS: Basophils % (A) 0 %; Eosinophils # (A) 0.1 k/uL (0-0.7); Eosinophils % (A) 1 %; HCT 31.9 % (34.0-46.0); HGB 10.7 gm/dL (11.4-16.0); Lymphocytes # (A) 1.1 k/uL (1.0-4.8); Lymphocytes % (A) 13 %; MCH 32.8 pg (25.0-35.0); MCHC 33.5 g/dL (31.0-37.0); MCV 97.8 fL (80.0-100.0); Mean Platelet Volume 7.6; Monocytes # (A) 0.4 k/uL (0-1.0); Monocytes % (A) 4 %; Neutrophils # (A) 7.2 k/uL (1.3-7.7); Neutrophils % (A) 82 %; Platelet Count 269 k/uL (150-450); RBC 3.26 m/uL (3.80-5.40); RDW 14.4 % (11.5-15.5); WBC 8.9 k/uL (3.8-10.6)
[2022-09-05 07:29] LABS: African American GFR (CKD) 28 (>60 ml/min/1.73 sqM); Anion Gap 8 mmol/L; Blood Urea Nitrogen 51 mg/dL (7-17); Calcium 7.6 mg/dL (8.4-10.2); Carbon Dioxide 21 mmol/L (22-30); Chloride 103 mmol/L (98-107); Glucose 121 mg/dL (74-99); Non-African American GFR(CKD) 24 (>60 ml/min/1.73 sqM); Potassium 4.1 mmol/L (3.5-5.1); Sodium 132 mmol/L (137-145)
[2022-09-05] MEDS: FAMOTIDINE 20 MG TAB PO SCH (08:25)
[2022-09-05] MEDS: predniSONE 20 MG TAB PO SCH (08:25)
[2022-09-05] MEDS: ASPIRIN 325 MG TAB PO SCH (08:25)
[2022-09-05] MEDS: HEPARIN SODIUM,PORCINE/PF 5,000 UNIT/0.5 ML SYRINGE SQ SCH ×2 (08:25→19:51)
--- NOTE | 2022-09-05 10:36 | P.PN ---
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 [facility] with tapering dependant on biopsy results, recommending not to take statins in the future and to follow-up with a environmental compliance technician. Patient reports she felt tired from the physical therapy,developed "fuzzy " vision over the last couple of days. Denies any other neuro deficits. CK level less than 20. CRP 4, ESR 69. Sodium 131, bicarb 26, BUN 58, creatinine 1.97. New AV. Large leukocytes, negative nitrates. Afebrile, WBC 13. Brain CT reported left occipital lobe infarct. Carotid Doppler reported no hemodynamic stenosis. Echo reported normal LV function, EF 55%. 09/05/2022 neurology workup in progress. MRI pending. Reports vision improving; TV more clear, phone is still challenging. Regarding her history of A. fib, patient states it was immediately post CABG, a one-time event in 2013, with only aspirin recommended for anticoagulation. Does not recall any further events of A. fib. Cardiology consult in place. Telemetry sinus rhythm. Denies any lightheadedness dizziness. Denies headache. Continues on steroids,blood sugars controlled. Strength improving. Afebrile, normal WBC, urine culture pending. Sodium 132, potassium 4.1, bicarb 21, BUN 51, creatinine 1.99. Objective - Vital Signs Vital signs: Vital Signs Temp 97.5 F L 09/05/22 08:22 Pulse 71 09/05/22 08:22 Resp 16 09/05/22 08:22 BP 128/74 09/05/22 08:22 Pulse Ox 97 09/05/22 08:22 FiO2 Intake & Output 09/04/22 09/05/22 09/05/22 18:59 06:59 18:59 Intake Total 180 Output Total 400 Balance 180 -400 Intake: Oral 180 Output: Urine 400 Other: # Voids 1 # Bowel Movements 1 - Exam GENERAL: Sitting up in bed, watching TV ,no acute distress. NECK: Supple without JVD LUNGS: Unlabored, Equal air entry ,CTA. HEART: Regular rate and rhythm without murmurs, rubs or gallops.S1S2 Normal ABDOMEN: Soft, nontender, normoactive bowel sounds. No guarding. No masses appreciated. EXTREMITIES: no pitting or edema. No clubbing or cyanosis. NEUROLOGICAL: Cranial nerves II through XII grossly intact. PSYCH: Normal mood, normal affect. SKIN: Warm, Dry. - Labs CBC & Chem 7: 09/05/22 06:46 09/05/22 06:46 Labs: Abnormal Lab Results - Last 24 Hours (Table) 09/03/22 09/04/22 09/04/22 Range/Units 18:29 08:36 08:36 RBC (3.80-5.40) m/uL Hgb (11.4-16.0) gm/dL Hct (34.0-46.0) % ESR 69 H (0-20) mm/hr Sodium (137-145) mmol/L Carbon Dioxide (22-30) mmol/L BUN (7-17) mg/dL Creatinine (0.52-1.04) mg/dL Glucose (74-99) mg/dL POC Glucose (mg/dL) (70-110) mg/dL Calcium (8.4-10.2) mg/dL Creatine Kinase <20 L (30-135) U/L C-Reactive Protein 4.0 H (<1.0) mg/dL HDL Cholesterol 62.10 H (40.00-60.00) mg/dL 09/04/22 09/05/22 09/05/22 Range/Units 20:30 06:03 06:46 RBC 3.26 L (3.80-5.40) m/uL Hgb 10.7 L (11.4-16.0) gm/dL Hct 31.9 L (34.0-46.0) % ESR (0-20) mm/hr Sodium (137-145) mmol/L Carbon Dioxide (22-30) mmol/L BUN (7-17) mg/dL Creatinine (0.52-1.04) mg/dL Glucose (74-99) mg/dL POC Glucose (mg/dL) 142 H 118 H (70-110) mg/dL Calcium (8.4-10.2) mg/dL Creatine Kinase (30-135) U/L C-Reactive Protein (<1.0) mg/dL HDL Cholesterol (40.00-60.00) mg/dL 09/05/22 Range/Units 06:46 RBC (3.80-5.40) m/uL Hgb (11.4-16.0) gm/dL Hct (34.0-46.0) % ESR (0-20) mm/hr Sodium 132 L (137-145) mmol/L Carbon Dioxide 21 L (22-30) mmol/L BUN 51 H (7-17) mg/dL Creatinine 1.99 H (0.52-1.04) mg/dL Glucose 121 H (74-99) mg/dL POC Glucose (mg/dL) (70-110) mg/dL Calcium 7.6 L (8.4-10.2) mg/dL Creatine Kinase (30-135) U/L C-Reactive Protein (<1.0) mg/dL HDL Cholesterol (40.00-60.00) mg/dL Assessment and Plan Assessment: 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 Subacute Left occipital stroke reported per brain CT. Acute renal failure, ATN Possible acute UTI, cx pending CAD, history of CABG Hypertension Hyperlipidemia History of rhabdomyolysis related to statin History of A. fib, patient reports post CABG,on Aspirin. Plan: Continue on current medication regime ,monitoring and symptomatic treatment.Neuro. workup in progress,Brain MRI pending. Continues on steroids with close monitoring of Accu-Cheks.Evaluated by PT, strength improving, at this time recommending subacute rehab to increase strength and functional mobility- possibility of discharge home depending on daily progress. The impression and plan of care has been dictated as directed. : I performed a history and examination of this patient, discussed the same with the dictator. I agree with the dictator's note ,documented as a scribe. Any additional findings or plans will be noted.
--- NOTE | 2022-09-05 11:28 | US ---
EXAMINATION TYPE: US kidneys/renal and bladder DATE OF EXAM: 09/05/2022 COMPARISON: NONE CLINICAL INDICATION: Female, 77 years old with history of patricia; PATRICIA EXAM MEASUREMENTS: Right Kidney: 10.1 x 4.2 x 4.4 cm Left Kidney: 11.0 x 4.6 x 5.2 cm bowel gas did limit view Right Kidney: No hydronephrosis or masses seen Left Kidney: No hydronephrosis or masses seen Bladder: not distended There is no evidence for hydronephrosis at this point in time. No nephrolithiasis is seen. No everett s are identified. The urinary bladder is anechoic. Bilateral ureteral jets are seen. IMPRESSION: No hydronephrosis or nephrolithiasis
[2022-09-05 11:52] LABS: Glucose,Whole Blood 115 mg/dL (70-110)
--- NOTE | 2022-09-05 12:05 | P.CRDCN ---
History of Present Illness Consult date: 09/05/22 Consult reason: atrial fibrillation (? hx, CVA) History of present illness: History of present illness: This is a 77 year old female with a past medical history hypertension, hyperlipidemia, coronary artery disease status post CABG in 2012 with additional balloon angioplasty and stenting, carotid bruit, family history of coronary artery disease. We have been asked to evaluate the patient for possible atrial fibrillation. Patient was recently hospitalized for rhabdomyolysis and myopathy of the lower extremities. At that time she was taken off statin. There was discussion at that time of trying a different lipid-lowering agent but this has not been started. Patient has not followed up in the office. She went to group home for subacute rehab and now presents because she is very weak but feels she is gradually getting better. She denies having any chest pain or pressure. She does have history of one episode of atrial fibrillation following CABG in 2012. No other documented episodes of atrial fibrillation found. Patient is under the care of neurology being worked up for stroke. CAT scan of the brain did reveal a left occipital stroke. EKG sinus rhythm Carotid ultrasound revealed plaquing but no flow limiting stenosis. CAT scan of the brain revealed left occipital lobe infarct. Ultrasound of the kidneys revealed no hydronephrosis or nephrolithiasis. WBC 8.9, hemoglobin 10.7, platelet count 269. Sodium 132, potassium 4.1, BUN 51 creatinine 1.99. Magnesium 2.1. Phosphorus 4.8. AST 58, ALT 85, alkaline phosphatase 102. C-reactive protein 4 with CK less than 20. Triglycerides 104, cholesterol 186, LDL 103, HDL 62. Urinalysis appears positive for infection. Echocardiogram 08/20/2022 revealed normal LV size and systolic function Repeated echocardiogram 09/03/2022 revealed normal LV size with EF 55%. Home cardiac medications: Aspirin 81 mg daily, Coreg 6.25 mg twice daily, Zetia 10 mg daily Cardiac catheterization and angioplasty of the circumflex in 2019 and transferred to [facility] due to rupture Stress testing June 2020 revealed inducible inch area of lateral ischemia treating medically. Review Of Systems: At the time of my evaluation: Constitutional: No fever, no chills. Reports generalized weakness, fatigue. EENT: No headache. No dizziness. Lungs: No shortness of breath, cough, no sputum production. No wheezing. Cardiovascular: No chest pain, no lower extremity edema. No palpitations. No paroxysmal nocturnal dyspnea. No orthopnea. No lightheadedness or dizziness. No syncopal episodes. Abdominal: No abdominal pain. No nausea, vomiting. No diarrhea. No constipation. No bloody or tarry stools. Genitourinary: No dysuria.. No urinary retention. Musculoskeletal: No myalgias. No muscle weakness, no frequent falls. No back pain. No neck pain. Integumentary: No wounds. No rash. No unusual bruising. Neurologic: No aphasia. No facial droop. No change in mentation. No head injury. No headache. Physical examination: Gen: This is a 77-year-old female. She appears to be resting comfortably in bed. VS: reviewed HEENT: Head is atraumatic, normocephalic. Pupils equal, round. Sclerae is anicteric. NECK: Supple. No JVD. . LUNGS: Clear to auscultation. No wheezes or rhonchi. No intercostal retractions. HEART: Regular rate and rhythm. No murmur. ABDOMEN: Soft No tenderness. EXTREMITIES: No pedal edema. No calf tenderness. NEUROLOGICAL: Patient is awake, alert and oriented x3. Assessment: Left occipital lobe infarct on CAT scan Brief episode of atrial fibrillation following CABG. No evidence of atrial fibrillation History of coronary artery disease status post CABG with additional balloon angioplasty and stenting Hypertension Hyperlipidemia Urinary tract infection Myopathy of the lower extremities, off statin Plan: Continue patient's home cardiac medications No further cardiac workup at this time. Patient may follow up with Dr. Hussein in 1-2 weeks. Thank you kindly for this consultation. Nurse practitioner note has been reviewed, I agree with documented findings and plan of care. Patient was seen and examined. Past Medical History Past Medical History: Atrial Fibrillation, Coronary Artery Disease (CAD), Cancer, Eye Disorder, Hyperlipidemia Additional Past Medical History / Comment(s): Beginnings of cataracts. Hx skin cancer left thigh 2 yrs ago. Hx heart blockages. History of Any Multi-Drug Resistant Organisms: MRSA Date of last positivie culture/infection: infected drain 20+ years prior MDRO Source:: drain Past Surgical History: Appendectomy, Cholecystectomy, Tubal Ligation Additional Past Surgical History / Comment(s): Right wrist fracture as a child. Right foot fracture. Fatty cyst removed from under right arm. Quadruple bypass 5 yrs ago. Past Anesthesia/Blood Transfusion Reactions: No Reported Reaction Past Psychological History: No Psychological Hx Reported Smoking Status: Former smoker Past Alcohol Use History: None Reported Additional Past Alcohol Use History / Comment(s): Quit smoking 20 yrs ago. Past Drug Use History: None Reported - Past Family History Mother Family Medical History: No Reported History Brother(s) Family Medical History: Cancer Additional Family Medical History / Comment(s): Skin cancer Medications and Allergies Home Medications Medication Instructions Recorded Confirmed Type Acetaminophen Tab [Tylenol] 650 mg PO Q6HR PRN tab 08/26/22 09/03/22 Rx Aspirin 81 mg PO DAILY@0800 09/03/22 09/03/22 History Ezetimibe [Zetia] 10 mg PO DAILY@0800 09/03/22 09/03/22 History Famotidine [Pepcid] 20 mg PO DAILY@0800 09/03/22 09/03/22 History INSULIN LISPRO (HumaLOG) [humaLOG] See Protocol SQ ACHS 09/03/22 09/03/22 History carvediloL [Coreg] 6.25 mg PO BID@0800,1600 09/03/22 09/03/22 History predniSONE 10 mg PO DIRECTED #30 tab 09/05/22 Rx Allergies Allergy/AdvReac Type Severity Reaction Status Date / Time clindamycin AdvReac Nausea & Verified 09/03/22 20:50 Vomiting & Diarrhea codeine AdvReac Unknown- Verified 09/03/22 20:50 not sure if allergic still latex AdvReac red, Verified 09/03/22 20:50 cracked skin, itching streptomycin AdvReac Nausea & Verified 09/03/22 20:50 Vomiting & Diarrhea Physical Exam Vitals: Vital Signs Temp Pulse Resp BP Pulse Ox 09/05/22 08:22 97.5 F L 71 16 128/74 97 09/05/22 07:57 95 09/05/22 03:10 98.2 F 64 16 127/62 97 09/04/22 23:05 98.3 F 71 18 124/67 93 L 09/04/22 19:49 98.5 F 88 18 140/69 96 09/04/22 16:00 73 18 124/80 95 09/04/22 12:00 85 18 139/68 95 Intake and Output 09/04/22 09/05/22 09/05/22 22:59 06:59 14:59 Intake Total 480 Output Total 400 Balance -400 480 Intake: Oral 480 Output: Urine 400 Other: Voiding Method Toilet # Bowel Movements 1 Results 09/05/22 06:46 09/05/22 06:46 CBC 09/05/22 Range/Units 06:46 WBC 8.9 (3.8-10.6) k/uL RBC 3.26 L (3.80-5.40) m/uL Hgb 10.7 L (11.4-16.0) gm/dL Hct 31.9 L (34.0-46.0) % Plt Count 269 (150-450) k/uL Comprehensive Metabolic Panel 09/05/22 Range/Units 06:46 Sodium 132 L (137-145) mmol/L Potassium 4.1 (3.5-5.1) mmol/L Chloride 103 (98-107) mmol/L Carbon Dioxide 21 L (22-30) mmol/L BUN 51 H (7-17) mg/dL Creatinine 1.99 H (0.52-1.04) mg/dL Glucose 121 H (74-99) mg/dL Calcium 7.6 L (8.4-10.2) mg/dL Current Medications Generic Name Dose Route Start Last Admin Trade Name Freq PRN Reason Stop Dose Admin Aspirin 325 mg 09/04/22 09:00 09/05/22 08:25 Aspirin 325 Mg Tab PO 325 mg DAILY KRISTINE Administration Carvedilol 6.25 mg 09/04/22 17:30 09/05/22 06:29 Carvedilol 6.25 Mg Tab PO 6.25 mg BID-W/MEALS KRISTINE Administration Dextrose/Water 25 ml 09/04/22 15:47 Dextrose 50% Syringe 50 Ml IVP PER PROTOCOL PRN Hypoglycemia Protocol Dextrose/Water 50 ml 09/04/22 15:47 Dextrose 50% Syringe 50 Ml IVP PER PROTOCOL PRN Hypoglycemia Protocol Famotidine 20 mg 09/05/22 08:00 09/05/22 08:25 Famotidine 20 Mg Tab PO 20 mg DAILY@0800 KRISTINE Administration Heparin Sodium (Porcine) 5,000 unit 09/04/22 09:00 09/05/22 08:25 Heparin Sodium,Porcine/Pf 5,000 Unit/0.5 Ml Syringe SQ 5,000 unit Q12HR KRISTINE Administration Sodium Chloride 1,000 mls @ 100 mls/hr 09/03/22 22:45 09/05/22 06:29 Saline 0.9% IV 100 mls/hr .Q10H KRISTINE Administration Ceftriaxone Sodium 2 gm/ 50 mls @ 100 mls/hr 09/04/22 21:00 09/04/22 20:09 Sodium Chloride IVPB 100 mls/hr Q24H KRISTINE Administration Protocol Insulin Aspart 0 unit 09/04/22 17:30 09/05/22 06:33 Insulin Aspart (Novolog) 100 Unit/Ml Vial SQ Not Given ACHS KRISTINE Protocol Pantoprazole Sodium 40 mg 09/04/22 17:30 09/05/22 06:28 Pantoprazole 40 Mg Tablet PO 40 mg AC-BID KRISTINE Administration Prednisone 40 mg 09/04/22 14:45 09/05/22 08:25 Prednisone 20 Mg Tab PO 40 mg DAILY KRISTINE Administration Intake and Output 09/04/22 09/05/22 09/05/22 22:59 06:59 14:59 Intake Total 480 Output Total 400 Balance -400 480 Intake: Oral 480 Output: Urine 400 Other: Voiding Method Toilet # Bowel Movements 1 09/05/22 06:46 09/05/22 06:46
--- NOTE | 2022-09-05 12:52 | MR ---
EXAMINATION TYPE: MR brain wo con DATE OF EXAM: 09/05/2022 12:32 PM COMPARISON: NONE HISTORY: Stroke vision. FINDINGS: The ventricles, basal cisterns and sulci overlying the cerebral convexities are mildly enlarged. There is evidence of moderate periventricular white matter ischemic demyelination. Remote deep white matter insults are also noted. Diffusion-weighted imaging demonstrates multifocal areas of abnormal increased signal including the l eft parietal-occipital region, the right watershed, the head of the left caudate nucleus, the left ex ternal capsule, the right putamen, small focal area right posterior parietal lobe. Additional tiny fo cus right frontal centrum semioval bilaterally and medial right occipital lobe. There is no evidence for midline shift or mass effect. Acute intracranial hemorrhage or extra-axial collection is not evident. The paranasal sinuses and mastoid air cells are well-aerated. IMPRESSION: Multifocal areas of abnormal signal on diffusion weighted imaging compatible with multifo sommer ischemic insults likely related to embolic process. Correlate clinically. No intracranial hemorrh age appreciated. A Red level critical message alert has been initiated for Olman Sommers MD via the [employer] Critical Results System on 09/05/2022 12:50 PM. This message alert has been sent to Olman Sommers MD via the preferences provided by the clinician for the receipt of Radiology Critical Findings. [facility] ID [id number].
--- NOTE | 2022-09-05 12:59 | P.DS ---
Providers Date of admission: 09/03/22 22:34 Expected date of discharge: 09/05/22 Attending physician: Olman Sommers Consults: 09/03/22 22:37 Consult Physician Routine Consulting Provider: Magno Dorsey Consult Reason/Comments: cva Do you want consulting provider notified?: Yes 09/04/22 08:26 Consult Physician Routine Consulting Provider: Rabia Mohr Consult Reason/Comments: renal failure Do you want consulting provider notified?: Yes 09/04/22 09:26 Consult Physician Routine Consulting Provider: Audra Odom Consult Reason/Comments: necrotizing vasculitis Do you want consulting provider notified?: Yes 09/04/22 16:01 Consult Physician Routine Consulting Provider: Michael Hussein Consult Reason/Comments: CVA,?hx of afib. Do you want consulting provider notified?: Yes Primary care physician: Olman Sommers Patient Condition at Discharge: Stable Plan - Discharge Summary New Discharge Prescriptions: New predniSONE [Deltasone] 40 mg PO DAILY #60 tab Continue Famotidine [Pepcid] 20 mg PO DAILY@0800 Ezetimibe [Zetia] 10 mg PO DAILY@0800 Aspirin 81 mg PO DAILY@0800 Acetaminophen Tab [Tylenol] 650 mg PO Q6HR PRN tab PRN Reason: Mild Pain Or Fever > 100.5 carvediloL [Coreg] 6.25 mg PO BID@0800,1600 INSULIN LISPRO (HumaLOG) [humaLOG] See Protocol SQ ACHS Discontinued predniSONE See Taper PO DIRECTED Enoxaparin [Lovenox] 40 mg SQ DAILY@0800 Losartan Potassium [Cozaar] 100 mg PO DAILY@0800 hydroCHLOROthiazide [Hydrodiuril] 25 mg PO DAILY@0800 Discharge Medication List Acetaminophen Tab [Tylenol] 650 mg PO Q6HR PRN tab 08/26/22 [Rx] Aspirin 81 mg PO DAILY@0800 09/03/22 [History] Ezetimibe [Zetia] 10 mg PO DAILY@0800 09/03/22 [History] Famotidine [Pepcid] 20 mg PO DAILY@0800 09/03/22 [History] INSULIN LISPRO (HumaLOG) [humaLOG] See Protocol SQ ACHS 09/03/22 [History] carvediloL [Coreg] 6.25 mg PO BID@0800,1600 09/03/22 [History] predniSONE [Deltasone] 40 mg PO DAILY #60 tab 09/05/22 [Rx] Follow up Appointment(s)/Referral(s): Michael Hussein DO [STAFF PHYSICIAN] - 1 Week (Holter monitor) Praful Burns DO [STAFF PHYSICIAN] - 2 Weeks Audra Odom MD [STAFF PHYSICIAN] - 1 Week Olman Sommers MD [Primary Care Provider] - 3 Days Ambulatory/Diagnostic Orders: Complete Blood Count w/diff [LAB.AMB] Time Frame: 3 Days, Location: None Selected Activity/Diet/Wound Care/Special Instructions: Holter monitor as per cardiology-to be arranged at follow-up visit. Continue holding our and diuretics, secondary to renal function, reevaluate in clinic at follow-up visit with PCP for further recommendations Fax urine culture results to PCP, Dr. Sommers Myositis Autoimmune Antibody Panel ordered as per Dr. Odom Discharge Disposition: HOME WITH HOME HEALTH SERVICES
[2022-09-05 14:19] LABS: C Reactive Protein 5.9 mg/dL (<1.0)
--- NOTE | 2022-09-05 15:17 | P.PN ---
Subjective Progress Note Date: 09/05/22 I am following seeing the patient and she feels she her vision is better today compared to yesterday. Denies of any new neurological issues. Objective - Vital Signs Vital signs: Vital Signs Temp 97.5 F L 09/05/22 08:22 Pulse 83 09/05/22 13:17 Resp 16 09/05/22 08:22 BP 146/75 09/05/22 13:17 Pulse Ox 94 L 09/05/22 13:17 FiO2 Intake & Output 09/04/22 09/05/22 09/05/22 18:59 06:59 18:59 Intake Total 180 480 Output Total 400 290 Balance 180 -400 190 Intake: Oral 180 480 Output: Urine 400 200 Post Void Residual 90 Other: Voiding Method Toilet # Voids 1 1 # Bowel Movements 1 - Exam GENERAL: The patient is lying in bed and is not in acute distress. NEUROLOGICAL: Higher mental function: The patient is awake, alert, oriented to self, place and time. Patient is following commands. No aphasia and no neglect. Cranial nerves: The pupils are round, equal and reactive to light.. Visual love is hard to assess because only able to see out of left upper quandrant bilaterally. Facial sensation is normal to touch throughout. The facial strength is normal throughout. Hearing is normal bilaterally to hand rub. Tongue is midline and moved [id number] without any difficulty. No dysarthria is noted. Shoulder shrug is normal bilaterally. Motor: The strength is limited in assessment but appears moving bilateral uppers above gravity and no focality appreaciated. Lifting the right lower above grav ity > left lower. Lowers are somewhat limited because of pain.. Cerebellum: Normal finger to nose h bilaterally. Sensation: Sensation is normal to touch throughout. Reflexes (right/left): 1+ throughout. Plantars are downgoing bilaterally. Some of the workup during his hospital visit consisted of: ESR 69-->79 White blood cell is 13.K-->8.9K Lipid panel is a triglyceride 104, cholesterol is 186, LDLs 1 and 3 and HDL 62 CRP is 4.0 AST is 58 and ALTs 85. Creatinine is 1.97. Urinalysis is suggestive of possible underlying urinary tract infection. CT of the head is reported as left occipital lobe infarct. Clinical correlation is recommended. Personally reviewed the CT head and I agree with the report I feel that changes or subacute. I also feel the patient has a subacute changes over basal ganglia left temporal region. Carotid duplex is reported as atheromatous plaquing without significant flow limiting stenosis based on velocity. 2-D echo was reported as normal left ventricular size and wall thickness. Ejection fraction 55%. MRI Brain is reported as multifocal area of abnormal signal diffusion weighted imaging compatible with multifocal ischemic insult likely related to embolic process. Correlate clinically. No intracranial hemorrhage appreciated. I personally reviewed the MRI and agree with report. left occipital > right, left caudate nucleus left external capsule) cane small right posteroparietal frontal region. - Labs CBC & Chem 7: 09/05/22 06:46 09/05/22 06:46 Labs: Abnormal Lab Results - Last 24 Hours (Table) 09/04/22 09/05/22 09/05/22 Range/Units 20:30 06:03 06:46 RBC (3.80-5.40) m/uL Hgb (11.4-16.0) gm/dL Hct (34.0-46.0) % ESR (0-20) mm/hr Sodium (137-145) mmol/L Carbon Dioxide (22-30) mmol/L BUN (7-17) mg/dL Creatinine (0.52-1.04) mg/dL Glucose (74-99) mg/dL POC Glucose (mg/dL) 142 H 118 H (70-110) mg/dL Hemoglobin A1c 6.4 H (<=6.0) % Calcium (8.4-10.2) mg/dL C-Reactive Protein (<1.0) mg/dL 09/05/22 09/05/22 09/05/22 Range/Units 06:46 06:46 11:51 RBC 3.26 L (3.80-5.40) m/uL Hgb 10.7 L (11.4-16.0) gm/dL Hct 31.9 L (34.0-46.0) % ESR (0-20) mm/hr Sodium 132 L (137-145) mmol/L Carbon Dioxide 21 L (22-30) mmol/L BUN 51 H (7-17) mg/dL Creatinine 1.99 H (0.52-1.04) mg/dL Glucose 121 H (74-99) mg/dL POC Glucose (mg/dL) 115 H (70-110) mg/dL Hemoglobin A1c (<=6.0) % Calcium 7.6 L (8.4-10.2) mg/dL C-Reactive Protein (<1.0) mg/dL 09/05/22 09/05/22 Range/Units 13:23 13:23 RBC (3.80-5.40) m/uL Hgb (11.4-16.0) gm/dL Hct (34.0-46.0) % ESR 79 H (0-20) mm/hr Sodium (137-145) mmol/L Carbon Dioxide (22-30) mmol/L BUN (7-17) mg/dL Creatinine (0.52-1.04) mg/dL Glucose (74-99) mg/dL POC Glucose (mg/dL) (70-110) mg/dL Hemoglobin A1c (<=6.0) % Calcium (8.4-10.2) mg/dL C-Reactive Protein 5.9 H (<1.0) mg/dL Assessment and Plan Assessment: This is a 77-year-old woman who is known to neurology team and had extensive of workup in the beginning of August 2022 for myopathy 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 There is also consider possible to matter sinus but the towards the end of the workup was felt more due to statin use. She presented to our facility because of visual disturbance. CT of the head that reveals left occipital stroke. No IV TPA since she is outside the window. Acute to subacute ischemic stroke over bilateral hemisphere (left occipital > right, left caudate nucleus left external capsule) cane small right posteroparietal frontal region). On examination patient has visual field defect and is only able to see out of the left upper quadrant bilaterally as well as has left lower leg weakness more than the right. Etiology of stroke seems embolic in nature. 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 Had muscle biopsy of the left thigh which shows necrotizing fasciitis History of atrial fibrillation and does not appear she is on anticoagulation Hyperlipidemia History of coronary artery disease status post CABG Plan: She was started on ASA 325mg daily and I will start Plavix 75mg daily because of recent stroke. Because of the history of A. fib in the past recommend anticoagulation. AVOID STATIN becuse of myopathy. Cardiology is consulted for A. fib and the they signed off. I spoke with Dr. Hussein and we'll pursue with the CANELO as well as loop recorder. We'll defer the use of anticoagulation to the cardiology team. If anticoagulation is started then no need for dual antiplatelet from a neurologic perspective. If anticoagulation is to be started recommended to hold off for 4 days to avoid hemorrhagic conversion. But if the benefits outweigh the risk recommend heparin drip and avoid boluses and keep the PTT between 45 and 60. Neurochecks Cardiac monitoring PT OT and APPLIER are consulted I consulted from rheumatology team for her necrotizing fasciitis. I decreased the prednisone to 30 mg from 40 mg daily since clinically doing better and CK has improved. Recommend the glucose monitoring and control to primary team. For GI prophylaxis The patient on Protonix We'll defer the rest of the medical management to primary team For DVT prophylaxis patient is on subcu heparin 5000 units every 12 hours Plan discussed with the patient, her nurse and Cardiology team. Time with Patient: Less than 30
[2022-09-05 16:24] LABS: Glucose,Whole Blood 146 mg/dL (70-110)
--- NOTE | 2022-09-05 16:53 | P.PN ---
Subjective Patient is a 77-year-old female with previous history of CVA, coronary artery disease, atrial fibrillation and hyperlipidemia. Patient is admitted to the hospital with complaints of increased weakness and the decreased vision. Patient had difficulty with balance and was not able to grasp as firmly. She complained of dizziness. CT scan showed acute left occipital infarct. Creatinine was 1.97 mg/dL on admission and is the same today. Maintained on IVF. Good UOP. No urine retention on bladder scan. 90 ml post void. previous creatinine 1.18 on 08/25/2022. Patient states her vision improves after prednisone. Objective - Vital Signs Vital signs: Vital Signs Temp 97.5 F L 09/05/22 08:22 Pulse 83 09/05/22 13:17 Resp 16 09/05/22 08:22 BP 146/75 09/05/22 13:17 Pulse Ox 94 L 09/05/22 13:17 FiO2 Intake & Output 09/04/22 09/05/22 09/05/22 18:59 06:59 18:59 Intake Total 180 480 Output Total 400 290 Balance 180 -400 190 Intake: Oral 180 480 Output: Urine 400 200 Post Void Residual 90 Other: Voiding Method Toilet # Voids 1 1 # Bowel Movements 1 - Exam Patient is awake, comfortable, no acute distress Examination of the heart S1 and S2 Examination of the lungs bilateral breath sounds are heard Abdomen is soft nontender Examination of the lower extremities shows no significant edema ARMHOLE BASTER HAND exam shows no obvious focal deficit - Labs CBC & Chem 7: 09/05/22 06:46 09/05/22 06:46 Labs: Abnormal Lab Results - Last 24 Hours (Table) 09/04/22 09/05/22 09/05/22 Range/Units 20:30 06:03 06:46 RBC (3.80-5.40) m/uL Hgb (11.4-16.0) gm/dL Hct (34.0-46.0) % ESR (0-20) mm/hr Sodium (137-145) mmol/L Carbon Dioxide (22-30) mmol/L BUN (7-17) mg/dL Creatinine (0.52-1.04) mg/dL Glucose (74-99) mg/dL POC Glucose (mg/dL) 142 H 118 H (70-110) mg/dL Hemoglobin A1c 6.4 H (<=6.0) % Calcium (8.4-10.2) mg/dL C-Reactive Protein (<1.0) mg/dL 09/05/22 09/05/22 09/05/22 Range/Units 06:46 06:46 11:51 RBC 3.26 L (3.80-5.40) m/uL Hgb 10.7 L (11.4-16.0) gm/dL Hct 31.9 L (34.0-46.0) % ESR (0-20) mm/hr Sodium 132 L (137-145) mmol/L Carbon Dioxide 21 L (22-30) mmol/L BUN 51 H (7-17) mg/dL Creatinine 1.99 H (0.52-1.04) mg/dL Glucose 121 H (74-99) mg/dL POC Glucose (mg/dL) 115 H (70-110) mg/dL Hemoglobin A1c (<=6.0) % Calcium 7.6 L (8.4-10.2) mg/dL C-Reactive Protein (<1.0) mg/dL 09/05/22 09/05/22 09/05/22 Range/Units 13:23 13:23 16:23 RBC (3.80-5.40) m/uL Hgb (11.4-16.0) gm/dL Hct (34.0-46.0) % ESR 79 H (0-20) mm/hr Sodium (137-145) mmol/L Carbon Dioxide (22-30) mmol/L BUN (7-17) mg/dL Creatinine (0.52-1.04) mg/dL Glucose (74-99) mg/dL POC Glucose (mg/dL) 146 H (70-110) mg/dL Hemoglobin A1c (<=6.0) % Calcium (8.4-10.2) mg/dL C-Reactive Protein 5.9 H (<1.0) mg/dL Assessment and Plan Assessment: 1. Acute kidney injury, ATN, nonoliguric. UA shows 1+ protein and WBCs 34 with large blood. Christopher inhibitors on hold. No evidence of obstructive uropathy. 2. Acute left occipital lobe CVA 3. Hypertension currently controlled 4. Pyuria rule out UTI 5. Mild hyponatremia most likely hypovolemic. Currently maintained on normal saline. Plan: Continue with normal saline Continue to hold off on ARBs and diuretics. Resume Coreg Repeat labs in a.m.
[2022-09-05] MEDS: CLOPIDOGREL 75 MG TAB PO SCH (17:32)
[2022-09-05 20:07] LABS: Glucose,Whole Blood 161 mg/dL (70-110)
[2022-09-05 20:20] LABS: Rheumatoid Factor, Qnt <15 IU/mL (0-15)
[2022-09-05 22:08] LABS: Cardiolipin Ab IgG Interp Negative (Negative); Cardiolipin Ab IgM Interp Negative (Negative); Cardiolipin IgA Antibody 2.3 U/mL; Cardiolipin IgM Antibody 2.2 U/mL
[2022-09-06 06:05] LABS: Glucose,Whole Blood 90 mg/dL (70-110)
[2022-09-06] MEDS: carvediloL 6.25 MG TAB PO SCH ×2 (06:15→17:12)
[2022-09-06] MEDS: INSULIN ASPART (NovoLOG) 100 UNIT/ML VIAL SQ SCH ×4 (06:15→20:12)
[2022-09-06] MEDS: PANTOPRAZOLE 40 MG TABLET PO SCH ×2 (06:16→17:12)
[2022-09-06] MEDS: HEPARIN SODIUM,PORCINE/PF 5,000 UNIT/0.5 ML SYRINGE SQ SCH ×2 (08:36→20:13)
[2022-09-06] MEDS: SODIUM CHLORIDE 0.9% 1,000 ML IV SCH ×3 (08:36→13:26)
[2022-09-06] MEDS: FAMOTIDINE 20 MG TAB PO SCH (08:36)
[2022-09-06] MEDS: ASPIRIN 325 MG TAB PO SCH (08:36)
[2022-09-06] MEDS: CLOPIDOGREL 75 MG TAB PO SCH (08:36)
[2022-09-06] MEDS ORDERED: predniSONE 10 MG TAB PO SCH (09:00)
[2022-09-06 09:02] LABS: African American GFR (CKD) 25 (>60 ml/min/1.73 sqM); Anion Gap 7 mmol/L; Blood Urea Nitrogen 49 mg/dL (7-17); Calcium 7.8 mg/dL (8.4-10.2); Carbon Dioxide 24 mmol/L (22-30); Chloride 103 mmol/L (98-107); Glucose 83 mg/dL (74-99); Non-African American GFR(CKD) 22 (>60 ml/min/1.73 sqM); Sodium 134 mmol/L (137-145)
[2022-09-06] MEDS ORDERED: fentaNYL (PF) 50 MCG/ML 2 ML AMP ONE (11:23)
[2022-09-06] MEDS ORDERED: LIDOCAINE 1% INJ 10MG/ML (20 ML MDV) ONE (11:24)
[2022-09-06] MEDS ORDERED: BENZOCAINE SPRAY 1 CAN TOPICAL ONE ×2 (11:26)
[2022-09-06] MEDS ORDERED: SODIUM CHLORIDE 0.9% 1,000 ML IV ONE (11:28)
[2022-09-06] MEDS ORDERED: fentaNYL (PF) 50 MCG/ML 2 ML AMP IVP ONE ×2 (11:42)
[2022-09-06] MEDS ORDERED: MIDAZOLAM 2 MG/2 ML VIAL IVP ONE ×3 (11:42→11:45)
--- NOTE | 2022-09-06 11:54 | P.TEE ---
Description of Procedure(s): Procedure performed: Transesophageal Echocardiogram with color flow doppler, pulsed wave doppler and continuous wave doppler, moderate conscious sedation Moderate conscious sedation: Moderate conscious sedation was supplied with direct supervision of myself using Versed and Fentanyl. Complications: none Indications: Cryptogenic stroke PROCEDURE: After the risks, benefits and alternatives of the above mentioned procedure was explained in detail with the patient, informed consent was obtained. Patient was brought to the lab in a fasting state. Patient was given IV Versed and Fentanyl for sedation. The throat was sprayed with Hurricane to anesthetize the throat. A lubricated Omni probe was then introduced into the es ophagus and stomach and multiple views were obtained. 2D echo with color flow doppler, pulsed wave doppler and continuous wave doppler was utilized. Agitated saline bubbles were injected to assess for any intra-atrial shunt. The probe was then removed. Patient tolerated the procedure well. Patient was transferred to the post procedure area in stable and satisfactory condition. FINDINGS: 1. The aortic valve is with normal function without significant aortic stenosis or aortic regurgitation. 2. The mitral valve appears be normal with mild mitral regurgitation. 3. Tricuspid valve with mild to moderate tricuspid regurgitation. 4. The interatrial septum is intact. No evidence of PFO. 5. Left atrial appendage is free of clot. 6. Left ventricular EF is 55% 7. There is moderate to severe descending aorta atherosclerosis
[2022-09-06] MEDS ORDERED: LIDOCAINE 1% INJ 10MG/ML (20 ML MDV) SQ ONE (12:18)
[2022-09-06] MEDS ORDERED: IV FLUID CONTINUATION 900 ML IV ONE (12:18)
--- NOTE | 2022-09-06 12:29 | P.PCN ---
Description of Procedure: Procedure: Insertion of Linq loop recorder Indication: Cryptogenic stroke CONSENT:I have discussed the risks, benefits and alternative therapies for the above-mentioned procedure. The patient has indicated understanding and acceptance of the risks and procedures discussed. PROCEDURE: Patient was brought to the catheterization lab in a fasting state. Patient was prepped and draped in the usual fashion. 1% lidocaine was used to anesthetize the area of the left third intercostal space. Using the loop recorder incision device, a small 0.5 cm incision was made in the left 3rd intercostal space. Next the Linq loop recorder was deployed in the 3rd intercostal space subcutaneously using the insertion tool. Thresholds were ch ecked and were excellent at 0.7V. Next the incision was closed using Dermabond. Steristrips were placed over the incision and the procedure was completed. The patient tolerated the procedure well. The patient was transported to the post cath holding area in stable condition. Linq loop recorder serial number: [id number]
--- NOTE | 2022-09-06 13:22 | P.PN ---
Subjective Patient is a 77-year-old female with previous history of CVA, coronary artery disease, atrial fibrillation and hyperlipidemia. Patient is admitted to the hospital with complaints of increased weakness and the decreased vision. Patient had difficulty with balance and was not able to grasp as firmly. She complained of dizziness. CT scan showed acute left occipital infarct. Creatinine was 1.97 mg/dL on admission and is 2.1 today. Maintained on IVF. Good UOP. No urine retention on bladder scan. 90 ml post void. previous creatinine 1.18 on 08/25/2022. Patient states her vision improves after prednisone. Objective - Vital Signs Vital signs: Vital Signs Temp 97.8 F 09/06/22 08:00 Pulse 65 09/06/22 08:00 Resp 16 09/06/22 08:00 BP 142/74 09/06/22 08:00 Pulse Ox 98 09/06/22 08:00 FiO2 Intake & Output 09/05/22 09/06/22 09/06/22 18:59 06:59 18:59 Intake Total 480 150 Output Total 293 Balance 187 150 Weight 71.8 kg Intake: IV 150 Oral 480 Output: Urine 200 Post Void Residual 90 Stool 3 Other: Voiding Method Toilet Toilet # Voids 600 2 - Exam Patient is awake, comfortable, no acute distress Examination of the heart S1 and S2 Examination of the lungs bilateral breath sounds are heard Abdomen is soft nontender Examination of the lower extremities shows no significant edema GRINDER HAND exam shows no obvious focal deficit - Labs CBC & Chem 7: 09/05/22 06:46 09/06/22 07:37 Labs: Abnormal Lab Results - Last 24 Hours (Table) 09/05/22 09/05/22 09/05/22 Range/Units 13:23 13:23 16:23 ESR 79 H (0-20) mm/hr Sodium (137-145) mmol/L BUN (7-17) mg/dL Creatinine (0.52-1.04) mg/dL POC Glucose (mg/dL) 146 H (70-110) mg/dL Calcium (8.4-10.2) mg/dL C-Reactive Protein 5.9 H (<1.0) mg/dL 09/05/22 09/06/22 Range/Units 20:04 07:37 ESR (0-20) mm/hr Sodium 134 L (137-145) mmol/L BUN 49 H (7-17) mg/dL Creatinine 2.15 H (0.52-1.04) mg/dL POC Glucose (mg/dL) 161 H (70-110) mg/dL Calcium 7.8 L (8.4-10.2) mg/dL C-Reactive Protein (<1.0) mg/dL Microbiology - Last 24 Hours (Table) 09/04/22 23:00 Urine Culture - Final Urine,Voided Assessment and Plan Assessment: 1. Acute kidney injury, ATN, nonoliguric. UA shows 1+ protein and WBCs 34 with large blood. Christopher inhibitors on hold. No evidence of obstructive uropathy. Renal function has not improved with IV hydration. Check serologies rule out underlying GN. 2. Acute left occipital lobe CVA 3. Hypertension currently controlled 4. Pyuria rule out UTI 5. Mild hyponatremia most likely hypovolemic. Currently maintained on normal s kelle. Plan: Continue with normal saline Check serologies Continue to hold off on ARBs and diuretics. Repeat labs in a.m.
[2022-09-06 14:13] LABS: Glucose,Whole Blood 83 mg/dL (70-110)
--- NOTE | 2022-09-06 15:56 | P.PN ---
Subjective Progress Note Date: 09/06/22 The patient seen at bedside and she feels she is doing much better today compared to the initial presentation. She feels her vision is improving. Denies of any new neurological issues. Objective - Vital Signs Vital signs: Vital Signs Temp 97.9 F 09/06/22 12:00 Pulse 63 09/06/22 12:00 Resp 18 09/06/22 12:00 BP 143/72 09/06/22 12:00 Pulse Ox 98 09/06/22 12:00 FiO2 Intake & Output 09/05/22 09/06/22 09/06/22 18:59 06:59 18:59 Intake Total 480 150 Output Total 293 Balance 187 150 Weight 71.8 kg Intake: IV 150 Oral 480 Output: Urine 200 Post Void Residual 90 Stool 3 Other: Voiding Method Toilet Toilet # Voids 600 2 - Exam GENERAL: The patient is lying in bed and is not in acute distress. NEUROLOGICAL: Higher mental function: The patient is awake, alert, oriented to self, place and time. Patient is following commands. No aphasia and no neglect. Cranial nerves: The pupils are round, equal and reactive to light.. Visual fieldsf left upper quandrant bilaterally and bilateral right upper quandrant (seems sporadict)--improving. Facial sensation is normal to touch throughout. The facial strength is normal throughout. Hearing is normal bilaterally to hand rub. Tongue is midline and moved [id number] without any difficulty. No dysarthria is noted. Shoulder shrug is normal bilaterally. Motor: The strength is limited in assessment but appears moving bilateral uppers above gravity and no focality appreaciated. Lifting the right lower above gravity > left lower. Lowers are somewhat limited because of pain.. Cerebellum: Normal finger to nose h bilaterally. Sensation: Sensation is normal to touch throughout. Reflexes (right/left): 1+ throughout. Plantars are downgoing bilaterally. Some of the workup during his hospital visit consisted of: ESR 69-->79 White blood cell is 13.K-->8.9K Lipid panel is a triglyceride 104, cholesterol is 186, LDLs 1 and 3 and HDL 62 CRP is 4.0 AST is 58 and ALTs 85. Creatinine is 1.97. Urinalysis is suggestive of possible underlying urinary tract infection. CT of the head is reported as left occipital lobe infarct. Clinical correlation is recommended. Personally reviewed the CT head and I agree with the report I feel that changes or subacute. I also feel the patient has a subacute changes over basal ganglia left temporal region. Carotid duplex is reported as atheromatous plaquing without significant flow may iting stenosis based on velocity. 2-D echo was reported as normal left ventricular size and wall thickness. Ejection fraction 55%. MRI Brain is reported as multifocal area of abnormal signal diffusion weighted imaging compatible with multifocal ischemic insult likely related to embolic process. Correlate clinically. No intracranial hemorrhage appreciated. I personally reviewed the MRI and agree with report. left occipital > right, left caudate nucleus, left external capsule, right putamen, small focal right posteroparietal frontal region. CANELO: Is reported as aortic valve with normal function without significant aortic stenosis or aortic regurgitation. Mitral valve appears to be movement normal with mitral regurgitation. Tricuspid valve with mild to moderate tricuspid regurgitation. That into her atrial septum is intact. No evidence of PFO. Left atrial appendage is free of clot. Left ventricular ejection fraction 55%. There is moderate to severe descending aorta atherosclerosis. Anti-cardiolipin is negative Rheumatoid Factor is negative - Labs CBC & Chem 7: 09/05/22 06:46 09/06/22 07:37 Labs: Abnormal Lab Results - Last 24 Hours (Table) 09/05/22 09/05/22 09/06/22 Range/Units 16:23 20:04 07:37 Sodium 134 L (137-145) mmol/L BUN 49 H (7-17) mg/dL Creatinine 2.15 H (0.52-1.04) mg/dL POC Glucose (mg/dL) 146 H 161 H (70-110) mg/dL Calcium 7.8 L (8.4-10.2) mg/dL Microbiology - Last 24 Hours (Table) 09/04/22 23:00 Urine Culture - Final Urine,Voided Assessment and Plan Assessment: This is a 77-year-old woman who is known to neurology team and had extensive of workup in the beginning of August 2022 for myopathy 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 There is also consider possible to matter sinus but the towards the end of the workup was felt more due to statin use. She presented to our facility because of visual disturbance. CT of the head that reveals left occipital stroke. No IV TPA since she is outside the window. Acute to subacute ischemic stroke over bilateral hemisphere (left occipital > right, left caudate nucleus left external capsule, right putamen, small focal right posteroparietal frontal region). On examination patient has visual field defect and is only able to see out of the left upper quadrant bilaterally as well as has left lower leg weakness more than the right--improving. Etiology of stroke seems embolic in nature. She has history of atrial fibrillation one time, about 2-3 days post CABG. 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 Had muscle biopsy of the left thigh which shows necrotizing fasciitis--CK has resolved <20. History of paroxysmal atrial fibrillation one time post CABG about 8 years ago amd is not on anticoagulation Hyperlipidemia History of coronary artery disease status post CABG Plan: * She was started on ASA 325mg daily and I started her on Plavix 75mg daily on 09/05/22 because of recent stroke. Because of the history of A. fib in the past will defer use of anticoagulation use to cardiology team. I spoke with Dr. Hussein (Sheet Metal Fabricator) and he stated it only once and post surgery (CABG) and no further A-fib. He wants to hold off anticoagulation for now unless has further A-fib. He recommend to pursue with loop recorder. AVOID STATIN becuse of myopathy. * CANELO: Is reported as aortic valve with normal function without significant aortic stenosis or aortic regurgitation. Mitral valve appears to be movement normal with mitral regurgitation. Tricuspid valve with mild to moderate tricuspid regurgitation. That into her atrial septum is intact. No evidence of PFO. Left atrial appendage is free of clot. Left ventricular ejection fraction 55%. There is moderate to severe descending aorta atherosclerosis * Recommend loop recorder placement prior to discharge. * We'll defer the use of anticoagulation to the cardiology team. If anticoagulation is started then no need for dual antiplatelet from a neurologic perspective. If anticoagulation is to be started recommended to hold off for 3 days to avoid hemorrhagic conversion. But if the benefits outweigh the risk recommend heparin drip and avoid boluses and keep the PTT between 45 and 60. * Neurochecks * Cardiac monitoring * PT OT and CONTROL TOWER RADIO OPERATOR are consulted * Rheumatology team is consulted for her necrotizing fasciitis and ordered C- ANCA, complement level, lupus anticoagulant, complement level. RICARDO is ordered and pending. * I decreased the prednisone to 30 mg from 40 mg daily since clinically doing better and CK has improved. Recommend titration of her steroid slowly. Will contact Rheumatology to find out dose of steroid they want her on prior to yoni dee. * Recommend the glucose monitoring and control to primary team. I started her o n Vitamin D3 2000IU daily. * For GI prophylaxis The patient on Protonix * We'll defer the rest of the medical management to primary team * For DVT prophylaxis patient is on subcu heparin 5000 units every 12 hours Plan discussed with the patient. Time with Patient: Less than 30
[2022-09-06 16:18] LABS: Glucose,Whole Blood 159 mg/dL (70-110)
[2022-09-06] MEDS: CHOLECALCIFEROL 25 MCG (1000 IU) TABLET PO SCH (17:11)
[2022-09-06 19:34] LABS: Glucose,Whole Blood 222 mg/dL (70-110)
[2022-09-07 06:11] LABS: Glucose,Whole Blood 91 mg/dL (70-110)
[2022-09-07] MEDS: carvediloL 6.25 MG TAB PO SCH ×2 (06:13→14:45)
[2022-09-07] MEDS: PANTOPRAZOLE 40 MG TABLET PO SCH ×2 (06:13→14:45)
[2022-09-07] MEDS: SODIUM CHLORIDE 0.9% 1,000 ML IV SCH ×4 (06:14→12:10)
[2022-09-07] MEDS: INSULIN ASPART (NovoLOG) 100 UNIT/ML VIAL SQ SCH ×4 (06:16→20:03)
[2022-09-07 08:39] LABS: Hepatitis B Surface AB- Quant 3.5 mIU/mL; Hepatitis B Surface Antigen Nonreactive; Hepatitis C IgG Antibody Nonreactive
[2022-09-07] MEDS: predniSONE 10 MG TAB PO SCH (08:54)
[2022-09-07] MEDS: CHOLECALCIFEROL 25 MCG (1000 IU) TABLET PO SCH (08:54)
[2022-09-07] MEDS: CLOPIDOGREL 75 MG TAB PO SCH (08:54)
[2022-09-07] MEDS: HEPARIN SODIUM,PORCINE/PF 5,000 UNIT/0.5 ML SYRINGE SQ SCH ×2 (08:54→20:03)
[2022-09-07] MEDS: ASPIRIN 325 MG TAB PO SCH (08:54)
[2022-09-07] MEDS ORDERED: predniSONE 20 MG TAB PO SCH (09:00)
--- NOTE | 2022-09-07 10:45 | P.PN ---
Subjective Patient is a 77-year-old female with previous history of CVA, coronary artery disease, atrial fibrillation and hyperlipidemia. Patient is admitted to the hospital with complaints of increased weakness and the decreased vision. Patient had difficulty with balance and was not able to grasp as firmly. She complained of dizziness. CT scan showed acute left occipital infarct. Creatinine was 1.97 mg/dL on admission and 2.1 yesterday. Labs are pending from today. Maintained on IVF. Good UOP. No urine retention on bladder scan. 90 ml post void. previous creatinine 1.18 on 08/25/2022. Patient states her vision has improved significantly. Serologies ordered yesterday to rule out any underlying GN. Objective - Vital Signs Vital signs: Vital Signs Temp 98.3 F 09/07/22 08:00 Pulse 68 09/07/22 08:00 Resp 18 09/07/22 08:00 BP 151/60 09/07/22 08:00 Pulse Ox 98 09/07/22 08:00 FiO2 Intake & Output 09/06/22 09/07/22 09/07/22 18:59 06:59 18:59 Intake Total 330 480 Output Total 200 Balance 330 -200 480 Intake: IV 150 Oral 180 480 Output: Urine 200 Other: Voiding Method Toilet # Voids 2 - Exam Patient is awake, comfortable, no acute distress Examination of the heart S1 and S2 Examination of the lungs bilateral breath sounds are heard Abdomen is soft nontender Examination of the lower extremities shows no significant edema STONE CUTTER exam shows no obvious focal deficit - Labs CBC & Chem 7: 09/05/22 06:46 09/06/22 07:37 Labs: Abnormal Lab Results - Last 24 Hours (Table) 09/06/22 09/06/22 Range/Units 16:17 19:32 POC Glucose (mg/dL) 159 H 222 H (70-110) mg/dL Microbiology - Last 24 Hours (Table) 09/04/22 23:00 Urine Culture - Final Urine,Voided Assessment and Plan Assessment: 1. Acute kidney injury, ATN, nonoliguric. UA shows 1+ protein and WBCs 34 with large blood. Christopher inhibitors on hold. No evidence of obstructive uropathy. Renal function has not improved with IV hydration. Check serologies rule out underlying GN. 2. Acute left occipital lobe CVA 3. Hypertension currently controlled 4. Pyuria rule out UTI 5. Mild hyponatremia most likely hypovolemic. Currently maintained on normal saline. Plan: Continue with normal saline Check serologies Continue to hold off on ARBs and diuretics. Repeat labs in a.m.
[2022-09-07 11:32] LABS: Glucose,Whole Blood 134 mg/dL (70-110)
--- NOTE | 2022-09-07 11:51 | P.PN ---
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 fib following CABG isolated event, no repeat events CANELO results noted Placement of loop recorder Probable discharge within the next 24-48 hours Objective - Vital Signs Vital signs: Vital Signs Temp 98.3 F 09/07/22 08:00 Pulse 68 09/07/22 08:00 Resp 18 09/07/22 08:00 BP 151/60 09/07/22 08:00 Pulse Ox 98 09/07/22 08:00 FiO2 Intake & Output 09/06/22 09/07/22 09/07/22 18:59 06:59 18:59 Intake Total 330 480 Output Total 200 Balance 330 -200 480 Intake: IV 150 Oral 180 480 Output: Urine 200 Other: Voiding Method Toilet # Voids 2 - Exam General: [Patient awake, alert and oriented times 3. Patient in no acute distress. Observed visual field defect HEENT: [PERRL. EOMI. No pharyngeal erythema or exudate.] Neck: [No adenopathy.] Cardiac: [Heart regular in rate and rhythm. No S3. No S4. No clicks, rubs. No murmur.] Lungs: [Clear to auscultation bilaterally.] Abdomen: [No mass. No organomegaly. Bowel sounds presnt and normoactive in all 4 quadrants.] Extremes: [No edema no cyanosis no claudication normal pulses, mild left lower leg weakness : Normal female genitalia Musculoskeletal: [No joint erythema, edema or tenderness.] Skin: [No rash.] Neurologic: [No lateralizing deficits. CN II - XII grossly intact.] Lymphatic: [No adenopathy.] - Labs CBC & Chem 7: 09/05/22 06:46 09/06/22 07:37 Labs: Abnormal Lab Results - Last 24 Hours (Table) 09/06/22 09/06/22 09/07/22 Range/Units 16:17 19:32 11:30 POC Glucose (mg/dL) 159 H 222 H 134 H (70-110) mg/dL Microbiology - Last 24 Hours (Table) 09/04/22 23:00 Urine Culture - Final Urine,Voided Assessment and Plan (1) CVA (cerebral vascular accident) Current Visit: Yes Status: Acute Code(s): I63.9 - CEREBRAL INFARCTION, UNSPECIFIED SNOMED Code(s): 930704334 (2) Dehydration Current Visit: Yes Status: Acute Code(s): E86.0 - DEHYDRATION SNOMED Code(s): 28259260 (3) Dizziness Current Visit: Yes Status: Acute Code(s): R42 - DIZZINESS AND GIDDINESS SNOMED Code(s): 607270315 (4) UTI (urinary tract infection) Current Visit: Yes Status: Acute Code(s): N39.0 - URINARY TRACT INFECTION, SITE NOT SPECIFIED SNOMED Code(s): 06024967 (5) Weakness Current Visit: Yes Status: Acute Code(s): R53.1 - WEAKNESS SNOMED Code(s): 60460441 (6) Bilateral hip joint arthritis Current Visit: No Status: Acute Code(s): M16.0 - BILATERAL PRIMARY OSTEOARTHRITIS OF HIP SNOMED Code(s): 69803894 (7) CAD (coronary artery disease) Current Visit: No Status: Acute Code(s): I25.10 - ATHSCL HEART DISEASE OF [place] CORONARY ARTERY W/O ANG PCTRS SNOMED Code(s): 52803530 (8) H/O four vessel coronary artery bypass graft Current Visit: No Status: Acute Code(s): Z95.1 - PRESENCE OF AORTOCORONARY BYPASS GRAFT SNOMED Code(s): 091387732 (9) Hyperlipemia Current Visit: No Status: Acute Code(s): E78.5 - HYPERLIPIDEMIA, UNSPECIFIED SNOMED Code(s): 90616939 (10) Rhabdomyolysis Current Visit: No Status: Acute Code(s): M62.82 - RHABDOMYOLYSIS SNOMED Code(s): 554691125 Plan: As stated above
[2022-09-07 12:49] LABS: Basophils % (A) 0 %; Eosinophils # (A) 0.1 k/uL (0-0.7); Eosinophils % (A) 1 %; HCT 31.6 % (34.0-46.0); HGB 10.3 gm/dL (11.4-16.0); Lymphocytes # (A) 0.9 k/uL (1.0-4.8); Lymphocytes % (A) 7 %; MCH 31.8 pg (25.0-35.0); MCHC 32.5 g/dL (31.0-37.0); MCV 97.9 fL (80.0-100.0); Mean Platelet Volume 7.3; Monocytes # (A) 0.4 k/uL (0-1.0); Monocytes % (A) 4 %; Neutrophils # (A) 10.3 k/uL (1.3-7.7); Neutrophils % (A) 88 %; Platelet Count 272 k/uL (150-450); RBC 3.22 m/uL (3.80-5.40); RDW 14.3 % (11.5-15.5); WBC 11.7 k/uL (3.8-10.6)
[2022-09-07 12:58] LABS: African American GFR (CKD) 27 (>60 ml/min/1.73 sqM); Anion Gap 9 mmol/L; Blood Urea Nitrogen 44 mg/dL (7-17); Calcium 7.6 mg/dL (8.4-10.2); Carbon Dioxide 19 mmol/L (22-30); Chloride 107 mmol/L (98-107); Glucose 119 mg/dL (74-99); Non-African American GFR(CKD) 23 (>60 ml/min/1.73 sqM); Potassium 4.3 mmol/L (3.5-5.1); Sodium 135 mmol/L (137-145)
--- NOTE | 2022-09-07 14:58 | P.PN ---
Subjective Progress Note Date: 09/07/22 I am seeing the patient for a follow-up. She feels her vision is improving. Denies of any new neurological issues. It seems she had loop recorder placed. Objective - Vital Signs Vital signs: Vital Signs Temp 97.8 F 09/07/22 14:40 Pulse 69 09/07/22 14:40 Resp 18 09/07/22 14:40 BP 160/72 09/07/22 14:40 Pulse Ox 97 09/07/22 14:40 FiO2 Intake & Output 09/06/22 09/07/22 09/07/22 18:59 06:59 18:59 Intake Total 330 660 Output Total 200 Balance 330 -200 660 Intake: IV 150 Oral 180 660 Output: Urine 200 Other: Voiding Method Toilet # Voids 2 - Exam GENERAL: The patient is lying in bed and is not in acute distress. NEUROLOGICAL: Higher mental function: The patient is awake, alert, oriented to self, place and time. Patient is following commands. No aphasia and no neglect. Cranial nerves: The pupils are round, equal and reactive to light.. Visual fieldsf left upper quandrant bilaterally and bilateral right upper quandrant (seems sporadict)--improving. Facial sensation is normal to touch throughout. The facial strength is normal throughout. Hearing is normal bilaterally to hand rub. Tongue is midline and moved [id number] without any difficulty. No dysarthria is noted. Shoulder shrug is normal bilaterally. Motor: The strength is limited in assessment but appears moving bilateral uppers above gravity and no focality appreaciated. Lifting the right lower above gravity > left lower. Lowers are somewhat limited because of pain.. Cerebellum: Normal finger to nose h bilaterally. Sensation: Sensation is normal to touch throughout. Reflexes (right/left): 1+ throughout. Plantars are downgoing bilaterally. Some of the workup during his hospital visit consisted of: ESR 69-->79 White blood cell is 13.K-->8.9K Lipid panel is a triglyceride 104, cholesterol is 186, LDLs 1 and 3 and HDL 62 CRP is 4.0 AST is 58 and ALTs 85. Creatinine is 1.97. Urinalysis is suggestive of possible underlying urinary tract infection. CT of the head is reported as left occipital lobe infarct. Clinical correlation is recommended. Personally reviewed the CT head and I agree with the report I feel that changes or subacute. I also feel the patient has a subacute changes over basal ganglia left temporal region. Carotid duplex is reported as atheromatous plaquing without significant flow limiting stenosis based on velocity. 2-D echo was reported as normal left ventricular size and wall thickness. Ejection fraction 55%. MRI Brain is reported as multifocal area of abnormal signal diffusion weighted imaging compatible with multifocal ischemic insult likely related to embolic process. Correlate clinically. No intracranial hemorrhage appreciated. I personally reviewed the MRI and agree with report. left occipital > right, left caudate nucleus, left external capsule, right putamen, small focal right posteroparietal frontal region. CANELO: Is reported as aortic valve with normal function without significant aortic stenosis or aortic regurgitation. Mitral valve appears to be movement normal with mitral regurgitation. Tricuspid valve with mild to moderate tricuspid regurgitation. That into her atrial septum is intact. No evidence of PFO. Left atrial appendage is free of clot. Left ventricular ejection fraction 55%. There is moderate to severe descending aorta atherosclerosis. Anti-cardiolipin is negative Rheumatoid Factor is negative - Labs CBC & Chem 7: 09/07/22 12:13 09/07/22 12:13 Labs: Abnormal Lab Results - Last 24 Hours (Table) 09/06/22 09/06/22 09/07/22 Range/Units 16:17 19:32 11:30 WBC (3.8-10.6) k/uL RBC (3.80-5.40) m/uL Hgb (11.4-16.0) gm/dL Hct (34.0-46.0) % Neutrophils # (1.3-7.7) k/uL Lymphocytes # (1.0-4.8) k/uL Sodium (137-145) mmol/L Carbon Dioxide (22-30) mmol/L BUN (7-17) mg/dL Creatinine (0.52-1.04) mg/dL Glucose (74-99) mg/dL POC Glucose (mg/dL) 159 H 222 H 134 H (70-110) mg/dL Calcium (8.4-10.2) mg/dL 09/07/22 09/07/22 Range/Units 12:13 12:13 WBC 11.7 H (3.8-10.6) k/uL RBC 3.22 L (3.80-5.40) m/uL Hgb 10.3 L (11.4-16.0) gm/dL Hct 31.6 L (34.0-46.0) % Neutrophils # 10.3 H (1.3-7.7) k/uL Lymphocytes # 0.9 L (1.0-4.8) k/uL Sodium 135 L (137-145) mmol/L Carbon Dioxide 19 L (22-30) mmol/L BUN 44 H (7-17) mg/dL Creatinine 2.04 H (0.52-1.04) mg/dL Glucose 119 H (74-99) mg/dL POC Glucose (mg/dL) (70-110) mg/dL Calcium 7.6 L (8.4-10.2) mg/dL Assessment and Plan Assessment: This is a 77-year-old woman who is known to neurology team and had extensive of workup in the beginning of August 2022 for myopathy 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 There is also consider possible to matter sinus but the towards the end of the workup was felt more due to statin use. She presented to our facility because of visual disturbance. CT of the head that reveals left occipital stroke. No IV TPA since she is outside the window. Acute to subacute ischemic stroke over bilateral hemisphere (left occipital > right, left caudate nucleus left external capsule, right putamen, small focal right posteroparietal frontal region). On examination patient has visual field defect and is only able to see out of the left upper quadrant bilaterally as well as has left lower leg weakness more than the right--improving. Etiology of stroke seems embolic in nature. She has history of atrial fibrillation one time, about 2-3 days post CABG. 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 Had muscle biopsy of the left thigh which shows necrotizing fasciitis--CK has resolved <20. But ESR is latest 79. History of paroxysmal atrial fibrillation one time post CABG about 8 years ago amd is not on anticoagulation Hyperlipidemia History of coronary artery disease status post CABG Plan: * She was started on ASA 325mg daily and I started her on Plavix 75mg daily on 09/05/22 because of recent stroke. Because of the history of A. fib in the past will defer use of anticoagulation use to cardiology team. I spoke with Dr. Hussein ([employer]) and he stated it only once and post surgery (CABG) and no further A-fib. He wants to hold off anticoagulation for now unless has further A-fib. She has loop recorded placed during this admission. AVOID STATIN becuse of myopathy. * CANELO: Is reported as aortic valve with normal function without significant aortic stenosis or aortic regurgitation. Mitral valve appears to be movement normal with mitral regurgitation. Tricuspid valve with mild to moderate tricuspid regurgitation. That into her atrial septum is intact. No evidence of PFO. Left atrial appendage is free of clot. Left ventricular ejection fraction 55%. There is moderate to severe descending aorta atherosclerosis * We'll defer the use of anticoagulation to the cardiology team. If anticoagulation is started then no need for dual antiplatelet from a neurologic perspective. If anticoagulation is to be started recommended to hold off for 2 days to avoid hemorrhagic conversion. But if the benefits outweigh the risk recommend heparin drip and avoid boluses and keep the PTT between 45 and 60. * Neurochecks * Cardiac monitoring * PT OT and CAMPUS RECRUITER are consulted * Rheumatology team is consulted for her necrotizing fasciitis and ordered C- ANCA, complement level, lupus anticoagulant, complement level. RICARDO is ordered and pending. * I decreased the prednisone to 30 mg from 40 mg daily since clinically doing better and CK has improved. Recommend titration of her steroid slowly. Will contact Rheumatology to find out dose of steroid they want her on prior to discharge. I am unable to perfect serve her and today her office is closed. Will call her office tomorrow. I ordered repeat ESR, CRP and CK level. * Nephrology team ordered hepatitis panel, immunofixation, Myeloperoxidase * Recommend the glucose monitoring and control to primary team. I started her on Vitamin D3 2000IU daily. * For GI prophylaxis The patient on Protonix * We'll defer the rest of the medical management to primary team * For DVT prophylaxis patient is on subcu heparin 5000 units every 12 hours Plan discussed with the patient. Dr. Frankel will start neurology service tomorrow A.M. Time with Patient: Less than 30
[2022-09-07 16:28] LABS: C Reactive Protein 3.4 mg/dL (<1.0)
[2022-09-07 16:36] LABS: Glucose,Whole Blood 193 mg/dL (70-110)
[2022-09-07 19:41] LABS: Glucose,Whole Blood 212 mg/dL (70-110)
[2022-09-08] MEDS: SODIUM CHLORIDE 0.9% 1,000 ML IV SCH (02:00)
[2022-09-08 06:15] LABS: Glucose,Whole Blood 75 mg/dL (70-110)
[2022-09-08] MEDS: INSULIN ASPART (NovoLOG) 100 UNIT/ML VIAL SQ SCH ×2 (06:24→11:45)
[2022-09-08] MEDS: PANTOPRAZOLE 40 MG TABLET PO SCH (06:37)
[2022-09-08] MEDS: carvediloL 6.25 MG TAB PO SCH (06:37)
[2022-09-08 08:00] VITALS: BP 147/69; PULSE 55; RESP 19; TEMP 98
[2022-09-08] MEDS: predniSONE 10 MG TAB PO SCH (08:39)
[2022-09-08] MEDS: CLOPIDOGREL 75 MG TAB PO SCH (08:40)
[2022-09-08] MEDS: ASPIRIN 325 MG TAB PO SCH (08:40)
[2022-09-08] MEDS: CHOLECALCIFEROL 25 MCG (1000 IU) TABLET PO SCH (08:40)
[2022-09-08] MEDS: HEPARIN SODIUM,PORCINE/PF 5,000 UNIT/0.5 ML SYRINGE SQ SCH (08:41)
[2022-09-08 11:40] LABS: Glucose,Whole Blood 109 mg/dL (70-110)
[2022-09-08 13:13] LABS: Anti-DNA, DS unit <1.0 IU/mL; Anti-Smith Ab Interp Negative (Negative); DNA Double-Stranded Negative (Negative)
[2022-09-08 14:48] LABS: APTT 68 Sec(s) (<43); APTT 1:1 Mix 52 Sec(s) (<43); DRVVT 1:1 Mix 41 Sec(s) (<44); Dilute Russell Viper Venom 45 Sec(s) (<44); Hexagonal Phase Neutralization Positive (Negative)
--- NOTE | 2022-09-08 15:30 | P.DS ---
Providers Date of admission: 09/03/22 22:34 Expected date of discharge: 09/08/22 Attending physician: Olman Sommers Consults: 09/03/22 22:37 Consult Physician Routine Consulting Provider: Magno Dorsey Consult Reason/Comments: cva Do you want consulting provider notified?: Yes 09/04/22 08:26 Consult Physician Routine Consulting Provider: Rabia Mohr Consult Reason/Comments: renal failure Do you want consulting provider notified?: Yes 09/04/22 09:26 Consult Physician Routine Consulting Provider: Audra Odom Consult Reason/Comments: necrotizing vasculitis Do you want consulting provider notified?: Yes 09/05/22 14:50 Consult Physician Routine Consulting Provider: Michael Hussein Consult Reason/Comments: CVA, needs CANELO Do you want consulting provider notified?: Yes Primary care physician: Olman Sommers Hospital Course: Final Diagnoses: Acute to subacute ischemic stroke over bilateral hemisphere (left occipital > right, left caudate nucleus left external capsule, right putamen, small focal right posteroparietal frontal region). Per neurology, as patient had a CVA on aspirin. Aspirin will be discontinued and patient will be placed on Plavix 75 mg daily at discharge. 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 CK resolved, less than 20. ESR 79. Acute renal failure, ATN Possible acute UTI, cx reporting no growth after 18 hours CAD, history of CABG Hypertension Hyperlipidemia History of A. fib, patient reports isolated event ,post CABG,on Aspirin. Cardiology following. Hospital course:This is a 77-year-old female recently discharged from the hospital on 08/26/2022 after an extensive myopathy workup, left rectus femoris muscle biopsy completed,[facility] with results reported as Necrotizing vasculitis and focal necrotizing myopathy changes. Patient had been discharged to a subacute rehab on steroids with tapering dependant on biopsy results, recommending not to take statins in the future and to follow-up with a cleaner signs. Patient reports she felt tired from the physical therapy,developed "fuzzy " vision over the last couple of days. Denies any other neuro deficits. CK level less than 20. CRP 4, ESR 69. Sodium 131, bicarb 26, BUN 58, creatinine 1.97. New AV. Large leukocytes, negative nitrates. Afebrile, WBC 13. Brain CT reported left occipital lobe infarct. Carotid Doppler reported no hemodynamic stenosis. Echo reported normal LV function, EF 55%. 09/05/2022 neurology workup in progress. MRI pending. Reports vision improving; TV more clear, phone is still challenging. Regarding her history of A. fib, patient states it was immediately post CABG, a one-time event in 2013, with only aspirin recommended for anticoagulation. Does not recall any further events of A. fib. Cardiology consult in place. Telemetry sinus rhythm. Denies any lightheadedness dizziness. Denies headache. Continues on steroids,blood sugars controlled. Strength improving. Afebrile, normal WBC, urine culture pending. Sodium 132, potassium 4.1, bicarb 21, BUN 51, creatinine 1.99. Evaluated by cleaner signs, Dr. Odom -recommended patient be maintained on prednisone 40 mg daily and will be tapered in the office by Dr. Odom. Aldolase 10.6, mildly elevated. Myositis autoimmune antibody panel/[facility] CR antibody testing in progress. Brain MRI reported multifocal area of abnormal signal diffusion weighted imaging compatible with multifocal ischemic insult likely related to embolic process. Correlate clinically. No intracranial hemorrhage appreciated. CANELO reported aortic valve with normal function without significant aortic stenosis or aortic regurgitation. Mitral valve appears to be movement normal with mitral regurgitation. Tricuspid valve with mild to moderate tricuspid regurgitation. The interatrial septum is intact. No evidence of PFO. Left atrial appendage is free of clot. Left ventricular ejection fraction 55%. There is moderate to severe descending aorta atherosclerosis. Loop recorder placed as per cardiology. Anti-cardiolipin negative, rheumatoid factor negative.2-D echo was reported as normal left ventricular size and wall thickness. Significant clinical improvement. Patient reports significant improvement in her vision Patient has been cleared by neurology for discharge, recommending Plavix 75 mg daily instead of ASA, given patient did have a stroke on aspirin. Pepcid increased to 20 mg twice a day as patient will be on both Plavix and steroids. Arbs and diuretics remain on hold with close monitoring of renal function outpatient. Patient will be discharged home today with home care/outpatient PT in a stable condition with guarded prognosis. The impression and plan of care has been dictated as directed. : I performed a history and examination of this patient, discussed the same with the dictator. I agree with the dictator's note ,documented as a scribe. Any additional findings or plans will be noted. Patient Condition at Discharge: Stable Plan - Discharge Summary New Discharge Prescriptions: New predniSONE [Deltasone] 40 mg PO DAILY #60 tab Clopidogrel [Plavix] 75 mg PO DAILY 30 Days #30 tablet Famotidine [Pepcid] 20 mg PO BID #60 tablet Continue Ezetimibe [Zetia] 10 mg PO DAILY@0800 Acetaminophen Tab [Tylenol] 650 mg PO Q6HR PRN tab PRN Reason: Mild Pain Or Fever > 100.5 Changed carvediloL [Coreg] 6.25 mg PO BID@0800,1600 #60 tab Discontinued predniSONE See Taper PO DIRECTED Famotidine [Pepcid] 20 mg PO DAILY@0800 Enoxaparin [Lovenox] 40 mg SQ DAILY@0800 Aspirin 81 mg PO DAILY@0800 Losartan Potassium [Cozaar] 100 mg PO DAILY@0800 hydroCHLOROthiazide [Hydrodiuril] 25 mg PO DAILY@0800 INSULIN LISPRO (HumaLOG) [humaLOG] See Protocol SQ ACHS Discharge Medication List Acetaminophen Tab [Tylenol] 650 mg PO Q6HR PRN tab 08/26/22 [Rx] Ezetimibe [Zetia] 10 mg PO DAILY@0800 09/03/22 [History] predniSONE [Deltasone] 40 mg PO DAILY #60 tab 09/05/22 [Rx] Clopidogrel [Plavix] 75 mg PO DAILY 30 Days #30 tablet 09/08/22 [Rx] Famotidine [Pepcid] 20 mg PO BID #60 tablet 09/08/22 [Rx] carvediloL [Coreg] 6.25 mg PO BID@0800,1600 #60 tab 09/08/22 [Rx] Follow up Appointment(s)/Referral(s): Michael Hussein DO [STAFF PHYSICIAN] - 1 Week (Holter monitor) Praful Burns DO [STAFF PHYSICIAN] - 2 Weeks (Office is closed at time of discharge. Please call for follow-up appointment.) Audra Odom MD [STAFF PHYSICIAN] - 10/06/22 4:15 pm Olman Sommers MD [Primary Care Provider] - 09/17/22 11:00 am Ambulatory/Diagnostic Orders: Complete Blood Count w/diff [LAB.AMB] Time Frame: 3 Days, Location: None Selected Patient Instructions/Handouts: Ischemic Stroke (GEN) Activity/Diet/Wound Care/Special Instructions: Holter monitor as per cardiology-to be arranged at follow-up visit. Continue holding our and diuretics, secondary to renal function, reevaluate in clinic at follow-up visit with PCP for further recommendations Fax urine culture results to PCP, Dr. Sommers Myositis Autoimmune Antibody Panel ordered as per Dr. Odom Discharge Disposition: HOME WITH HOME HEALTH SERVICES
== END 2022-09-08 13:43 | disposition home health service (06) | DRG 40 ==
LOC: EC 17:29 → 3SCARD 22:34 → 4SSUR 09-08 00:58
PROVIDERS: ADMIT Family Medicine; ATTEND Family Medicine
PROC: 0JH632Z Insertion of Monitoring Device into Chest Subcutaneous Tissue and Fascia, Percutaneous Approach (ICD-10-PCS; principal; 2022-09-06 08:00)
DX: I63.40 Cerebral infarction due to embolism of unspecified cerebral artery (principal); M72.6 Necrotizing fasciitis; N17.0 Acute kidney failure with tubular necrosis; E87.1 Hypo-osmolality and hyponatremia; G72.0 Drug-induced myopathy; M31.9 Necrotizing vasculopathy, unspecified; N39.0 Urinary tract infection, site not specified; E86.1 Hypovolemia; E86.0 Dehydration; E78.5 Hyperlipidemia, unspecified; H53.40 Unspecified visual field defects; I07.1 Rheumatic tricuspid insufficiency; I10 Essential (primary) hypertension; I25.10 Atherosclerotic heart disease of native coronary artery without angina pectoris; Z86.79 Personal history of other diseases of the circulatory system; M16.10 Unilateral primary osteoarthritis, unspecified hip; I70.0 Atherosclerosis of aorta; T46.6X5A Adverse effect of antihyperlipidemic and antiarteriosclerotic drugs, initial encounter; Z79.02 Long term (current) use of antithrombotics/antiplatelets; Z79.52 Long term (current) use of systemic steroids; Z79.899 Other long term (current) drug therapy; Z80.8 Family history of malignant neoplasm of other organs or systems; Z82.49 Family history of ischemic heart disease and other diseases of the circulatory system; Z87.891 Personal history of nicotine dependence; Z85.828 Personal history of other malignant neoplasm of skin; Z79.82 Long term (current) use of aspirin; Z95.1 Presence of aortocoronary bypass graft; Z86.73 Personal history of transient ischemic attack (TIA), and cerebral infarction without residual deficits; R33.9 Retention of urine, unspecified; Z86.14 Personal history of Methicillin resistant Staphylococcus aureus infection; Z88.5 Allergy status to narcotic agent; Z88.1 Allergy status to other antibiotic agents; Z91.040 Latex allergy status
CPT/HCPCS: 33285; 36415; 70450; 70551; 76770; 80048; 80053; 80061; 81001; 82550; 83036; 83516; 83605; 83735; 84100; 84484; 85025; 85598; 85610; 85613; 85652; 85730; 85732; 86038; 86140; 86147; 86160; 86162; 86225; 86235; 86255; 86334; 86335; 86431; 86706; 86803; 87086; 87340; 93005; 93306; 93312; 93320; 93325; 93880; 94760; 96361; 96365; 96366; 99291

== ENCOUNTER → 2022-12-29 | Outpatient (CLI) | payer MEDICARE ==
[2022-12-29 10:44] LABS: Basophils % (A) 0 %; Eosinophils # (A) 0.1 k/uL (0-0.7); Eosinophils % (A) 1 %; HCT 38.6 % (34.0-46.0); HGB 12.5 gm/dL (11.4-16.0); Lymphocytes # (A) 2.2 k/uL (1.0-4.8); Lymphocytes % (A) 13 %; MCHC 32.5 g/dL (31.0-37.0); MCV 98.6 fL (80.0-100.0); Mean Platelet Volume 7.6; Monocytes # (A) 0.7 k/uL (0-1.0); Monocytes % (A) 4 %; Neutrophils # (A) 13.4 k/uL (1.3-7.7); Neutrophils % (A) 82 %; Platelet Count 305 k/uL (150-450); RBC 3.91 m/uL (3.80-5.40); RDW 13.6 % (11.5-15.5); WBC 16.5 k/uL (3.8-10.6)
[2022-12-29 10:57] LABS: African American GFR (CKD) 28 (>60 ml/min/1.73 sqM); Anion Gap 8 mmol/L; Blood Urea Nitrogen 38 mg/dL (7-17); Carbon Dioxide 26 mmol/L (22-30); Chloride 103 mmol/L (98-107); Non-African American GFR(CKD) 24 (>60 ml/min/1.73 sqM); Potassium 4.4 mmol/L (3.5-5.1); Sodium 137 mmol/L (137-145)
[2022-12-29 11:01] LABS: INR 0.9 (<1.2); Prothrombin Time 10.4 sec (10.0-12.5)
[2022-12-29 11:11] LABS: Partial Thromboplastin Time 20.1 sec (22.0-30.0)
== END | disposition home or self-care (01) ==
LOC: LABWHC1 09:07
PROVIDERS: ATTEND Internal Medicine Nephrology
DX: N17.9 Acute kidney failure, unspecified (principal)
CPT/HCPCS: 36415; 80051; 82565; 84520; 85025; 85610; 85730; 86850; 86900; 86901

== ENCOUNTER 2022-12-31 08:01 | Day surgery (SDC) | payer MEDICARE ==
[2022-12-31] MEDS ORDERED: DESMOPRESSIN ACETATE 24 MCG in SODIUM CHLORIDE 0.9% 50 ML IVPB ONE (09:00)
[2022-12-31] MEDS ORDERED: HYDROmorphone 0.5 MG/0.5 ML SYRINGE IVP STA (10:18)
[2022-12-31 10:37] VITALS: TEMP 98.1
[2022-12-31] MEDS ORDERED: HYDROcodone/APAP 5-325MG 1 EACH TAB PO PRN (10:59)
[2022-12-31 11:03] VITALS: RESP 16
--- NOTE | 2022-12-31 12:02 | CT ---
EXAMINATION TYPE: CT biopsy renal LT DATE OF EXAM: 12/31/2022 COMPARISON: NONE HISTORY: Acute kidney failure, LT renal biopsy CT DLP: 3329 mGycm The procedure was explained to the patient. The risks, complications, benefits, and alternatives wer e discussed and any questions were answered. Informed consent was obtained. Patient was placed pron e on the CT table and prepped and draped in the usual sterile fashion. Utilizing CT guidance, an 18 gauge core biopsy needle access into the left renal cortex was achieved and three 18 gauge core samples were obtained. The patient was stable throughout the procedure and r emained stable upon discharge. IMPRESSION: Successful 18 gauge core biopsy of the kidney function.
[2022-12-31 14:44] VITALS: BP 124/70; PULSE 76
== END 2022-12-31 14:50 | disposition home or self-care (01) ==
LOC: RADPROMAIN 08:01
PROVIDERS: ATTEND Internal Medicine Nephrology
DX: N17.9 Acute kidney failure, unspecified (principal)
CPT/HCPCS: 50200; 77012; J2597; J1170

== ENCOUNTER 2023-01-02 21:36 | Inpatient (IN) | payer MEDICARE ==
--- NOTE | 2023-01-02 21:55 | ED ---
General Adult HPI - General Chief complaint: Neuro Symptoms/Deficit Stated complaint: Stroke-like symptoms Time Seen by Provider: 01/02/23 21:47 Source: patient, family Mode of arrival: wheelchair Limitations: no limitations - History of Present Illness Initial comments: Dictation was produced using [employer] dictation software. please excuse any gram matical, word or spelling errors. Chief Complaint: 77-year-old female presents with strokelike symptoms History of Present Illness: 77-year-old female she has past medical history of stroke, anticoagulation use presents to the ER for slurred speech and aphasia. Her symptoms started at dinner. She was sitting with her family while at dinner she all of a sudden presented with strokelike symptoms. Time was approximately 6:00 PM. Patient has multiple comorbid disease. Family reports that her symptoms have improved greatly since when they initially started. Patient has any numbness and paresthesias to the arms or legs. Complains of right facial droop The ROS documented in this emergency department record has been reviewed and confirmed by me. Those systems with pertinent positive or negative responses have been documented in the HPI. All other systems are other negative and/or noncontributory. - Related Data Home Medications Medication Instructions Recorded Confirmed Ezetimibe [Zetia] 10 mg PO DAILY@0800 09/03/22 12/31/22 Apixaban [Eliquis] 2.5 mg PO DAILY 12/24/22 12/31/22 Aspirin [Adult Low Dose Aspirin EC] 81 mg PO DAILY 12/24/22 12/31/22 Losartan [Cozaar] 25 mg PO DAILY 12/24/22 12/31/22 carvediloL [Coreg] 6.25 mg PO DAILY 12/24/22 12/31/22 predniSONE [Deltasone] 10 mg PO DAILY 12/24/22 12/31/22 Previous Rx's Medication Instructions Recorded Famotidine [Pepcid] 20 mg PO BID #60 tablet 09/08/22 Allergies Allergy/AdvReac Type Severity Reaction Status Date / Time clindamycin AdvReac Nausea & Verified 12/31/22 08:33 Vomiting & Diarrhea latex AdvReac red, Verified 12/31/22 08:33 cracked skin, itching streptomycin AdvReac Nausea & Verified 12/31/22 08:33 Vomiting & Diarrhea Review of Systems ROS Statement: Those systems with pertinent positive or pertinent negative responses have been documented in the HPI. ROS Other: All systems not noted in ROS Statement are negative. Past Medical History Past Medical History: Coronary Artery Disease (CAD), Cancer, CVA/TIA, Eye Disorder, Hyperlipidemia, Hypertension, Renal Disease, Skin Disorder Additional Past Medical History / Comment(s): Beginnings of cataracts. Hx skin cancer left thigh 2 yrs ago. Hx heart blockages. PATRICIA History of Any Multi-Drug Resistant Organisms: None Reported Date of last positivie culture/infection: infected drain 20+ years prior MDRO Source:: drain Past Surgical History: Appendectomy, Cholecystectomy, Tubal Ligation Additional Past Surgical History / Comment(s): Right wrist fracture as a child. Right foot fracture. Fatty cyst removed from under right arm. Quadruple bypass 5 yrs ago with stents x2. Past Anesthesia/Blood Transfusion Reactions: No Reported Reaction Past Psychological History: No Psychological Hx Reported Smoking Status: Former smoker Past Alcohol Use History: None Reported Past Drug Use History: None Reported - Past Family History Brother(s) Family Medical History: Cancer Additional Family Medical History / Comment(s): Skin cancer General Exam - General Exam Comments Initial Comments: PHYSICAL EXAM: General Impression: Alert and oriented x3, not in acute distress HEENT: Normocephalic atraumatic, extra-ocular movements intact, pupils equal and reactive to light bilaterally, mucous membranes moist. Cardiovascular: Heart regular rate and rhythm Chest: Able to complete full sentences, no retractions, no tachypnea Abdomen: abdomen soft, non-tender, non-distended, no organomegaly Musculoskeletal: Pulses present and equal in all extremities, no peripheral edema Motor: no focal deficits noted Neurological: Right facial droop, mild dysarthria, no aphasia, NIH score of 3. No extremity drift or sensory deficit Skin: Intact with no visualized rashes Psych: Normal affect and mood Limitations: no limitations Course Vital Signs 01/02/23 01/02/23 01/02/23 21:38 22:00 22:15 Temperature 97.9 F Pulse Rate 59 L 56 L 56 L Respiratory 18 18 18 Rate Blood Pressure 207/84 172/94 171/75 O2 Sat by Pulse 97 96 96 Oximetry - Reevaluation(s) Reevaluation #1: 01/02/23 22:49 Case discussed with stroke neurologist, Dr. Ahumada states that patient is not a candidate for alteplase or thrombectomy candidate due to rapidly improving symptoms. Risks outweigh the benefits. EKG Findings - EKG Comments: EKG Findings:: My EKG interpretation: Ventricular rate 56, sinus bradycardia,. Interval to 24, QRS 77, QTc 436. No VA prolongation, no QTC prolongation, no ST or T-wave changes noted. Overall, this EKG is unremarkable Medical Decision Making - Medical Decision Making Was pt. sent in by a medical professional or institution (, PA, OPHTHALMIC DISPENSER, urgent care, hospital, or long term...) When possible be specific @ -No Did you speak to anyone other than the patient for history (EMS, parent, family, police, friend...)? What history was obtained from this source @ -With family at the bedside as described above Did you review nursing and triage notes (agree or disagree)? Why? @ -I reviewed and agree with nursing and triage notes Were old charts reviewed (outside hosp., previous admission, EMS record, old EKG, old radiological studies, urgent care reports/EKG's, long term records)? Report findings @ -No old charts were reviewed Differential Diagnosis (chest pain, altered mental status, abdominal pain women, abdominal pain men, vaginal bleeding, musculoskeletal, weakness, fever, dyspnea, syncope, headache, dizziness, GI bleed, back pain, seizure, CVA, palpatations, mental health)? @ - Differential CVA: Ischemic stroke, hemorrhagic stroke, brain tumor, atypical migraine, Wernicke's encephalopathy, seizure, multiple sclerosis, meningitis, encephalitis, hypoglyce kristopher, Guillain-Kebede, electrolytes disturbance, myasthenia gravis.... This is not meant to be an all-inclusive list EKG interpreted by me (3pts min.). @ -See above X-rays interpreted by me (1pt min.). @ -X-ray shows no acute processes. CT interpreted by me (1pt min.). @ -Computed tomography scan of brain shows hypodensity within the right thalamus. CT angiography of the brain shows no large vessel occlusion. CT angiography of the neck did show some stenosis to the vertebral artery, left internal carotid artery and right internal carotid artery. U/S interpreted by me (1pt. min.). @ -None done What testing was considered but not performed or refused? (CT, X-rays, U/S, labs)? Why? @ -None What meds were considered but not given or refused? Why? @ -None Did you discuss the management of the patient with other professionals (professionals i.e. , PA, OPHTHALMIC DISPENSER, lab, RT, psych nurse, social services designee, cut and cover line worker, teacher, juvenile correctional officer, case sealer)? Give summary @ -See above. Case also discussed with hospitalist for admission Was smoking cessation discussed for >3mins.? @ -No Was critical care preformed (if so, how long)? @ -Yes, 33 minutes Were there social determinants of health that impacted care today? How? (Homelessness, low income, unemployed, alcoholism, drug addiction, transportation, low edu. Level, literacy, decrease access to med. care, custodial, rehab)? @ -No Was there de-escalation of care discussed even if they declined (Discuss DNR or withdrawal of care, Hospice)? DNR status @ -No What co-morbidities impacted this encounter? (DM, HTN, Smoking, COPD, CAD, Cancer, CVA, ARF, Chemo, Hep., AIDS, mental health diagnosis, sleep apnea, morbid obesity)? @ -None Was patient admitted / discharged? Hospital course, mention meds given and route, prescriptions, significant lab abnormalities, going to OR and other pertinent info. @ -7-year-old female presents with strokelike symptoms. Symptoms began 34 hours prior to arrival. Patient is a candidate for alteplase. CT angiography showed no large vessel occlusion. Patient has rapidly improving symptoms since its onset. Patient given aspirin. Patient not a candidate for thrombectomy. Patient given aspirin will be admitted with consultation to neurology. Undiagnosed new problem with uncertain prognosis? @ -No Drug Therapy requiring intensive monitoring for toxicity (Heparin, Nitro, Insulin, Cardizem)? @ -No Were any procedures done? @ -No Diagnosis/symptom? Acute, or Chronic, or Acute on Chronic? Uncomplicated (without systemic symptoms) or Complicated (systemic symptoms)? @ -Acute CVA Side effects of treatment? @ -No Exacerbation, Progression, or Severe Exacerbation? @ -No Poses a threat to life or bodily function? How? (Chest pain, [place], [place], pneumonia, PE, COPD, DKA, ARF, appy, cholecystitis, CVA, Diverticulitis, Homicidal, Suicidal, threat to staff... and all critical care pts) @ -yes - Lab Data Result diagrams: 01/02/23 21:51 01/02/23 21:51 Lab Results 01/02/23 01/02/23 01/02/23 Range/Units 21:51 21:51 21:51 WBC 10.4 (3.8-10.6) k/uL RBC 3.63 L (3.80-5.40) m/uL Hgb 11.7 (11.4-16.0) gm/dL Hct 33.5 L (34.0-46.0) % MCV 92.3 D (80.0-100.0) fL MCH 32.3 (25.0-35.0) pg MCHC 35.0 (31.0-37.0) g/dL RDW 12.7 (11.5-15.5) % Plt Count 241 (150-450) k/uL MPV 7.2 Neutrophils % 57 % Lymphocytes % 31 % Monocytes % 9 % Eosinophils % 2 % Basophils % 0 % Neutrophils # 5.9 (1.3-7.7) k/uL Lymphocytes # 3.3 (1.0-4.8) k/uL Monocytes # 1.0 (0-1.0) k/uL Eosinophils # 0.2 (0-0.7) k/uL Basophils # 0.0 (0-0.2) k/uL PT 10.1 (10.0-12.5) sec INR 0.9 (<1.2) APTT 20.9 L (22.0-30.0) sec Sodium 122 L (137-145) mmol/L Potassium 4.1 (3.5-5.1) mmol/L Chloride 90 L (98-107) mmol/L Carbon Dioxide 22 (22-30) mmol/L Anion Gap 10 mmol/L BUN 28 H (7-17) mg/dL Creatinine 1.44 H (0.52-1.04) mg/dL Est GFR (CKD-EPI)AfAm 41 (>60 ml/min/1.73 sqM) Est GFR (CKD-EPI)NonAf 36 (>60 ml/min/1.73 sqM) Glucose 87 (74-99) mg/dL Calcium 8.7 (8.4-10.2) mg/dL Total Bilirubin 0.8 (0.2-1.3) mg/dL AST 24 (14-36) U/L ALT 15 (4-34) U/L Alkaline Phosphatase 39 (38-126) U/L Creatine Kinase 35 (30-135) U/L Troponin I (0.000-0.034) ng/mL Total Protein 6.3 (6.3-8.2) g/dL Albumin 3.6 (3.5-5.0) g/dL 01/02/23 Range/Units 21:51 WBC (3.8-10.6) k/uL RBC (3.80-5.40) m/uL Hgb (11.4-16.0) gm/dL Hct (34.0-46.0) % MCV (80.0-100.0) fL MCH (25.0-35.0) pg MCHC (31.0-37.0) g/dL RDW (11.5-15.5) % Plt Count (150-450) k/uL MPV Neutrophils % % Lymphocytes % % Monocytes % % Eosinophils % % Basophils % % Neutrophils # (1.3-7.7) k/uL Lymphocytes # (1.0-4.8) k/uL Monocytes # (0-1.0) k/uL Eosinophils # (0-0.7) k/uL Basophils # (0-0.2) k/uL PT (10.0-12.5) sec INR (<1.2) APTT (22.0-30.0) sec Sodium (137-145) mmol/L Potassium (3.5-5.1) mmol/L Chloride (98-107) mmol/L Carbon Dioxide (22-30) mmol/L Anion Gap mmol/L BUN (7-17) mg/dL Creatinine (0.52-1.04) mg/dL Est GFR (CKD-EPI)AfAm (>60 ml/min/1.73 sqM) Est GFR (CKD-EPI)NonAf (>60 ml/min/1.73 sqM) Glucose (74-99) mg/dL Calcium (8.4-10.2) mg/dL Total Bilirubin (0.2-1.3) mg/dL AST (14-36) U/L ALT (4-34) U/L Alkaline Phosphatase (38-126) U/L Creatine Kinase (30-135) U/L Troponin I <0.012 (0.000-0.034) ng/mL Total Protein (6.3-8.2) g/dL Albumin (3.5-5.0) g/dL Disposition Clinical Impression: CVA (cerebral vascular accident) Disposition: ADMITTED IP TO THIS [facility] Condition: Fair Referrals: Wade Palacio Jr, [Primary Care Provider] - 1-2 days Decision Time: 22:52
[2023-01-02 22:14] LABS: Basophils % (A) 0 %; Eosinophils # (A) 0.2 k/uL (0-0.7); Eosinophils % (A) 2 %; HCT 33.5 % (34.0-46.0); HGB 11.7 gm/dL (11.4-16.0); Lymphocytes # (A) 3.3 k/uL (1.0-4.8); Lymphocytes % (A) 31 %; MCH 32.3 pg (25.0-35.0); Mean Platelet Volume 7.2; Monocytes % (A) 9 %; Neutrophils # (A) 5.9 k/uL (1.3-7.7); Neutrophils % (A) 57 %; Platelet Count 241 k/uL (150-450); RBC 3.63 m/uL (3.80-5.40); RDW 12.7 % (11.5-15.5); WBC 10.4 k/uL (3.8-10.6)
--- NOTE | 2023-01-02 22:20 | CT ---
EXAMINATION TYPE: CT brain wo con DATE OF EXAM: 01/02/2023 COMPARISON: 09/03/2022 HISTORY: 77-year-old female neurologic deficit, acute, stroke suspected. Stroke like symptoms for 2 h ours. TECHNIQUE: Examination was done in axial plane without intravenous contrast. Coronal and sagittal r econstructions performed. CT DLP: 1511.2 mGycm Automated exposure control for dose reduction was used. FINDINGS: There is no evidence of acute intracranial hemorrhage, mass, mass-effect, or extra-axial fluid colle ction. There is no effacement of cerebral sulci or basal subarachnoid cisterns. There is no hydroce phalus. There is no midline shift. Cartwright-white matter distinction is preserved. Moderate patchy white matter hypodensities in both cerebral hemispheres including the basal ganglia. Hypodensity within the right thalamus may be increased in the interval. Encephalomalacia left parieto-occipital junction related to prior cortical infarct. Atherosclerotic calcifications in the carotid siphons. IMPRESSION: 1. Hypodensity within the right thalamus may be increased in the interval. Unable to exclude some int erval development of subacute or chronic ischemia here now. Consider MRI follow-up if symptoms persis t. 2. Otherwise, background moderate burden of chronic small vessel ischemic disease as well as old ortiz ical infarct in the left parieto-occipital junction. 3. No evidence for acute intracranial hemorrhage, midline shift, or hydrocephalus.
[2023-01-02 22:31] LABS: ALT 15 U/L (4-34); AST 24 U/L (14-36); African American GFR (CKD) 41 (>60 ml/min/1.73 sqM); Albumin 3.6 g/dL (3.5-5.0); Alkaline Phosphatase 39 U/L (38-126); Anion Gap 10 mmol/L; Blood Urea Nitrogen 28 mg/dL (7-17); Calcium 8.7 mg/dL (8.4-10.2); Carbon Dioxide 22 mmol/L (22-30); Chloride 90 mmol/L (98-107); Creatine Kinase 35 U/L (30-135); Glucose 87 mg/dL (74-99); INR 0.9 (<1.2); Non-African American GFR(CKD) 36 (>60 ml/min/1.73 sqM); Partial Thromboplastin Time 20.9 sec (22.0-30.0); Potassium 4.1 mmol/L (3.5-5.1); Prothrombin Time 10.1 sec (10.0-12.5); Sodium 122 mmol/L (137-145); Total Bilirubin 0.8 mg/dL (0.2-1.3); Total Protein 6.3 g/dL (6.3-8.2)
[2023-01-02 22:33] LABS: MCV 92.3 fL (80.0-100.0)
[2023-01-02] MEDS ORDERED: SODIUM CHLORIDE 0.9% 1,000 ML IV STA (22:45)
--- NOTE | 2023-01-02 22:45 | CT ---
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 TECHNIQUE: Contiguous axial scanning of the head and neck performed with IV Contrast, patient injecte d with 65 mL of Isovue 370. Coronal and sagittal MIP reconstructions performed. 3-D reconstructions g enerated on a dedicated independent workstation. CT DLP: 1511.2 mGycm Automated exposure control for dose reduction was used. FINDINGS: NECK: [id number] emphysematous changes in the upper lungs. Some underlying interstitial fibrosis is s uspected. Median sternotomy wires. Mild to moderate atherosclerotic arch calcifications. Mild narrowing at the origin of the left subcla vian artery. Moderate to severe narrowing at the origin of the left vertebral artery. Otherwise, both vertebral ar teries are codominant and patent throughout their course. The right common carotid artery is patent. Mild to moderate atherosclerotic changes at the right carotid bifurcation with mild, approximately 30 % proximal right ICA stenosis. NASCET criteria was utilized. Remainder of the right ICA is patent. The left common carotid artery is patent. Moderate atherosclerotic calcifications within the proximal left ICA just beyond the carotid bulb wit h moderate, approximately 50% stenosis. Remainder of the left ICA is patent. HEAD: Vertebral arteries are codominant. Both vertebral and basilar arteries are patent the remainder of th e posterior circulation. There are atherosclerotic calcifications in the bilateral carotid siphons resulting in mild stenoses. Anterior circulation otherwise patent. No aneurysmal change is seen. Dural venous sinuses are patent. Hypoplastic right transverse sinus. IMPRESSION: NECK: 1. ON THE RIGHT, THERE IS MILD TO MODERATE ATHEROSCLEROTIC CHANGE WITH A MILD, 30% PROXIMAL RIGHT ICA STENOSIS. 2. ON THE LEFT, ATHEROSCLEROTIC CHANGE RESULTS IN A MODERATE, APPROXIMATELY 50% PROXIMAL LEFT ICA TEE NOSIS. 3. MODERATE TO SEVERE STENOSIS AT THE ORIGIN OF THE LEFT VERTEBRAL ARTERY. HEAD: 4. NO LARGE VESSEL INTRACRANIAL ARTERIAL OCCLUSION, SIGNIFICANT STENOSIS, OR ANEURYSMAL CHANGE IS SEE N.
[2023-01-02] MEDS ORDERED: ASPIRIN 81 MG PO STA (22:46)
[2023-01-03] MEDS: SODIUM CHLORIDE 0.9% 1,000 ML IV SCH ×3 (00:30→18:27)
--- NOTE | 2023-01-03 01:21 | XR ---
EXAM: XR Chest, 1 View CLINICAL HISTORY: ITS.REASON XR Reason: altered mental status TECHNIQUE: Frontal view of the chest. COMPARISON: No relevant prior studies available. IMPRESSION: Cardiomegaly. Mild vascular congestion
[2023-01-03 03:09] LABS: African American GFR (CKD) 42 (>60 ml/min/1.73 sqM); Anion Gap 7 mmol/L; Blood Urea Nitrogen 27 mg/dL (7-17); Calcium 7.6 mg/dL (8.4-10.2); Carbon Dioxide 19 mmol/L (22-30); Chloride 95 mmol/L (98-107); Glucose 78 mg/dL (74-99); Non-African American GFR(CKD) 37 (>60 ml/min/1.73 sqM); Potassium 3.4 mmol/L (3.5-5.1); Sodium 121 mmol/L (137-145)
[2023-01-03 05:48] LABS: African American GFR (CKD) 44 (>60 ml/min/1.73 sqM); Anion Gap 7 mmol/L; Blood Urea Nitrogen 25 mg/dL (7-17); Calcium 7.9 mg/dL (8.4-10.2); Carbon Dioxide 21 mmol/L (22-30); Chloride 95 mmol/L (98-107); Glucose 86 mg/dL (74-99); Non-African American GFR(CKD) 38 (>60 ml/min/1.73 sqM); Potassium 3.7 mmol/L (3.5-5.1); Sodium 123 mmol/L (137-145)
[2023-01-03 09:20] LABS: Chol/HDL Ratio 3.62 Ratio; LDL Cholesterol,Calculated 112.2 mg/dL (0.0-131.0)
[2023-01-03] MEDS ORDERED: FAMOTIDINE 20 MG TAB PO PRN (12:17)
--- NOTE | 2023-01-03 14:05 | P.HPIM ---
History of Present Illness H&P Date: 01/03/23 Chief Complaint: Facial droop and slurred speech Magnolia is a 77-year-old female well known to the practice. 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 possibly related to statin use. Her reports left facial droop and slurred speech. This brought emergency room and her symptoms are resolved this time. In mid-August she was placed on Plavix due to the fact that she had a CVA on aspirin. She is also been on steroids for the past several months. Also of note she takes Elequis daily only Currently bedside is her . Patient denies any significant complaints this time. No chest pain pressure shortness of breath nausea vomiting. No weakness of any musculature. Vital signs are currently stable. Laboratory studies show a new hyponatremia, but improved kidney function from last week. GFR is currently 38. Review of Systems All systems: negative Past Medical History Past Medical History: Coronary Artery Disease (CAD), Cancer, CVA/TIA, Eye Disorder, Hyperlipidemia, Hypertension, Renal Disease Additional Past Medical History / Comment(s): Beginnings of cataracts. Hx skin cancer left thigh 2 yrs ago. Hx heart blockages. PATRICIA History of Any Multi-Drug Resistant Organisms: None Reported Date of last positivie culture/infection: infected drain 20+ years prior MDRO Source:: drain Past Surgical History: Appendectomy, Cholecystectomy, Tubal Ligation Additional Past Surgical History / Comment(s): Right wrist fracture as a child. Right foot fracture. Fatty cyst removed from under right arm. Quadruple bypass 8 yrs ago with stents x2. Past Anesthesia/Blood Transfusion Reactions: No Reported Reaction Past Psychological History: No Psychological Hx Reported Smoking Status: Former smoker Past Alcohol Use History: None Reported Additional Past Alcohol Use History / Comment(s): Quit smoking 20 yrs ago. Past Drug Use History: None Reported - Past Family History Brother(s) History Unknown: Yes Family Medical History: Cancer Additional Family Medical History / Comment(s): Skin cancer Medications and Allergies Home Medications Medication Instructions Recorded Confirmed Type Ezetimibe [Zetia] 10 mg PO PC-SUPPER 09/03/22 01/02/23 History Apixaban [Eliquis] 2.5 mg PO DAILY 12/24/22 01/02/23 History Aspirin [Adult Low Dose Aspirin EC] 81 mg PO DAILY 12/24/22 01/02/23 History Losartan [Cozaar] 25 mg PO DAILY 12/24/22 01/02/23 History carvediloL [Coreg] 6.25 mg PO DAILY 12/24/22 01/02/23 History predniSONE [Deltasone] 10 mg PO DAILY 12/24/22 01/02/23 History Famotidine [Pepcid] 20 mg PO BID PRN 01/02/23 01/02/23 History Allergies Allergy/AdvReac Type Severity Reaction Status Date / Time clindamycin AdvReac Nausea & Verified 01/02/23 23:05 Vomiting & Diarrhea & Swelling latex AdvReac red, Verified 01/02/23 23:05 cracked skin, itching streptomycin AdvReac Nausea & Verified 01/02/23 23:05 Vomiting & Diarrhea & Swelling Physical Exam Vitals: Vital Signs Temp Pulse Pulse Resp BP BP Pulse Ox 01/03/23 12:29 97.7 F 57 L 17 146/70 95 01/03/23 11:49 65 18 160/90 94 L 01/03/23 10:00 60 18 153/94 97 01/03/23 08:00 53 L 16 158/74 95 01/03/23 05:53 58 L 18 157/69 96 01/03/23 04:00 98.1 F 52 L 18 175/84 96 01/03/23 03:00 50 L 16 156/81 93 L 01/03/23 01:53 97.5 F L 54 L 16 164/88 92 L 01/02/23 23:01 55 L 18 170/95 95 01/02/23 22:45 54 L 18 173/84 95 01/02/23 22:30 54 L 18 172/97 97 01/02/23 22:15 56 L 18 171/75 96 01/02/23 22:00 56 L 18 172/94 96 01/02/23 21:38 97.9 F 59 L 18 207/84 97 Intake and Output 01/02/23 01/03/23 01/03/23 22:59 06:59 14:59 Other: Weight 77.111 kg 77.111 kg GENERAL: Well-appearing, well-nourished and in no acute distress. HEAD: Atraumatic, normocephalic. EYES: Pupils equal round and reactive to light, extraocular movements intact, sclera anicteric, conjunctiva are normal. ENT:nares patent, oropharynx clear without exudates. Moist mucous membranes. NECK: Normal range of motion, supple without lymphadenopathy or JVD, no thyromegaly LUNGS: Breath sounds clear to auscultation bilaterally and equal. No wheezes rales or rhonchi. HEART: Regular rate and rhythm without murmurs, rubs or gallops.S1S2 Normal ABDOMEN: Soft, nontender, normoactive bowel sounds. No guarding, no rebound. No masses appreciated. EXTREMITIES: Normal range of motion, no pitting or edema. No clubbing or cyanosis. NEUROLOGICAL: Cranial nerves II through XII grossly intact. Normal speech, normal gait. Muscle strength is 5 out of 5 in upper and lower extremities in all muscle groups tested PSYCH: Normal mood, normal affect. SKIN: Warm, Dry, normal turgor, no rashes or lesions noted. Results CBC & Chem 7: 01/02/23 21:51 01/03/23 05:03 Labs: Abnormal Lab Results - Last 24 Hours (Table) 01/02/23 01/02/23 01/02/23 Range/Units 21:51 21:51 21:51 RBC 3.63 L (3.80-5.40) m/uL Hct 33.5 L (34.0-46.0) % APTT 20.9 L (22.0-30.0) sec Sodium 122 L (137-145) mmol/L Potassium (3.5-5.1) mmol/L Chloride 90 L (98-107) mmol/L Carbon Dioxide (22-30) mmol/L BUN 28 H (7-17) mg/dL Creatinine 1.44 H (0.52-1.04) mg/dL Calcium (8.4-10.2) mg/dL 01/03/23 01/03/23 Range/Units 01:50 05:03 RBC (3.80-5.40) m/uL Hct (34.0-46.0) % APTT (22.0-30.0) sec Sodium 121 L 123 L (137-145) mmol/L Potassium 3.4 L (3.5-5.1) mmol/L Chloride 95 L 95 L (98-107) mmol/L Carbon Dioxide 19 L 21 L (22-30) mmol/L BUN 27 H 25 H (7-17) mg/dL Creatinine 1.40 H 1.37 H (0.52-1.04) mg/dL Calcium 7.6 L 7.9 L (8.4-10.2) mg/dL Comments: CT angiography reviewed showing mild/moderate atherosclerotic change with a mild 30% percent proximal right ICA stenosis left there is moderate disease proximally 50% proximal left ICA stenosis, moderate to severe stenosis at the origin of the left vertebral artery CT Scan - head: report reviewed (Hypodensity within the right thalamus may be increased in the interval embolus exclude some interval development of subacute or chronic ischemia, background moderate burden of chronic small vessel ischemic disease as well as old infarct) Thrombosis Risk Factor Assmnt - DVT/VTE Prophylaxis DVT/VTE Prophylaxis: Pharmacologic Prophylaxis ordered (Resume her Elequis,) - Choose All That Apply Any of the Below Risk Factors Present?: Yes Each Factor Represents 1 point: Obesity (BMI >25) Other Risk Factors: Yes Each Risk Factor Represents 3 Points: Age 75 years or older, Family history of DVT/PE, History of DVT/PE Thrombosis Risk Factor Assessment Total Risk Factor Score: 10 Thrombosis Risk Factor Assessment Level: High Risk Assessment and Plan (1) CVA (cerebral vascular accident) Current Visit: Yes Status: Acute Code(s): I63.9 - CEREBRAL INFARCTION, UNSPECIFIED SNOMED Code(s): 358486180 (2) Hyponatremia Current Visit: Yes Status: Acute Code(s): E87.1 - HYPO-OSMOLALITY AND HYPONATREMIA SNOMED Code(s): 42000301 (3) terminal gauger (current) use of anticoagulants Current Visit: Yes Status: Acute Code(s): Z79.01 - INTERMEDIATE (CURRENT) USE OF ANTICOAGULANTS SNOMED Code(s): 741012425 (4) Mixed hyperlipidemia Current Visit: Yes Status: Acute Code(s): E78.2 - MIXED HYPERLIPIDEMIA SNOMED Code(s): 227264755 (5) Essential (primary) hypertension Current Visit: Yes Status: Acute Code(s): I10 - ESSENTIAL (PRIMARY) HYPERTENSION SNOMED Code(s): 70259873 (6) Cerebral vascular disease Current Visit: Yes Status: Acute Code(s): I67.9 - CEREBROVASCULAR DISEASE, UNSPECIFIED SNOMED Code(s): 50930825 (7) CKD (chronic kidney disease) stage 3, GFR 30-59 ml/min Current Visit: Yes Status: Acute Code(s): N18.30 - CHRONIC KIDNEY DISEASE, STAGE 3 UNSPECIFIED SNOMED Code(s): 540704822 (8) Dermatomyositis Current Visit: No Status: Acute Code(s): M33.90 - DERMATOPOLYMYOSITIS, UNSP, ORGAN INVOLVEMENT UNSPECIFIED SNOMED Code(s): 617689398 (9) H/O four vessel coronary artery bypass graft Current Visit: No Status: Acute Code(s): Z95.1 - PRESENCE OF AORTOCORONARY BYPASS GRAFT SNOMED Code(s): 665689386 (10) Hyperlipemia Current Visit: No Status: Acute Code(s): E78.5 - HYPERLIPIDEMIA, UNSPECIFIED SNOMED Code(s): 68978107 (11) CAD (coronary artery disease) Current Visit: Yes Status: Acute Code(s): I25.10 - ATHSCL HEART DISEASE OF [place] CORONARY ARTERY W/O ANG PCTRS SNOMED Code(s): 30420667 (12) CAD (coronary artery disease) Current Visit: No Status: Acute Code(s): I25.10 - ATHSCL HEART DISEASE OF [place] CORONARY ARTERY W/O ANG PCTRS SNOMED Code(s): 98264789 (13) Long-term current use of steroids Current Visit: Yes Status: Acute Code(s): URO9983 - SNOMED Code(s): 710 670589 (14) Paroxysmal atrial fibrillation Current Visit: Yes Status: Acute Code(s): I48.0 - PAROXYSMAL ATRIAL FIBRILLATION SNOMED Code(s): 363799005 Plan: We'll repeat labs in a.m., consult neurology, evaluate her hyponatremia, consult nephrology and she just recently had a kidney biopsy. She had an extensive workup at her last CVA. Weight on neurology recommendations about increasing her Elequis back to twice a day and Plavix versus aspirin, note she previously had a CVA while taking aspirin and may benefit from only Plavix use. Dual t herapy. She will be on high risk due to the Elequis use., Repeat labs in a.m., reevaluated next 24 hours.
[2023-01-03] MEDS: predniSONE 10 MG TAB PO SCH (15:25)
[2023-01-03] MEDS: ASPIRIN 81 MG PO SCH (15:25)
[2023-01-03] MEDS: APIXABAN 2.5 MG TABLET PO SCH (15:25)
[2023-01-03] MEDS: LOSARTAN 25 MG TAB PO SCH (15:26)
[2023-01-03 16:00] LABS: African American GFR (CKD) 43 (>60 ml/min/1.73 sqM); Anion Gap 9 mmol/L; Blood Urea Nitrogen 21 mg/dL (7-17); Calcium 8.6 mg/dL (8.4-10.2); Carbon Dioxide 23 mmol/L (22-30); Chloride 96 mmol/L (98-107); Glucose 106 mg/dL (74-99); Non-African American GFR(CKD) 37 (>60 ml/min/1.73 sqM); Potassium 3.4 mmol/L (3.5-5.1); Sodium 128 mmol/L (137-145); Uric Acid 5.7 mg/dL (3.7-7.4)
--- NOTE | 2023-01-03 17:13 | P.CNNES ---
History of Present Illness Consult date: 01/03/23 Requesting physician: Usama Artis Reason for Consult: CVA History of Present Illness: Patient is a 77-year-old right-handed female came to the hospital yesterday at 9:36 PM for possible strokelike symptoms. Patient and her provided the history. Patient has undergone kidney biopsy last Thursday on 12/31/2022. She had stopped her Eliquis 2.5 mg daily dose and aspirin 81 mg for 5 days prior to the procedure. 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 She was doing well at the doctor's office. When she came home, she went to sleep at around 10:30 AM. She woke up around 2 PM and was appearing sluggish. Patient's noticed that she was not talking well and when she was trying to talk, sometimes it was not making sense. In the evening at around 7 PM they were watching a movie, when patient's granddaughter noticed that patient had a right facial droop, and she was drooling. She also was wobbly while walking. Her speech was slurred. Therefore patient's brought her to the hospital. Vital signs on arrival blood pressure to 7/84, pulse rate 59, temperature 97.9. Blood test shows WBC 10.4, hemoglobin 11.7, normal platelets. PT/PTT is normal, sodium 122, potassium 4.1, BU and 28, creatinine 1.44. Hepatic panel is normal, so troponin negative, CK normal, CT head showed hypodensity within the right thalamus maybe increase in the interval. Unable to exclude some interval development of subacute or chronic ischemia here now. Otherwise background moderate burden of chronic small vessel ischemic disease, as well as old cortical infarct in the left parietal occipital junction. No hemorrhage or hydrocephalus. On my review, there is evidence of old lacune's in the right thalamus, left thalamus and right basal ganglia. 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 EKG shows sinus bradycardia with first-degree AV block, chest x-ray showed cardiomegaly, with mild vascular congestion. 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 Patient had acute to subacute ischemic CVA over bilateral hemisphere, left occipital more than right, left caudate nucleus, left external capsule and right putamen. Patient currently on Eliquis 2.5 mg daily, aspirin 81 mg, losartan 25 mg, Zetia 10 mg prednisone 10 mg, Coreg 6.25 mg and Pepcid. Review of Systems Constitutional: Denies chills, Denies fever Eyes: denies blurred vision, denies diplopia, denies pain Ears: deny: decreased hearing, ear discharge Ears, nose, mouth and throat: Denies headache (Once in a while), Denies sore throat Cardiovascular: Denies chest pain, Denies shortness of breath Respiratory: Reports cough, Denies excessive sputum, Denies wheezing Gastrointestinal: Reports diarrhea, Denies abdominal pain, Denies nausea, Denies vomiting Genitourinary: Denies dysuria, Denies hematuria, Denies urge incontinence, Denies urgency Musculoskeletal: Denies low back pain, Denies myalgias, Denies neck pain Integumentary: Denies pruritus, Denies rash Neurological: Reports as per HPI Psychiatric: Denies anxiety, Denies depression Endocrine: Reports fatigue (yesterday), Denies weight change Hematologic/Lymphatic: Reports easy bruising, Denies easy bleeding Past Medical History Past Medical History: Coronary Artery Disease (CAD), Cancer, CVA/TIA, Eye Disorder, Hyperlipidemia, Hypertension, Renal Disease, Skin Disorder Additional Past Medical History / Comment(s): Beginnings of cataracts. Hx skin cancer left thigh 2 yrs ago. Hx heart blockages. PATRICIA History of Any Multi-Drug Resistant Organisms: None Reported Date of last positivie culture/infection: infected drain 20+ years prior MDRO Source:: drain Past Surgical History: Appendectomy, Cholecystectomy, Tubal Ligation Additional Past Surgical History / Comment(s): Right wrist fracture as a child. Right foot fracture. Fatty cyst removed from under right arm. Quadruple bypass 5 yrs ago with stents x2. Past Anesthesia/Blood Transfusion Reactions: No Reported Reaction Past Psychological History: No Psychological Hx Reported Smoking Status: Former smoker Past Alcohol Use History: None Reported Past Drug Use History: None Reported - Past Family History Brother(s) Family Medical History: Cancer Additional Family Medical History / Comment(s): Skin cancer Medications and Allergies Home Medications Medication Instructions Recorded Confirmed Type Ezetimibe [Zetia] 10 mg PO PC-SUPPER 09/03/22 01/02/23 History Apixaban [Eliquis] 2.5 mg PO DAILY 12/24/22 01/02/23 History Aspirin [Adult Low Dose Aspirin EC] 81 mg PO DAILY 12/24/22 01/02/23 History Losartan [Cozaar] 25 mg PO DAILY 12/24/22 01/02/23 History carvediloL [Coreg] 6.25 mg PO DAILY 12/24/22 01/02/23 History predniSONE [Deltasone] 10 mg PO DAILY 12/24/22 01/02/23 History Famotidine [Pepcid] 20 mg PO BID PRN 01/02/23 01/02/23 History Allergies Allergy/AdvReac Type Severity Reaction Status Date / Time clindamycin AdvReac Nausea & Verified 01/02/23 23:05 Vomiting & Diarrhea & Swelling latex AdvReac red, Verified 01/02/23 23:05 cracked skin, itching streptomycin AdvReac Nausea & Verified 01/02/23 23:05 Vomiting & Diarrhea & Swelling Physical Examination - Vital Signs Vital Signs: Vital Signs Temp Pulse Resp BP Pulse Ox 01/03/23 08:00 53 L 16 158/74 95 01/03/23 05:53 58 L 18 157/69 96 01/03/23 04:00 98.1 F 52 L 18 175/84 96 01/03/23 03:00 50 L 16 156/81 93 L 01/03/23 01:53 97.5 F L 54 L 16 164/88 92 L 01/02/23 23:01 55 L 18 170/95 95 01/02/23 22:45 54 L 18 173/84 95 01/02/23 22:30 54 L 18 172/97 97 01/02/23 22:15 56 L 18 171/75 96 01/02/23 22:00 56 L 18 172/94 96 01/02/23 21:38 97.9 F 59 L 18 207/84 97 Intake and Output 01/02/23 01/03/23 01/03/23 22:59 06:59 14:59 Other: Weight 77.111 kg Patient is an elderly female, very pleasant, in no acute distress. Patient is alert awake oriented to time place and person. Speech and language functions are normal. Patient can name and repeat very well. No aphasia or dysarthria. Attention, concentration and fund of knowledge is adequate. On cranial nerve examination, pupils are equal, round and reacting to light, visual love are full on confrontation, with no neglect on double simultaneous stimulation. Extraocular muscles are intact with no nystagmus. Face is symmetric, tongue protrudes to the midline. Palatal elevation and sensation normal, hearing and shoulder shrug normal, facial sensation normal. On muscle strength testing, there is no pronator drift and the strength is norm al in arms and legs distally and proximally, except hip flexion which is about 4+ bilaterally. Deep tendon reflexes are symmetric 1+ in the upper and lower limbs and plantars downgoing bilaterally. Sensory to touch is equal with no neglect on double simultaneous stimulation. Cerebellar function showed no ataxia for [id number] testing. No dysdiadochokinesia. No ataxia for [id number]-we-[id number] testing on either side. Tone and bulk of muscles normal. Gait deferred.. On general examination, there is no carotid bruit or murmur, S1-S2 audible. Chest is clear on consultation. Abdomen is soft nontender. No organomegaly, bowel sounds present. Peripheral pulses are present. No peripheral edema. Results - Laboratory Findings CBC and BMP: 01/02/23 21:51 01/03/23 14:34 Abnormal Lab Findings: Abnormal Labs 01/02/23 01/02/23 01/02/23 21:51 21:51 21:51 RBC 3.63 L Hct 33.5 L APTT 20.9 L Sodium 122 L Potassium Chloride 90 L Carbon Dioxide BUN 28 H Creatinine 1.44 H Calcium 01/03/23 01/03/23 01:50 05:03 RBC Hct APTT Sodium 121 L 123 L Potassium 3.4 L Chloride 95 L 95 L Carbon Dioxide 19 L 21 L BUN 27 H 25 H Creatinine 1.40 H 1.37 H Calcium 7.6 L 7.9 L Assessment and Plan Assessment: * Probable stroke/TIA manifesting with slurred speech, facial droop, weakness, which now seems to have resolved. Patient was off Eliquis for 5 days prior to her kidney biopsy that was done last Thursday on 12/31/2022. Patient resumed Eliquis earlier during the day prior to onset of stroke symptoms. * Hyponatremia * Previous history of CVA 09/04/2022 * Hypertension * Hyperlipidemia * Chronic renal disease Plan: * Patient probably has stroke/TIA. Patient feels she is back to baseline. All deficits have resolved. * Resume Eliquis. Patient is taking Eliquis 2.5 mg once a day, although the standard dosing for renal disease patient is 2.5 mg twice a day. Suggest optimizing the dose of Eliquis, if no contraindications. Continue aspirin. * CTA head showed: No large vessel intracranial arterial occlusion, significant stenosis or aneurysm. * CTA of the neck showed: Mild to moderate atherosclerotic change with 30% proximal right ICA stenosis. About 50% proximal left ICA stenosis. Moderate to severe stenosis at the origin of the left vertebral artery. * Patient had a CANELO performed 09/06/2022, which revealed aortic valve with normal function without significant aortic stenosis or regurgitation. mild MR, No evidence of PFO. Left atrial appendage is free of clot. Left ventricular ejection fraction 55%. Moderate to severe descending aortic a therosclerosis. * Fasting a.m. lipid panel with cholesterol 194, LDL 112, HDL 53, triglycerides 141. Continue Zetia. Patient cannot take statins because of previous history of rhabdomyolysis. * Hemoglobin A1c 6.4 on 09/05/2022. * Optimize control of blood pressure. * Treatment of hyponatremia as per IM. Nephrology on board. * Telemetry monitoring rule out any arrhythmia * PT, OT, speech therapy * DVT prophylaxis: Continue Eliquis * If remains stable overnight, then she is clear for discharge from neurology standpoint. * Thank you for the consult.
[2023-01-03] MEDS: POTASSIUM CHLORIDE ER 20 MEQ TAB.ER PO SCH ×2 (17:17→18:26)
[2023-01-03] MEDS ORDERED: EZETIMIBE 10 MG TAB PO SCH (18:30)
[2023-01-03 23:28] LABS: Potassium,Urine Random 8.6 mmol/L (25.0-125.0)
[2023-01-04 00:38] VITALS: RESP 18
[2023-01-04] MEDS: SODIUM CHLORIDE 0.9% 1,000 ML IV SCH ×2 (06:26→11:39)
[2023-01-04] MEDS ORDERED: carvediloL 6.25 MG TAB PO SCH (07:30)
[2023-01-04] MEDS: LOSARTAN 25 MG TAB PO SCH (07:35)
[2023-01-04] MEDS: predniSONE 10 MG TAB PO SCH (07:35)
[2023-01-04] MEDS: APIXABAN 2.5 MG TABLET PO SCH (07:35)
[2023-01-04] MEDS: ASPIRIN 81 MG PO SCH (07:35)
[2023-01-04 07:50] LABS: Basophils % (A) 0 %; Eosinophils # (A) 0.1 k/uL (0-0.7); Eosinophils % (A) 1 %; HCT 35.6 % (34.0-46.0); HGB 11.7 gm/dL (11.4-16.0); Lymphocytes # (A) 2.2 k/uL (1.0-4.8); Lymphocytes % (A) 20 %; MCH 31.7 pg (25.0-35.0); MCHC 32.9 g/dL (31.0-37.0); MCV 96.4 fL (80.0-100.0); Mean Platelet Volume 7.3; Monocytes # (A) 0.9 k/uL (0-1.0); Monocytes % (A) 8 %; Neutrophils # (A) 7.8 k/uL (1.3-7.7); Neutrophils % (A) 70 %; Platelet Count 253 k/uL (150-450); RDW 13.5 % (11.5-15.5); WBC 11.1 k/uL (3.8-10.6)
[2023-01-04 08:17] LABS: African American GFR (CKD) 39 (>60 ml/min/1.73 sqM); Anion Gap 6 mmol/L; Blood Urea Nitrogen 21 mg/dL (7-17); Calcium 8.6 mg/dL (8.4-10.2); Carbon Dioxide 21 mmol/L (22-30); Chloride 108 mmol/L (98-107); Glucose 85 mg/dL (74-99); Magnesium 1.9 mg/dL (1.6-2.3); Non-African American GFR(CKD) 34 (>60 ml/min/1.73 sqM); Potassium 4.3 mmol/L (3.5-5.1); Sodium 135 mmol/L (137-145)
[2023-01-04 11:42] VITALS: BP 157/85; PULSE 66; TEMP 98
--- NOTE | 2023-01-04 13:08 | P.DS ---
Providers Date of admission: 01/02/23 22:52 Attending physician: Wade Palacio Consults: 01/02/23 22:53 Consult Physician Routine Consulting Provider: Denise Frankel Consult Reason/Comments: cva Do you want consulting provider notified?: Yes 01/02/23 22:54 Consult Physician Routine Consulting Provider: Laura Ramírez Consult Reason/Comments: hyponatremia Do you want consulting provider notified?: Yes Primary care physician: Wade Palacio - Discharge Diagnosis(es) (1) TIA (transient ischemic attack) Current Visit: Yes Status: Acute (2) H/O: CVA (cerebrovascular accident) Current Visit: Yes Status: Acute (3) Hyponatremia Current Visit: Yes Status: Resolved (4) exterminator termite (current) use of anticoagulants Current Visit: Yes Status: Acute (5) Mixed hyperlipidemia Current Visit: Yes Status: Acute (6) Essential (primary) hypertension Current Visit: Yes Status: Acute (7) Cerebral vascular disease Current Visit: Yes Status: Acute (8) CKD (chronic kidney disease) stage 3, GFR 30-59 ml/min Current Visit: Yes Status: Acute (9) Dermatomyositis Current Visit: No Status: Acute (10) H/O four vessel coronary artery bypass graft Current Visit: No Status: Acute (11) Hyperlipemia Current Visit: No Status: Acute (12) CAD (coronary artery disease) Current Visit: No Status: Acute (13) Long-term current use of steroids Current Visit: Yes Status: Acute (14) Paroxysmal atrial fibrillation Current Visit: Yes Status: Acute Hospital Course: Magnolia is a 77-year-old female well known to the practice. 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 possibly related to statin use. Her reports left facial droop and slurred speech. This brought emergency room and her symptoms are resolved this time. In mid-August she was placed on Plavix due to the fact that she had a CVA on aspirin. She is also been on steroids for the past several months. Also of note she takes Elequis daily only Currently bedside is her . Patient denies any significant complaints this time. No chest pain pressure shortness of breath nausea vomiting. No weakness of any musculature. Vital signs are currently stable. Laboratory studies show a new hyponatremia, but improved kidney function from last week. GFR is currently 38. 01/04/2023: Patient's been cleared by neurology. She's been asymptomatic overnight. She has resolution of her symptoms after hospital admission. Suggesting TIA. Her dose of Elequis was listed as 2.5 mg daily. It is recommended that she be dose to twice a day. She had stopped it originally for a kidney biopsy. She does remain on steroids for the necrotizing vasculitis. I discussed this all with the patient reviewed neurology notes. At this point since she's had a CTA, CANELO recently, and appears to be stable she'll be discharged home with outpatient follow-up. Patient Condition at Discharge: Fair Plan - Discharge Summary Discharge Rx Participant: No New Discharge Prescriptions: New Apixaban [Eliquis] 2.5 mg PO BID tab Continue Ezetimibe [Zetia] 10 mg PO PC-SUPPER predniSONE [Deltasone] 10 mg PO DAILY carvediloL [Coreg] 6.25 mg PO DAILY Losartan [Cozaar] 25 mg PO DAILY Aspirin [Adult Low Dose Aspirin EC] 81 mg PO DAILY Famotidine [Pepcid] 20 mg PO BID PRN PRN Reason: Heartburn Discontinued Apixaban [Eliquis] 2.5 mg PO DAILY Discharge Medication List Ezetimibe [Zetia] 10 mg PO PC-SUPPER 09/03/22 [History] Aspirin [Adult Low Dose Aspirin EC] 81 mg PO DAILY 12/24/22 [History] Losartan [Cozaar] 25 mg PO DAILY 12/24/22 [History] carvediloL [Coreg] 6.25 mg PO DAILY 12/24/22 [History] predniSONE [Deltasone] 10 mg PO DAILY 12/24/22 [History] Famotidine [Pepcid] 20 mg PO BID PRN 01/02/23 [History] Apixaban [Eliquis] 2.5 mg PO BID tab 01/04/23 [Rx] Follow up Appointment(s)/Referral(s): Wade Palacio Jr, DO [Primary Care Provider] - 1-2 days Discharge Disposition: HOME SELF-CARE
[2023-01-04] MEDS ORDERED: APIXABAN 2.5 MG TABLET PO SCH (21:00)
== END 2023-01-04 13:50 | disposition home or self-care (01) | DRG 69 ==
LOC: EC 21:36 → 3SCARD 22:52
PROVIDERS: ADMIT Family Medicine; ATTEND Family Medicine
DX: G45.9 Transient cerebral ischemic attack, unspecified (principal); E87.1 Hypo-osmolality and hyponatremia; M33.90 Dermatopolymyositis, unspecified, organ involvement unspecified; E11.22 Type 2 diabetes mellitus with diabetic chronic kidney disease; E78.2 Mixed hyperlipidemia; G43.009 Migraine without aura, not intractable, without status migrainosus; I11.0 Hypertensive heart disease with heart failure; I25.10 Atherosclerotic heart disease of native coronary artery without angina pectoris; Z79.52 Long term (current) use of systemic steroids; I44.0 Atrioventricular block, first degree; I48.0 Paroxysmal atrial fibrillation; Z79.01 Long term (current) use of anticoagulants; N18.30 Chronic kidney disease, stage 3 unspecified; R29.810 Facial weakness; Z79.82 Long term (current) use of aspirin; Z85.828 Personal history of other malignant neoplasm of skin; Z87.891 Personal history of nicotine dependence; Z95.1 Presence of aortocoronary bypass graft; Z88.1 Allergy status to other antibiotic agents; Z91.040 Latex allergy status; Z98.42 Cataract extraction status, left eye; Z98.41 Cataract extraction status, right eye; Z90.49 Acquired absence of other specified parts of digestive tract; Z98.51 Tubal ligation status
CPT/HCPCS: 36415; 70450; 70496; 70498; 71045; 80048; 80053; 80061; 82550; 83735; 83930; 83935; 84133; 84300; 84484; 84550; 85025; 85610; 85730; 93005; 94760; 96360; 96361; 99291

== ENCOUNTER → 2023-04-23 | Outpatient (CLI) | payer MEDICARE ==
--- NOTE | 2023-04-24 08:49 | MM ---
Reason for Exam: Screening (asymptomatic). Last mammogram was performed 1 year(s) and 6 month(s) ago. Patient History: Menarche at age 15. Patient has no children. Postmenopausal. Other cancer, age 71. Estrogen for 15 years, 6 months, from age 45 until age 60. Progesterone for 15 years, 6 months, from age 45 until age 60. Hormonal Contraceptives for 2 months. Risk Values: Elena 5 year model risk: 2.0%. NCI Lifetime model risk: 4.2%. Prior Study Comparison: 09/30/2019 Bilateral Screening Mammogram, [facility]. 10/08/2020 Bilateral Screening Mammogram, [facility]. 10/31/2021 Bilateral MG 3D screening mammo w/cad, [facility]. Tissue Density: The breasts are heterogeneously dense, which may obscure small masses. Findings: Analyzed By CAD. There is no suspicious group of microcalcifications or new suspicious mass in either breast. Overall Assessment: Benign, BI-RAD 2 Management: Screening Mammogram of both breasts in 1 year. . Patient should continue monthly self-breast exams. A clinical breast exam by your physician is recommended on an annual basis. This exam should not preclude additional follow-up of suspicious palpable abnormalities. Note on Elena scores and lifetime risk: 1. A Elena score greater than 3% is considered moderate risk. If this is the case, consider specialist referral to assess eligibility for a risk reducing agent. 2. If overall lifetime risk for the development of breast cancer is 20% or higher, the patient may qualify for future screening with alternating mammogram and breast MRI. Electronically signed and approved by: Dev Crystal M.D. Radiologis
== END | disposition home or self-care (01) ==
LOC: RADMAMWWP 10:55
PROVIDERS: ATTEND Obstetrics & Gynecology
DX: Z12.31 Encounter for screening mammogram for malignant neoplasm of breast (principal); Z78.0 Asymptomatic menopausal state
CPT/HCPCS: 77063; 77067

== ENCOUNTER 2023-07-05 06:21 | Inpatient (IN) | payer MEDICARE ==
--- NOTE | 2023-07-05 06:32 | ED ---
General Adult HPI - General Stated complaint: SOB Time Seen by Provider: 07/05/23 06:26 Source: patient, EMS, RN notes reviewed Mode of arrival: EMS Limitations: no limitations - History of Present Illness Initial comments: 78-year-old female presents emergency department with chief complaint of shortness of breath. Patient states that she has had increasing chest congestion shortness of breath she states she smoked years ago but very minimal no history of COPD denies history of CHF. Patient states she has increasing chest congestion which she is coughed up phlegm states that she noticed some blood within it. Patient denies any history of blood clots patient is on Eliqu is currently. Patient reports no known fever patient denies chest pain EMS reported patient was hypoxic in 70s upon arrival specimen 4 L and bumped up to mid upper 80s. - Related Data Home Medications Medication Instructions Recorded Confirmed Ezetimibe [Zetia] 10 mg PO PC-SUPPER 09/03/22 01/02/23 Aspirin [Adult Low Dose Aspirin EC] 81 mg PO DAILY 12/24/22 01/02/23 Losartan [Cozaar] 25 mg PO DAILY 12/24/22 01/02/23 carvediloL [Coreg] 6.25 mg PO DAILY 12/24/22 01/02/23 Dapagliflozin Propanediol [Farxiga] 5 mg PO DAILY 07/05/23 07/05/23 Escitalopram [Lexapro] 10 mg PO DAILY 07/05/23 07/05/23 predniSONE 5 mg PO DAILY 07/05/23 07/05/23 Previous Rx's Medication Instructions Recorded Apixaban [Eliquis] 2.5 mg PO BID tab 01/04/23 Allergies Allergy/AdvReac Type Severity Reaction Status Date / Time clindamycin AdvReac Nausea & Verified 07/05/23 09:05 Vomiting & Diarrhea & Swelling latex AdvReac red, Verified 07/05/23 09:05 cracked skin, itching streptomycin AdvReac Nausea & Verified 07/05/23 09:05 Vomiting & Diarrhea & Swelling Review of Systems ROS Statement: Those systems with pertinent positive or pertinent negative responses have been documented in the HPI. ROS Other: All systems not noted in ROS Statement are negative. Past Medical History Past Medical History: Coronary Artery Disease (CAD), Cancer, CVA/TIA, Eye Disorder, Hyperlipidemia, Hypertension, Renal Disease, Skin Disorder Additional Past Medical History / Comment(s): Beginnings of cataracts. Hx skin cancer left thigh 2 yrs ago. Hx heart blockages. PATRICIA History of Any Multi-Drug Resistant Organisms: None Reported Date of last positivie culture/infection: infected drain 20+ years prior MDRO Source:: drain Past Surgical History: Appendectomy, Cholecystectomy, Tubal Ligation Additional Past Surgical History / Comment(s): Right wrist fracture as a child. Right foot fracture. Fatty cyst removed from under right arm. Quadruple bypass 5 yrs ago with stents x2. Past Anesthesia/Blood Transfusion Reactions: No Reported Reaction Past Psychological History: No Psychological Hx Reported Smoking Status: Former smoker Past Alcohol Use History: None Reported Past Drug Use History: None Reported - Past Family History Brother(s) History Unknown: Yes Family Medical History: Cancer Additional Family Medical History / Comment(s): Skin cancer General Exam Limitations: no limitations General appearance: alert, in no apparent distress Head exam: Present: atraumatic, normocephalic, normal inspection Eye exam: Present: normal appearance, PERRL, EOMI. Absent: scleral icterus, conjunctival injection, periorbital swelling ENT exam: Present: normal exam, mucous membranes moist Neck exam: Present: normal inspection. Absent: tenderness, meningismus, lymphadenopathy Respiratory exam: Present: respiratory distress, wheezes, rhonchi, decreased breath sounds. Absent: normal lung sounds bilaterally, rales, stridor Cardiovascular Exam: Present: regular rate, normal rhythm, normal heart sounds. Absent: systolic murmur, diastolic murmur, rubs, gallop, clicks GI/Abdominal exam: Present: soft, normal bowel sounds. Absent: distended, tenderness, guarding, rebound, rigid Neurological exam: Present: alert. Absent: motor sensory deficit Skin exam: Present: warm, dry, intact, normal color. Absent: rash Course Vital Signs 07/05/23 07/05/23 07/05/23 06:24 06:37 06:38 Temperature 98.1 F Pulse Rate 120 H 110 H Respiratory 20 20 Rate Blood Pressure 119/64 O2 Sat by Pulse 89 L Oximetry 07/05/23 07/05/23 07/05/23 06:47 07:55 08:30 Temperature 99.5 F Pulse Rate 112 H 84 85 Respiratory 22 20 Rate Blood Pressure 111/56 109/52 O2 Sat by Pulse 97 96 Oximetry EKG Findings - EKG Comments: EKG Findings:: EKG performed at 6: 39 sinus tachycardia rate of 107 LA 207 QRS 89 QT/QTc 335/398 - EKG Results: EKG: interpreted by JULIA Medical Decision Making - Medical Decision Making Was pt. sent in by a medical professional or institution (, PA, FURNITURE INSTALLER, urgent care, hospital, or half-way...) When possible be specific @ -No Did you speak to anyone other than the patient for history (EMS, parent, family, police, friend...)? What history was obtained from this source @ -No Did you review nursing and triage notes (agree or disagree)? Why? @ -I reviewed and agree with nursing and triage notes Were old charts reviewed (outside hosp., previous admission, EMS record, old EKG, old radiological studies, urgent care reports/EKG's, half-way records)? Report findings @ -No old charts were reviewed Differential Diagnosis (chest pain, altered mental status, abdominal pain women, abdominal pain men, vaginal bleeding, weakness, fever, dyspnea, syncope, headache, dizziness, GI bleed, back pain, seizure, CVA, palpatations, mental health, musculoskeletal)? @ -Differential Dyspnea: Coronary syndrome, arrhythmia, tamponade, asthma, COPD, pulmonary embolism, pneumonia, pneumothorax, pulmonary effusion, anaphylaxis, diabetic ketoacidosis, flailed chest, pulmonary contusion, diaphragmatic rupture, anemia, neuromuscular, this is not meant to be an all-inclusive list. EKG interpreted by me (3pts min.). @ -As above X-rays interpreted by me (1pt min.). @ -Chest x-ray shows extensive pulmonary infiltrates without notable effusion CT interpreted by me (1pt min.). @ -None done U/S interpreted by me (1pt. min.). @ -None done What testing was considered but not performed or refused? (CT, X-rays, U/S, labs)? Why? @ -None What meds were considered but not given or refused? Why? @ -None Did you discuss the management of the patient with other professionals (professionals i.e. , TJ, FURNITURE INSTALLER, lab, RT, psych nurse, forensic social worker, metal checker, teacher, first aid officer, onsite case manager)? Give summary @ -Dr. Palacio for admission secondary to respiratory failure with hypoxia and bilateral pneumonia Was smoking cessation discussed for >3mins.? @ -No Was critical care preformed (if so, how long)? @ -No Were there social determinants of health that impacted care today? How? (Homelessness, low income, unemployed, alcoholism, drug addiction, transportation, low edu. Level, literacy, decrease access to med. care, penitentiary, rehab)? @ -No Was there de-escalation of care discussed even if they declined (Discuss DNR or withdrawal of care, Hospice)? DNR status @ -No What co-morbidities impacted this encounter? (DM, HTN, Smoking, COPD, CAD, Cancer, CVA, ARF, Chemo, Hep., AIDS, mental health diagnosis, sleep apnea, mo rbid obesity)? @ -CABG, CAD Was patient admitted / discharged? Hospital course, mention meds given and route, prescriptions, significant lab abnormalities, going to OR and other pertinent info. @ -Knitted patient initially presented in respiratory distress with hypoxia she had respiratory failure with pulse ox in the 70s did improve after multiple breathing treatments and placed on high flow oxygen patient's chest x-ray showed bilateral pneumonia was placed on azithromycin, Rocephin, vancomycin patient did have a negative COVID-19 swab but will have a send out repeat swab. Patient will be admitted with continuation breathing treatments, antibiotics, pulmonary consult Undiagnosed new problem with uncertain prognosis? @ -No Drug Therapy requiring intensive monitoring for toxicity (Heparin, Nitro, Insulin, Cardizem)? @ -No Were any procedures done? @ -No Diagnosis/symptom? @ -Acute respiratory failure with hypoxia, bilateral pneumonia, acute kidney injury Acute, or Chronic, or Acute on Chronic? @ -Acute Uncomplicated (without systemic symptoms) or Complicated (systemic symptoms)? @ -Complicated Side effects of treatment? @ -No Exacerbation, Progression, or Severe Exacerbation? @ -No Poses a threat to life or bodily function? How? (Chest pain, [place], GA, pneumonia, PE, COPD, DKA, ARF, appy, cholecystitis, CVA, Diverticulitis, Homicidal, Suicidal, threat to staff... and all critical care pts) @ -Yes respiratory failure causing respiratory arrest - Lab Data Result diagrams: 07/05/23 06:28 07/05/23 06:28 Lab Results 07/05/23 07/05/23 07/05/23 Range/Units 06:28 06:28 06:28 WBC 14.5 H (3.8-10.6) k/uL RBC 2.70 L (3.80-5.40) m/uL Hgb 8.4 L (11.4-16.0) gm/dL Hct 27.1 L (34.0-46.0) % MCV 100.3 H (80.0-100.0) fL MCH 31.2 (25.0-35.0) pg MCHC 31.1 (31.0-37.0) g/dL RDW 12.9 (11.5-15.5) % Plt Count 319 (150-450) k/uL MPV 7.7 Neutrophils % 78 % Lymphocytes % 12 % Monocytes % 5 % Eosinophils % 4 % Basophils % 0 % Neutrophils # 11.3 H (1.3-7.7) k/uL Lymphocytes # 1.8 (1.0-4.8) k/uL Monocytes # 0.7 (0-1.0) k/uL Eosinophils # 0.5 (0-0.7) k/uL Basophils # 0.1 (0-0.2) k/uL PT 11.0 (10.0-12.5) sec INR 1.0 (<1.2) APTT 25.2 (22.0-30.0) sec Sodium 134 L (137-145) mmol/L Potassium 4.1 (3.5-5.1) mmol/L Chloride 108 H (98-107) mmol/L Carbon Dioxide 16 L (22-30) mmol/L Anion Gap 10 mmol/L BUN 54 H (7-17) mg/dL Creatinine 3.04 H (0.52-1.04) mg/dL Est GFR (CKD-EPI)AfAm 17 (>60 ml/min/1.73 sqM) Est GFR (CKD-EPI)NonAf 14 (>60 ml/min/1.73 sqM) Glucose 196 H (74-99) mg/dL Plasma Lactic Acid Burt (0.7-2.0) mmol/L Calcium 8.1 L (8.4-10.2) mg/dL Magnesium 1.6 (1.6-2.3) mg/dL Total Bilirubin 0.5 (0.2-1.3) mg/dL AST 35 (14-36) U/L ALT 26 (4-34) U/L Alkaline Phosphatase 65 (38-126) U/L Troponin I (0.000-0.034) ng/mL NT-Pro-B Natriuret Pep 739 pg/mL Total Protein 5.8 L (6.3-8.2) g/dL Albumin 3.1 L (3.5-5.0) g/dL Influenza Type A (PCR) (Not Detectd) Influenza Type B (PCR) (Not Detectd) RSV (PCR) (Not Detectd) SARS-CoV-2 (PCR) (Not Detectd) 07/05/23 07/05/23 07/05/23 Range/Units 06:28 06:28 07:10 WBC (3.8-10.6) k/uL RBC (3.80-5.40) m/uL Hgb (11.4-16.0) gm/dL Hct (34.0-46.0) % MCV (80.0-100.0) fL MCH (25.0-35.0) pg MCHC (31.0-37.0) g/dL RDW (11.5-15.5) % Plt Count (150-450) k/uL MPV Neutrophils % % Lymphocytes % % Monocytes % % Eosinophils % % Basophils % % Neutrophils # (1.3-7.7) k/uL Lymphocytes # (1.0-4.8) k/uL Monocytes # (0-1.0) k/uL Eosinophils # (0-0.7) k/uL Basophils # (0-0.2) k/uL PT (10.0-12.5) sec INR (<1.2) APTT (22.0-30.0) sec Sodium (137-145) mmol/L Potassium (3.5-5.1) mmol/L Chloride (98-107) mmol/L Carbon Dioxide (22-30) mmol/L Anion Gap mmol/L BUN (7-17) mg/dL Creatinine (0.52-1.04) mg/dL Est GFR (CKD-EPI)AfAm (>60 ml/min/1.73 sqM) Est GFR (CKD-EPI)NonAf (>60 ml/min/1.73 sqM) Glucose (74-99) mg/dL Plasma Lactic Acid Butr 1.8 (0.7-2.0) mmol/L Calcium (8.4-10.2) mg/dL Magnesium (1.6-2.3) mg/dL Total Bilirubin (0.2-1.3) mg/dL AST (14-36) U/L ALT (4-34) U/L Alkaline Phosphatase (38-126) U/L Troponin I 0.023 (0.000-0.034) ng/mL NT-Pro-B Natriuret Pep pg/mL Total Protein (6.3-8.2) g/dL Albumin (3.5-5.0) g/dL Influenza Type A (PCR) Not Detected (Not Detectd) Influenza Type B (PCR) Not Detected (Not Detectd) RSV (PCR) Not Detected (Not Detectd) SARS-CoV-2 (PCR) Not Detected (Not Detectd) Critical Care Time Critical Care Time: Yes Total Critical Care Time: 35 Disposition Clinical Impression: Bilateral pneumonia, Acute respiratory failure with hypoxia, Acute kidney injury Disposition: ADMITTED IP TO THIS HOSP Condition: Poor Referrals: Vinh Lindsey MD [STAFF PHYSICIAN] - 1-2 days Time of Disposition: 08:45
[2023-07-05] MEDS: methylPREDNISolone SOD SUCCI 125 MG/2 ML VIAL IV STA (06:34)
[2023-07-05] MEDS: IPRATROPIUM-ALBUTEROL 3 ML NEB INHALATION STA (06:37)
[2023-07-05 06:47] LABS: Basophils # (A) 0.1 k/uL (0-0.2); Basophils % (A) 0 %; Eosinophils # (A) 0.5 k/uL (0-0.7); Eosinophils % (A) 4 %; HCT 27.1 % (34.0-46.0); HGB 8.4 gm/dL (11.4-16.0); Lymphocytes # (A) 1.8 k/uL (1.0-4.8); Lymphocytes % (A) 12 %; MCH 31.2 pg (25.0-35.0); MCHC 31.1 g/dL (31.0-37.0); MCV 100.3 fL (80.0-100.0); Mean Platelet Volume 7.7; Monocytes # (A) 0.7 k/uL (0-1.0); Monocytes % (A) 5 %; Neutrophils # (A) 11.3 k/uL (1.3-7.7); Neutrophils % (A) 78 %; Platelet Count 319 k/uL (150-450); RDW 12.9 % (11.5-15.5); WBC 14.5 k/uL (3.8-10.6)
[2023-07-05 06:59] LABS: ALT 26 U/L (4-34); AST 35 U/L (14-36); African American GFR (CKD) 17 (>60 ml/min/1.73 sqM); Albumin 3.1 g/dL (3.5-5.0); Alkaline Phosphatase 65 U/L (38-126); Anion Gap 10 mmol/L; Blood Urea Nitrogen 54 mg/dL (7-17); Calcium 8.1 mg/dL (8.4-10.2); Carbon Dioxide 16 mmol/L (22-30); Chloride 108 mmol/L (98-107); Glucose 196 mg/dL (74-99); Magnesium 1.6 mg/dL (1.6-2.3); Non-African American GFR(CKD) 14 (>60 ml/min/1.73 sqM); Potassium 4.1 mmol/L (3.5-5.1); Sodium 134 mmol/L (137-145); Total Bilirubin 0.5 mg/dL (0.2-1.3); Total Protein 5.8 g/dL (6.3-8.2)
[2023-07-05 07:06] LABS: NT-Pro-B-Type Natriuretic Pept 739 pg/mL
--- NOTE | 2023-07-05 07:07 | XR ---
EXAMINATION TYPE: XR chest 2V DATE OF EXAM: 07/05/2023 COMPARISON: Chest x-ray January 02, 2023 HISTORY: Difficulty in breathing TECHNIQUE: Frontal and lateral views of the chest are obtained. FINDINGS: There are new left lung central consolidations. There is new right lower lung opacity. The re is some silhouetting of the left heart border. The cardiac silhouette size is stable and within no rmal limits. Overlying loop recorder is seen. Overlying sternal wires are redemonstrated. The osseo us structures are intact. No pleural effusion or pneumothorax seen bilaterally. IMPRESSION: New right lower lung pneumonic consolidation and/or edema. More prominent diffuse left l sherrie pneumonic consolidation and/or edema.
[2023-07-05 07:24] LABS: Partial Thromboplastin Time 25.2 sec (22.0-30.0)
[2023-07-05] MEDS: SODIUM CHLORIDE 0.9% 1,000 ML IV SCH (07:45)
[2023-07-05] MEDS: SODIUM CHLORIDE 0.9% 500 ML 500 ML IV ONE (07:47)
[2023-07-05] MEDS: AZITHROMYCIN 500 MG in SODIUM CHLORIDE 0.9% 250 ML IVPB STA (08:32)
[2023-07-05] MEDS ORDERED: VANCOMYCIN IV PER PHARMACY 1 EACH MISC MISCELLANE PRN (08:44)
[2023-07-05] MEDS ORDERED: IPRATROPIUM-ALBUTEROL 3 ML NEB INHALATION PRN (08:45)
[2023-07-05] MEDS ORDERED: PNEUMONIA PROTOCOL UTILIZED 1 EACH MISC PO PRN (08:45)
[2023-07-05] MEDS: VANCOMYCIN 1,250 MG in SODIUM CHLORIDE 0.9% 250 ML IVPB STA (09:36)
[2023-07-05] MEDS ORDERED: ACETAMINOPHEN TAB 325 MG TAB PO PRN (09:51)
[2023-07-05] MEDS: IPRATROPIUM-ALBUTEROL 3 ML NEB INHALATION SCH (12:16)
--- NOTE | 2023-07-05 12:19 | P.HPIM ---
History of Present Illness H&P Date: 07/05/23 Chief Complaint: dyspnea, fever patient is a 78-year-old female well-known to my practice presented to [facility] emergency room with a chief complaint of dyspnea exertional dyspnea intermittent fever cough and definite shortness of breath Review of Systems Constitutional: Reports chills, Reports fever, Reports night sweats, Reports weakness Ears, nose, mouth and throat: Reports sore throat Cardiovascular: Reports as per HPI Respiratory: Reports congestion, Reports cough with sputum, Reports pain on inspiration Gastrointestinal: Reports as per HPI Genitourinary: Reports as per HPI Menstruation: Reports postmenopausal Musculoskeletal: Reports as per HPI Integumentary: Reports as per HPI Neurological: Reports as per HPI Past Medical History Past Medical History: Coronary Artery Disease (CAD), Cancer, CVA/TIA, Eye Disorder, Hyperlipidemia, Hypertension, Renal Disease, Skin Disorder Additional Past Medical History / Comment(s): Hx skin cancer left thigh. Hx heart blockages. chronic kidney disease, vasculitis History of Any Multi-Drug Resistant Organisms: None Reported Date of last positivie culture/infection: infected drain 20+ years prior MDRO Source:: drain Past Surgical History: Appendectomy, Cholecystectomy, Coronary Bypass/CABG, Heart Catheterization With Stent, Tubal Ligation Additional Past Surgical History / Comment(s): Right wrist fracture as a child, had surgery. Right foot fracture, no surgery. Fatty cyst removed from under right arm. Quadruple bypass. Cardiac stents x2, bilat cataracts, skin cancer removal Past Anesthesia/Blood Transfusion Reactions: No Reported Reaction Date of Last Stent Placement:: 03/20/2019 Past Psychological History: No Psychological Hx Reported Smoking Status: Former smoker Past Alcohol Use History: None Reported Additional Past Alcohol Use History / Comment(s): Quit smoking 20 yrs ago. Past Drug Use History: None Reported - Past Family History Brother(s) History Unknown: Yes Family Medical History: Cancer Additional Family Medical History / Comment(s): Skin cancer Medications and Allergies Home Medications Medication Instructions Recorded Confirmed Type Ezetimibe [Zetia] 10 mg PO HS 09/03/22 07/05/23 History Aspirin [Adult Low Dose Aspirin EC] 81 mg PO DAILY 12/24/22 07/05/23 History Losartan [Cozaar] 25 mg PO DAILY 12/24/22 07/05/23 History carvediloL [Coreg] 6.25 mg PO BID 12/24/22 07/05/23 History Apixaban [Eliquis] 2.5 mg PO BID tab 01/04/23 07/05/23 Rx Dapagliflozin Propanediol [Farxiga] 5 mg PO DAILY 07/05/23 07/05/23 History Escitalopram [Lexapro] 10 mg PO DAILY 07/05/23 07/05/23 History predniSONE 5 mg PO DAILY 07/05/23 07/05/23 History Allergies Allergy/AdvReac Type Severity Reaction Status Date / Time clindamycin AdvReac Nausea & Verified 07/05/23 09:05 Vomiting & Diarrhea & Swelling latex AdvReac red, Verified 07/05/23 09:05 cracked skin, itching streptomycin AdvReac Nausea & Verified 07/05/23 09:05 Vomiting & Diarrhea & Swelling Physical Exam Osteopathic Statement: *. No significant issues noted on an osteopathic structural exam other than those noted in the History and Physical/Consult. Vitals: Vital Signs Temp Pulse Resp BP Pulse Ox 07/05/23 10:45 99.4 F 73 18 121/60 98 07/05/23 10:05 99.5 F 80 19 117/57 94 L 07/05/23 09:18 82 20 129/69 95 07/05/23 08:30 85 20 109/52 96 07/05/23 07:55 99.5 F 84 22 111/56 97 07/05/23 06:47 112 H 07/05/23 06:38 20 07/05/23 06:37 110 H 07/05/23 06:24 98.1 F 120 H 20 119/64 89 L Intake and Output 07/04/23 07/05/23 07/05/23 22:59 06:59 14:59 Other: Weight 72.575 kg 72.575 kg General: [Patient awake, alert and oriented times 3. Patient in no acute distress.] HEENT: [PERRL. EOMI. No pharyngeal erythema or exudate.] Neck: [No adenopathy.] Cardiac: [Heart regular in rate and rhythm. No S3. No S4. No clicks, rubs. No murmur.] Lungs: significant rhonchi bilateral lung love Abdomen: [No mass. No organomegaly. Bowel sounds presnt and normoactive in all 4 quadrants.] Extremes: [No edema no cyanosis no claudication normal pulses] : normal female genitalia Musculoskeletal: [No joint erythema, edema or tenderness.] Skin: [No rash.] Neurologic: [No lateralizing deficits. CN II - XII grossly intact.] Lymphatic: [No adenopathy.] Results CBC & Chem 7: 07/05/23 06:28 07/05/23 06:28 Labs: Abnormal Lab Results - Last 24 Hours (Table) 07/05/23 07/05/23 Range/Units 06:28 06:28 WBC 14.5 H (3.8-10.6) k/uL RBC 2.70 L (3.80-5.40) m/uL Hgb 8.4 L (11.4-16.0) gm/dL Hct 27.1 L (34.0-46.0) % MCV 100.3 H (80.0-100.0) fL Neutrophils # 11.3 H (1.3-7.7) k/uL Sodium 134 L (137-145) mmol/L Chloride 108 H (98-107) mmol/L Carbon Dioxide 16 L (22-30) mmol/L BUN 54 H (7-17) mg/dL Creatinine 3.04 H (0.52-1.04) mg/dL Glucose 196 H (74-99) mg/dL Calcium 8.1 L (8.4-10.2) mg/dL Total Protein 5.8 L (6.3-8.2) g/dL Albumin 3.1 L (3.5-5.0) g/dL Chest x-ray: other (bilateral lung love almost anum out) Thrombosis Risk Factor Assmnt - DVT/VTE Prophylaxis DVT/VTE Prophylaxis: Pharmacologic Prophylaxis ordered - Choose All That Apply Any of the Below Risk Factors Present?: Yes Each Factor Represents 1 point: Obesity (BMI >25) Other Risk Factors: Yes Each Risk Factor Represents 3 Points: Age 75 years or older Thrombosis Risk Factor Assessment Total Risk Factor Score: 4 Thrombosis Risk Factor Assessment Level: Moderate Risk Assessment and Plan (1) Acute kidney injury Current Visit: Yes Status: Acute Code(s): N17.9 - ACUTE KIDNEY FAILURE, UNSPECIFIED SNOMED Code(s): 51192822 (2) Acute respiratory failure with hypoxia Current Visit: Yes Status: Acute Code(s): J96.01 - ACUTE RESPIRATORY FAILURE WITH HYPOXIA SNOMED Code(s): 47573072 (3) Bilateral pneumonia Current Visit: Yes Status: Acute Code(s): J18.9 - PNEUMONIA, UNSPECIFIED ORGANISM SNOMED Code(s): 946221938 (4) CKD (chronic kidney disease) stage 3, GFR 30-59 ml/min Current Visit: No Status: Acute Code(s): N18.30 - CHRONIC KIDNEY DISEASE, STAGE 3 UNSPECIFIED SNOMED Code(s): 646136739 (5) H/O four vessel coronary artery bypass graft Current Visit: No Status: Acute Code(s): Z95.1 - PRESENCE OF AORTOCORONARY BYPASS GRAFT SNOMED Code(s): 342575581 (6) USP (current) use of anticoagulants Current Visit: No Status: Acute Code(s): Z79.01 - SULFUR BURNER (CURRENT) USE OF ANTICOAGULANTS SNOMED Code(s): 368726588 Plan: perihilar pneumonia Rapid Covid 19 screen negative A Covid PCR test was ordered IV antibiotics Updraft treatments Admit to hospital Consult pulmonary Time with Patient: Greater than 30
--- NOTE | 2023-07-05 13:25 | P.CNPUL ---
History of Present Illness Consult date: 07/05/23 Requesting physician: Olman Sommers Reason for consult: dyspnea, cough, hypoxemia, pneumonia, abnormal CXR/CT Chief complaint: Shortness of breath, cough, and phlegm production. History of present illness: Pulmonary consult dated July 05, 2023. 78-year-old female who presents to the emergency department, at about 620 in the morning, on July 04. She came in because she was very short of breath. She was actually brought in by EMS. She apparently has not been feeling well for about 2 days prior to admission. The patient states that she has been having shortness of breath, cough, and phlegm production, and is gotten worse over the last 2 days which is why she came in. She also was coughing up a small amount of blood. She denied any fever or chills. She denied any chest pain or chest discomfort. She apparently has a history of CVA, atrial fibrillation, hypertension, hyperlipidemia, diabetes, and vasculitis. She is seen today in room 473. She is on 15 L high flow oxygen. She is getting saline at 75 cc an hour. Labs include a white count 14.5, hemoglobin 8.4, hematocrit 27.1, and a platelet count of 319,000. Sodium 134, potassium 4.1, chlorides 108, CO2 16, anion gap 10, BUN 54, creatinine 3.04. Glucose is 196. Calcium 8.1. N- terminal proBNP of 739. Albumin 3.1. She tested negative for influenza A, influenza B, RSV, coronavirus. The patient's chest x-ray shows diffuse bilateral infiltrates. Review of Systems REVIEW OF SYSTEMS: CONSTITUTIONAL: [Negative.] NEUROLOGIC: [ Negative.] HEENT: [ Negative.] CARDIAC: [Negative.] PULMONARY: Shortness of breath, cough, chest congestion, phlegm production, and minimal hemoptysis. GI: [Negative.] : [Negative.] RHEUMATOLOGIC: [ Negative.] IMMUNOLOGIC: [ Negative.] ENDOCRINE: [Negative. ] DERMATOLOGIC: [Negative.] Past Medical History Past Medical History: Coronary Artery Disease (CAD), Cancer, CVA/TIA, Eye Disorder, Hyperlipidemia, Hypertension, Renal Disease, Skin Disorder Additional Past Medical History / Comment(s): Hx skin cancer left thigh. Hx heart blockages. chronic kidney disease, vasculitis History of Any Multi-Drug Resistant Organisms: None Reported Date of last positivie culture/infection: infected drain 20+ years prior MDRO Source:: drain Past Surgical History: Appendectomy, Cholecystectomy, Coronary Bypass/CABG, Heart Catheterization With Stent, Tubal Ligation Additional Past Surgical History / Comment(s): Right wrist fracture as a child, had surgery. Right foot fracture, no surgery. Fatty cyst removed from under right arm. Quadruple bypass. Cardiac stents x2, bilat cataracts, skin cancer removal Past Anesthesia/Blood Transfusion Reactions: No Reported Reaction Date of Last Stent Placement:: 03/20/2019 Past Psychological History: No Psychological Hx Reported Smoking Status: Former smoker Past Alcohol Use History: None Reported Additional Past Alcohol Use History / Comment(s): Quit smoking 20 yrs ago. Past Drug Use History: None Reported - Past Family History Brother(s) History Unknown: Yes Family Medical History: Cancer Additional Family Medical History / Comment(s): Skin cancer Medications and Allergies Home Medications Medication Instructions Recorded Confirmed Type Ezetimibe [Zetia] 10 mg PO HS 09/03/22 07/05/23 History Aspirin [Adult Low Dose Aspirin EC] 81 mg PO DAILY 12/24/22 07/05/23 History Losartan [Cozaar] 25 mg PO DAILY 12/24/22 07/05/23 History carvediloL [Coreg] 6.25 mg PO BID 12/24/22 07/05/23 History Apixaban [Eliquis] 2.5 mg PO BID tab 01/04/23 07/05/23 Rx Dapagliflozin Propanediol [Farxiga] 5 mg PO DAILY 07/05/23 07/05/23 History Escitalopram [Lexapro] 10 mg PO DAILY 07/05/23 07/05/23 History predniSONE 5 mg PO DAILY 07/05/23 07/05/23 History Allergies Allergy/AdvReac Type Severity Reaction Status Date / Time clindamycin AdvReac Nausea & Verified 07/05/23 09:05 Vomiting & Diarrhea & Swelling latex AdvReac red, Verified 07/05/23 09:05 cracked skin, itching streptomycin AdvReac Nausea & Verified 07/05/23 09:05 Vomiting & Diarrhea & Swelling Physical Exam Osteopathic Statement: *. No significant issues noted on an osteopathic stru ctural exam other than those noted in the History and Physical/Consult. Vitals: Vital Signs Temp Pulse Pulse Resp BP BP Pulse Ox 07/05/23 12:27 84 07/05/23 12:16 84 07/05/23 11:40 98.9 F 78 18 106/61 93 L 07/05/23 10:45 99.4 F 73 18 121/60 98 07/05/23 10:05 99.5 F 80 19 117/57 94 L 07/05/23 09:18 82 20 129/69 95 07/05/23 08:30 85 20 109/52 96 07/05/23 07:55 99.5 F 84 22 111/56 97 07/05/23 06:47 112 H 07/05/23 06:38 20 07/05/23 06:37 110 H 07/05/23 06:24 98.1 F 120 H 20 119/64 89 L Intake and Output 07/04/23 07/05/23 07/05/23 22:59 06:59 14:59 Other: Weight 72.575 kg 72.575 kg No acute distress, oriented 3. No respiratory distress, despite being on 15 L high flow oxygen. HEENT examination is grossly unremarkable. Mucous membranes are moist. No oral lesions. Neck supple. Full range of motion. No adenopathy thyromegaly or neck vein distention. Cardiovascular examination reveals regular rhythm rate. S1-S2 normal. No S3 or S4. No discernible murmur noted. Heart rate 84 bpm. Heart sounds are distant. Lungs reveal mostly clear breath sounds surprisingly. Scattered rhonchi are noted. No wheezes. Minimal crackles. Breath sounds equal. Saturations are 93 to 94%. Abdomen soft bowel sounds are heard. No masses or tenderness. Extremities are intact. No cyanosis clubbing or edema. Skin is without rash or lesion. Neurologic examination is brief but nonfocal. Results - Laboratory Findings CBC and BMP: 07/05/23 06:28 07/05/23 06:28 PT/INR, D-dimer PT 11.0 sec (10.0-12.5) 07/05/23 06:28 INR 1.0 (<1.2) 07/05/23 06:28 Abnormal lab findings: Abnormal Labs 07/05/23 07/05/23 06:28 06:28 WBC 14.5 H RBC 2.70 L Hgb 8.4 L Hct 27.1 L MCV 100.3 H Neutrophils # 11.3 H Sodium 134 L Chloride 108 H Carbon Dioxide 16 L BUN 54 H Creatinine 3.04 H Glucose 196 H Calcium 8.1 L Total Protein 5.8 L Albumin 3.1 L - Diagnostic Findings Chest x-ray: image reviewed Assessment and Plan Assessment: Acute hypoxemic respiratory failure, secondary to bilateral pneumonia. History of previous CVA. History of chronic atrial fibrillation. History of hypertension. History of hyperlipidemia. History of chronic renal failure, secondary to vasculitis. History of diabetes mellitus. Plan: Plan dated July 05, 2023. The patient was seen in the emergency department, and admitted to the hospital. The patient was started on azithromycin, and ceftriaxone. The patient was also given breathing treatments with albuterol sulfate and ipratropium bromide. The patient was also started on vancomycin, down in the emergency room. The patient is getting saline at 75 cc an hour. The patient continues on Eliquis for her chronic atrial fibrillation. Patient has been on prednisone 5 mg a day, for quite some time, and probably should get stress doses of steroids. I will order stat cortisol level, and start the patient on hydrocortisone 50 mg every 6 hours. In addition, we will get a procalcitonin level. Additional recommendations and suggestions are forthcoming. Medically, despite being on 15 L high flow oxygen, with saturations of 93 to 94%. The patient does not appear to be short of breath. Time with Patient: Greater than 30
[2023-07-05 14:01] LABS: Glucose,Whole Blood 413 mg/dL (70-110)
[2023-07-05 14:44] LABS: ABG Base Excess -9.9 mmol/L; ABG HCO3 16 mmol/L (21-25); ABG Oxygen Saturation 99.4 % (94-97); ABG PCO2 34 mmHg (35-45); ABG PH 7.28 (7.35-7.45); ABG PO2 151 mmHg (83-108); Allen Test Performed? Yes
[2023-07-05] MEDS: HYDROCORTISONE SUCCINATE 100 MG/2 ML VIAL IV SCH (18:38)
[2023-07-05] MEDS: SODIUM BICARB 8.4% 50 ML SYR (1 MEQ/ML) IV STA (18:40)
[2023-07-05] MEDS ORDERED: SODIUM CHLORIDE 0.9% 1,000 ML IV SCH (18:45)
[2023-07-05] MEDS: carvediloL 6.25 MG TAB PO SCH (21:32)
[2023-07-05] MEDS: APIXABAN 2.5 MG TABLET PO SCH (21:33)
[2023-07-05] MEDS: EZETIMIBE 10 MG TAB PO SCH (21:33)
[2023-07-05 23:13] VITALS: BP 107/56; PULSE 96; RESP 22; TEMP 97.4
[2023-07-06 06:59] LABS: Glucose,Whole Blood 165 mg/dL (70-110)
[2023-07-06] MEDS ORDERED: SODIUM BICARB 8.4% 50 ML SYR (1 MEQ/ML) ONE (07:23)
[2023-07-06] MEDS ORDERED: MAGNESIUM SULFATE SYG 4.06 MEQ/ML SYRINGE ONE (07:23)
[2023-07-06] MEDS ORDERED: EPINEPHrine 10 ML SYRINGE (0.1 MG/ML) ONE (07:23)
[2023-07-06 07:26] LABS: Glucose,Whole Blood 252 mg/dL (70-110)
[2023-07-06] MEDS ORDERED: NALOXONE 0.4 MG/ML 1 ML VIAL IV PRN (07:35)
[2023-07-06] MEDS ORDERED: MAGNESIUM SULFATE-D5W PMX 1 GM in DEXTROSE/WATER 1 100ML.BAG IVPB SCH (08:00)
[2023-07-06] MEDS ORDERED: DOPamine DRIP 800 MG in DEXTROSE/WATER 1 250ML.BAG IV SCH (08:15)
[2023-07-06] MEDS ORDERED: LOSARTAN 25 MG TAB PO SCH (09:00)
[2023-07-06] MEDS ORDERED: PANTOPRAZOLE 40 MG/10 ML VIAL IV SCH (09:00)
[2023-07-06] MEDS ORDERED: AZITHROMYCIN 500 MG in SODIUM CHLORIDE 0.9% 250 ML IVPB SCH (09:00)
[2023-07-06] MEDS ORDERED: ASPIRIN 81 MG PO SCH (09:00)
[2023-07-06] MEDS ORDERED: CHLORHEXIDINE GLUCONATE 15 ML CUP MUCOUS MEM SCH (09:00)
[2023-07-06] MEDS ORDERED: VANCOMYCIN 1,250 MG in SODIUM CHLORIDE 0.9% 250 ML IVPB ONE (09:00)
[2023-07-06] MEDS ORDERED: DAPAGLIFLOZIN PROPANEDIOL 5 MG TABLET PO SCH (09:00)
[2023-07-06] MEDS ORDERED: ESCITALOPRAM 10 MG TAB PO SCH (09:00)
--- NOTE | 2023-07-06 16:51 | P.EN ---
Patient found to be in asystole, CPR started at 0723. Code called overhead. On arrival, patient having blood in her mouth, pale appearing. During initial. A total of 3 epi were given, and bicarb. Patient was intubated, with iris blood on suction. Achieved ROSC at 0730. Per nurse, blood sugar was within normal limits right before the code. Initial rhythm after ROSC was sinus tach/junctional tachycardia. Patient was started on Levophed, as well as IV fluids. Taken down to the ICU where patient again lost pulse, PEA at 0742. Received another 2 of epi, bicarb, magnesium. She did have V-fib rhythm at 1 point, was shocked. Throughout the code patient lost pulses multiple times and had ROSC briefly. She did get ROSC again at 0754. Communicated directly with who elected for DNR. Communicated with nurse, patient did lose pulse again and briefly thereafter. Total of 50 minutes of critical care time provided.
--- NOTE | 2023-07-09 16:13 | CDI ---
Documentation Clarification Form Date: 07/09/2023 03:55:15 PM From: Olesya Patino RN, CCDS Phone: [phone] Admit Date: 07/05/2023 08:32:00 AM Patient Name: Magnolia Vasques Visit Number: [id number] Discharge Date: 07/06/2023 11:37:00 AM ATTENTION: The Clinical Documentation Specialists (CDI) and [facility] Coding Staff appreciate your assistance in clarifying documentation. Please respond to the clarification below the line at the bottom and electronically sign. The CDI & [facility] Coding staff will review the response and follow-up if needed. Please note: Queries are made part of the Legal Health Record. If you have any questions, please contact the author of this message via ITS. Dr. Wade Palacio The patient had pneumonia, elevated white count, tachycardia and developed elevated lactic acid. Based on this information and the findings below, is there an additional diagnosis that is clinically appropriate for this patient? History/Risk Factors: CAD, Ca, CVA, eye disorder, HLD, HTN, renal disease. Presented with SOB, hypoxia and chest congestion. Admitted with pneumonia and respiratory failure. Clinical Indicators: 07/04 H&P: "Acute respiratory failure with hypoxia. Bilateral pneumonia." 07/04 Pulmonary consult: "Acute hypoxemic respiratory failure, secondary to bilateral pneumonia." 07/05 Event note: "Patient found to be in asystole, CPR started at 0723.Code called overhead. Patient was intubated, with iris blood on suction. Communicated directly with who elected for DNR. Communicated with nurse, patient did lose pulse again and briefly thereafter." 07/04 WBC: 14.5 07/04-07/05 Lactic acid: 1.8-2.1-2.4-3.4-0.8 07/04 Blood cultures: no growth 07/04 Vital signs: HR 120, RR 22 Treatment: IV Solumedrol 125mg IV x1 on 07/04 Antibiotics: IV Azithromycin 500mg x1 on 07/04; IV Rocephin 2gm x1 on 07/04; IV Vancomycin 1250mg x1 on 07/04 IV Bolus: 1L 0.9 NS IV bolus x1 on 07/04 Is there an additional diagnosis that is clinically appropriate for this patient? [x ] Sepsis, present on admission [ ] Sepsis, developed during stay, not present on admission [ ] No additional diagnosis/not clinically significant [ ] Other, please specify [ ] Unable to determine SIRS Criteria: 2 or more of the following may indicate SIRS Temperature < 96.8F (36C) or > 101.0F (38.3C) Heart Rate > 90 bpm Respiratory Rate > 20 breaths/min or PaCO2 < 32 mmHg White Blood Cell Count > 12,000 or < 4,000 cells/mm3 or > 10% bands MTDD
--- NOTE | 2023-07-15 10:52 | P.DS ---
Providers Date of admission: 07/05/23 08:32 Expected date of discharge: 07/15/23 Attending physician: aWde Palacio Consults: 07/05/23 08:45 Consult Physician Routine Consulting Provider: Ty Dorsey Consult Reason/Comments: Bilateral pneumonia Do you want consulting provider notified?: Yes Primary care physician: Olman Sommers - Discharge Diagnosis(es) (1) Acute kidney injury Status: Acute (2) Acute respiratory failure with hypoxia Status: Acute (3) Bilateral pneumonia Status: Acute (4) CKD (chronic kidney disease) stage 3, GFR 30-59 ml/min Status: Acute (5) H/O four vessel coronary artery bypass graft Status: Acute (6) skilled nursing (current) use of anticoagulants Status: Acute Procedures: Patient Condition at Discharge: Critical Plan - Discharge Summary Discharge Rx Participant: No New Discharge Prescriptions: No Action Ezetimibe [Zetia] 10 mg PO HS carvediloL [Coreg] 6.25 mg PO BID Losartan [Cozaar] 25 mg PO DAILY Aspirin [Adult Low Dose Aspirin EC] 81 mg PO DAILY Apixaban [Eliquis] 2.5 mg PO BID tab Dapagliflozin Propanediol [Farxiga] 5 mg PO DAILY Escitalopram [Lexapro] 10 mg PO DAILY predniSONE 5 mg PO DAILY Discharge Medication List Ezetimibe [Zetia] 10 mg PO HS 09/03/22 [History] Aspirin [Adult Low Dose Aspirin EC] 81 mg PO DAILY 12/24/22 [History] Losartan [Cozaar] 25 mg PO DAILY 12/24/22 [History] carvediloL [Coreg] 6.25 mg PO BID 12/24/22 [History] Apixaban [Eliquis] 2.5 mg PO BID tab 01/04/23 [Rx] Dapagliflozin Propanediol [Farxiga] 5 mg PO DAILY 07/05/23 [History] Escitalopram [Lexapro] 10 mg PO DAILY 07/05/23 [History] predniSONE 5 mg PO DAILY 07/05/23 [History] Follow up Appointment(s)/Referral(s): Vinh Lindsey MD [STAFF PHYSICIAN] - 1-2 days Discharge Disposition: - Preliminary Cause of Preliminary Cause of : heart failure, pneumonia
== END 2023-07-06 11:37 | disposition expired | DRG 871 ==
LOC: EC 06:21 → 4SSUR 08:32 → 3SCARD 15:56 → 2SICU 07-06 07:38
PROVIDERS: ADMIT Family Medicine; ATTEND Family Medicine
PROC: 5A09357 Assistance with Respiratory Ventilation, Less than 24 Consecutive Hours, Continuous Positive Airway Pressure (ICD-10-PCS; principal; 2023-07-05)
PROC: 5A12012 Performance of Cardiac Output, Single, Manual (ICD-10-PCS; 2023-07-06)
PROC: 0BH17EZ Insertion of Endotracheal Airway into Trachea, Via Natural or Artificial Opening (ICD-10-PCS; 2023-07-06)
PROC: 3E043XZ Introduction of Vasopressor into Central Vein, Percutaneous Approach (ICD-10-PCS; 2023-07-06)
PROC: 5A1935Z Respiratory Ventilation, Less than 24 Consecutive Hours (ICD-10-PCS; 2023-07-06)
DX: A41.9 Sepsis, unspecified organism (principal); J18.9 Pneumonia, unspecified organism; J96.01 Acute respiratory failure with hypoxia; I48.20 Chronic atrial fibrillation, unspecified; N17.9 Acute kidney failure, unspecified; R04.2 Hemoptysis; I12.9 Hypertensive chronic kidney disease with stage 1 through stage 4 chronic kidney disease, or unspecified chronic kidney disease; I46.8 Cardiac arrest due to other underlying condition; I49.01 Ventricular fibrillation; I77.6 Arteritis, unspecified; E11.22 Type 2 diabetes mellitus with diabetic chronic kidney disease; N18.30 Chronic kidney disease, stage 3 unspecified; I25.10 Atherosclerotic heart disease of native coronary artery without angina pectoris; E78.5 Hyperlipidemia, unspecified; Z66 Do not resuscitate; Z79.01 Long term (current) use of anticoagulants; Z79.82 Long term (current) use of aspirin; Z79.84 Long term (current) use of oral hypoglycemic drugs; Z79.899 Other long term (current) drug therapy; Z85.828 Personal history of other malignant neoplasm of skin; Z86.73 Personal history of transient ischemic attack (TIA), and cerebral infarction without residual deficits; Z95.1 Presence of aortocoronary bypass graft; Z95.5 Presence of coronary angioplasty implant and graft; Z20.822 Contact with and (suspected) exposure to COVID-19; Z87.891 Personal history of nicotine dependence
CPT/HCPCS: 36415; 36600; 71046; 80053; 82533; 82805; 83605; 83735; 83880; 84145; 84484; 85025; 85610; 85730; 87040; 87070; 87205; 87449; 87636; 92950; 93005; 94002; 94640; 94660; 96361; 96365; 96367; 96375; 99285; 99291